=== PATIENT | male | born 1955 | race Caucasian/White ===

== ENCOUNTER 2017-03-15 00:50 | Inpatient (IN) | payer MEDICARE, OTHER ==
[2017-03-15] MEDS ORDERED: NITROGLYCERIN SL TABS 0.4 MG TAB SUBLINGUAL STA (01:21)
[2017-03-15] MEDS ORDERED: ASPIRIN 81 MG CHEW PO STA (01:21)
[2017-03-15 01:46] LABS: Basophils # (A) 0.1 k/uL (0-0.2); Basophils % (A) 1 %; CH 32.6; Eosinophils # (A) 0.6 k/uL (0-0.7); Eosinophils % (A) 5 %; HCT 43.7 % (39.0-53.0); HDW 2.42; HGB 14.4 gm/dL (13.0-17.5); Luc # (Auto) 0.17; Luc % (Auto) 2; Lymphocytes # (A) 3.4 k/uL (1.0-4.8); Lymphocytes % (A) 30 %; MCH 31.7 pg (25.0-35.0); MCHC 32.9 g/dL (31.0-37.0); MCV 96.3 fL (80.0-100.0); Mean Platelet Volume 7.6; Monocytes # (A) 0.6 k/uL (0-1.0); Monocytes % (A) 5 %; Neutrophils # (A) 6.7 k/uL (1.3-7.7); Neutrophils % (A) 58 %; RBC 4.53 m/uL (4.30-5.90); RDW 14.4 % (11.5-15.5); WBC 11.5 k/uL (3.8-10.6); WBC (Perox) 11.23
[2017-03-15 01:51] LABS: ALT 33 U/L (21-72); AST 18 U/L (17-59); Alkaline Phosphatase 100 U/L (38-126); Amylase 83 U/L (30-110); Anion Gap 11 mmol/L; Blood Urea Nitrogen 26 mg/dL (9-20); Calcium 8.9 mg/dL (8.4-10.2); Carbon Dioxide 18 mmol/L (22-30); Chloride 110 mmol/L (98-107); Glucose 103 mg/dL (74-99); Magnesium 1.5 mg/dL (1.6-2.3); Non-African American GFR(MDRD) 56 (>60 ml/min/1.73 sqM); Sodium 139 mmol/L (137-145); Total Bilirubin 0.3 mg/dL (0.2-1.3); Total Protein 6.4 g/dL (6.3-8.2)
[2017-03-15 01:56] LABS: Partial Thromboplastin Time 22.8 sec (22.0-30.0)
--- NOTE | 2017-03-15 02:13 | XR ---
EXAM: XR Chest, 1 View CLINICAL HISTORY: Reason: chest pain TECHNIQUE: Frontal view of the chest. COMPARISON: No relevant prior studies available. FINDINGS: Lungs: Unremarkable. No consolidation. Pleural space: Unremarkable. No pneumothorax. Heart: Unremarkable. No cardiomegaly. Mediastinum: Unremarkable. Bones/joints: Unremarkable. Tubes, lines and devices: Single lead cardiac pacemaker is noted. Other findings: Round opacity projecting over the lateral left mid thorax measured to 2.6 cm. IMPRESSION: Round opacity projecting over the lateral left mid thorax measuring up to 2.6 cm. Findings are nonspecific. In the absence of prior imaging demonstrating stability, consider CT of the chest.
[2017-03-15 02:19] LABS: Creatine Kinase MB 0.9 ng/mL (0.0-2.4); Troponin I 0.029 ng/mL (0.000-0.034)
[2017-03-15] MEDS ORDERED: RX INFO: IV CONTRAST WAS GIVEN 1 EACH MISC MISCELLANE PRN (05:53)
[2017-03-15] MEDS ORDERED: NITROGLYCERIN SL TABS 0.4 MG TAB SUBLINGUAL PRN ×2 (05:53→14:01)
[2017-03-15] MEDS ORDERED: MAGNESIUM SULFATE-D5W PMX 1 GM in DEXTROSE/WATER 1 100ML.BAG IVPB ONE (05:53)
--- NOTE | 2017-03-15 05:56 | ED ---
Chest Pain HPI - General Chief Complaint: Chest Pain Stated Complaint: chest pain Time Seen by Provider: 03/15/17 00:57 Source: patient Mode of arrival: EMS Limitations: no limitations - History of Present Illness Initial Comments: This patient is a 61-year-old man brought by EMS to be evaluated after he developed right upper chest pain about 2 days ago. The patient describes it as a aching. He has also had a bit of a cough associated. Patient states that he is feeling a bit better after he was given nitroglycerin by EMS. MD Complaint: chest pain Onset/Timin -: days(s) Onset: during rest Pain Location: right chest Pain Radiation: none Severity: moderate Quality: dull Consistency: constant Improves With: nitroglycerin Worsens With: nothing Anginal Symptoms: dyspnea Other Symptoms: cough Treatments Prior to Arrival: aspirin, nitroglycerin - Related Data Home Medications Medication Instructions Recorded Confirmed Atorvastatin Calcium [Lipitor] 20 mg PO DAILY 03/15/17 03/15/17 Carvedilol Phosphate [Coreg Cr] 20 mg PO HS 03/15/17 03/15/17 Lisinopril [Lisinopril] 20 mg PO BID 03/15/17 03/15/17 amLODIPine [Norvasc] 10 mg PO DAILY 03/15/17 03/15/17 Allergies Allergy/AdvReac Type Severity Reaction Status Date / Time Penicillins Allergy Rash/Hives Verified 03/15/17 07:16 Review of Systems ROS Statement: Those systems with pertinent positive or pertinent negative responses have been documented in the HPI. ROS Other: All systems not noted in ROS Statement are negative. Constitutional: Denies: fever, chills Respiratory: Reports: cough. Denies: dyspnea, wheezes, hemoptysis Cardiovascular: Reports: chest pain. Denies: palpitations, edema, syncope Gastrointestinal: Denies: abdominal pain, vomiting, diarrhea Genitourinary: Denies: dysuria, hematuria Musculoskeletal: Denies: back pain Skin: Denies: rash Neurological: Denies: headache, weakness, numbness Psychiatric: Reports: anxiety EKG Findings - EKG Results: EKG: interpreted by MARK, sinus rhythm, normal ST/T EKG shows: bradycardia (Rate approximately 54 bpm) - Blocks, [place], Hypertrophy, ST Abn: QRS axis and voltage: left axis deviation (-30 to -90) Chamber hypertrophy or enlargement: only voltage criteria for left ventricular hypertrophy Past Medical History Past Medical History: Hypertension, Myocardial Infarction ([place]) Additional Past Medical History / Comment(s): TESTICULAR CANCER, PACEMAKER/ DEFIBRILATOR History of Any Multi-Drug Resistant Organisms: None Reported Past Surgical History: Orthopedic Surgery Past Psychological History: No Psychological Hx Reported Smoking Status: Current every day smoker Past Alcohol Use History: Occasional Past Drug Use History: Marijuana - Past Family History Father Family Medical History: Coronary Artery Disease (CAD) Additional Family Medical History / Comment(s): Father at the age of 80yrs from heart disease. Mother Family Medical History: No Reported History Additional Family Medical History / Comment(s): Mother is healthy and is 79yrs old. General Exam Limitations: no limitations General appearance: alert, in no apparent distress Head exam: Present: atraumatic, normocephalic Eye exam: Present: normal appearance. Absent: scleral icterus, conjunctival injection ENT exam: Present: normal oropharynx Neck exam: Present: normal inspection, full ROM Respiratory exam: Present: normal lung sounds bilaterally, wheezes, chest wall tenderness. Absent: respiratory distress, rales, rhonchi, stridor Cardiovascular Exam: Present: regular rate, normal rhythm, normal heart sounds. Absent: systolic murmur, diastolic murmur, rubs, gallop GI/Abdominal exam: Present: soft. Absent: distended, tenderness, guarding, rebound, mass Extremities exam: Present: normal inspection, normal capillary refill. Absent: pedal edema, calf tenderness Back exam: Present: normal inspection. Absent: CVA tenderness (R), CVA tenderness (L) Neurological exam: Present: alert Skin exam: Present: warm, dry, intact, normal color. Absent: rash Course Vital Signs 03/15/17 03/15/17 03/15/17 00:54 01:08 01:35 Temperature 96.9 F L Pulse Rate 56 L 61 63 Respiratory 18 18 18 Rate Blood Pressure 86/49 146/92 149/97 O2 Sat by Pulse 95 97 98 Oximetry 03/15/17 03/15/17 03/15/17 02:50 03:24 05:00 Temperature Pulse Rate 58 L 58 L 57 L Respiratory 18 18 18 Rate Blood Pressure 171/95 173/102 197/104 O2 Sat by Pulse 97 99 98 Oximetry 03/15/17 03/15/17 05:24 07:37 Temperature 97.2 F L Pulse Rate 62 66 Respiratory 18 16 Rate Blood Pressure 196/102 180/107 O2 Sat by Pulse 98 96 Oximetry Chest Pain MDM - MDM Patient is a 61-year-old man with some atypical chest pain however there was relief with nitroglycerin, will admit the patient to have telemetry monitoring and serial cardiac enzymes. Disposition Clinical Impression: Chest pain Disposition: ADMITTED IP TO THIS HOSP Condition: Fair
--- NOTE | 2017-03-15 07:48 | CT ---
EXAMINATION TYPE: CT chest angio for PE DATE OF EXAM: 03/15/2017 COMPARISON: CTA chest March 14, 2012, chest x-ray earlier today. HISTORY: Patient complains of right side chest pain. CT DLP: 552 mGycm. Automated Exposure Control for Dose Reduction was Utilized. CONTRAST: CTA scan of the thorax is performed with IV Contrast, patient injected with 100 mL of Visipaque 320, pulmonary embolism protocol. MIP Images are created on CT scanner and reviewed. FINDINGS: LUNGS: There is trace right-sided effusion. There is background mild to borderline moderate emphysema tous change. There is mild biapical scarring. There is additional bibasilar scarring and/or atelectas is. Scarlike nodularity in the lingula measuring 9 x 8 mm on axial image [address] La rger well-circumscribed nodule anterior and superior to this is increased in size measuring 2.3 x 2.3 cm on current study now abutting the pleural surface on axial image 110. A 1.3 x 1.3 cm nodule super ior posterior medial to this on axial image 99 is stable in size from prior study. No pneumothorax is seen bilaterally. Tracheobronchial tree is patent. MEDIASTINUM: There is satisfactory enhancement of the pulmonary artery and its branches, there is no CT evidence for pulmonary embolism. There are no greater than 1 cm hilar or mediastinal lymph nodes. There are prominent but subcentimeter AP window, paratracheal, bilateral hilar, and subcarinal lymp h nodes noted. No cardiomegaly is seen. Tiny pericardial effusion is redemonstrated. Mild to moderate left atrial dilatation is again seen. There is heterogeneity likely on basis of mixing of contrast o pacified blood from SVC and noncontrast nonopacified blood from IVC, other etiologies are not exclude d. Coronary artery calcification is redemonstrated. There is 4 vessel origin from aortic arch, normal variant. There is moderate mixed plaque in the visualized aorta. New single lead pacemaker/AICD is p resent. OTHER: No additional significant abnormality is seen. IMPRESSION: 1. No CT evidence for pulmonary embolism. 2. Mild to moderate emphysematous change with trace right pleural effusion and scattered atelectasis and/or scarring most pronounced in bases. There are left-sided lower pulmonary nodules redemonstrated . Corresponding to chest x-ray abnormality there is nodule increasing in size from CT 2012. Other nod ules are stable. Neoplasm cannot be excluded. Consider PET/CT or imaging guided biopsy for further an alysis. 2.
[2017-03-15] MEDS ORDERED: HEPARIN SODIUM,PORCINE 5,000 UNIT/ML 1 ML VIAL IV PRN ×2 (08:28→15:23)
[2017-03-15] MEDS ORDERED: CARVEDILOL 6.25 MG TAB PO SCH (08:30)
--- NOTE | 2017-03-15 08:32 | P.CRDCN ---
History of Present Illness Consult date: 03/15/17 Requesting physician: Regis Valdez Consult reason: chest pain Chief complaint: Chest pain History of present illness: This is a 61-year-old gentleman with history of coronary artery disease and prior stent placement, ischemic cardiomyopathy with prior AICD implant, chest pain, hyperlipidemia, nicotine dependence, history of a prior testicular cancer, EtOH use, emphysema, he follows with Dr. Jones in the office. Patient presents to the hospital with symptoms of right sided chest pain which he describes as a constant ache in his chest. Patient states he did get mildly diaphoretic with the pain, denies shortness of breath or nausea. He does state that the pain is constant however he feels that if he presses on the chest and let go that the pain intensifies. At the time of my examination this morning he has mild chest discomfort. Initial blood pressure via EMS was 205/ 142 with a heart rate in the 70s. Initial EKG shows a sinus bradycardia with minimal ST depression in the lateral leads. Patient states he was recently discontinued on his Coreg and started on metoprolol tartrate because he had been experiencing dizziness. He also states that he had not yet taken one of those medications, however he did stop taking the Coreg. Blood pressure this morning 144/98 with a heart rate in the 80s. WBC 11.5, hemoglobin 14.4, platelets 182. D-dimer 1.3, potassium 4.0, BUN 26, creatinine 1.3. Magnesium level I.5, initial troponin 0.029. Initial chest x-ray revealed a round opaque to be projecting over the lateral left mid thorax measuring up to 2.6 cm, findings nonspecific. CTA of the chest was performed which did not reveal evidence of a pulmonary embolism. Mild to moderate emphysema changes with a trace right pleural effusion and scattered atelectasis. There are left-sided lower pulmonary nodules redemonstrated. Corresponding the chest x-ray abnormality there is a nodule increased in size from the CAT scan performed in 2011. The other nodules are stable. Neoplasm cannot be excluded PET scan or computed tomography scan imaging guided biopsy recommended. Past Medical History Past Medical History: Hypertension, Myocardial Infarction ([place]) Additional Past Medical History / Comment(s): TESTICULAR CANCER, PACEMAKER/ DEFIBRILATOR History of Any Multi-Drug Resistant Organisms: None Reported Past Surgical History: Orthopedic Surgery Past Psychological History: No Psychological Hx Reported Smoking Status: Current every day smoker Past Alcohol Use History: Occasional Past Drug Use History: Marijuana Medications and Allergies Home Medications Medication Instructions Recorded Confirmed Type Atorvastatin Calcium [Lipitor] 20 mg PO DAILY 03/15/17 03/15/17 History Carvedilol Phosphate [Coreg Cr] 20 mg PO HS 03/15/17 03/15/17 History Lisinopril [Lisinopril] 20 mg PO BID 03/15/17 03/15/17 History amLODIPine [Norvasc] 10 mg PO DAILY 03/15/17 03/15/17 History Allergies Allergy/AdvReac Type Severity Reaction Status Date / Time Penicillins Allergy Rash/Hives Verified 03/15/17 07:16 Physical Exam Vitals: Vital Signs Temp Pulse Pulse Resp BP BP Pulse Ox 03/15/17 07:51 96.0 F L 80 16 144/99 98 03/15/17 07:40 97.2 F L 66 16 180/107 96 03/15/17 07:37 97.2 F L 66 16 180/107 96 03/15/17 05:24 62 18 196/102 98 03/15/17 05:00 57 L 18 197/104 98 03/15/17 03:24 58 L 18 173/102 99 03/15/17 02:50 58 L 18 171/95 97 03/15/17 01:35 63 18 149/97 98 03/15/17 01:08 61 18 146/92 97 03/15/17 00:54 96.9 F L 56 L 18 86/49 95 Intake and Output 03/14/17 03/15/17 03/15/17 22:59 06:59 14:59 Other: Weight 83.915 kg PHYSICAL EXAMINATION: HEENT: Head is atraumatic, normocephalic. Pupils equal, round. Neck is supple. There is no elevated jugular venous pressure. HEART EXAMINATION: Heart S1, S2 normal. No murmur or gallop heard. CHEST EXAMINATION: Lungs reveal fine crackles to bilateral bases with diminished air entry. ABDOMEN: Soft, nontender. Bowel sounds are heard. No organomegaly noted. EXTREMITIES: 2+ peripheral pulses with no evidence of peripheral edema and no calf tenderness noted. NEUROLOGIC patient is awake, alert and oriented -3. . Results 03/15/17 01:00 03/15/17 01:00 Cardiac Enzymes 03/15/17 03/15/17 Range/Units 01:00 01:00 AST 18 (17-59) U/L CK-MB (CK-2) 0.9 (0.0-2.4) ng/mL Troponin I 0.029 (0.000-0.034) ng/mL Coagulation 03/15/17 Range/Units 01:00 PT 10.0 (9.0-12.0) sec APTT 22.8 (22.0-30.0) sec CBC 03/15/17 Range/Units 01:00 WBC 11.5 H (3.8-10.6) k/uL RBC 4.53 (4.30-5.90) m/uL Hgb 14.4 (13.0-17.5) gm/dL Hct 43.7 (39.0-53.0) % Plt Count 182 (150-450) k/uL Comprehensive Metabolic Panel 03/15/17 Range/Units 01:00 Sodium 139 (137-145) mmol/L Potassium 4.0 (3.5-5.1) mmol/L Chloride 110 H (98-107) mmol/L Carbon Dioxide 18 L (22-30) mmol/L BUN 26 H (9-20) mg/dL Creatinine 1.30 H (0.66-1.25) mg/dL Glucose 103 H (74-99) mg/dL Calcium 8.9 (8.4-10.2) mg/dL AST 18 (17-59) U/L ALT 33 (21-72) U/L Alkaline Phosphatase 100 (38-126) U/L Total Protein 6.4 (6.3-8.2) g/dL Albumin 3.7 (3.5-5.0) g/dL Current Medications Generic Name Dose Route Start Last Admin Trade Name Freq PRN Reason Stop Dose Admin Amlodipine Besylate 10 mg 03/15/17 09:00 Norvasc PO DAILY [facility] Aspirin 325 mg 03/16/17 09:00 Aspirin PO DAILY [facility] Atorvastatin Calcium 20 mg 03/15/17 09:00 Lipitor PO DAILY [facility] Enoxaparin Sodium 40 mg 03/15/17 09:00 Lovenox SQ DAILY [facility] Miscellaneous Information 1 each 03/15/17 05:53 Rx Info: Iv Contrast Was Given MISCELLANE 03/17/17 05:53 DAILY PRN Per Protocol Nitroglycerin 0.4 mg 03/15/17 05:53 03/15/17 07:21 Nitrostat SUBLINGUAL 0.4 mg Q5M PRN Administration Chest Pain Non-Formulary Medication 20 mg 03/15/17 21:00 Carvedilol Phosphate [Coreg Cr] PO HS [facility] Intake and Output 03/14/17 03/15/17 03/15/17 22:59 06:59 14:59 Other: Weight 83.915 kg 03/15/17 01:00 03/15/17 01:00 EKG Interpretations (text) EKG shows a sinus bradycardia with lateral ST depression. Evidence of LVH strain pattern Assessment and Plan Plan: Assessment and plan #1 chest discomfort, rule out acute coronary syndrome. Initial troponin 0.029. EKG shows a sinus bradycardia with minimal ST depression in the lateral leads. #2 hypertensive urgency #3 history of hypertension #4 coronary artery disease history with prior stent placement to the LAD in 2011 #5 hyperlipidemia #6 nicotine dependence #7 ischemic cardiomyopathy with prior AICD implant #8 EtOH use #9 hypomagnesemia #10 lung nodule Plan We will obtain an echocardiogram with Doppler study. Discontinue Lovenox and start the patient on IV heparin. Decrease Norvasc to 5 mg daily. Decrease aspirin 81 mg daily. Increase Lipitor to 40 mg daily, replace magnesium. Obtained to further troponin values. We will review the patient's prior cath and angioplasty report as well as prior EKG. Further recommendations will be based on these findings and the patient's clinical course. DNP note has been reviewed, I agree with a documented findings and plan of care. Patient was seen and examined.
[2017-03-15 08:41] LABS: Creatine Kinase MB 1.1 ng/mL (0.0-2.4); Troponin I 0.024 ng/mL (0.000-0.034)
[2017-03-15 08:43] LABS: Basophils # (A) 0.1 k/uL (0-0.2); Basophils % (A) 1 %; CH 32.3; CHCM 33.7; Eosinophils # (A) 0.4 k/uL (0-0.7); Eosinophils % (A) 4 %; HCT 48.4 % (39.0-53.0); HDW 2.42; HGB 15.8 gm/dL (13.0-17.5); Luc # (Auto) 0.13; Luc % (Auto) 1; Lymphocytes # (A) 2.7 k/uL (1.0-4.8); Lymphocytes % (A) 25 %; MCH 31.5 pg (25.0-35.0); MCHC 32.7 g/dL (31.0-37.0); MCV 96.3 fL (80.0-100.0); Mean Platelet Volume 7.7; Monocytes # (A) 0.4 k/uL (0-1.0); Monocytes % (A) 4 %; Neutrophils % (A) 66 %; RBC 5.03 m/uL (4.30-5.90); RDW 14.4 % (11.5-15.5); WBC 10.7 k/uL (3.8-10.6); WBC (Perox) 10.26
[2017-03-15] MEDS ORDERED: HEPARIN SODIUM,PORCINE 5,000 UNIT/ML 1 ML VIAL IV ONE (08:45)
[2017-03-15 08:46] LABS: Partial Thromboplastin Time 23.4 sec (22.0-30.0)
--- NOTE | 2017-03-15 08:46 | P.PN ---
Progress Note - Text This is an addendum to the dictated cardiology consultation. The patient has a known history of CAD, post stenting of the LAD in October 2009 and a long segment, history of severe ischemic cardiomyopathy and ICD implantation, noncompliant who presented to the hospital with right-sided chest discomfort different from symptoms that he had at the time of his event in 2009. The patient was started on a new beta pablo recently and according to him every evening when he takes his medication he has right sided chest discomfort at times better when he pushes on the chest wound. His activity level is unchanged , he has mild dyspnea on exertion but no exertional chest pain. He has no clear PND or orthopnea or recent arrhythmia. He has no discharge from the device but his device has not been evaluated in over 3 years. Unfortunately the patient continues to smoke and he drinks large amount of beer almost every other day. On his physical examination there is no signs of heart failure and he is in sinus mechanism His EKG shows sinus mechanism with T-wave changes on the lateral leads that was noted in the past and his initial troponin is within normal range. The patient presents with symptoms of chest discomfort unclear etiology, his pain appear to be atypical for ischemic heart disease. I would recommend to start him on heparin, beta pablo and his MIRNA inhibitor. An echocardiogram with Doppler will be obtained. Depending on the trend of his enzymes and his symptoms further recommendations will be made. I have discussed with the patient the importance of compliance with his follow-up as well as smoking and alcohol cessation. Thank you for this consult we will follow with you.
[2017-03-15] MEDS ORDERED: ATORVASTATIN 20 MG TAB PO SCH (09:00)
[2017-03-15] MEDS ORDERED: amLODIPine 10 MG TAB PO SCH (09:00)
[2017-03-15] MEDS ORDERED: HEPARIN SODIUM,PORCINE/D5W PMX 25,000 UNIT in DEXTROSE/WATER 1 500ML.BAG IV SCH ×2 (09:00→16:00)
[2017-03-15] MEDS ORDERED: ENOXAPARIN 40 MG/0.4 ML SYRINGE SQ SCH (09:00)
[2017-03-15] MEDS ORDERED: REGADENOSON 0.4 MG/5 ML SYRINGE IV ONE (09:49)
[2017-03-15] MEDS ORDERED: AMINOPHYLLINE 500 MG/20 ML VIAL IV PRN (09:49)
--- NOTE | 2017-03-15 12:24 | ECHOF ---
Referral Reason:cm MEASUREMENTS -------- HEIGHT: 185.4 cm WEIGHT: 83.9 kg BP: 144/99 RVIDd: 2.7 cm (< 3.3) IVSd: 1.7 cm (0.6 - 1.1) LVIDd: 5.3 cm (3.9 - 5.3) LVPWd: 1.5 cm (0.6 - 1.1) IVSs: 1.9 cm LVIDs: 4.4 cm LVPWs: 2.0 cm LAESV Index (A-L): 36.97 ml/m Ao Diam: 4.2 cm (2.0 - 3.7) AV Cusp: 1.1 cm (1.5 - 2.6) LA Diam: 3.0 cm (2.7 - 3.8) MV EXCURSION: 15.271 mm (> 18.000) MV EF SLOPE: 48 mm/s (70 - 150) EPSS: 1.8 cm MV E Gregory: 0.58 m/s MV DecT: 278 ms MV A Gregory: 1.04 m/s MV E/A Ratio: 0.56 AV maxP.80 mmHg AV meanP.66 mmHg RAP: 5.00 mmHg RVSP: 27.77 mmHg FINDINGS -------- Resting bradycardia (HR<60bpm). This was a technically adequate study. There is moderate concentric left ventricular hypertrophy. Overall left ventricular systolic function is moderately impaired with, an EF between 35 - 40 %. The right ventricle is normal in size and function. LA is moderately dilated 34-39 ml/m2 The right atrium is normal in size. Electronic pacemaker lead seen in the right ventricular cavity. Aortic valve is trileaflet and is mildly thickened. Trace amount of aortic regurgitation. Mild aortic stenosis with peak/mean pressure gradient of 14.80mmHg / 9.66mmHg , the aortic valve area by continuity equation is 1.2cm. The mitral valve leaflets are mildly thickened. Mild mitral annular calcification present. There is trace to mild mitral regurgitation. Trace tricuspid regurgitation present. There is no evidence of pulmonary hypertension. The right ventricular systolic pressure, as measured by Doppler, is 27.77mmHg. The pulmonic valve was not well visualized. The aortic root size is normal. Normal inferior vena cava with normal inspiratory collapse consistent with estimated right atrial pressure of 5 mmHg. The pericardium is normal. There is no pericardial effusion. CONCLUSIONS -------- 1. Resting bradycardia (HR<60bpm). 2. The mitral valve leaflets are mildly thickened. 3. Mild mitral annular calcification present. 4. There is trace to mild mitral regurgitation. 5. Trace tricuspid regurgitation present. 6. There is no evidence of pulmonary hypertension. 7. The right ventricular systolic pressure, as measured by Doppler, is 27.77mmHg. 8. The pulmonic valve was not well visualized. 9. The aortic root size is normal. 10. There is no pericardial effusion. 11. This was a technically adequate study. 12. There is moderate concentric left ventricular hypertrophy. 13. Overall left ventricular systolic function is moderately impaired with, an EF between 35 - 40 %. 14. LA is moderately dilated 34-39 ml/m2 15. Electronic pacemaker lead seen in the right ventricular cavity. 16. Aortic valve is trileaflet and is mildly thickened. 17. Trace amount of aortic regurgitation. 18. Mild aortic stenosis with peak/mean pressure gradient of 14.80mmHg / 9.66mmHg , the aortic valve area by continuity equation is 1.2cm. BEDSPREAD INSPECTOR: Yonatan Duarte RDCS
[2017-03-15] MEDS: amLODIPine 5 MG TAB PO SCH (12:43)
[2017-03-15] MEDS: METOPROLOL SUCCINATE (ER) 25 MG TAB.ER.24H PO SCH (12:43)
[2017-03-15] MEDS: LISINOPRIL 5 MG TAB PO SCH ×2 (12:43→20:49)
[2017-03-15] MEDS: ATORVASTATIN 40 MG TAB PO SCH (12:43)
--- NOTE | 2017-03-15 12:48 | EST ---
DATE OF SERVICE: 03/15/2017 AGE: 61Y SEX: M HT: 6'3" WT: 185 lbs. Protocol Deondre: Other: Lexiscan Cardiolite Stage: Dur. of Exercise: *Heart Rate Blood Pressure *Rest: 63 Rest: 216/131 * *Max. Achieved: 103 Maximum BP: 204/117 85% PMHR: 136 100% PMHR: 160 *METS: INDICATIONS: Chest pain. MEDICATIONS: The patient was given Lexiscan injection over a period of 15 seconds. Peak heart rate of 103 was achieved. The resting blood pressure was 204/117 mmHg. Resting EKG shows normal sinus rhythm with QRS morphology suggestive of left ventricular hypertrophy and strain pattern. Occasional PVCs and one episode of ventricular triplet were noted. FINAL IMPRESSION: 1. This EKG is inconclusive to diagnose ischemia because of resting EKG abnormalities. 2. Occasional ventricular triplets were noted. 3. The patient's resting blood pressure is elevated. 4. The results of the nuclear study will follow.
--- NOTE | 2017-03-15 13:42 | NM ---
"EXAMINATION TYPE: NM stress lexiscan cardiolite DATE OF EXAM: 03/15/2017 COMPARISON: 03/15/2012 HISTORY: Chest pain TECHNIQUE: After the intravenous administration of 11 mCi Tc 99m Sestamibi - Cardiolite resting SPEC T images acquired 45 minutes post injection. The patient received 0.4mg Lexiscan, 26.5 mCi Tc 99m Sestamibi - Stress images obtained [address] injection FINDINGS: Review of stress and rest SPECT images demonstrates large area of stress-induced reversibility involv ing the inferior and inferolateral myocardium. Corresponding wall motion abnormality noted.. Ejection fraction is 27%. IMPRESSION: Diffuse abnormal wall motion activity with a large area of stress-induced reversible ischemia involvi ng the inferior and inferolateral myocardium. A Red message has been communicated to Regis Valdez MD via the [employer] | Critical Result sy stem on 03/15/2017 1:40 PM, Message ID [id number]."
[2017-03-15] MEDS ORDERED: hydrALAZINE HCL 20 MG/ML 1 ML VIAL IVP STA (13:56)
[2017-03-15 14:00] LABS: Troponin I 0.023 ng/mL (0.000-0.034)
[2017-03-15] MEDS ORDERED: SODIUM CHLORIDE 0.9% 1,000 ML in EMPTY BAG 1 BAG IV ONE (14:01)
[2017-03-15] MEDS ORDERED: ALPRAZolam 0.5 MG TAB PO PRN (14:01)
[2017-03-15] MEDS: NITROGLYCERIN OINT 1 INCH/GM PACKET TOPICAL SCH ×2 (14:01→20:49)
[2017-03-15] MEDS ORDERED: ALPRAZolam 0.25 MG TAB PO PRN (14:01)
[2017-03-15] MEDS ORDERED: ASPIRIN 325 MG TAB PO STA (14:04)
[2017-03-15] MEDS ORDERED: ATORVASTATIN 40 MG TAB PO STA (14:05)
--- NOTE | 2017-03-15 17:33 | CONS ---
DATE OF CONSULTATION: This is a 61-year-old male with history of coronary artery disease and previous stent placement. He also has a history of ischemic cardiomyopathy and prior AICD implant. The patient presented with chest pain. The patient had chest pain that was right-sided. It is a constant ache in his right chest area. Mild diaphoresis. No shortness of breath, no nausea, no vomiting. The patient's pain was constant. The patient was initially found to have a blood pressure very high at 205/142 with a heart rate in the 70s. Anyway, the patient is currently being evaluated for the chest pain. He was taken down to the tree tapping laborer for a stress test. The patient is currently not back in the room as yet. He was initially admitted to the sixth floor. He had a chest x-ray, which apparently showed a lesion overlying the mid chest area. It is primarily left-sided. In addition, he had a CAT scan, which showed no evidence of PE, but multiple pulmonary nodules at the left base, which apparently are larger in size and will need to be evaluated PET/CT scan was recommended. The patient medical history is positive for hypertension, myocardial infarction, testicular cancer, pacemaker/defibrillator. Surgical history is essentially unremarkable. Social history is positive for ongoing tobacco use. No alcohol use. No illicit drug use. Home medications include Lipitor, Coreg, lisinopril and Norvasc. ALLERGIES: PENICILLIN. The rest of the history is not too remarkable. Most of the surgery is remote. REVIEW OF SYSTEMS: CONSTITUTIONAL: Negative. NEUROLOGICAL: Negative. HEENT: Negative. CARDIOVASCULAR: Right-sided chest pain. PULMONARY: Negative. GI/: Negative. RHEUMATOLOGICAL/IMMUNOLOGIC: Negative. ENDOCRINOLOGIC: Negative. DERMATOLOGIC: Negative. Current vital signs are reviewed. Temperature is 96, heart rate 80, respirations 16, blood pressure 144/89, mean 114. Room air saturation 98%. Appears in no acute distress. HEENT examination is grossly unremarkable. Mucous membranes are moist. No oral lesion. Neck is supple. Full range of motion. No adenopathy or thyromegaly. Cardiovascular examination reveals regular rhythm and rate. S1, S2 normal. Lungs reveal relatively clear breath sounds. No wheezes, rhonchi or crackles. ABDOMEN: Soft. Bowel sounds are heard. No masses or tenderness. EXTREMITIES: Intact. No cyanosis, clubbing, or edema. SKIN: Without rash. NEUROLOGIC: Nonfocal. Chest x-ray and CAT scan is reviewed. Labs are reviewed. White count 10.7. Hemoglobin and hematocrit and platelet count all normal. PT, INR, PTT normal. Sodium and potassium normal. Chloride is 110, CO2 of 18. Anion gap 11, BUN and creatinine 26 and 1.30. The rest of the labs look okay. Microbiology is okay. CAT scan shows some upper lobe emphysematous changes. Actually the can really is not really impressive, but will be followed up with PET/CT perfusion study as recommended by radiology. ASSESSMENT: 1. Right-sided chest pain, thought not to be cardiac in nature. 2. Hypertension. 3. Hyperlipidemia. 4. Testicular cancer. 5. Rule out mets to the lung. 6. No evidence of pulmonary embolism. PLAN: I will see the patient in follow up in the office. We will plan on outpatient PET/CT perfusion study. The patient may benefit from navigational bronchoscopy for diagnosis.
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
[2017-03-16 04:50] LABS: Basophils # (A) 0.1 k/uL (0-0.2); Basophils % (A) 1 %; CH 32.6; CHCM 33.8; Eosinophils # (A) 0.4 k/uL (0-0.7); Eosinophils % (A) 4 %; HCT 47.7 % (39.0-53.0); HDW 2.38; HGB 15.4 gm/dL (13.0-17.5); Luc # (Auto) 0.14; Luc % (Auto) 1; Lymphocytes # (A) 2.8 k/uL (1.0-4.8); Lymphocytes % (A) 28 %; MCH 31.3 pg (25.0-35.0); MCHC 32.3 g/dL (31.0-37.0); Mean Platelet Volume 7.2; Monocytes # (A) 0.5 k/uL (0-1.0); Monocytes % (A) 5 %; Neutrophils # (A) 6.3 k/uL (1.3-7.7); Neutrophils % (A) 61 %; RBC 4.92 m/uL (4.30-5.90); RDW 14.5 % (11.5-15.5); WBC 10.2 k/uL (3.8-10.6); WBC (Perox) 10.06
[2017-03-16 05:15] LABS: Calcium 9.4 mg/dL (8.4-10.2); Potassium 4.3 mmol/L (3.5-5.1)
[2017-03-16] MEDS: NITROGLYCERIN OINT 1 INCH/GM PACKET TOPICAL SCH ×5 (06:07→23:16)
[2017-03-16] MEDS: amLODIPine 5 MG TAB PO SCH (06:07)
[2017-03-16] MEDS: ATORVASTATIN 40 MG TAB PO SCH (06:07)
[2017-03-16] MEDS: ASPIRIN 81 MG CHEW PO SCH (06:07)
[2017-03-16] MEDS: METOPROLOL SUCCINATE (ER) 25 MG TAB.ER.24H PO SCH (06:08)
[2017-03-16] MEDS: LISINOPRIL 5 MG TAB PO SCH (06:08)
[2017-03-16] MEDS ORDERED: ASPIRIN 325 MG TAB PO SCH (09:00)
[2017-03-16] MEDS: HEPARIN SODIUM,PORCINE/D5W PMX 25,000 UNIT in DEXTROSE/WATER 1 500ML.BAG IV SCH (10:17)
--- NOTE | 2017-03-16 10:35 | P.NPCON ---
History of Present Illness - Reason for Consult acute renal failure - History of Present Illness Reason for consultation: Acute kidney injury on chronic kidney disease. History of present illness: Patient is a 61-year-old male seen in renal consultation for acute kidney injury on chronic kidney disease. His creatinine was 1.3 on admission and is 1.89 today. Patient does have a history of chronic kidney disease stage III. Unclear as to what his baseline renal function is. Etiology is likely nephrosclerosis. Patient presented to the hospital with right-sided chest pain. Patient states the pain started on Wednesday and was intermittent in nature. Describes the pain as pressure-like in nature along with some numbness in his right arm as well. His stress test was abnormal and there is consideration for cardiac catheterization. He does of systolic CHF with ejection fraction of 30%. He did receive IV dye on March 15 for CTA which revealed no evidence of pulmonary embolus. He admits to good urine output. Denies any hematuria or dysuria. No vomiting or diarrhea. Oral intake is fair. Denies any family history of renal disease. His blood pressures have been quite labile. His systolic blood pressure was over 200 on admission and then drop down to the low 100s. No history of diabetes. Does admit to smoking about a pack a day for the last several years. Currently has no active chest pain. Vital signs are stable. General: The patient appeared well nourished and normally developed. HEENT: Head exam is unremarkable. Neck is without jugular venous distension. LUNGS: Lungs are clear to auscultation and percussion. Breath sounds decreased. HEART: Rate and Rhythm are regular. First and second heart sounds normal. No murmurs, rubs or gallops. ABDOMEN: Abdominal exam reveals normal bowel sounds. Non-tender and non- distended. No evidence of peritonitis. EXTREMITITES: No clubbing, cyanosis, or edema. Past Medical History Past Medical History: Hypertension, Myocardial Infarction (OR) Additional Past Medical History / Comment(s): TESTICULAR CANCER, PACEMAKER/ DEFIBRILATOR History of Any Multi-Drug Resistant Organisms: None Reported Past Surgical History: Orthopedic Surgery Additional Past Surgical History / Comment(s): 2010 pacer/AICD, PCI with stent 2009, bilateral femur surgeries-L leg has had hardware removed, still has 2 pins in R femur, facial reconstructive surgery, L orchidectomy/scrotal sx, colonoscopy. Past Anesthesia/Blood Transfusion Reactions: No Reported Reaction Past Psychological History: No Psychological Hx Reported Smoking Status: Current every day smoker Past Alcohol Use History: Occasional Past Drug Use History: Marijuana - Past Family History Father Family Medical History: Coronary Artery Disease (CAD) Additional Family Medical History / Comment(s): Father at the age of 80yrs from heart disease. Mother Family Medical History: No Reported History Additional Family Medical History / Comment(s): Mother is healthy and is 79yrs old. Medications and Allergies Home Medications Medication Instructions Recorded Confirmed Type Atorvastatin Calcium [Lipitor] 20 mg PO DAILY 03/15/17 03/15/17 History Carvedilol Phosphate [Coreg Cr] 20 mg PO HS 03/15/17 03/15/17 History Lisinopril [Lisinopril] 20 mg PO BID 03/15/17 03/15/17 History amLODIPine [Norvasc] 10 mg PO DAILY 03/15/17 03/15/17 History Allergies Allergy/AdvReac Type Severity Reaction Status Date / Time Penicillins Allergy Rash/Hives Verified 03/15/17 07:16 Physical Exam Vitals: Vital Signs Temp Pulse Resp BP BP Pulse Ox 03/16/17 07:58 67 165/97 97 03/16/17 06:00 97.6 F 82 18 130/92 96 03/16/17 04:00 97.6 F 82 18 130/92 96 03/16/17 00:00 97.2 F L 81 17 134/87 95 03/15/17 20:00 97.4 F L 96 18 119/76 97 03/15/17 15:17 76 16 117/76 97 03/15/17 13:50 186/111 202/110 03/15/17 12:10 97.9 F 67 16 210/126 99 Intake and Output 03/15/17 03/16/17 03/16/17 22:59 06:59 14:59 Intake Total 240 580.333 178 Output Total 650 300 Balance 240 -69.667 -122 Intake: IV 80 Sodium Chloride 0.9% 1, 80 000 ml In Empty Bag 1 bag @ 1 ML/KG/HR 83.91 mls/ hr IV .[id number] [facility] Rx#: [id number] Intake, IV Titration 500.333 60 Amount Heparin Sodium,Porcine/ 200 D5w Pmx 25,000 unit In Dextrose/Water 1 500ml. bag @ 11.9 UNITS/KG/HR 19 .97 mls/hr IV .Q24H [facility] Rx#:[id number] Heparin Sodium,Porcine/ 300.333 D5w Pmx 25,000 unit In Dextrose/Water 1 500ml. bag @ 11.917 UNITS/KG/HR 20 mls/hr IV .Q24H [facility] Rx #:[id number] Sodium Chloride 0.9% 1, 60 000 ml In Empty Bag 1 bag @ 1 ML/KG/HR 83.91 mls/ hr IV .[id number] [facility] Rx#: [id number] Oral 240 118 Output: Urine 650 300 Other: Voiding Method Toilet Toilet Weight 88.2 kg Results - Lab Results Most recent lab results Calcium 9.4 mg/dL (8.4-10.2) 03/16/17 04:28 Magnesium 1.9 mg/dL (1.6-2.3) 03/16/17 04:28 03/16/17 04:28 03/16/17 04:28 Assessment and Plan Plan: Assessment: #1. Nonoliguric acute kidney injury secondary to ischemic ATN secondary to hemodynamic instability as well as component of contrast-induced nephropathy. Patient underwent CTA on March 15. Also on MIRNA inhibitor. Creatinine was 1.3 on admission and is 1.89 today. #2. Chronic kidney disease stage III likely secondary to nephrosclerosis. Unclear as to what his baseline renal function is. #3. Right-sided chest pain with abnormal stress test. Cardiology following. #4. Metabolic acidosis secondary to acute kidney injury. #5. Systolic CHF with ejection fraction of 30%. #6. Hypertension with chronic kidney disease. Currently controlled. Plan: Start normal saline to be run at 60 mL an hour. Hold MIRNA inhibitor for now. Check urinalysis. Check renal ultrasound. Start oral sodium bicarbonate 650 mg twice daily. I discussed with the patient the risk of developing contrast-induced nephropathy and potential need for renal replacement therapy from the dye he received on March 15 as well as further worsening if he was to undergo cardiac catheterization. Patient understands. I also discussed with cardiology - okay to proceed with cardiac catheterization if absolutely necessary. Thank you for the consultation. I will continue to follow the patient with you during his hospital stay.
--- NOTE | 2017-03-16 11:16 | P.PN ---
Subjective Principal diagnosis: Chest pain This is a very pleasant 61-year-old gentleman with a known history of coronary artery disease and previous stent placement. He also has ischemic cardiomyopathy with prior AICD placement. The echocardiogram revealed impaired left ventricular systolic function with an ejection fraction 35-40%. He had presented here on 03/15/2017 with right-sided chest discomfort. A Lexiscan stress test revealed ischemia and the plan was for cardiac catheterization today. However his renal function has worsened today from 1.30-1.89. He is status post CT angiogram. The plan is for hydration and possible heart cath tomorrow. Presently, he is resting quite comfortably in bed. He denies any further chest discomfort. No shortness of breath, cough or congestion. He is maintaining good O2 saturations in the mid 90s on room air. He's been hemodynamically stable. Objective - Vital Signs Vital signs: Vital Signs Temp 97.6 F 03/16/17 06:00 Pulse 74 03/16/17 10:33 Resp 16 03/16/17 10:33 BP 139/87 03/16/17 10:33 Pulse Ox 97 03/16/17 10:33 Intake & Output 03/15/17 03/16/17 03/16/17 18:59 06:59 18:59 Intake Total 240 580.333 178 Output Total 650 300 Balance 240 -69.667 -122 Weight 88.2 kg Intake: IV 80 Sodium Chloride 0.9% 1, 80 000 ml In Empty Bag 1 bag @ 1 ML/KG/HR 83.91 mls/ hr IV .[id number] [facility] Rx#: [id number] Intake, IV Titration 500.333 60 Amount Heparin Sodium,Porcine/ 200 D5w Pmx 25,000 unit In Dextrose/Water 1 500ml. bag @ 11.9 UNITS/KG/HR 19 .97 mls/hr IV .Q24H [facility] Rx#:[id number] Heparin Sodium,Porcine/ 300.333 D5w Pmx 25,000 unit In Dextrose/Water 1 500ml. bag @ 11.917 UNITS/KG/HR 20 mls/hr IV .Q24H [facility] Rx #:[id number] Sodium Chloride 0.9% 1, 60 000 ml In Empty Bag 1 bag @ 1 ML/KG/HR 83.91 mls/ hr IV .[id number] [facility] Rx#: [id number] Oral 240 118 Output: Urine 650 300 Other: Voiding Method Toilet Toilet - Exam GENERAL EXAM: Alert, active, comfortable in no apparent distress. HEAD: Normocephalic. EYES: Normal reaction of pupils, equal size. NOSE: Clear with pink turbinates. THROAT: No erythema or exudates. NECK: No masses, no JVD. CHEST: No chest wall deformity. LUNGS: Equal air entry with no crackles, wheeze, rhonchi or dullness. CVS: S1 and S2 normal with an audible murmur, regular rhythm. ABDOMEN: No hepatosplenomegaly, normal bowel sounds, no guarding or rigidity. SPINE: No scoliosis or deformity SKIN: No rashes CENTRAL NERVOUS SYSTEM: No focal deficits, tone is normal in all 4 extremities. - Labs CBC & Chem 7: 03/16/17 04:28 03/16/17 04:28 Labs: Abnormal Lab Results - Last 24 Hours (Table) 03/15/17 03/16/17 03/16/17 Range/Units 13:13 04:28 04:28 APTT 37.6 H (22.0-30.0) sec Chloride 108 H (98-107) mmol/L Carbon Dioxide 19 L (22-30) mmol/L BUN 34 H (9-20) mg/dL Creatinine 1.89 H (0.66-1.25) mg/dL Glucose 100 H (74-99) mg/dL Total Creatine Kinase 46 L (55-170) U/L LDL Cholesterol, Calc 123 H (0-99) mg/dL Assessment and Plan Plan: Impression: #1 Chest pain in a patient found to have ischemia noted on stress test. Plan is for cardiac catheterization if renal function improves. #2 Acute on chronic renal failure secondary to IV contrast current creatinine 1.89. #3 Coronary artery disease with previous stent placement. #4 Ischemic cardiomyopathy status post AICD with ejection fraction 35-40%. #5 Hyperlipidemia. #6 Hypertension. #7 Osteoarthritis. #8 Chronic and ongoing tobacco dependence. Plan: The patient was seen and evaluated by Dr. Frances. He is currently stable from the pulmonary standpoint. The plan is for possible cardiac catheterization if the patient's renal function improves. Nephrology is on the case now as well. We'll continue with his current medications. We will increase his activity as tolerated. He is educated regarding the importance of complete smoking cessation. He would benefit from outpatient workup including full pulmonary function testing to evaluate the severity of his suspected COPD. Maintenance medications could be recommended at that time as well. We'll continue to follow.
[2017-03-16] MEDS: SODIUM CHLORIDE 0.9% 1,000 ML IV SCH (11:43)
[2017-03-16] MEDS: hydrALAZINE HCL 50 MG TAB PO SCH ×2 (11:45→19:58)
[2017-03-16] MEDS: SODIUM BICARBONATE TAB 650 MG TAB PO SCH ×2 (11:45→19:58)
--- NOTE | 2017-03-16 11:58 | US ---
EXAMINATION TYPE: US kidneys/renal and bladder DATE OF EXAM: 03/16/2017 COMPARISON: Previous study dated 03/15/2012. CLINICAL HISTORY: FEMI. EXAM MEASUREMENTS: Right Kidney: 11.7 x 5.8 x 5.2 cm Left Kidney: 10.2 x 4.9 x 4.5 cm Right Kidney: no evidence of hydronephrosis Left Kidney: possible small amount of fluid noted adjacent to upper pole Bladder: not fully distended Bilateral Jets seen: no Both kidneys appear morphologically normal without evidence of hydronephrosis. The bladder is unremar kable. Neither ureteral jet was visualized. IMPRESSION: NORMAL RENAL ULTRASOUND.
[2017-03-16 14:39] LABS: Appearance,Urine Clear (Clear); Bacteria,Urine Rare /hpf; Bilirubin,Urine Negative (Negative); Glucose,Urine (UA) Negative (Negative); Ketones,Urine Negative (Negative); Leukocyte Esterase,Urine Negative (Negative); Mucus,Urine Rare /hpf; Nitrite,Urine Negative (Negative); Particle Count 2287; Protein,Urine 1+ (Negative); Specific Gravity,Urine 1.018 (1.001-1.035); Squamous Epithelial Cell,Urine <1 /hpf (0-4); UA Billing (MACRO vs. MICRO) MICRO; Urobilinogen,Urine <2.0 mg/dL (<2.0); WBC,Urine 1 /hpf (0-5)
--- NOTE | 2017-03-16 16:10 | P.PN ---
Subjective Principal diagnosis: This is a 61-year-old gentleman with known history of coronary artery disease and prior stent placement, ischemic cardio myopathy with prior AICD, he presented to the hospital with symptoms of chest discomfort. Patient was initially scheduled to undergo cardiac catheterization today but because of the renal function this was deferred until tomorrow. Overall the patient feels well , he denies any chest pain or difficulty in breathing. Blood pressure 138/80 this morning heart rate in the 70s. CBC normal. Potassium 4.3, creatinine 1.8 today. Objective - Vital Signs Vital signs: Vital Signs Temp 97.6 F 03/16/17 06:00 Pulse 74 03/16/17 10:33 Resp 16 03/16/17 10:33 BP 139/87 03/16/17 10:33 Pulse Ox 97 03/16/17 10:33 Intake & Output 03/15/17 03/16/17 03/16/17 18:59 06:59 18:59 Intake Total 240 580.333 998 Output Total 650 500 Balance 240 -69.667 498 Weight 88.2 kg Intake: IV 80 Sodium Chloride 0.9% 1, 80 000 ml In Empty Bag 1 bag @ 1 ML/KG/HR 83.91 mls/ hr IV .[id number] [facility] Rx#: [id number] Intake, IV Titration 500.333 640 Amount Heparin Sodium,Porcine/ 100 D5w Pmx 25,000 unit In Dextrose/Water 1 500ml. bag @ 11.3 UNITS/KG/HR 19 .93 mls/hr IV .Q24H [facility] Rx#:[id number] Heparin Sodium,Porcine/ 200 D5w Pmx 25,000 unit In Dextrose/Water 1 500ml. bag @ 11.9 UNITS/KG/HR 19 .97 mls/hr IV .Q24H [facility] Rx#:[id number] Heparin Sodium,Porcine/ 300.333 D5w Pmx 25,000 unit In Dextrose/Water 1 500ml. bag @ 11.917 UNITS/KG/HR 20 mls/hr IV .Q24H [facility] Rx #:[id number] Sodium Chloride 0.9% 1, 480 000 ml @ 60 mls/hr IV . [id number] [facility] Rx#:[id number] Sodium Chloride 0.9% 1, 60 000 ml In Empty Bag 1 bag @ 1 ML/KG/HR 83.91 mls/ hr IV .[id number] [facility] Rx#: [id number] Oral 240 358 Output: Urine 650 500 Other: Voiding Method Toilet Toilet - Exam PHYSICAL EXAMINATION: HEENT: Head is atraumatic, normocephalic. Pupils equal, round. Neck is supple. There is no elevated jugular venous pressure. HEART EXAMINATION: Heart S1, S2 normal. No murmur or gallop heard. CHEST EXAMINATION: Lungs are clear to auscultation and precussion. No chest wall tenderness is noted on palpation or with deep breathing. ABDOMEN: Soft, nontender. Bowel sounds are heard. No organomegaly noted. EXTREMITIES: 2+ peripheral pulses with no evidence of peripheral edema and no calf tenderness noted]. NEUROLOGIC [patient is awake, alert and oriented -3.] . - Labs CBC & Chem 7: 03/16/17 04:28 03/16/17 04:28 Labs: Abnormal Lab Results - Last 24 Hours (Table) 03/16/17 03/16/17 03/16/17 Range/Units 04:28 04:28 14:00 APTT 37.6 H (22.0-30.0) sec Chloride 108 H (98-107) mmol/L Carbon Dioxide 19 L (22-30) mmol/L BUN 34 H (9-20) mg/dL Creatinine 1.89 H (0.66-1.25) mg/dL Glucose 100 H (74-99) mg/dL LDL Cholesterol, Calc 123 H (0-99) mg/dL Urine Protein 1+ H (Negative) Urine Bacteria Rare H (None) /hpf Hyaline Casts 8 H (0-2) /lpf Urine Mucus Rare H (None) /hpf Assessment and Plan Plan: Assessment and plan #1 chest discomfort, rule out acute coronary syndrome. Initial troponin 0.029. EKG shows a sinus bradycardia with minimal ST depression in the lateral leads. #2 hypertensive urgency #3 history of hypertension #4 coronary artery disease history with prior stent placement to the LAD in 2011 #5 hyperlipidemia #6 nicotine dependence #7 ischemic cardiomyopathy with prior AICD implant #8 EtOH use #9 hypomagnesemia #10 lung nodule Plan We will continue the patient on his current medications. Check lytes BUN and creatinine in the morning. If his creatinine is improved, cardiac catheterization will be performed tomorrow. DNP note has been reviewed, I agree with a documented findings and plan of care. Patient was seen and examined.
[2017-03-16] MEDS: HEPARIN SODIUM,PORCINE 5,000 UNIT/ML 1 ML VIAL IV PRN (18:04)
[2017-03-17] MEDS: NITROGLYCERIN OINT 1 INCH/GM PACKET TOPICAL SCH ×3 (06:24→16:03)
[2017-03-17] MEDS: SODIUM CHLORIDE 0.9% 1,000 ML IV SCH ×3 (06:24→12:46)
[2017-03-17] MEDS: HEPARIN SODIUM,PORCINE/D5W PMX 25,000 UNIT in DEXTROSE/WATER 1 500ML.BAG IV SCH (06:26)
[2017-03-17] MEDS: METOPROLOL SUCCINATE (ER) 25 MG TAB.ER.24H PO SCH (06:35)
[2017-03-17] MEDS: ATORVASTATIN 40 MG TAB PO SCH (06:35)
[2017-03-17] MEDS: ASPIRIN 81 MG CHEW PO SCH (06:35)
[2017-03-17] MEDS: amLODIPine 5 MG TAB PO SCH (06:35)
[2017-03-17] MEDS: hydrALAZINE HCL 50 MG TAB PO SCH ×2 (06:35→22:23)
[2017-03-17] MEDS: SODIUM BICARBONATE TAB 650 MG TAB PO SCH ×2 (06:36→22:22)
[2017-03-17 07:10] LABS: Basophils # (A) 0.1 k/uL (0-0.2); Basophils % (A) 1 %; CH 32.7; CHCM 33.4; Eosinophils # (A) 0.4 k/uL (0-0.7); Eosinophils % (A) 5 %; HCT 44.8 % (39.0-53.0); HDW 2.29; HGB 14.7 gm/dL (13.0-17.5); Luc # (Auto) 0.15; Luc % (Auto) 2; Lymphocytes % (A) 34 %; MCH 32.5 pg (25.0-35.0); MCHC 32.9 g/dL (31.0-37.0); MCV 98.6 fL (80.0-100.0); Mean Platelet Volume 7.2; Monocytes # (A) 0.5 k/uL (0-1.0); Monocytes % (A) 5 %; Neutrophils # (A) 4.7 k/uL (1.3-7.7); Neutrophils % (A) 53 %; RBC 4.54 m/uL (4.30-5.90); RDW 14.5 % (11.5-15.5); WBC 8.8 k/uL (3.8-10.6); WBC (Perox) 8.67
[2017-03-17 07:31] LABS: Calcium 9.3 mg/dL (8.4-10.2); Potassium 4.2 mmol/L (3.5-5.1)
--- NOTE | 2017-03-17 07:38 | PN ---
DATE OF SERVICE: 03/16/2017 PRESENTING COMPLAINT: Chest pain. INTERVAL HISTORY: This patient with multiple medical problems admitted with chest pain, had a positive stress test. Patient's renal function deteriorated; hence, cardiac catheterization has been held. Breathing is stable. No further chest pain. Review of systems done for constitutional, cardiovascular, GI, pulmonary; relevant findings as above. Current medications are reviewed that include IV heparin, sodium bicarb, IV fluids. On examination, temperature 97.6, pulse 82, respirations 18, blood pressure 130/92, pulse ox 96% on room air. GENERAL APPEARANCE: Sitting up in bed, not in distress. EYES: Pupils equal. Conjunctivae normal. NECK: JVD not raised. Mass not palpable. RESPIRATORY: Effort normal. LUNGS: Decreased breath sounds. CARDIOVASCULAR: First and second sounds normal. No edema. ABDOMEN: Soft, nontender. Liver and spleen not palpable. PSYCHIATRY: Alert and oriented x3. Mood and affect normal. INVESTIGATIONS: BUN 34, creatinine 1.89. ASSESSMENT: 1. Unstable angina in a patient with known coronary artery disease with stent in 2007, now with a positive stress test. 2. Acute renal failure, probably from acute tubular necrosis/nonoliguric as a reflection of contrast-induced nephropathy. 3. Coronary artery disease with stent in 2007. 4. Chronic congestive heart failure from systolic and diastolic dysfunction, ejection fraction 35% to 40% from underlying coronary artery disease. 5. Hyperlipidemia. 6. Essential hypertension. 7. Primary osteoarthritis in multiple joints bilaterally. 8. Chronic kidney disease stage III from hypertensive nephrosclerosis. 9. Emphysema in a smoker. 10. Chronic nicotine dependence. Patient is a smoker. 11. History of testicular cancer. 12. Lung nodules being followed by Pulmonary for possible metastatic disease. They are planning to do outpatient PET scan. PLAN: At this point, patient is gently being hydrated. Renal ( ) drugs have been held, given bicarb. Nephrology was consulted. Care was discussed with the patient. Will follow.
[2017-03-17] MEDS: HEPARIN SODIUM,PORCINE 5,000 UNIT/ML 1 ML VIAL IV PRN (09:18)
--- NOTE | 2017-03-17 10:14 | P.PN ---
Subjective Patient is seen in follow-up for acute kidney injury on chronic kidney disease. Patient does have a history of chronic kidney disease stage III but unclear as to what his baseline renal function is. Creatinine was 1.3 on admission and peaked at 1.89 yesterday. It is down to 1.54 today. Patient presented with chest pain and also had a CT angiogram done on March 15 which revealed no evidence of pulmonary embolus. He continues to have intermittent chest discomfort. He is noted to have an ejection fraction of 30%. Stress test was noted to be abnormal. No vomiting or diarrhea. Admits to good urine output. Hemodynamically stable. Vital signs are stable. General: The patient appeared well nourished and normally developed. HEENT: Head exam is unremarkable. Neck is without jugular venous distension. LUNGS: Lungs are clear to auscultation and percussion. Breath sounds decreased. HEART: Rate and Rhythm are regular. First and second heart sounds normal. No murmurs, rubs or gallops. ABDOMEN: Abdominal exam reveals normal bowel sounds. Non-tender and non- distended. No evidence of peritonitis. EXTREMITITES: No clubbing, cyanosis, or edema. Objective - Vital Signs Vital signs: Vital Signs Temp 97.8 F 03/17/17 04:00 Pulse 72 03/17/17 04:00 Resp 19 03/17/17 04:00 BP 148/82 03/17/17 04:00 Pulse Ox 96 03/17/17 04:00 Intake & Output 03/16/17 03/17/17 03/17/17 18:59 06:59 18:59 Intake Total 1393.667 672.506 70.756 Output Total 500 150 Balance 893.667 522.506 70.756 Weight 93.9 kg Intake: Intake, IV Titration 795.667 672.506 70.756 Amount Heparin Sodium,Porcine/ 255.667 312.506 70.756 D5w Pmx 25,000 unit In Dextrose/Water 1 500ml. bag @ 11.3 UNITS/KG/HR 19 .93 mls/hr IV .Q24H [facility] Rx#:[id number] Sodium Chloride 0.9% 1, 480 360 000 ml @ 60 mls/hr IV . [id number] [facility] Rx#:[id number] Sodium Chloride 0.9% 1, 60 000 ml In Empty Bag 1 bag @ 1 ML/KG/HR 83.91 mls/ hr IV .[id number] Rx#: [id number] Oral 598 Output: Urine 500 150 Other: Voiding Method Toilet - Labs CBC & Chem 7: 03/17/17 06:21 03/17/17 06:21 Labs: Abnormal Lab Results - Last 24 Hours (Table) 03/16/17 03/16/17 03/17/17 Range/Units 14:00 23:35 06:21 APTT 47.3 H (22.0-30.0) sec Chloride 109 H (98-107) mmol/L Carbon Dioxide 18 L (22-30) mmol/L BUN 34 H (9-20) mg/dL Creatinine 1.54 H (0.66-1.25) mg/dL Urine Protein 1+ H (Negative) Urine Bacteria Rare H (None) /hpf Hyaline Casts 8 H (0-2) /lpf Urine Mucus Rare H (None) /hpf 03/17/17 Range/Units 06:21 APTT 39.1 H (22.0-30.0) sec Chloride (98-107) mmol/L Carbon Dioxide (22-30) mmol/L BUN (9-20) mg/dL Creatinine (0.66-1.25) mg/dL Urine Protein (Negative) Urine Bacteria (None) /hpf Hyaline Casts (0-2) /lpf Urine Mucus (None) /hpf Assessment and Plan Plan: Assessment: #1. Nonoliguric acute kidney injury secondary to ischemic ATN secondary to hemodynamic instability as well as component of contrast-induced nephropathy. Patient underwent CTA on March 15. Also on MIRNA inhibitor which is now held. Creatinine was 1.3 on admission and peaked at 1.89. Down to 1.54 today. Urinalysis reveals 1+ proteinuria which can be nonspecific in the setting of acute kidney injury. No hematuria. No evidence of hydronephrosis on renal ultrasound. #2. Chronic kidney disease stage III likely secondary to nephrosclerosis. Unclear as to what his baseline renal function is. #3. Right-sided chest pain with abnormal stress test. Cardiology following. #4. Metabolic acidosis secondary to acute kidney injury. #5. Systolic CHF with ejection fraction of 30%. #6. Hypertension with chronic kidney disease. Currently controlled. Plan: Continue normal saline to be run at 60 mL an hour. Hold MIRNA inhibitor for now. Maintain oral sodium bicarbonate - increase dose to 1300 mg twice daily. I discussed with the patient the risk of developing contrast-induced nephropathy and potential need for renal replacement therapy from the dye he received on March 15 as well as further worsening if he was to undergo cardiac catheterization. Patient understands. I also discussed with cardiology - okay to proceed with cardiac catheterization which is scheduled for today.
--- NOTE | 2017-03-17 10:24 | P.PN ---
Subjective Progress note date 03/17/2017 This is a very pleasant 61-year-old male with a history of known CAD. A previous stent placement. He also has a history of ischemic cardiomyopathy with prior AICD placement. The patient has an ejection fraction of about 35-40% . He apparently is going to have another cardiac catheterization. He is hoping that he can be done today. The nurses crossing his fingers as well. Apparently awaiting because his renal function was a bit off. They hydrated him with the hope that his kidney function would improve any be able to have the catheterization. The patient is not having any further chest discomfort discomfort. Denies any shortness of breath difficulty breathing tightness in his chest coughing up phlegm production, etc. Objective - Vital Signs Vital signs: Vital Signs Temp 97.8 F 03/17/17 04:00 Pulse 72 03/17/17 04:00 Resp 19 03/17/17 04:00 BP 148/82 03/17/17 04:00 Pulse Ox 96 03/17/17 04:00 Intake & Output 03/16/17 03/17/17 03/17/17 18:59 06:59 18:59 Intake Total 1393.667 672.506 70.756 Output Total 500 150 Balance 893.667 522.506 70.756 Weight 93.9 kg Intake: Intake, IV Titration 795.667 672.506 70.756 Amount Heparin Sodium,Porcine/ 255.667 312.506 70.756 D5w Pmx 25,000 unit In Dextrose/Water 1 500ml. bag @ 11.3 UNITS/KG/HR 19 .93 mls/hr IV .Q24H [facility] Rx#:[id number] Sodium Chloride 0.9% 1, 480 360 000 ml @ 60 mls/hr IV . [id number] [facility] Rx#:[id number] Sodium Chloride 0.9% 1, 60 000 ml In Empty Bag 1 bag @ 1 ML/KG/HR 83.91 mls/ hr IV .[id number] [facility] Rx#: [id number] Oral 598 Output: Urine 500 150 Other: Voiding Method Toilet - Exam No acute distress, oriented 3. HEENT examination is grossly unremarkable. Mucous membranes are moist. No oral lesions. Neck supple. Full range of motion. No adenopathy or thyromegaly. Neck veins are flat. Cardiovascular examination reveals regular rhythm rate. S1-S2 normal. No S3- S4 or murmur. Lungs relatively clear. Breath sounds are equal. No wheezes rhonchi or crackles. Abdomen soft bowel sounds are heard. No masses or tenderness. Extremities are intact. No cyanosis clubbing or edema. Skin is without rash. Neurologic examination is nonfocal. - Labs CBC & Chem 7: 03/17/17 06:21 03/17/17 06:21 Labs: Abnormal Lab Results - Last 24 Hours (Table) 03/16/17 03/16/17 03/17/17 Range/Units 14:00 23:35 06:21 APTT 47.3 H (22.0-30.0) sec Chloride 109 H (98-107) mmol/L Carbon Dioxide 18 L (22-30) mmol/L BUN 34 H (9-20) mg/dL Creatinine 1.54 H (0.66-1.25) mg/dL Urine Protein 1+ H (Negative) Urine Bacteria Rare H (None) /hpf Hyaline Casts 8 H (0-2) /lpf Urine Mucus Rare H (None) /hpf 03/17/17 Range/Units 06:21 APTT 39.1 H (22.0-30.0) sec Chloride (98-107) mmol/L Carbon Dioxide (22-30) mmol/L BUN (9-20) mg/dL Creatinine (0.66-1.25) mg/dL Urine Protein (Negative) Urine Bacteria (None) /hpf Hyaline Casts (0-2) /lpf Urine Mucus (None) /hpf Assessment and Plan (1) Renal failure Status: Acute (2) Coronary artery disease Status: Acute (3) Ischemic cardiomyopathy Status: Acute (4) Hyperlipidemia Status: Acute (5) Hypertension Status: Acute (6) Smoking addiction Status: Acute (7) Chest pain Status: Acute Plan: Plan dated 03/17/2017 The patient is cleared from the pulmonary standpoint for any cardiac procedures that need to be done. Cardiology was waiting for his second kidney function to improve. Nephrology is also seen the patient. I counseled about the importance of smoking cessation. I don't believe he is ready to quit smoking. He may have some underlying COPD. Should he require something like bypass surgery, bedside spiral full pulmonary evaluation should be done. Additional recommendations suggestions are forthcoming. Prognosis is guarded. Time with Patient: Greater than 30
[2017-03-17] MEDS ORDERED: fentaNYL (PF) 50 MCG/ML 2 ML AMP ONE (10:36)
[2017-03-17] MEDS ORDERED: MIDAZOLAM 2 MG/2 ML VIAL ONE (10:37)
[2017-03-17] MEDS ORDERED: fentaNYL (PF) 50 MCG/ML 2 ML AMP IV ONE (10:40)
[2017-03-17] MEDS ORDERED: LIDOCAINE 2% INJ 20 MG/ML SQ ONE (10:40)
[2017-03-17] MEDS ORDERED: MIDAZOLAM 2 MG/2 ML VIAL IV ONE (10:42)
[2017-03-17] MEDS ORDERED: IODIXANOL 320 MG/ML 100 ML INTRAARTER ONE (11:00)
[2017-03-17] MEDS ORDERED: RX INFO: IV CONTRAST WAS GIVEN 1 EACH MISC MISCELLANE PRN (11:06)
--- NOTE | 2017-03-17 11:12 | P.PCN ---
Date of Procedure: 03/17/17 Preoperative Diagnosis: chest pain and a positive stress test Postoperative Diagnosis: Stable coronary artery disease without any critical lesions Procedure(s) Performed: Implants: Indications for Procedure: Operative Findings: Description of Procedure: HISTORY: This is a 61-year-old gentleman with history of ischemic heart disease with previous stent placement of the left anterior descending coronary artery and also ischemic cardiomyopathy who was admitted to the hospital with chest pains. Patient had a nuclear stress test that showed evidence of reversible ischemia. Patient was advised to have cardiac catheterization. Patient had a baseline renal dysfunction. His creatinine went up to 1.8 after the computed tomography scan of the chest. Patient was evaluated by nephrology and was hydrated. Patient her creatinine has come down to 1.5 and patient is advised to have cardiac cath. Patient fully understands the risks of was associated with a cardiac catheterization, especially renal dysfunction because of his baseline abnormalities. CONSENT:I have discussed the risks, benefits and alternative therapies for the above-mentioned procedure and for both sedation/analgesia as well as necessary blood product administration, if indicated, as they pertain to this patient. The patient has indicated understanding and acceptance of the risks and procedures discussed. PROCEDURE: Patient was brought to the lab in a fasting state. Patient was given some IV sedation. The right groin is infiltrated with lidocaine and right femoral artery was entered using Seldinger technique. A 6-Arabic catheter was left in place and selective coronary arteriography was performed. Patient tolerated the procedure well. Femoral angiogram was performed and Angio-Seal was applied for hemostasis. No immediate complications were noted and patient was transferred to [facility] in a stable condition HEMODYNAMICS: Aortic pressure is about 160/80. Left ventricular end-diastolic pressure is about 12. There was no gradient across the aortic valve. SELECTIVE CORONARY ARTERIOGRAPHY: LEFT MAIN: Good-sized and patent THE LEFT ANTERIOR DESCENDING CORONARY ARTERY: This is a good sized vessel with ectatic changes. Patent at the previous stent placement site. No other critical lesions THE LEFT CIRCUMFLEX AND IS CORONARY ARTERY: This is a good caliber vessel, again showing ectatic changes and irregularities and diffuse plaque. There is a 30-40% lesion in the OM branch. No critical lesions THE RIGHT CORONARY ARTERY: This is a dominant and ectatic vessel with a diffuse plaque. There is about 40-50% stenosis of the lumen in the proximal portion which doesn't appear to be critical. LEFT VENTRICULOGRAPHY: Not performed FINAL IMPRESSION: Patent stent in the LAD with a diffuse ectatic changes and plaque throughout the coronary system. There is mild to moderate disease in the OM branch of the circumflex and in the proximal RCA. Patent's were reviewed with the Dr. Hess. Maximum medical therapy is advised at this time. The lesions are not critical. PLAN: Maximum medical therapy PROGNOSIS: Fair
[2017-03-17] MEDS ORDERED: METOPROLOL SUCCINATE (ER) 25 MG TAB.ER.24H PO SCH (21:00)
[2017-03-17] MEDS ORDERED: METOPROLOL TARTRATE 25 MG TAB PO SCH (22:27)
[2017-03-18] MEDS: NITROGLYCERIN OINT 1 INCH/GM PACKET TOPICAL SCH ×2 (00:39→06:10)
[2017-03-18] MEDS: SODIUM CHLORIDE 0.9% 1,000 ML IV SCH (00:45)
[2017-03-18 02:15] VITALS: TEMP 97.1
[2017-03-18 02:17] VITALS: RESP 16
[2017-03-18 06:54] LABS: Basophils # (A) 0.1 k/uL (0-0.2); Basophils % (A) 1 %; CH 32.1; CHCM 33.9; Eosinophils # (A) 0.4 k/uL (0-0.7); Eosinophils % (A) 5 %; HCT 40.9 % (39.0-53.0); HDW 2.36; HGB 14.2 gm/dL (13.0-17.5); Luc # (Auto) 0.16; Luc % (Auto) 2; Lymphocytes # (A) 2.3 k/uL (1.0-4.8); Lymphocytes % (A) 26 %; MCH 33.1 pg (25.0-35.0); MCHC 34.8 g/dL (31.0-37.0); MCV 95.2 fL (80.0-100.0); Mean Platelet Volume 7.4; Monocytes # (A) 0.5 k/uL (0-1.0); Monocytes % (A) 6 %; Neutrophils # (A) 5.7 k/uL (1.3-7.7); Neutrophils % (A) 62 %; RDW 14.2 % (11.5-15.5); WBC 9.2 k/uL (3.8-10.6); WBC (Perox) 9.75
[2017-03-18 07:00] LABS: Calcium 9.4 mg/dL (8.4-10.2); Potassium 4.4 mmol/L (3.5-5.1); Total Bilirubin 0.3 mg/dL (0.2-1.3); Total Protein 6.2 g/dL (6.3-8.2)
--- NOTE | 2017-03-18 07:38 | PN ---
DATE OF SERVICE: 03/17/2017 This 61-year-old gentleman who was admitted with chest pain and possible unstable angina. The patient also had positive stress test. The patient also had renal failure and acute tubular necrosis. The patient underwent cardiac catheterization by Dr. Jones which showed LAD with diffuse ectatic changes in the plaque throughout the coronary system, mild to moderate disease in the OM branch of the circumflex and the proximal RCA. Medical therapy advised at this time instead of any procedures. The patient is being closely monitored. Past medical history reviewed. REVIEW OF SYSTEMS: CARDIOVASCULAR: As mentioned earlier. RESPIRATORY: As mentioned earlier. GI: As mentioned earlier. : No dysuria. Nervous system: No numbness, weakness. Current medications reviewed and include: 1. Xanax 0.5 q.6 p.r.n. 2. Norvasc 5 mg daily. 3. Aspirin 81 mg. 4. Lipitor 40 mg. 5. Heparin 5000 subcu b.i.d. 6. Apresoline 50 mg p.o. b.i.d. 7. Toprol XL 25 mg p.o. daily. 8. Nitrostat 0.4 sublinginual p.r.n. 9. Nitrobid ointment. 10. Sodium bicarb. PHYSICAL EXAMINATION: The patient is alert and oriented times three. Pulse 78. Blood pressure 160/84. Respiratory rate 18, temperature 97.9. Pulse ox 99% on room air. HEENT: Conjunctivae normal. Oral mucosa moist. NECK: No jugular venous distention. No carotid bruit. No lymph node enlargement. CARDIOVASCULAR: S1, S2 muffled. No S3, S4. RESPIRATORY: Breath sounds diminished at the bases. A few scattered rhonchi and crackles. ABDOMEN: Soft, nontender. No mass palpable. LEGS: No edema. No swelling. Nervous system: Higher function as mentioned earlier. Moves all four limbs. No focal deficits. Diffusely weak. LYMPHATICS: No lymph nodes palpable in the neck, axillae or groin. SKIN: No ulcer, rash or bleeding. LABS: Creatinine 1.54. CBC within normal limits. BUN is 34. ASSESSMENT: 1. Chest pain with unstable angina with known coronary artery disease with stent in 2007. 2. Status post cardiac catheterization and diffuse coronary artery disease on medical treatment. 3. Acute renal failure, possibly from acute tubular necrosis nonoliguric with prerenal factors as well as contrast induced nephropathy. 4. Coronary artery disease with stent in 2007. 5. Chronic congestive heart failure with chronic systolic and diastolic dysfunction, ejection fraction 35% to 40%, underlying coronary artery disease. 6. Hyperlipidemia. 7. Essential hypertension. 8. Primary osteoarthritis including multiple joints bilaterally. 9. 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 10. Chronic obstructive pulmonary disease in a smoker. 11. History of nicotine dependence. 12. History of testicular cancer. 13. Lung nodules, being followed by pulmonary for possible metastatic disease, planning outpatient PET scan. 14. Decreased CO2. 15. FULL CODE. RECOMMENDATIONS AND DISCUSSION: This 61-year-old gentleman who presented with multiple complex medical issues, monitor the patient closely. Continue the current medications. Continue symptomatic treatment. Otherwise, at this time I would recommend repeat labs including BMP. Nephrology following the patient closely. Also avoid nephrotoxic medications. Hydration. Continue the medical treatment for diffuse coronary artery disease. Prognosis guarded. Further recommendations to follow. We will hold Lisinopril at this time. Increase the dose of Hydralazine and Lopressor. Once again prognosis guarded. Further recommendations to follow. MTDD
[2017-03-18] MEDS: hydrALAZINE HCL 50 MG TAB PO SCH ×2 (08:33→12:40)
[2017-03-18] MEDS: ATORVASTATIN 40 MG TAB PO SCH (08:33)
[2017-03-18] MEDS: ASPIRIN 81 MG CHEW PO SCH (08:34)
[2017-03-18] MEDS: amLODIPine 5 MG TAB PO SCH (08:34)
[2017-03-18] MEDS: SODIUM BICARBONATE TAB 650 MG TAB PO SCH (08:34)
[2017-03-18] MEDS: HEPARIN SODIUM,PORCINE/D5W PMX 25,000 UNIT in DEXTROSE/WATER 1 500ML.BAG IV SCH (08:35)
[2017-03-18] MEDS ORDERED: SODIUM BICARBONATE TAB 650 MG TAB PO SCH (11:54)
--- NOTE | 2017-03-18 11:54 | P.PN ---
Subjective Patient is seen in follow-up for acute kidney injury on chronic kidney disease. Patient does have a history of chronic kidney disease stage III but unclear as to what his baseline renal function is. Creatinine was 1.3 on admission and peaked at 1.89 this admission. It is down to 1.6 today. Patient presented with chest pain and also had a CT angiogram done on March 15 which revealed no evidence of pulmonary embolus. He is noted to have an ejection fraction of 30% . Stress test was noted to be abnormal. He underwent cardiac catheterization on March 17 which revealed no critical lesions and no interventions were done. No vomiting or diarrhea. Admits to good urine output. Hemodynamically stable. Vital signs are stable. General: The patient appeared well nourished and normally developed. HEENT: Head exam is unremarkable. Neck is without jugular venous distension. LUNGS: Lungs are clear to auscultation and percussion. Breath sounds decreased. HEART: Rate and Rhythm are regular. First and second heart sounds normal. No murmurs, rubs or gallops. ABDOMEN: Abdominal exam reveals normal bowel sounds. Non-tender and non- distended. No evidence of peritonitis. EXTREMITITES: No clubbing, cyanosis, or edema. Objective - Vital Signs Vital signs: Vital Signs Temp 97.1 F L 03/18/17 08:00 Pulse 73 03/18/17 08:00 Resp 16 03/18/17 04:00 BP 162/96 03/18/17 08:00 Pulse Ox 94 L 03/18/17 08:00 Intake & Output 03/17/17 03/18/17 03/18/17 18:59 06:59 18:59 Intake Total 524.756 200 298 Output Total 1 500 Balance 523.756 -300 298 Weight 83.4 kg Intake: IV 100 Intake, IV Titration 70.756 Amount Heparin Sodium,Porcine/ 70.756 D5w Pmx 25,000 unit In Dextrose/Water 1 500ml. bag @ 11.3 UNITS/KG/HR 19 .93 mls/hr IV .Q24H [facility] Rx#:[id number] Oral 354 200 298 Output: Urine 500 Stool 1 Other: Voiding Method Toilet # Voids 1 - Labs CBC & Chem 7: 03/18/17 05:54 03/18/17 05:54 Labs: Abnormal Lab Results - Last 24 Hours (Table) 03/18/17 Range/Units 05:54 Chloride 109 H (98-107) mmol/L Carbon Dioxide 21 L (22-30) mmol/L BUN 31 H (9-20) mg/dL Creatinine 1.60 H (0.66-1.25) mg/dL Total Protein 6.2 L (6.3-8.2) g/dL Assessment and Plan Plan: Assessment: #1. Nonoliguric acute kidney injury secondary to ischemic ATN secondary to hemodynamic instability as well as component of contrast-induced nephropathy. Patient underwent CTA on March 15. Also on MIRNA inhibitor which is now held. Creatinine was 1.3 on admission and peaked at 1.89. Stable at 1.6 today. Urinalysis reveals 1+ proteinuria which can be nonspecific in the setting of acute kidney injury. No hematuria. No evidence of hydronephrosis on renal ultrasound. #2. Chronic kidney disease stage III likely secondary to nephrosclerosis. Unclear as to what his baseline renal function is. #3. Right-sided chest pain with abnormal stress test. Cardiology following. #4. Metabolic acidosis secondary to acute kidney injury. #5. Systolic CHF with ejection fraction of 30%. #6. Hypertension with chronic kidney disease. Uncontrolled. #7. Chest pain status post cardiac catheterization on March 17. No critical lesions were noted. Plan: Resume lisinopril at a dose of 10 mg once daily. I will decrease the dose of sodium bicarbonate to 650 mg twice daily. Patient is stable to be discharged home from nephrology standpoint but will need to get a BMP checked on Wednesday to make sure his renal function is staying stable. He will need to follow-up as an outpatient in the next 1 week.
--- NOTE | 2017-03-18 14:13 | P.PN ---
Subjective Principal diagnosis: Chest pain This is a very pleasant 61-year-old gentleman with a known history of coronary artery disease and previous stent placement. He also has ischemic cardiomyopathy with prior AICD placement. The echocardiogram revealed impaired left ventricular systolic function with an ejection fraction 35-40%. He had presented here on 03/15/2017 with right-sided chest discomfort. A Lexiscan stress test revealed ischemia and the plan was for cardiac catheterization today. However his renal function has worsened today from 1.30-1.89. He is status post CT angiogram. The plan is for hydration and possible heart cath tomorrow. Presently, he is resting quite comfortably in bed. He denies any further chest discomfort. No shortness of breath, cough or congestion. He is maintaining good O2 saturations in the mid 90s on room air. He's been hemodynamically stable. The patient is seen again today 03/18/2017 in follow-up on the selective care unit. He is awake and alert in no acute distress. He denies any further right- sided chest discomfort. He did undergo cardiac catheterization yesterday by Dr. Dr. Jones. He was found to have a patent stent in the LAD with diffuse ectatic changes and plaques throughout the coronary system. There is mild to moderate disease in the OM branch of the circumflex and in the proximal RCA. The plan is for maximal medical therapy. He has no complaints today. He is maintaining good O2 saturations in the upper 90s on room air. He is afebrile. Hemodynamically stable. The patient is anxious to go home. Objective - Vital Signs Vital signs: Vital Signs Temp 97.1 F L 03/18/17 08:00 Pulse 73 03/18/17 08:00 Resp 16 03/18/17 04:00 BP 162/96 03/18/17 08:00 Pulse Ox 94 L 03/18/17 08:00 Intake & Output 03/17/17 03/18/17 03/18/17 18:59 06:59 18:59 Intake Total 524.756 200 298 Output Total 1 500 Balance 523.756 -300 298 Weight 83.4 kg Intake: IV 100 Intake, IV Titration 70.756 Amount Heparin Sodium,Porcine/ 70.756 D5w Pmx 25,000 unit In Dextrose/Water 1 500ml. bag @ 11.3 UNITS/KG/HR 19 .93 mls/hr IV .Q24H [facility] Rx#:[id number] Oral 354 200 298 Output: Urine 500 Stool 1 Other: Voiding Method Toilet # Voids 1 - Exam GENERAL EXAM: Alert, active, comfortable in no apparent distress. HEAD: Normocephalic. EYES: Normal reaction of pupils, equal size. NOSE: Clear with pink turbinates. THROAT: No erythema or exudates. NECK: No masses, no JVD. CHEST: No chest wall deformity. LUNGS: Equal air entry with no crackles, wheeze, rhonchi or dullness. CVS: S1 and S2 normal with an audible murmur, regular rhythm. ABDOMEN: No hepatosplenomegaly, normal bowel sounds, no guarding or rigidity. SPINE: No scoliosis or deformity SKIN: No rashes CENTRAL NERVOUS SYSTEM: No focal deficits, tone is normal in all 4 extremities. - Labs CBC & Chem 7: 03/18/17 05:54 03/18/17 05:54 Labs: Abnormal Lab Results - Last 24 Hours (Table) 03/18/17 Range/Units 05:54 Chloride 109 H (98-107) mmol/L Carbon Dioxide 21 L (22-30) mmol/L BUN 31 H (9-20) mg/dL Creatinine 1.60 H (0.66-1.25) mg/dL Total Protein 6.2 L (6.3-8.2) g/dL Assessment and Plan Plan: Impression: #1 Chest pain in a patient found to have ischemia noted on stress test. Cardiac catheterization revealed a patent stent to the LAD with diffuse ectatic changes and plaque throughout the coronary system. There is mild to moderate disease in the OM branch of the circumflex and in the proximal RCA. The plan is for maximal medical therapy. #2 Acute on chronic renal failure secondary to IV contrast current creatinine 1.60. #3 Coronary artery disease with previous stent placement to the LAD. #4 Ischemic cardiomyopathy status post AICD with ejection fraction 35-40%. #5 Hyperlipidemia. #6 Hypertension. #7 Osteoarthritis. #8 Chronic and ongoing tobacco dependence. Plan: The patient was seen and evaluated by Dr. Frances. He is cleared for discharge from the pulmonary standpoint. He is educated regarding the importance of complete smoking cessation. He could follow-up in our office in 1-2 weeks' time. He would benefit from outpatient workup including full pulmonary function testing to evaluate the severity of his suspected COPD. Maintenance medications could be recommended at that time as well. He is however encouraged to call sooner with any recurrence of symptoms or other questions or concerns.
[2017-03-18 14:25] VITALS: BP 143/91; PULSE 65
--- NOTE | 2017-03-18 15:07 | P.PN ---
Subjective Principal diagnosis: This is a 61-year-old gentleman with known history of coronary artery disease and prior stent placement, ischemic cardio myopathy with prior AICD, he presented to the hospital with symptoms of chest discomfort. Patient was initially scheduled to undergo cardiac catheterization today but because of the renal function this was deferred until tomorrow. Overall the patient feels well , he denies any chest pain or difficulty in breathing. Patient underwent a cardiac catheterization yesterday which revealed a patent stent in the LAD with diffuse ectatic changes and plaques throughout the coronary system. There is mild to moderate disease in the OM branch of the circumflex and proximal RCA. Medical therapy was advised. Patient was seen and examined this morning, feels well, denies any chest pain or difficulty in breathing. Objective - Vital Signs Vital signs: Vital Signs Temp 97.1 F L 03/18/17 08:00 Pulse 65 03/18/17 12:00 Resp 16 03/18/17 04:00 BP 143/91 03/18/17 12:00 Pulse Ox 97 03/18/17 12:00 Intake & Output 03/17/17 03/18/17 03/18/17 18:59 06:59 18:59 Intake Total 524.756 200 298 Output Total 1 500 Balance 523.756 -300 298 Weight 83.4 kg Intake: IV 100 Intake, IV Titration 70.756 0 Amount Heparin Sodium,Porcine/ 70.756 D5w Pmx 25,000 unit In Dextrose/Water 1 500ml. bag @ 11.3 UNITS/KG/HR 19 .93 mls/hr IV .Q24H [facility] Rx#:[id number] Sodium Chloride 0.9% 1, 0 000 ml @ 75 mls/hr IV . [id number] [facility] Rx#:[id number] Oral 354 200 298 Output: Urine 500 Stool 1 Other: Voiding Method Toilet # Voids 1 - Exam PHYSICAL EXAMINATION: HEENT: Head is atraumatic, normocephalic. Pupils equal, round. Neck is supple. There is no elevated jugular venous pressure. HEART EXAMINATION: Heart S1, S2 normal. No murmur or gallop heard. CHEST EXAMINATION: Lungs are clear to auscultation and precussion. No chest wall tenderness is noted on palpation or with deep breathing. ABDOMEN: Soft, nontender. Bowel sounds are heard. No organomegaly noted. Right groin soft, no evidence of any hematoma. EXTREMITIES: 2+ peripheral pulses with no evidence of peripheral edema and no calf tenderness noted]. NEUROLOGIC patient is awake, alert and oriented -3. . - Labs CBC & Chem 7: 03/18/17 05:54 03/18/17 05:54 Labs: Abnormal Lab Results - Last 24 Hours (Table) 03/18/17 Range/Units 05:54 Chloride 109 H (98-107) mmol/L Carbon Dioxide 21 L (22-30) mmol/L BUN 31 H (9-20) mg/dL Creatinine 1.60 H (0.66-1.25) mg/dL Total Protein 6.2 L (6.3-8.2) g/dL Assessment and Plan Plan: Assessment and plan #1 chest discomfort, rule out acute coronary syndrome. Initial troponin 0.029. EKG shows a sinus bradycardia with minimal ST depression in the lateral leads. #2 hypertensive urgency #3 history of hypertension #4 coronary artery disease history with prior stent placement to the LAD in 2011 #5 hyperlipidemia #6 nicotine dependence #7 ischemic cardiomyopathy with prior AICD implant #8 EtOH use #9 hypomagnesemia #10 lung nodule Plan Cardiac catheterization revealed a patent stent in the LAD with diffuse ectatic changes and plaques throughout the coronary system. Medical therapy was advised. Patient should be able to be discharged home today and follow-up with in the office post discharge. We will obtain lytes BUN and creatinine on Wednesday. DNP note has been reviewed, I agree with a documented findings and plan of care. Patient was seen and examined.
[2017-03-19] MEDS ORDERED: LISINOPRIL 10 MG TAB PO SCH (09:00)
--- NOTE | 2017-03-19 13:38 | DS ---
DATE OF ADMISSION: 03/16/2017 DATE OF DISCHARGE: 03/18/2017 FINAL DIAGNOSES: 1. Chest pain with possible unstable angina with coronary artery disease and stent in 2007. 2. Status post cardiac catheterization, diffuse coronary artery disease on medical treatment. 3. Acute renal failure, possibly from acute tubular necrosis, nonoliguric, with prerenal factors as well as contrast-induced nephropathy associated stent in 2007. 4. Congestive heart failure with chronic systolic and diastolic dysfunction, ejection fraction 35% to 40% with underlying coronary artery disease. 5. Hyperlipidemia. 6. Essential hypertension. 7. Primary degenerative joint disease involving multiple joints bilaterally. 8. Chronic kidney disease stage III from hypertensive nephrosclerosis. 9. Chronic obstructive pulmonary disease. 10. History of nicotine dependence. 11. History of testicular cancer. 12. History of lung nodule being followed by Pulmonary for possible metastatic disease, planning outside PET scan. 13. Decreased CO2. 14. FULL CODE. DISCHARGE DISPOSITION: The patient will be discharged in a stable condition with guarding prognosis. Cardiology cleared the patient for discharge. HISTORY OF PRESENT ILLNESS: This 61-year-old gentleman with a past medical history of multiple medical problems admitted with possible unstable angina. The patient underwent cardiac catheterization. Medical treatment was recommended. The patient was treated symptomatically. On exam, vital signs are stable. CARDIOVASCULAR: S1 and S2 muffled. ABDOMEN: Soft, nontender. NERVOUS SYSTEM: No focal deficits. DISCHARGE ADVICE: 1. Diet is cardiac. 2. Activity limited until followup. 3. Follow up with Dr. Colon in 2 to 3 days. 4. Follow up with Dr. Jones as advised. 5. Follow up with Dr. Alvarez from nephrology as advised. Medications will be as follows: 1. Norvasc 5 mg p.o. daily. 2. Aspirin 81 mg p.o. daily. 3. Lipitor 40 mg p.o. daily. 4. Apresoline 50 mg p.o. q.i.d. 5. Lisinopril 20 mg p.o. b.i.d. 6. Lopressor 25 mg p.o. b.i.d. 7. Nitrostat 0.4 sublingual p.r.n. Follow up labs, CBC, BMP, in the outpatient setting. Please note the creatinine is 1.6 and BUN is 31 now.
== END 2017-03-18 14:21 | disposition home or self-care (01) | DRG 286 ==
LOC: EC 00:50 → 6SEL 05:56 → 3OBS 11:22 → 6SEL 14:37 → OBSVTOIN 03-16 14:23
PROVIDERS: ADMIT Hospitalist; ATTEND Hospitalist
PROC: B211YZZ Fluoroscopy of Multiple Coronary Arteries using Other Contrast (ICD-10-PCS; principal; 2017-03-17 10:17)
DX: I25.110 Atherosclerotic heart disease of native coronary artery with unstable angina pectoris (principal); N17.0 Acute kidney failure with tubular necrosis; I13.0 Hypertensive heart and chronic kidney disease with heart failure and stage 1 through stage 4 chronic kidney disease, or unspecified chronic kidney disease; I50.42 Chronic combined systolic (congestive) and diastolic (congestive) heart failure; E87.2 Acidosis; E83.42 Hypomagnesemia; N18.3 Chronic kidney disease, stage 3 (moderate); Z95.5 Presence of coronary angioplasty implant and graft; E78.5 Hyperlipidemia, unspecified; M19.91 Primary osteoarthritis, unspecified site; F17.200 Nicotine dependence, unspecified, uncomplicated; I25.2 Old myocardial infarction; I25.5 Ischemic cardiomyopathy; I16.0 Hypertensive urgency; R91.1 Solitary pulmonary nodule; N14.1 Nephropathy induced by other drugs, medicaments and biological substances; T50.8X5A Adverse effect of diagnostic agents, initial encounter; J44.9 Chronic obstructive pulmonary disease, unspecified; K64.9 Unspecified hemorrhoids; Z72.89 Other problems related to lifestyle; Z95.810 Presence of automatic (implantable) cardiac defibrillator; Z85.47 Personal history of malignant neoplasm of testis; Z79.899 Other long term (current) drug therapy; Z82.49 Family history of ischemic heart disease and other diseases of the circulatory system
CPT/HCPCS: 36415; 71010; 71275; 76770; 78452; 80048; 80053; 80061; 81001; 82150; 82550; 82553; 83690; 83735; 84484; 85025; 85379; 85610; 85730; 93005; 93017; 93306; 93458; 96365; 96366; 96367; 96375; 99285

== ENCOUNTER → 2017-05-15 | Outpatient (CLI) | payer MEDICARE, OTHER ==
--- NOTE | 2017-05-16 11:51 | PE ---
EXAMINATION TYPE: PET CT fusion skull to thigh DATE OF EXAM: 05/15/2017 COMPARISON: CT chest 03/15/2017 Prior PET/CT: None HISTORY: Testicular cancer, solitary pulmonary nodule TECHNIQUE: Following the intravenous administration of 15.0 mCi of F-18 FDG, whole body images are p erformed from the skull base to the midthigh. Images are reviewed on the computer in the coronal, ax ial, and sagittal planes. Reconstructed rotating images are created on independent workstation and r eviewed on the computer. A localization and attenuation correction CT is performed in conjunction w ith the PET scan. DLP: 440.67 mGycm SCAN: Initial Blood glucose: 96 mg/dL Average Mediastinum SUV: 1.4 Average Liver SUV: 2.0 FINDINGS: NECK: No abnormal uptake THORAX: There is mild uptake measuring 2.0 SUV within the clot nodule within the left lateral lung ba se image 111. Neoplasm and inflammatory changes within the differential. A more benign-appearing nodu le posterior lateral to the aorta measures 1.1 SUV value. No abnormal uptake is within the mediastinum. No suspicious uptake within lingular nodules. ABDOMEN: No abnormal uptake PELVIS: No abnormal uptake OSSEOUS STRUCTURES: No abnormal uptake LOCALIZATION CT: There is some fullness of the left tonsillar pillar region. Direct visualization is recommended. Shotty lymphadenopathy is mediastinum. The ascending thoracic aorta at the level the denisse n pulmonary artery is 4.1 cm. The main pulmonary artery the bifurcation is 3.5 cm. There is a 1.0 cm density posterior lateral to the descending thoracic aorta. 2.7 cm nodule in the periphery of the lef t lung is again identified. Coronary artery calcification is noted. Posterior lateral thickening of p leural margin on the right is present. Prostate is prominent. COMPARISON: Findings appear stable from comparison. IMPRESSION: 1. Intermediate signal within a left lateral lung base on a large nodule. This is nonspecific inflamm atory and neoplastic processes are within the differential. 2. Additional lingular and posterior medial left lung base nodules have lower SUV values in the range of inflammatory change
== END | disposition home or self-care (01) ==
LOC: RADPETMAIN 12:08
PROVIDERS: ATTEND Thoracic Surgery (Cardiothoracic Vascular Surgery)
DX: R91.8 Other nonspecific abnormal finding of lung field (principal)
CPT/HCPCS: 78815; A9552

== ENCOUNTER 2018-01-04 10:44 | Inpatient (IN) | payer MEDICARE, OTHER ==
[2018-01-04] MEDS ORDERED: NITROGLYCERIN OINT 1 INCH/GM PACKET TOPICAL STA (10:48)
[2018-01-04] MEDS ORDERED: SODIUM CHLORIDE 0.9% 500 ML IV STA (10:48)
--- NOTE | 2018-01-04 10:52 | ED ---
General Adult HPI - General Stated complaint: Chest pain Time Seen by Provider: 01/04/18 10:45 Source: RN notes reviewed - History of Present Illness Initial comments: This a 62-year-old male who presents emergency Department with a past medical history significant for a cardiac stent and a pacemaker. Patient also has high cholesterol. In he states he is a smoker and continues to smoke. Patient states the last month she's been having episodes of shortness of breath but since yesterday she's been having significant chest pain. Patient states last night the chest pain was so bad he took an aspirin. Patient states today he called EMS because of some chest pain and was radiating to his left side having significant shortness of breath. Patient denies any nausea or diaphoresis. Patient states when the ambulance got there and they gave him oxygen that helped reduce his pain considerably and on the nitro took the pain completely away. Patient states currently she is chest pain-free. Patient denies being short of breath while sitting in bed. Patient denies any leg swelling or calf tenderness. Patient states he has noted recently gaining some weight however. Patient denies any abdominal pain patient denies any nausea vomiting or diarrhea. Patient denies lightheadedness dizziness or near syncopal episode. Patient denies headache patient denies numbness weakness - Related Data Home Medications Medication Instructions Recorded Confirmed Alfuzosin HCl [Alfuzosin HCl ER] 10 mg PO HS 01/04/18 01/04/18 Chlorthalidone [Hygroton] 25 mg PO DAILY 01/04/18 01/04/18 amLODIPine [Norvasc] 10 mg PO DAILY 01/04/18 01/04/18 Previous Rx's Medication Instructions Recorded Aspirin 81 mg PO DAILY #30 03/18/17 Atorvastatin [Lipitor] 40 mg PO DAILY #30 tab 03/18/17 Lisinopril 20 mg PO BID #60 03/18/17 Metoprolol Tartrate [Lopressor] 25 mg PO BID #60 tab 03/18/17 Nitroglycerin Sl Tabs [Nitrostat] 0.4 mg SUBLINGUAL Q5M PRN #100 tab 03/18/17 Allergies Allergy/AdvReac Type Severity Reaction Status Date / Time Penicillins Allergy Rash/Hives Verified 01/04/18 10:59 Review of Systems ROS Statement: Those systems with pertinent positive or pertinent negative responses have been documented in the HPI. ROS Other: All systems not noted in ROS Statement are negative. Past Medical History Past Medical History: Hypertension, Myocardial Infarction (ID) Additional Past Medical History / Comment(s): TESTICULAR CANCER, PACEMAKER/ DEFIBRILATOR History of Any Multi-Drug Resistant Organisms: None Reported Past Surgical History: Orthopedic Surgery Additional Past Surgical History / Comment(s): 2010 pacer/AICD, PCI with stent 2009, bilateral femur surgeries-L leg has had hardware removed, still has 2 pins in R femur, facial reconstructive surgery, L orchidectomy/scrotal sx, colonoscopy. Past Anesthesia/Blood Transfusion Reactions: No Reported Reaction Past Psychological History: No Psychological Hx Reported Smoking Status: Current every day smoker Past Alcohol Use History: Occasional Past Drug Use History: Marijuana - Past Family History Father Family Medical History: Coronary Artery Disease (CAD) Additional Family Medical History / Comment(s): Father at the age of 80yrs from heart disease. Mother Family Medical History: No Reported History Additional Family Medical History / Comment(s): Mother is healthy and is 79yrs old. General Exam - General Exam Comments Initial Comments: GENERAL: Patient is well-developed and well-nourished. Patient is nontoxic and well- hydrated and is in mild distress. ENT: Neck is soft and supple. No significant lymphadenopathy is noted. Oropharynx is clear. Moist mucous membranes. Neck has full range of motion without eliciting any pain. EYES: The sclera were anicteric and conjunctiva were pink and moist. Extraocular movements were intact and pupils were equal round and reactive to light. Eyelids were unremarkable. PULMONARY: Unlabored respirations. Good breath sounds bilaterally. No audible rales rhonchi or wheezing was noted. CARDIOVASCULAR: There is a regular rate and rhythm without any murmurs gallops or rubs. ABDOMEN: Soft and nontender with normal bowel sounds. No palpable organomegaly was noted. There is no palpable pulsatile mass. SKIN: Skin is clear with no lesions or rashes and otherwise unremarkable. NEUROLOGIC: Patient is alert and oriented x3. Cranial nerves II through XII are grossly intact. Motor and sensory are also intact. Normal speech, volume and content. Symmetrical smile. MUSCULOSKELETAL: Normal extremities with adequate strength and full range of motion. No lower extremity swelling or edema. No calf tenderness. LYMPHATICS: No significant lymphadenopathy is noted PSYCHIATRIC: Normal psychiatric evaluation. Course Vital Signs 01/04/18 01/04/18 10:55 11:37 Temperature 97.4 F L Pulse Rate 79 74 Respiratory 18 18 Rate Blood Pressure 166/103 157/94 O2 Sat by Pulse 98 97 Oximetry Medical Decision Making - Medical Decision Making EKG shows a normal sinus rhythm at 74 bpm VT interval 188 QRSs 100 QT interval 386 QTC is 428. Patient's EKG shows no ST segment elevation or depression or T wave abnormalities are noted. Chest x-ray shows no acute abnormality. I started the patient heparin because of the stuttering chest pain and his significant medical history. I spoke with because he agreed to admit the patient admitted the patient wrote admitting orders. I continued heparin Nitropaste and aspirin on the floor. - Lab Data Result diagrams: 01/04/18 10:55 01/04/18 10:55 Lab Results 01/04/18 01/04/18 01/04/18 Range/Units 10:55 10:55 10:55 WBC 9.5 (3.8-10.6) k/uL RBC 4.34 (4.30-5.90) m/uL Hgb 13.1 (13.0-17.5) gm/dL Hct 39.3 (39.0-53.0) % MCV 90.6 (80.0-100.0) fL MCH 30.3 (25.0-35.0) pg MCHC 33.4 (31.0-37.0) g/dL RDW 13.7 (11.5-15.5) % Plt Count 200 (150-450) k/uL Neutrophils % 58 % Lymphocytes % 28 % Monocytes % 6 % Eosinophils % 7 % Basophils % 1 % Neutrophils # 5.5 (1.3-7.7) k/uL Lymphocytes # 2.6 (1.0-4.8) k/uL Monocytes # 0.6 (0-1.0) k/uL Eosinophils # 0.6 (0-0.7) k/uL Basophils # 0.1 (0-0.2) k/uL PT (9.0-12.0) sec INR (<1.2) APTT (22.0-30.0) sec Sodium 141 (137-145) mmol/L Potassium 4.7 (3.5-5.1) mmol/L Chloride 107 (98-107) mmol/L Carbon Dioxide 19 L (22-30) mmol/L Anion Gap 15 mmol/L BUN 31 H (9-20) mg/dL Creatinine 1.70 H (0.66-1.25) mg/dL Est GFR (CKD-EPI)AfAm 50 (>60 ml/min/1.73 sqM) Est GFR (CKD-EPI)NonAf 43 (>60 ml/min/1.73 sqM) Glucose 99 (74-99) mg/dL Calcium 9.9 (8.4-10.2) mg/dL Magnesium 1.6 (1.6-2.3) mg/dL Total Bilirubin 0.5 (0.2-1.3) mg/dL AST 23 (17-59) U/L ALT 27 (21-72) U/L Alkaline Phosphatase 120 (38-126) U/L Total Creatine Kinase 62 (55-170) U/L CK-MB (CK-2) 1.4 (0.0-2.4) ng/mL CK-MB (CK-2) Rel Index 2.3 Troponin I 0.015 (0.000-0.034) ng/mL NT-Pro-B Natriuret Pep pg/mL Total Protein 7.4 (6.3-8.2) g/dL Albumin 4.2 (3.5-5.0) g/dL 01/04/18 01/04/18 Range/Units 10:55 10:55 WBC (3.8-10.6) k/uL RBC (4.30-5.90) m/uL Hgb (13.0-17.5) gm/dL Hct (39.0-53.0) % MCV (80.0-100.0) fL MCH (25.0-35.0) pg MCHC (31.0-37.0) g/dL RDW (11.5-15.5) % Plt Count (150-450) k/uL Neutrophils % % Lymphocytes % % Monocytes % % Eosinophils % % Basophils % % Neutrophils # (1.3-7.7) k/uL Lymphocytes # (1.0-4.8) k/uL Monocytes # (0-1.0) k/uL Eosinophils # (0-0.7) k/uL Basophils # (0-0.2) k/uL PT 9.6 (9.0-12.0) sec INR 1.0 (<1.2) APTT 22.4 (22.0-30.0) sec Sodium (137-145) mmol/L Potassium (3.5-5.1) mmol/L Chloride (98-107) mmol/L Carbon Dioxide (22-30) mmol/L Anion Gap mmol/L BUN (9-20) mg/dL Creatinine (0.66-1.25) mg/dL Est GFR (CKD-EPI)AfAm (>60 ml/min/1.73 sqM) Est GFR (CKD-EPI)NonAf (>60 ml/min/1.73 sqM) Glucose (74-99) mg/dL Calcium (8.4-10.2) mg/dL Magnesium (1.6-2.3) mg/dL Total Bilirubin (0.2-1.3) mg/dL AST (17-59) U/L ALT (21-72) U/L Alkaline Phosphatase (38-126) U/L Total Creatine Kinase (55-170) U/L CK-MB (CK-2) (0.0-2.4) ng/mL CK-MB (CK-2) Rel Index Troponin I (0.000-0.034) ng/mL NT-Pro-B Natriuret Pep 1260 pg/mL Total Protein (6.3-8.2) g/dL Albumin (3.5-5.0) g/dL Critical Care Time Critical Care Time: Yes Total Critical Care Time: 35 Disposition Clinical Impression: Unstable angina pectoris Disposition: ADMITTED IP TO THIS HOSP Referrals: Amadou Colon DO [Primary Care Provider] - 1-2 days Time of Disposition: 12:51
[2018-01-04 11:18] LABS: Partial Thromboplastin Time 22.4 sec (22.0-30.0); Prothrombin Time 9.6 sec (9.0-12.0)
--- NOTE | 2018-01-04 11:25 | XR ---
EXAMINATION TYPE: XR chest 2V DATE OF EXAM: 01/04/2018 COMPARISON: 03/15/2017 HISTORY: Shortness of breath TECHNIQUE: Frontal and lateral views of the chest are obtained. FINDINGS: Scattered senescent parenchymal changes noted. Hyperinflation compatible with COPD. No evidence for infiltrate. No evidence for atelectasis. Stable pleural-based nodule within the perip negar of the left midlung zone. Single lead pacer is in place. Heart size is stable. Mediastinal structures are stable and grossly unremarkable. No evidence for hilar prominence. Degenerative changes dorsal spine. IMPRESSION: 1. No evidence for acute pulmonary disease.
[2018-01-04 11:26] LABS: Basophils # (A) 0.1 k/uL (0-0.2); Basophils % (A) 1 %; Eosinophils # (A) 0.6 k/uL (0-0.7); Eosinophils % (A) 7 %; HCT 39.3 % (39.0-53.0); HGB 13.1 gm/dL (13.0-17.5); Lymphocytes # (A) 2.6 k/uL (1.0-4.8); Lymphocytes % (A) 28 %; MCH 30.3 pg (25.0-35.0); MCHC 33.4 g/dL (31.0-37.0); MCV 90.6 fL (80.0-100.0); Monocytes # (A) 0.6 k/uL (0-1.0); Monocytes % (A) 6 %; Neutrophils # (A) 5.5 k/uL (1.3-7.7); Neutrophils % (A) 58 %; Platelet Count 200 k/uL (150-450); RBC 4.34 m/uL (4.30-5.90); RDW 13.7 % (11.5-15.5); WBC 9.5 k/uL (3.8-10.6)
[2018-01-04 11:28] LABS: Albumin 4.2 g/dL (3.5-5.0); Calcium 9.9 mg/dL (8.4-10.2); Magnesium 1.6 mg/dL (1.6-2.3); Potassium 4.7 mmol/L (3.5-5.1); Total Bilirubin 0.5 mg/dL (0.2-1.3); Total Protein 7.4 g/dL (6.3-8.2)
[2018-01-04 11:53] LABS: Creatine Kinase MB 1.4 ng/mL (0.0-2.4); Troponin I 0.015 ng/mL (0.000-0.034)
[2018-01-04] MEDS ORDERED: HEPARIN SODIUM,PORCINE 5,000 UNIT/ML 1 ML VIAL IV ONE (12:14)
[2018-01-04] MEDS ORDERED: HEPARIN SOD,PORK IN 0.45% NACL 25,000 UNIT in 0.45% NACL 1 500ML.BAG IV SCH (12:15)
[2018-01-04] MEDS ORDERED: NITROGLYCERIN SL TABS 0.4 MG TAB SUBLINGUAL PRN ×2 (12:51→18:49)
[2018-01-04] MEDS ORDERED: ENALAPRILAT 1.25 MG/ML 1 ML VIAL IVP STA (13:54)
[2018-01-04] MEDS ORDERED: METOPROLOL TARTRATE 25 MG TAB PO STA (13:54)
[2018-01-04] MEDS ORDERED: hydrALAZINE HCL 20 MG/ML 1 ML VIAL IVP STA ×2 (16:19→17:59)
[2018-01-04 18:33] LABS: Creatine Kinase MB 1.2 ng/mL (0.0-2.4); Troponin I 0.025 ng/mL (0.000-0.034)
[2018-01-04] MEDS ORDERED: METOPROLOL TARTRATE 25 MG TAB PO SCH (21:00)
[2018-01-04] MEDS: NITROGLYCERIN OINT 1 INCH/GM PACKET TOPICAL SCH (21:20)
[2018-01-04] MEDS: TAMSULOSIN 0.4 MG CAP.ER.24H PO SCH (21:36)
[2018-01-04] MEDS: LISINOPRIL 20 MG TAB PO SCH (21:49)
[2018-01-05 01:35] LABS: Creatine Kinase MB 1.1 ng/mL (0.0-2.4); Troponin I 0.023 ng/mL (0.000-0.034)
[2018-01-05] MEDS: NITROGLYCERIN OINT 1 INCH/GM PACKET TOPICAL SCH ×2 (02:16→07:05)
[2018-01-05] MEDS ORDERED: HEPARIN SODIUM,PORCINE 5,000 UNIT/ML 1 ML VIAL IV PRN (02:30)
[2018-01-05] MEDS ORDERED: FUROSEMIDE 10 MG/ML 4 ML VIAL IV STA (07:55)
[2018-01-05] MEDS ORDERED: AMINOPHYLLINE 500 MG/20 ML VIAL IV PRN (08:57)
[2018-01-05] MEDS ORDERED: REGADENOSON 0.4 MG/5 ML SYRINGE IV ONE (08:57)
[2018-01-05] MEDS ORDERED: ASPIRIN 325 MG TAB PO SCH (09:00)
[2018-01-05] MEDS ORDERED: ASPIRIN 81 MG PO SCH (09:00)
[2018-01-05] MEDS ORDERED: ATORVASTATIN 40 MG TAB PO SCH (09:00)
[2018-01-05] MEDS ORDERED: CHLORTHALIDONE 25 MG TAB PO SCH (09:00)
[2018-01-05] MEDS ORDERED: amLODIPine 10 MG TAB PO SCH (09:00)
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
[2018-01-05 09:13] LABS: Cholesterol 200 mg/dL (<200); HDL Cholesterol 44 mg/dL (40-60); LDL Cholesterol,Calculated 129 mg/dL (0-99); Triglycerides 135 mg/dL (<150)
[2018-01-05] MEDS: ASPIRIN 81 MG PO SCH (11:37)
[2018-01-05] MEDS: LISINOPRIL 20 MG TAB PO SCH ×2 (11:37→20:41)
[2018-01-05] MEDS: CARVEDILOL 6.25 MG TAB PO SCH ×2 (11:48→18:47)
--- NOTE | 2018-01-05 11:59 | NM ---
"EXAMINATION TYPE: NM stress lexiscan cardiolite DATE OF EXAM: 01/05/2018 COMPARISON: Nuclear medicine cardiac Lexiscan stress test March 15, 2017. HISTORY: History of hypertension, hypercholesteremia, tobacco use, and prior catheterization with two -vessel angioplasty presents with chest pain. TECHNIQUE: After the intravenous administration of 9.87 mCi Tc 99m Sestamibi - Cardiolite resting SP ECT images acquired 45 minutes post injection. The patient received 0.4mg Lexiscan, 26.0 mCi Tc 99m Sestamibi - Stress images obtained [address] injection FINDINGS: Review of stress and rest SPECT images demonstrates area of diminished uptake on stress images versus rest images involving the apex seen best on horizontal and vertical long axis images. Post processin g shows apparent extension into left lateral ventricular wall mid to apical segments though this is l ess well-seen on 3 plain views. Gated analysis shows overall ejection fraction of 39%, diminished fro m the normal range. End-diastolic volume is 1 58 cc which is slightly abnormally dilated. IMPRESSION: Scintigraphic findings suspicious for area of acute ischemia involving apex. Need to furt her investigate by direct catheter angiogram should be based on clinical and EKG correlation. A Grainger level critical message alert has been initiated for Lacy Sena MD via the [employer] | Critical Results System on 01/05/2018 11:57 AM. This message alert has been sent to Lacy Sena MD via the preferences provided by the clinician for the receipt of Radiology Critical Find ings. Message ID [id number]."
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
[2018-01-05] MEDS ORDERED: ATORVASTATIN 40 MG TAB PO ONE (14:30)
[2018-01-05] MEDS: HEPARIN SODIUM,PORCINE 5,000 UNIT/ML 1 ML VIAL SQ SCH ×2 (15:48→20:41)
[2018-01-05] MEDS: FUROSEMIDE 40 MG TAB PO SCH (15:49)
--- NOTE | 2018-01-05 16:50 | P.PN ---
Progress Note - Text Lexiscan stress test results discussed with Mr. 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 Catheterization recommended to assess for progression of coronary artery disease. This was discussed in detail with the patient and his mother. Risks of worsening kidney function discussed and he would prefer maximizing medical therapy to avoid further kidney injury. We will continue to monitor him overnight and hold on catheterization at this time.
[2018-01-05] MEDS: ISOSORBIDE MONONITRATE ER 30 MG TAB.ER.24H PO SCH (18:47)
[2018-01-05] MEDS: TAMSULOSIN 0.4 MG CAP.ER.24H PO SCH (20:41)
[2018-01-06 07:51] VITALS: RESP 18
[2018-01-06] MEDS ORDERED: ATORVASTATIN 80 MG TAB PO SCH (09:00)
[2018-01-06] MEDS: FUROSEMIDE 40 MG TAB PO SCH (09:35)
[2018-01-06] MEDS: CARVEDILOL 6.25 MG TAB PO SCH (09:35)
[2018-01-06] MEDS: ASPIRIN 81 MG PO SCH (09:35)
[2018-01-06] MEDS: ISOSORBIDE MONONITRATE ER 30 MG TAB.ER.24H PO SCH (09:35)
[2018-01-06] MEDS: HEPARIN SODIUM,PORCINE 5,000 UNIT/ML 1 ML VIAL SQ SCH (09:36)
--- NOTE | 2018-01-06 09:41 | EST ---
EXERCISE STRESS DATE OF SERVICE: 01/05/2018 AGE: 62 SEX: Male HT: 6'4" WT: 190 pounds PROTOCOL: Lexiscan Cardiolite STAGE: DURATION OF EXERCISE: HEART RATE REST: 62 BLOOD PRESSURE REST: 171/97 MAXIMUM HEART RATE ACHIEVED: 93 MAXIMUM BLOOD PRESSURE: 182/100 85% MPHR: 135 100% MPHR: 159 METS: INDICATIONS: Chest pain. CLINICAL INFORMATION: The patient admitted with chest discomfort, known coronary artery disease. Referred for a stress test. Baseline heart rate 62 beats per minute. Baseline blood pressure 171/97 mmHg. Baseline 12-lead ECG shows normal sinus rhythm with ST depression and T-wave inversions in leads V5 and V6 and occasional PVCs. The patient received Lexiscan infusion per protocol. He did not experience any chest discomfort. The ST depression became more prominent during the infusion. Nuclear portion of the stress test will be reported separately. IMPRESSION: ECG during Lexiscan infusion shows ST depression and T-wave inversions that were more prominent during the infusion than at baseline. Baseline ECG abnormalities as described above. Nuclear portion will be reported separately. MMODL / IJN: [id number] /
--- NOTE | 2018-01-06 11:30 | CDI ---
Last Revision, August 2017 Documentation Clarification Form Date: 01/06/18 From: Missy Rod RN, CCDS Admit Date: 01/05/2018 1:37:00 PM Patient Name: Kaiden Davis Visit Number: [id number] Discharge Date: ATTENTION: The Clinical Documentation Specialists (CDI) and [facility] Coding Staff appreciate your assistance in clarifying documentation. Please respond to the clarification below the line at the bottom and electronically sign. The CDI & [facility] Coding staff will review the response and follow-up if needed. Please note: Queries are made part of the Legal Health Record. If you have any questions, please contact the author of this message via ITS. Dr. Maloney E Sheet History/Risk Factors: Coronary Artery Disease, Systolic heart Failure, Hypertension, Renal disease, Current every day smoker Clinical Indicators: Chronic kidney disease in noted in the consults and your H/ P on 01/05/18 Current BUN31 CR 1.70 GFR: 43 Patients Baseline: BUN/CR/GFR: Not noted Treatment: Patients medications include: Lasix PO, Coreg Po, Lipitor PO, Zestril PO, Imdur PO IVF bolus In order to capture the severity of condition, please clarify if the condition signifies: CKD Stage 1 (GFR > 90) CKD Stage 2 (GFR 60-89) CKD Stage 3 (GFR 30-59) CKD Stage 4 (GFR 15-29) CKD Stage 5 (GFR <15) Other, please specify Unable to determine Please continue to document in your progress notes and discharge summary in order to capture severity of illness and risk of mortality. Include clinical findings that support your diagnosis. CKD stage 3 MTDD
--- NOTE | 2018-01-06 11:41 | P.PN ---
Subjective Progress Note Date: 01/06/18 Mr. Davis is seen and examined this morning. Yesterday he underwent a Lexiscan stress test which revealed evidence of reversible ischemia near the apex and cardiac catheterization was recommended. The patient has refused this procedure and requested medical therapy instead due to his kidney function. The risks of not doing the catheterization were discussed with the patient of having further chest pain and even . He verbalizes understanding of these risks and is willing to take the chances. His mother was also part of this conversation last evening. Imdur 30 mg was started last night. Blood pressures last night 101/68, 109/70 and 132/79 this morning with heart rate 77. He denies any ongoing symptoms of chest pain or shortness of breath. Telemetry tracings have been unremarkable. Weight has gone 1.7 kg since admission. Objective - Vital Signs Vital signs: Vital Signs Temp 97.7 F 01/06/18 07:50 Pulse 77 01/06/18 08:00 Resp 18 01/06/18 08:00 BP 132/79 01/06/18 07:50 Pulse Ox 96 01/06/18 07:50 Intake & Output 01/05/18 01/06/18 01/06/18 18:59 06:59 18:59 Intake Total 480 240 Balance 480 240 Weight 86.2 kg Intake: Oral 480 240 Other: Voiding Method Toilet Toilet Toilet # Voids 4 1 - Exam GENERAL: Well-appearing, well-nourished and in no acute distress. NECK: Supple without JVD or thyromegaly. LUNGS: Breath sounds clear to auscultation bilaterally. Respiration equal and unlabored. No wheezes, rales or rhonchi. HEART: Regular rate and rhythm with pansystolic murmur, no rubs or gallops. S1 and S2 heard. EXTREMITIES: Normal range of motion, no edema. No clubbing or cyanosis. Peripheral pulses intact and strong. - Labs CBC & Chem 7: 01/04/18 10:55 01/04/18 10:55 Labs: Abnormal Lab Results - Last 24 Hours (Table) 01/05/18 Range/Units 08:37 Cholesterol 200 H (<200) mg/dL LDL Cholesterol, Calc 129 H (0-99) mg/dL Assessment and Plan Assessment: ASSESSMENT 1. Chest pain, with T-wave inversions noted in lateral precordial leads with negative cardiac enzymes 3. 2. Mild acute on chronic exacerbation of systolic heart failure 3. Mild aortic stenosis 4. Known cardiomyopathy status post ICD placement 5. Chronic kidney disease 6. Chronic tobacco abuse 7. Dyslipidemia 8. History of noncompliance with follow-up visits. PLAN Despite positive Lexiscan stress test the patient is refusing cardiac catheterization and would prefer medical therapy. Risks of not proceeding with this procedure have been discussed and he is aware of the risk of sudden secondary to progression of heart disease. Imdur was added last night. Blood pressures were on the lower side and lisinopril was decreased to daily dosing. Discussion with the patient by Dr. Gallardo and Dr. Jones were had this morning regarding follow-up care and he is agreeable. Adherence and follow-up strongly recommended. Nurse Practitioner note has been reviewed, I agree with a documented findings and plan of care. Patient was seen and examined.
[2018-01-06 11:49] VITALS: BP 122/74; PULSE 86; TEMP 97.9
--- NOTE | 2018-01-06 12:28 | CDI ---
Last Revision, August 2017 Documentation Clarification Form Date: 01/06/18 From: Missy Rod RN, CCDS Admit Date: 01/05/2018 1:37:00 PM Patient Name: Kaiden Davis Visit Number: [id number] Discharge Date: ATTENTION: The Clinical Documentation Specialists (CDI) and [employer] Coding Staff appreciate your assistance in clarifying documentation. Please respond to the clarification below the line at the bottom and electronically sign. The CDI & [employer] Coding staff will review the response and follow-up if needed. Please note: Queries are made part of the Legal Health Record. If you have any questions, please contact the author of this message via ITS. Dr. Haider Gunn Emergency Department clinical impression is Unstable angina pectoris on 01/04/18 Cardiology consult 01/05/18: Chest pain, with T-wave inversion , negative cardiac enzymes x3, Mild acute on Chronic exacerbation of systolic heart failure. Known cardiomyopathy status post ICD placement. Stress Test 01/05/18: ECG during Lexiscan infusion shows ST depression and T- wave inversions that were more prominent during the infusion that at baseline. Baseline ECG abnormalities. Presenting symptoms: Left side chest pain and shortness of breath. Patient history/risk factors: Hypertension, Coronary artery disease, Systolic heart failure, Renal Disease, Current every day smoker Clinical Indicators: Post medical history significant for a cardiac stent and a pacemaker, known coronary artery disease. He has high cholesterol. and is a current smoker. Present with complaints of chest pain Lab findings: Troponin I 0.015, 0.025, 0.023, BNP 1260, bun 31, CR 1.70 Chest x-ray: No evidence for acute pulmonary disease. Vital Signs: 166/103 79 18 97.4 98 % 2/L NC Other Clinical Indicators: 01/06/18 cardiology: Lexsican stress test revealed evidence of reversible ischemia near the apex and cardiac catheterization was recommended. Treatment: Nitrostat SL Lopressor PO Apresoline IVP Lasix IV (change to PO) Coreg PO Monitor Labs The patients principal diagnosis has not been clearly identified and requires clarification. In your professional opinion, can you please clarify which diagnosis, after study, accounted for the patients presenting symptoms and was the reason chiefly responsible for the admission? Please continue to document in your progress notes and discharge summary in order to capture severity of illness and risk of mortality. Include clinical findings that support your diagnosis. possible angina with known CAD MTDD
--- NOTE | 2018-01-06 15:21 | P.DS ---
Providers Date of admission: 01/05/18 13:37 Expected date of discharge: 01/06/18 Attending physician: Lacy Sena lesly lucero Consults: 01/04/18 12:51 Consult Physician Urgent Consulting Provider: [facility] Consult Reason/Comments: Unstable angina Do you want consulting provider notified?: Yes Primary care physician: [facility] Course: Final diagnoses: 1. possible angina with known CAD 2. CKD stage III 3. Hyperlipidemia 4. History of long nodule 5. Hypertension This is a pleasant 62 years old male with past medical history of coronary artery disease status post stent and pacemaker, hyperlipidemia, current smoker, possible CkD cardiomyopathy with ejection fraction 35-40%, s/p AICD and mild aortic stenosis who presents with signs and symptoms of chest pain and dyspnea of one-day duration, chest x-ray is negative, EKG shows normal sinus rhythm at [address] T changes Cardiology consultation is appreciated Patient underwent a Lexiscan stress test which revealed evidence of reversible ischemia near the apex and cardiac catheterization was recommended. The patient has refused this procedure and requested medical therapy instead due to his kidney function. The risks of not doing the catheterization were discussed by me the primary medical team as well as by the cardiology team with the patient of having further chest pain, heart failure and/or organ dysfunction and even . He verbalizes understanding of these risks and is willing to take the chances of not doing the test As an alternative the patient lisinopril dose was decreased from 20 mg twice a day to 20 mg daily in view of his creatinine 1.7 on admission and appointment is made for him to follow-up with [facility] as an outpatient, as well as with his PCP in one week and he agrees Also he was placed on Coreg 6.25 mg twice daily to control his blood pressure, his blood pressure is stable on discharge patient is as symptomatic with his chest pain and dyspnea are completely resolved and patient states he is back to his baseline. 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 Frances on January 18. Risks benefits and alternatives are explained to the patient including but not limited to the risk of cancer and and he verbalized understanding and acceptance - CkD continue with same treatment and follow-up as an outpatient. - Hypertension, continue with Lasix Coreg 6.25 mg and lisinopril 20 mg once a day i called the office of his pcp Dr. Colon and discussed the case with him including the cardiac course of hospitalization as above with the recommendation to check his Cr, as well as the lung nodules and f/u appointment made for him and he thankfully took a note of these Problem list and management plan were discussed with the patient and he verbalized understanding and acceptance Patient was found stable and he can be discharged home, he needs follow-up as an outpatient and he agrees with the appointments made for him Patient Condition at Discharge: Stable Plan - Discharge Summary Discharge Rx Participant: No New Discharge Prescriptions: New Atorvastatin [Lipitor] 80 mg PO DAILY #30 tab Carvedilol [Coreg] 6.25 mg PO BID-W/MEALS #60 tab Furosemide [Lasix] 40 mg PO BID@0900,1600 #60 tab Isosorbide Mononitrate ER [Imdur] 30 mg PO DAILY #30 tab.er.24h Lisinopril [Zestril] 20 mg PO DAILY tab Aspirin 81 mg PO DAILY chew Continue Aspirin 81 mg PO DAILY #30 Alfuzosin HCl [Alfuzosin HCl ER] 10 mg PO HS Discontinued Atorvastatin [Lipitor] 40 mg PO DAILY #30 tab Metoprolol Tartrate [Lopressor] 25 mg PO BID #60 tab Lisinopril 20 mg PO BID #60 Chlorthalidone [Hygroton] 25 mg PO DAILY amLODIPine [Norvasc] 10 mg PO DAILY No Action Nitroglycerin Sl Tabs [Nitrostat] 0.4 mg SUBLINGUAL Q5M PRN #100 tab PRN Reason: Chest Pain Discharge Medication List Aspirin 81 mg PO DAILY #30 03/18/17 [Rx] Nitroglycerin Sl Tabs [Nitrostat] 0.4 mg SUBLINGUAL Q5M PRN #100 tab 03/18/17 [ Rx] Alfuzosin HCl [Alfuzosin HCl ER] 10 mg PO HS 01/04/18 [History] Aspirin 81 mg PO DAILY chew 01/06/18 [Rx] Atorvastatin [Lipitor] 80 mg PO DAILY #30 tab 01/06/18 [Rx] Carvedilol [Coreg] 6.25 mg PO BID-W/MEALS #60 tab 01/06/18 [Rx] Furosemide [Lasix] 40 mg PO BID@0900,1600 #60 tab 01/06/18 [Rx] Isosorbide Mononitrate ER [Imdur] 30 mg PO DAILY #30 tab.er.24h 01/06/18 [Rx] Lisinopril [Zestril] 20 mg PO DAILY tab 01/06/18 [Rx] Follow up Appointment(s)/Referral(s): Petey Frances DO [Doctor of Osteopathic Medicine] - 01/18/18 1:45 pm (For your lung nodule) Raz Jones MD [STAFF PHYSICIAN] - 01/17/18 4:15 pm (at [facility] ) Amadou Colon DO [Primary Care Provider] - 01/10/18 10:20 am (we recommend to reperat your blood tests with your doctor including your kidney functin as well as checking your blood pressure and other health issues) Discharge Disposition: HOME SELF-CARE
[2018-01-07] MEDS ORDERED: LISINOPRIL 20 MG TAB PO SCH (09:00)
--- NOTE | 2018-01-11 12:16 | ECHOF ---
Referral Reason:cp, sob MEASUREMENTS -------- HEIGHT: 188.0 cm WEIGHT: 87.5 kg BP: IVSd: 1.4 cm (0.6 - 1.1) LVIDd: 5.2 cm (3.9 - 5.3) LVPWd: 1.4 cm (0.6 - 1.1) IVSs: 1.6 cm LVIDs: 4.5 cm LVPWs: 1.6 cm LA Diam: 4.5 cm (2.7 - 3.8) LAESV Index (A-L): 29.47 ml/m Ao Diam: 3.6 cm (2.0 - 3.7) AV Cusp: 0.9 cm (1.5 - 2.6) LA Diam: 4.7 cm (2.7 - 3.8) MV EXCURSION: 19.957 mm (> 18.000) MV EF SLOPE: 59 mm/s (70 - 150) EPSS: 1.3 cm MV E Gregory: 0.48 m/s MV A Gregory: 1.06 m/s MV E/A Ratio: 0.45 AV maxP.09 mmHg AV meanP.85 mmHg RAP: 5.00 mmHg RVSP: 27.77 mmHg FINDINGS -------- Paced rhythm. This was a technically adequate study. The left ventricular size is normal. There is moderate concentric left ventricular hypertrophy. O verall left ventricular systolic function is low-normal with, an EF between 50 - 55 %. Inferior bas al Hypokinesis The right ventricle is normal in size. The left atrium is moderately dilated. LA is midly dilated 29-33ml/m2. The right atrial size is normal. There is moderate aortic valve sclerosis. There is mild aortic stenosis present. Peak/mean gradie nt across the Aortic Valve is 24.09mmHg / 12.85mmHg. Mild mitral annular calcification present. Mild mitral regurgitation is present. Mild tricuspid regurgitation present. There is no evidence of pulmonary hypertension. The right v entricular systolic pressure, as measured by Doppler, is 27.77mmHg. Trace/mild (physiologic) pulmonic regurgitation. The aortic root size is normal. There is no pericardial effusion. CONCLUSIONS -------- 1. The left ventricular size is normal. 2. There is moderate concentric left ventricular hypertrophy. 3. Overall left ventricular systolic function is low-normal with, an EF between 50 - 55 %. 4. Inferior basal Hypokinesis 5. The left atrium is moderately dilated. 6. LA is midly dilated 29-33ml/m2. 7. There is moderate aortic valve sclerosis. 8. There is mild aortic stenosis present. 9. Peak/mean gradient across the Aortic Valve is 24.09mmHg / 12.85mmHg. 10. Mild mitral annular calcification present. 11. Mild mitral regurgitation is present. 12. Mild tricuspid regurgitation present. 13. There is no evidence of pulmonary hypertension. 14. The right ventricular systolic pressure, as measured by Doppler, is 27.77mmHg. 15. Trace/mild (physiologic) pulmonic regurgitation. 16. The aortic root size is normal. 17. There is no pericardial effusion. OUTSIDE UPHOLSTERER: Sanaz Brumfield RDCS
== END 2018-01-06 15:32 | disposition home or self-care (01) | DRG 302 ==
LOC: EC 10:44 → 3OBS 12:51 → OBSVTOIN 01-05 13:37
PROVIDERS: ADMIT Internal Medicine; ATTEND Internal Medicine
DX: I25.119 Atherosclerotic heart disease of native coronary artery with unspecified angina pectoris (principal); I50.23 Acute on chronic systolic (congestive) heart failure; I13.0 Hypertensive heart and chronic kidney disease with heart failure and stage 1 through stage 4 chronic kidney disease, or unspecified chronic kidney disease; N18.3 Chronic kidney disease, stage 3 (moderate); E78.5 Hyperlipidemia, unspecified; I25.2 Old myocardial infarction; I25.5 Ischemic cardiomyopathy; F17.210 Nicotine dependence, cigarettes, uncomplicated; I35.0 Nonrheumatic aortic (valve) stenosis; K44.9 Diaphragmatic hernia without obstruction or gangrene; R91.1 Solitary pulmonary nodule; N42.9 Disorder of prostate, unspecified; M19.91 Primary osteoarthritis, unspecified site; Z79.82 Long term (current) use of aspirin; Z79.899 Other long term (current) drug therapy; Z71.6 Tobacco abuse counseling; Z95.5 Presence of coronary angioplasty implant and graft; Z85.47 Personal history of malignant neoplasm of testis; Z92.21 Personal history of antineoplastic chemotherapy; Z87.81 Personal history of (healed) traumatic fracture; Z95.810 Presence of automatic (implantable) cardiac defibrillator; Z88.0 Allergy status to penicillin; Z82.49 Family history of ischemic heart disease and other diseases of the circulatory system; Z91.19 Patient's noncompliance with other medical treatment and regimen; Z53.29 Procedure and treatment not carried out because of patient's decision for other reasons
CPT/HCPCS: 36415; 71046; 78452; 80053; 80061; 82550; 82553; 83735; 83880; 84484; 85025; 85610; 85730; 93005; 93017; 93306; 94760; 96360; 96361; 96365; 96366; 96375; 96376; 99291

== ENCOUNTER 2018-06-06 15:27 | Inpatient (IN) | payer MEDICARE, OTHER ==
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
[2018-06-06 16:01] LABS: Basophils # (A) 0.1 k/uL (0-0.2); Basophils % (A) 1 %; Eosinophils # (A) 0.7 k/uL (0-0.7); Eosinophils % (A) 7 %; HCT 43.1 % (39.0-53.0); HGB 14.1 gm/dL (13.0-17.5); Lymphocytes # (A) 2.4 k/uL (1.0-4.8); Lymphocytes % (A) 22 %; MCH 31.7 pg (25.0-35.0); MCHC 32.7 g/dL (31.0-37.0); MCV 96.8 fL (80.0-100.0); Mean Platelet Volume 7.9; Monocytes # (A) 0.5 k/uL (0-1.0); Monocytes % (A) 5 %; Neutrophils % (A) 65 %; Platelet Count 165 k/uL (150-450); RBC 4.45 m/uL (4.30-5.90); RDW 14.2 % (11.5-15.5); WBC 10.8 k/uL (3.8-10.6)
[2018-06-06 16:06] LABS: Partial Thromboplastin Time 22.7 sec (22.0-30.0); Prothrombin Time 9.8 sec (9.0-12.0)
[2018-06-06 16:09] LABS: Albumin 4.2 g/dL (3.5-5.0); Calcium 9.8 mg/dL (8.4-10.2); Magnesium 1.9 mg/dL (1.6-2.3); Potassium 4.9 mmol/L (3.5-5.1); Total Bilirubin 0.4 mg/dL (0.2-1.3); Total Protein 7.2 g/dL (6.3-8.2)
[2018-06-06] MEDS ORDERED: hydrALAZINE HCL 20 MG/ML 1 ML VIAL IVP STA ×2 (16:15→16:57)
[2018-06-06 16:23] LABS: Creatine Kinase MB 0.8 ng/mL (0.0-2.4); Troponin I 0.019 ng/mL (0.000-0.034)
--- NOTE | 2018-06-06 16:39 | CT ---
EXAMINATION TYPE: CT brain wo con DATE OF EXAM: 06/06/2018 COMPARISON: None HISTORY: Dizziness. CT DLP: 1147 mGycm Automated exposure control for dose reduction was used. FINDINGS: There is cerebral mild cortical atrophy. There is no mass effect nor midline shift. There is no sign of intracranial hemorrhage. The calvarium is intact. IMPRESSION: CEREBRAL ATROPHY. NO ACUTE INTRACRANIAL ABNORMALITY.
--- NOTE | 2018-06-06 16:43 | XR ---
EXAMINATION TYPE: XR chest 2V DATE OF EXAM: 06/06/2018 COMPARISON: 01/04/2018 HISTORY: Chest pain TECHNIQUE: Frontal and lateral views of the chest are obtained. FINDINGS: There is some pulmonary hyperinflation. There is left axillary pacemaker with the lead tip in the right ventricle. There is 2 cm calcific density over the left lower lobe. IMPRESSION: No active cardiopulmonary disease. No significant change. Left lower lobe granuloma is s table compared to old chest CT scan of 03/14/2012.
[2018-06-06] MEDS ORDERED: NITROGLYCERIN SL TABS 0.4 MG TAB SUBLINGUAL PRN (18:24)
[2018-06-06] MEDS: CARVEDILOL 6.25 MG TAB PO SCH (18:55)
[2018-06-06] MEDS: TAMSULOSIN 0.4 MG CAP.ER.24H PO SCH (20:26)
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
[2018-06-07] MEDS: NICOTINE 21MG/24HR PATCH TRANSDERM SCH ×2 (03:42→09:46)
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
[2018-06-07] MEDS: CARVEDILOL 6.25 MG TAB PO SCH ×2 (06:34→18:35)
[2018-06-07 07:28] LABS: Basophils # (A) 0.1 k/uL (0-0.2); Basophils % (A) 1 %; Eosinophils # (A) 0.7 k/uL (0-0.7); Eosinophils % (A) 8 %; HCT 42.9 % (39.0-53.0); HGB 13.9 gm/dL (13.0-17.5); Lymphocytes % (A) 24 %; MCH 31.9 pg (25.0-35.0); MCHC 32.4 g/dL (31.0-37.0); MCV 98.2 fL (80.0-100.0); Mean Platelet Volume 7.7; Monocytes # (A) 0.4 k/uL (0-1.0); Monocytes % (A) 5 %; Neutrophils # (A) 4.9 k/uL (1.3-7.7); Neutrophils % (A) 60 %; Platelet Count 161 k/uL (150-450); RBC 4.37 m/uL (4.30-5.90); RDW 14.3 % (11.5-15.5); WBC 8.3 k/uL (3.8-10.6)
[2018-06-07 07:55] LABS: Calcium 9.7 mg/dL (8.4-10.2); Potassium 4.9 mmol/L (3.5-5.1)
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
[2018-06-07] MEDS ORDERED: ASPIRIN 81 MG PO SCH (09:00)
[2018-06-07] MEDS: LISINOPRIL 10 MG TAB PO SCH (09:30)
[2018-06-07] MEDS: ISOSORBIDE MONONITRATE ER 15 MG TAB PO SCH (09:30)
[2018-06-07] MEDS: ATORVASTATIN 80 MG TAB PO SCH (09:30)
[2018-06-07] MEDS: ASPIRIN 325 MG TAB PO SCH (09:30)
--- NOTE | 2018-06-07 20:51 | HP ---
HISTORY AND PHYSICAL CORRECTION: DATE OF SERVICE: 06/06/2018 EMMANUEL / CHAYON: [id number] /
--- NOTE | 2018-06-07 21:21 | PN ---
PROGRESS NOTE DATE OF SERVICE: 06/07/2018 PRESENT COMPLAINT: Dizzy. INTERVAL HISTORY: This patient presented with symptoms of what appeared to be a TIA/stroke with possibly in the cerebellum. Symptoms are greatly improved today. Double vision is gone. Some mild facial asymmetry is still present, though he has had facial surgery before. Weakness is improved. Seen by Neurology. Patient cannot have an MRI because of pacemaker. REVIEW OF SYSTEMS: Done for constitutional, cardiovascular, GI, pulmonary; relevant findings as above. CURRENT MEDICATIONS: Reviewed that include: 1. Aspirin. 2. Lipitor. EXAMINATION: Temperature 97.9 pulse 64, respirations 16, blood pressure 145/83, pulse ox 98% on room air. GENERAL APPEARANCE: Sitting up, awake. EYES: Pupils equal. Conjunctivae normal. HEENT: External nose and ears normal. Oral cavity normal. NECK: JVD not raised. Mass not palpable. RESPIRATORY: Effort normal. LUNGS: Slightly decreased breath sounds. CARDIOVASCULAR: First and second sounds normal. No edema. ABDOMEN: Soft, nontender. Liver and spleen not palpable. PSYCHIATRY: Alert and oriented x3. Mood and affect normal. NEUROLOGICAL: Slight facial asymmetry. Mouth slightly pulled to the right. Other symptoms have improved. INVESTIGATIONS: White count 8.3, BUN 34, creatinine 1.65. LDL 119. ASSESSMENT: 1. Possible transient ischemic attack. All symptoms are resolved. 2. Chronic kidney disease stage 3 from nephrosclerosis. 3. Emphysema in a current smoker. 4. Chronic nicotine dependence. Patient is a cigarette smoker. 5. Hyperlipidemia. 6. Essential hypertension. 7. Primary osteoarthritis. 8. Automatic implantable cardioverter-defibrillator. 9. Coronary artery disease, prior history of stent. PLAN: The AICD is being checked. Will follow with Neurology. Care was discussed with the patient. MMODL / IJN: [id number] /
[2018-06-07] MEDS: TAMSULOSIN 0.4 MG CAP.ER.24H PO SCH (23:35)
[2018-06-08] MEDS: CARVEDILOL 6.25 MG TAB PO SCH ×2 (06:12→17:57)
[2018-06-08] MEDS: ISOSORBIDE MONONITRATE ER 15 MG TAB PO SCH (08:13)
[2018-06-08] MEDS: LISINOPRIL 10 MG TAB PO SCH (08:13)
[2018-06-08] MEDS: ASPIRIN 325 MG TAB PO SCH (08:13)
[2018-06-08] MEDS: ATORVASTATIN 80 MG TAB PO SCH (08:13)
[2018-06-08] MEDS: NICOTINE 21MG/24HR PATCH TRANSDERM SCH (08:13)
--- NOTE | 2018-06-08 12:21 | ECHOF ---
Referral Reason:eval LV function MEASUREMENTS -------- HEIGHT: 188.0 cm WEIGHT: 81.2 kg BP: IVSd: 1.7 cm (0.6 - 1.1) LVIDd: 4.3 cm (3.9 - 5.3) LVPWd: 1.7 cm (0.6 - 1.1) IVSs: 2.1 cm LVIDs: 3.9 cm LVPWs: 1.6 cm LA Diam: 4.0 cm (2.7 - 3.8) LAESV Index (A-L): 30.96 ml/m Ao Diam: 3.0 cm (2.0 - 3.7) AV Cusp: 0.8 cm (1.5 - 2.6) LA Diam: 4.3 cm (2.7 - 3.8) MV EXCURSION: 16.312 mm (> 18.000) MV EF SLOPE: 52 mm/s (70 - 150) EPSS: 1.7 cm MV E Gregory: 0.61 m/s MV DecT: 257 ms MV A Gregory: 1.00 m/s MV E/A Ratio: 0.61 AV maxP.15 mmHg AV meanP.04 mmHg RAP: 5.00 mmHg RVSP: 31.59 mmHg FINDINGS -------- Paced rhythm. This was a technically adequate study. The left ventricular size is normal. There is severe concentric left ventricular hypertrophy. Ove rall left ventricular systolic function is low-normal with, an EF between 50 - 55 %. The right ventricle is normal in size. The left atrial size is normal. LA is midly dilated 29-33ml/m2. The right atrial size is normal. There is mild to moderate aortic valve sclerosis. There is moderate aortic stenosis present. Peak /mean gradient across the Aortic Valve is 31.15mmHg / 19.04mmHg. Mild mitral annular calcification present. Mild mitral regurgitation is present. Mild tricuspid regurgitation present. There is no evidence of pulmonary hypertension. The right v entricular systolic pressure, as measured by Doppler, is 31.59mmHg. There is no pulmonic regurgitation present. The aortic root size is normal. There is no pericardial effusion. CONCLUSIONS -------- 1. The left ventricular size is normal. 2. There is severe concentric left ventricular hypertrophy. 3. Overall left ventricular systolic function is low-normal with, an EF between 50 - 55 %. 4. The right ventricle is normal in size. 5. The left atrial size is normal. 6. LA is midly dilated 29-33ml/m2. 7. The right atrial size is normal. 8. There is mild to moderate aortic valve sclerosis. 9. There is moderate aortic stenosis present. 10. Peak/mean gradient across the Aortic Valve is 31.15mmHg / 19.04mmHg. 11. Mild mitral annular calcification present. 12. Mild mitral regurgitation is present. 13. Mild tricuspid regurgitation present. 14. There is no evidence of pulmonary hypertension. 15. The right ventricular systolic pressure, as measured by Doppler, is 31.59mmHg. 16. There is no pulmonic regurgitation present. 17. The aortic root size is normal. 18. There is no pericardial effusion. INDUSTRIAL SPECIALIST: Sanaz Brumfield RDCS
--- NOTE | 2018-06-08 12:37 | PN ---
PROGRESS NOTE Mr. Davis is doing well. He remains in sinus rhythm. He has an occipital stroke, but is recovering from this. His dizziness and vertigo has improved. I am recommending a transesophageal echo which Dr. Jan George will perform tomorrow. Vital signs are stable. S1, S2 heard normally, short systolic murmur noted. Lungs are clear. Abdomen and lower extremity exam unchanged. Plan is to continue current medications, advised regarding smoking cessation and he will have a transesophageal echo tomorrow. MMODL / IJN: [id number] /
--- NOTE | 2018-06-08 20:49 | PN ---
PROGRESS NOTE DATE OF SERVICE: 06/08/2018. PRESENT COMPLAINT: Tired. INTERVAL HISTORY: The patient presented with symptoms of what appeared to be TIA, stroke, possibly in the cerebellum and questionable in the anterior circulation too. Symptoms are nearly resolved including the double vision. Awaiting DEBBY by Cardiology. The patient has got family visiting right now. REVIEW OF SYSTEMS: Done for constitutional, cardiovascular, GI, pulmonary, neuro; relevant findings as above. CURRENT MEDICATIONS: Reviewed include aspirin and Lipitor. PHYSICAL EXAMINATION: VITAL SIGNS: Temperature 97.4, pulse 60, respiratory rate 16, blood pressure 148/86, pulse ox 97 percent on room air. GENERAL APPEARANCE: Sitting up, comfortable. EYES: Pupils are equal, conjunctivae normal. HEENT external appearance of nose and ears normal. Oral cavity normal. NECK: JVD not raised. Mass not palpable. RESPIRATORY effort normal. LUNGS: Decreased breath sounds. CARDIOVASCULAR: 1st and 2nd sounds normal. No edema. ABDOMEN: Soft, nontender. Liver and spleen not palpable. PSYCHIATRY: Alert and oriented x3. Mood and affect normal. INVESTIGATIONS: No blood work from today. A 2D echo shows preserved LV function and concentric left ventricular hypertrophy. ASSESSMENT: 1. Possible transient ischemic attack. resolved pending DEBBY. 2. Chronic kidney stage 3 from nephrosclerosis. 3. Emphysema in a current smoker. 4. Chronic nicotine dependence, patient is a cigarette smoker. 5. Hyperlipidemia. 6. Essential hypertension. 7. Primary osteoarthritis. 8. AICD. 9. Coronary artery disease, prior history of stent. PLAN: Continue current medication and treatment plan. The patient is to have a DEBBY. Discussed with Dr. Neil Ramos. Also check with the patient. The patient is stable. MMODL / IJN: [id number] /
--- NOTE | 2018-06-08 21:10 | P.PN ---
Subjective Progress Note Date: 06/08/18 The patient is a 62-year-old man who presented to the hospital with hypertensive urgency and double vision. She states he's been doing fine. He has had no recurrence of visual disturbance. He has no new symptoms such as weakness numbness or loss of balance. He had an initial CT in the emergency room which she showed only some atrophy. has been evaluated by cardiology. He will have a DEBBY tomorrow. The patient is most likely had TIA. There is no evidence neurologic examination of a stroke. Will have a follow-up CT brain tomorrow. Objective - Vital Signs Vital signs: Vital Signs Temp 97.5 F L 06/08/18 16:00 Pulse 61 06/08/18 16:00 Resp 16 06/08/18 16:00 BP 162/99 06/08/18 16:00 Pulse Ox 97 06/08/18 16:00 Intake & Output 06/08/18 06/08/18 06/09/18 06:59 18:59 06:59 Intake Total 960 Balance 960 Weight 81.4 kg Intake: Oral 960 Other: Voiding Method Toilet # Voids 1 1 - Constitutional General appearance: Present: average body habitus - EENT Eyes: Present: PERRLA ENT: Present: hearing grossly normal - Respiratory Respiratory: bilateral: CTA - Cardiovascular Rhythm: regular - Neurologic Neurologic: Present: CNII-XII intact - Musculoskeletal Musculoskeletal: Present: strength equal bilaterally - Psychiatric Psychiatric: Present: A&O x's 3 - Labs CBC & Chem 7: 06/07/18 07:04 06/07/18 07:04 Assessment and Plan (1) Bradycardia Current Visit: Yes Status: Acute SNOMED Code(s): 74351022 (2) Pre-syncope Current Visit: Yes Status: Acute SNOMED Code(s): 259177800 (3) Uncontrolled hypertension Current Visit: Yes Status: Acute SNOMED Code(s): 47222617 (4) Diplopia Current Visit: Yes Status: Acute SNOMED Code(s): 95168568 Plan: The patient is a 62-year-old man who presents to the hospital with sudden dizziness and double vision with uncontrolled hypertension and bradycardia. He has a pacemaker defibrillator. The patient has been doing well. He will have a follow-up CT brain tomorrow and a carotid ultrasound. The patient has likely had a TIA . Cardiology is following the patient.. He will have a DEBBY tomorrow.
[2018-06-08] MEDS: TAMSULOSIN 0.4 MG CAP.ER.24H PO SCH (21:53)
--- NOTE | 2018-06-08 22:39 | US ---
EXAMINATION TYPE: US carotid duplex BILAT DATE OF EXAM: 06/08/2018 COMPARISON: NONE CLINICAL HISTORY: tia. TIA EXAM MEASUREMENTS: RIGHT: Peak Systolic Velocity (PSV) cm/sec ----- Right CCA: 44.9 ----- Right ICA: 82.7 ----- Right ECA: 94.4 ICA/CCA ratio: 1.8 RIGHT: End Diastole cm/sec ----- Right CCA: 15.9 ----- Right ICA: 31.8 ----- Right ECA: 8.6 LEFT: Peak Systolic Velocity (PSV) cm/sec ----- Left CCA: 76.9 ----- Left ICA: 141.9 ----- Left ECA: 79.0 ICA/CCA ratio: 1.8 LEFT: End Diastole cm/sec ----- Left CCA: 17.3 ----- Left ICA: 47.1 ----- Left ECA: 11.1 VERTEBRALS (direction of flow): Right Vertebral: Antegrade Left Vertebral: Antegrade Rhythm: Normal Left ICA dives deep elevated velocities distally. No significant stenosis seen IMPRESSION: There is antegrade flow in the vertebral arteries. The images in measurements suggest le ss than 20% stenosis in both internal carotid arteries. False elevated velocities seen in the left in ternal carotid artery due to inaccurate Doppler angle. Criteria for Assigning % of Stenosis / Diameter reduction (Estimation based on the indirect measurements of the internal carotid artery velocities (ICA PSV). 1. Normal (no stenosis)=ICA PSV < 125 cm/s: ratio < 2.0: ICA EDV<40 cm/s. 2. Less than 50% stenosis=ICA PSV < 125 cm/s: ratio < 2.0: ICA EDV<40 cm/s. 3. 50 to 69% stenosis=ICA PSV of 125 to 230 cm/s: ration 2.0 ? 4.0: ICA EDV 40-100 cm/s. 4. Greater than 70% stenosis to near occlusion= ICA PSV > 230 cm/s: ratio > 4.0: ICA EDV > 100 cm/s. 5. Near occlusion= ICA PSV velocities may be low or undetectable: variable ratio and ICA EDV. 6. Total occlusion=unable to detect flow.
--- NOTE | 2018-06-09 08:20 | CT ---
EXAMINATION TYPE: CT brain wo con DATE OF EXAM: 06/09/2018 COMPARISON: 06/06/2018 HISTORY: 62-year-old male TIA, Follow up CT TECHNIQUE: Examination was done in axial plane without intravenous contrast. Coronal and sagittal r econstructions performed. CT DLP: 1201 mGycm Automated exposure control for dose reduction was used. FINDINGS: There is no evidence of acute intracranial hemorrhage, acute ischemic changes, mass, mass-effect, or extra-axial fluid collection. There is no effacement of cerebral sulci or basal subarachnoid cister ns. There is no hydrocephalus. There is no midline shift. Vela-white matter distinction is preserv ed. Atherosclerotic calcifications in the bilateral carotid siphons. Questionable fusiform dilatation of the right carotid terminus, reference axial image 19. Megacisterna magna incidentally noted. Similar mild generalized cerebral cortical atrophy. Prior bilateral maxillary antrectomies with leftward nasal septal deviation. Mastoid air cells well p neumatized. IMPRESSION: Stable exam with mild generalized cortical atrophy. No acute intracranial abnormality seen. Questiona ble fusiform dilatation of the right carotid terminus. Nonemergent follow-up MR angiography [place] could exclude aneurysm.
[2018-06-09] MEDS ORDERED: MIDAZOLAM 2 MG/2 ML VIAL ONE ×3 (11:53→12:32)
[2018-06-09] MEDS ORDERED: fentaNYL (PF) 50 MCG/ML 2 ML AMP ONE (11:53)
[2018-06-09] MEDS ORDERED: IV FLUID CONTINUATION 1,000 ML IV ONE (12:00)
[2018-06-09] MEDS ORDERED: BENZOCAINE SPRAY 1 CAN MUCOUS MEM ONE (12:10)
[2018-06-09] MEDS ORDERED: MIDAZOLAM 2 MG/2 ML VIAL IVP ONE ×3 (12:27→12:36)
[2018-06-09] MEDS ORDERED: fentaNYL (PF) 50 MCG/ML 2 ML AMP IVP ONE (12:27)
[2018-06-09] MEDS: NICOTINE 21MG/24HR PATCH TRANSDERM SCH (13:00)
[2018-06-09] MEDS: ISOSORBIDE MONONITRATE ER 15 MG TAB PO SCH (13:00)
[2018-06-09] MEDS: CARVEDILOL 6.25 MG TAB PO SCH (13:00)
[2018-06-09] MEDS: ASPIRIN 325 MG TAB PO SCH (13:00)
[2018-06-09] MEDS: ATORVASTATIN 80 MG TAB PO SCH (13:00)
--- NOTE | 2018-06-09 13:11 | ECHOT ---
TRANSESOPHAGEAL ECHOCARDIOGRAM This patient came with the symptoms suggestive for TIA. Patient was recommended to have a DEBBY to rule out any cardiac source of emboli. Patient was given intravenous sedation with Versed and fentanyl and transesophageal echocardiogram was performed without any complications. The left ventricular chamber is normal in size with a severe degree of concentric left ventricular hypertrophy is noted. Mitral valve morphology is normal. Mild mitral regurgitation is noted. Tricuspid valve morphology is normal. Mild tricuspid regurgitation is noted. Left atrium is moderately enlarged. There is no evidence of thrombus in left atrium or atrial appendage. Pulmonary vein flow is normal. Aortic valve morphology is normal, aortic regurgitation is noted. Interatrial septum is intact. There is no evidence of any PFO. Saline contrast study does not show any evidence of PFO. The descending thoracic aorta shows diffuse atherosclerotic plaque. FINAL IMPRESSION: 1. Left ventricular chamber is normal in size with severe degree of left ventricular hypertrophy and normal left ventricular systolic function. 2. There is no evidence of thrombus in left atrium or atrial appendage. 3. Intra-atrial septum is intact. There is no evidence of any patent foramen ovale by saline contrast study. There is evidence of mild degree of mitral and tricuspid regurgitation. 4. There is diffuse arthrosclerotic plaque noted in descending thoracic aorta as well as the arch of the aorta. MMODL / IJN: [id number] /
[2018-06-09] MEDS ORDERED: LISINOPRIL 20 MG TAB PO SCH (14:23)
[2018-06-09 15:36] VITALS: BP 113/75; PULSE 79; RESP 20; TEMP 97.6
--- NOTE | 2018-06-09 17:21 | CT ---
EXAMINATION TYPE: CT angio head DATE OF EXAM: 06/09/2018 4:59 PM COMPARISON: None HISTORY: Abnormal CT follow-up. Weakness. CT DLP: 962.8 mGycm Automated exposure control for dose reduction was used. TECHNIQUE: Performed with IV Contrast, patient injected with 80 mL of Isovue 370. There are 3-D post processed images.. FINDINGS: There is arterial flow in the anterior middle and posterior cerebral arteries bilaterally. There is a rterial flow in the vertebrobasilar artery system. Left vertebral artery is larger than the right. Ba silar artery fills mostly from the left side. Left posterior cerebral artery fills mostly through the left posterior communicating artery. There is slight fusiform enlargement of the parasellar right in ternal carotid artery. I see no aneurysm. There is no mass effect. There is no evidence of intracrani al arterial stenosis. There is no evidence of neovascularity. There is normal contrast opacification of the venous sinuses. IMPRESSION: THERE IS MINIMAL FUSIFORM ECTASIA OF THE INTRACRANIAL RIGHT INTERNAL CAROTID ARTERY. OTHERWISE NEGATI VE EXAM. NO EVIDENCE OF AN ANEURYSM.
--- NOTE | 2018-06-09 18:47 | PN ---
PROGRESS NOTE This gentleman has history of hypertension, smoking, hyperlipidemia, and came in with what seems to be an occipital stroke, from which he is recovering nicely. He is going to have a transesophageal echo today. Vital signs are stable. Blood pressure is slightly elevated. S1, S2 heard normally. Short systolic murmur noted. Lungs reveal diminished air entry. Abdomen and lower extremity exam unchanged. Plan is to increase lisinopril to optimize BP control and he will go for a transesophageal echo today. MMODL / IJN: [id number] /
--- NOTE | 2018-06-10 05:41 | DS ---
DISCHARGE SUMMARY DATE OF ADMISSION: 06/06/18. DATE OF DISCHARGE: 06/09/18. FINAL DIAGNOSES: 1. Transient ischemic attack. 2. Chronic kidney disease stage 3 from nephrosclerosis. 3. Emphysema in a current smoker. 4. Chronic nicotine dependence. Patient is a cigarette smoker. 5. Hyperlipidemia. 6. Essential hypertension. 7. Primary osteoarthritis. 8. AICD. 9. Coronary artery disease, prior history of stent. 10.Moderate aortic stenosis, nonrheumatic. CONSULTATION: Dr. Neil Ramos from cardiology, Dr. Valentín Isbell from Neurology. HOSPITAL COURSE: This patient presented with episode of having dizzy, double vision, tending to fall on one side, some slurring of the speech. The patient's CT scan of the brain showed some atrophy and repeat CT scan showed the same findings. Because of AICD patient cannot have MRI. The patient did have a DEBBY. No thrombus was noted. Carotid Doppler did not show any critical stenosis. 2D echo showed EF of 50-55 percent and moderate aortic stenosis. PHYSICAL EXAMINATION: Temperature 97.6, pulse 79, respiratory 20, blood pressure 113/75, pulse ox 96% on room air. BUN 34, creatinine 1.65, that is chronic. LDL 119. The patient's symptoms have completely resolved by the time. DISCHARGE MEDICATIONS: 1. Nitrostat 0.4 sublingual q.5 p.r.n. 2. ER 10 mg q.h.s. 3. Lipitor 80 mg p.o. daily. 4. Coreg 6.25 p.o. b.i.d. 5. Imdur ER 50 mg p.o. daily. 6. Aspirin 81 mg b.i.d. 7. Zestril 20 mg p.o. daily. 8. Nicotine 21 mg patch. The patient was advised against smoking. FOLLOWUP: Follow up with Dr. Colon in 1 week, Dr. Valentín Isbell in 2 weeks, Dr. Jones in 1 week. MMODL / IJN: [id number] /
[2018-06-10] MEDS ORDERED: LISINOPRIL 20 MG TAB PO SCH (09:00)
--- NOTE | 2018-06-13 07:12 | CDI ---
Last Revision, August 2017 Documentation Clarification Form Date: 06/13/18 From: Italia Mckenna Phone: If you have a question regarding this query, please contact Vesta Tena at [phone] between 8am and 5pm. Admit Date: 06/06/2018 4:59:00 PM Patient Name: Kaiden Davis Visit Number: [id number] Discharge Date: 06/09/18 ATTENTION: The Clinical Documentation Specialists (CDI) and [facility] Coding Staff appreciate your assistance in clarifying documentation. Please respond to the clarification below the line at the bottom and electronically sign. The CDI & [facility] Coding staff will review the response and follow-up if needed. Please note: Queries are made part of the Legal Health Record. If you have any questions, please contact the author of this message via ITS. NURA MontanezC Heart failure is documented in the past medical history of the ED note, neurology consult note, H&P and cardiology consult note. History/Risk Factors: Patient was admitted for TIA and has a history of hypertension and CAD. Echocardiogram Results: Severe left ventricular hypertrophy, LV systolic function if low-normal with an EF between 50 - 55% Chest X Ray: No active cardiopulmonary disease. No significant change. Left lower lob granuloma is stable compared to old chest CT scan of 03/14/12 Treatment: Patient is on Zestril and Coreg at home. In your professional opinion, can you please clarify the acuity and type of CHF if known? Systolic Heart Failure: Diastolic Heart Failure: Systolic & Diastolic Heart Failure: Unable to Determine Other, please specify MTDD
== END 2018-06-09 18:49 | disposition home or self-care (01) | DRG 69 ==
LOC: EC 15:27 → 6SEL 16:59
PROVIDERS: ADMIT Hospitalist; ATTEND Hospitalist
DX: G45.9 Transient cerebral ischemic attack, unspecified (principal); I13.0 Hypertensive heart and chronic kidney disease with heart failure and stage 1 through stage 4 chronic kidney disease, or unspecified chronic kidney disease; J43.9 Emphysema, unspecified; N18.3 Chronic kidney disease, stage 3 (moderate); E78.5 Hyperlipidemia, unspecified; F17.210 Nicotine dependence, cigarettes, uncomplicated; I16.0 Hypertensive urgency; N42.9 Disorder of prostate, unspecified; I25.10 Atherosclerotic heart disease of native coronary artery without angina pectoris; I25.5 Ischemic cardiomyopathy; I35.0 Nonrheumatic aortic (valve) stenosis; I44.0 Atrioventricular block, first degree; M19.91 Primary osteoarthritis, unspecified site; K44.9 Diaphragmatic hernia without obstruction or gangrene; R91.1 Solitary pulmonary nodule; Z79.82 Long term (current) use of aspirin; Z79.899 Other long term (current) drug therapy; Z88.0 Allergy status to penicillin; Z95.810 Presence of automatic (implantable) cardiac defibrillator; Z95.5 Presence of coronary angioplasty implant and graft; Z92.21 Personal history of antineoplastic chemotherapy; Z85.47 Personal history of malignant neoplasm of testis; Z71.6 Tobacco abuse counseling; Z82.49 Family history of ischemic heart disease and other diseases of the circulatory system; I50.9 Heart failure, unspecified
CPT/HCPCS: 36415; 70450; 70496; 71046; 80048; 80053; 80061; 82550; 82553; 83735; 84484; 85025; 85610; 85730; 93005; 93306; 93312; 93320; 93325; 93880; 96374; 96376; 99285

== ENCOUNTER 2019-01-05 09:55 | Day surgery (SDC) | payer MEDICARE, OTHER ==
[2019-01-03 11:20] VITALS: BMI 23.1
[~2019-01-05 09:55] MED LIST: ALPRAZolam 0.25 MG TAB PO PRN; ASPIRIN 325 MG TAB PO ONE; NITROGLYCERIN SL TABS 0.4 MG TAB SUBLINGUAL PRN; SODIUM CHLORIDE 0.9% 1,000 ML in EMPTY BAG 1 BAG IV ONE
[2019-01-05] MEDS ORDERED: LIDOCAINE 1% INJ 10MG/ML (20 ML MDV) ONE (10:38)
[2019-01-05] MEDS ORDERED: VERAPAMIL 2.5 MG/ML 2 ML AMP ONE (10:38)
[2019-01-05] MEDS ORDERED: IV FLUID CONTINUATION 950 ML IV ONE (11:07)
[2019-01-05] MEDS ORDERED: fentaNYL (PF) 50 MCG/ML 2 ML AMP ONE (11:13)
[2019-01-05] MEDS ORDERED: fentaNYL (PF) 50 MCG/ML 2 ML AMP IV ONE (11:24)
[2019-01-05] MEDS ORDERED: MIDAZOLAM 2 MG/2 ML VIAL IV ONE (11:24)
[2019-01-05] MEDS ORDERED: LIDOCAINE 1% INJ 10MG/ML (20 ML MDV) SQ ONE (11:28)
[2019-01-05] MEDS ORDERED: VERAPAMIL SYRINGE (5 MG/10 ML) INTRAARTER ONE (11:30)
[2019-01-05] MEDS ORDERED: HEPARIN SODIUM 1,000 UN/ML (10ML VL) ONE (11:32)
[2019-01-05] MEDS ORDERED: HEPARIN SODIUM 1,000 UN/ML (10ML VL) IV ONE (11:33)
[2019-01-05] MEDS ORDERED: IOPAMIDOL-370 150ML BTL INJ ONE (12:02)
[2019-01-05] MEDS ORDERED: RX INFO: IV CONTRAST WAS GIVEN 1 EACH MISC MISCELLANE PRN ×2 (12:12→12:22)
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
[2019-01-05] MEDS: SODIUM CHLORIDE 0.9% 1,000 ML IV SCH ×2 (12:15→14:23)
--- NOTE | 2019-01-05 12:21 | P.CARDCATH ---
Date of Procedure: 01/05/19 Preoperative Diagnosis: Positive stress test, ventricle tachycardia and known ischemic heart disease Postoperative Diagnosis: Stable coronary artery disease with the intermediate disease in the proximal RCA, patent stent in the LAD and the intermediate to severe disease involving t he PLV branch of the right coronary artery Procedure(s) Performed: Left heart catheterization without left ventriculography Description of Procedure: HISTORY: This is a 63-year-old gentleman with history of ischemic heart disease with previous stent placement of the mid LAD, ischemic cardiomyopathy status post ACD placement, positive stress test in December of this year was brought in for cardiac catheterization because episodes of ventricular tachycardia. CONSENT:I have discussed the risks, benefits and alternative therapies for the above-mentioned procedure and for both sedation/analgesia as well as necessary blood product administration, if indicated, as they pertain to this patient. The patient has indicated understanding and acceptance of the risks and procedures discussed. PROCEDURE: Patient was brought to the lab in a fasting state. Patient was given some IV sedation. The right wrist is infiltrated with lidocaine and right radial l artery was entered using Seldinger technique. A 6-Divehi catheter was left in place and selective coronary arteriography was performed. Patient tolerated the procedure well. TR band is applied for hemostasis. No immediate complications were noted and patient was transferred to [facility] in a stable condition Conscious Sedation: Versed 1mg Fentanyl 25 g Duration 27minutes HEMODYNAMICS: 27 SELECTIVE CORONARY ARTERIOGRAPHY: LEFT MAIN: Long and patent with mild diffuse disease THE LEFT ANTERIOR DESCENDING CORONARY ARTERY:. This is a good caliber vessel with a diffuse plaque. The stent in the mid LAD is open and patent with mild in-stent stenosis. THE LEFT CIRCUMFLEX AND IS CORONARY ARTERY: This is a good caliber vessel with a diffuse plaque and ectatic changes with areas of about 4050% stenosis involving the mid segment. THE RIGHT CORONARY ARTERY: This is a dominant vessel with a diffuse plaque and 8 TC is. There is about 60% eccentric stenosis involving the proximal portion involving the band. This also calcified. It gives rise to PLV and PDA branches. The PLV branch has distally about 70-80% stenosis LEFT VENTRICULOGRAPHY: Not performed FINAL IMPRESSION:. Stable coronary artery disease with patent stent in the mid LAD, diffuse plaque throughout the coronary system, and intermittent disease in the proximal RCA involving the been. The vessel is diffusely diseased with ectatic changes PLAN:. Patient's are reviewed with the profiling machine set up operator tool Dr. Hess. Because of the diffuse nature of the disease and stable calcified lesion in the proximal to mid RCA, he recommended maximum medical therapy. Advised to get a Lexiscan stress test. If there is a segment ischemia in the RCA distribution, patient will be brought back for intervention. Patient is also found to have atrial fibrillation which is a new finding. He is going to be anticoagulated. PROGNOSIS: Guarded
[2019-01-05] MEDS ORDERED: NITROGLYCERIN SL TABS 0.4 MG TAB SUBLINGUAL PRN (12:23)
[2019-01-05] MEDS: HEPARIN SOD,PORK IN 0.45% NACL 25,000 UNIT in 0.45% NACL 1 250ML.BAG IV SCH (16:30)
[2019-01-05] MEDS ORDERED: HEPARIN SODIUM,PORCINE 5,000 UNIT/ML 1 ML VIAL IV PRN (16:30)
[2019-01-05 18:15] LABS: INR 0.9 (<1.2); Partial Thromboplastin Time 23.2 sec (22.0-30.0); Prothrombin Time 10.1 sec (9.0-12.0)
[2019-01-05] MEDS: CARVEDILOL 12.5 MG TAB PO SCH (18:52)
[2019-01-05] MEDS ORDERED: TAMSULOSIN 0.4 MG CAP.ER.24H PO SCH (21:00)
[2019-01-06 06:24] LABS: Basophils # (A) 0.1 k/uL (0-0.2); Basophils % (A) 1 %; Eosinophils # (A) 0.9 k/uL (0-0.7); Eosinophils % (A) 9 %; HCT 42.7 % (39.0-53.0); HGB 14.6 gm/dL (13.0-17.5); Lymphocytes # (A) 2.8 k/uL (1.0-4.8); Lymphocytes % (A) 29 %; MCH 30.7 pg (25.0-35.0); MCHC 34.3 g/dL (31.0-37.0); MCV 89.7 fL (80.0-100.0); Mean Platelet Volume 9.2; Monocytes # (A) 0.5 k/uL (0-1.0); Monocytes % (A) 5 %; Neutrophils # (A) 5.5 k/uL (1.3-7.7); Neutrophils % (A) 56 %; Platelet Count 166 k/uL (150-450); RBC 4.76 m/uL (4.30-5.90); RDW 15.4 % (11.5-15.5); WBC 9.8 k/uL (3.8-10.6)
[2019-01-06] MEDS: SODIUM CHLORIDE 0.9% 1,000 ML IV SCH ×4 (06:34→13:51)
[2019-01-06] MEDS: CARVEDILOL 12.5 MG TAB PO SCH (06:34)
[2019-01-06 08:41] LABS: Calcium 9.7 mg/dL (8.4-10.2)
[2019-01-06] MEDS ORDERED: ISOSORBIDE MONONITRATE ER 15 MG TAB PO SCH (09:00)
[2019-01-06] MEDS ORDERED: LISINOPRIL 20 MG TAB PO SCH (09:00)
[2019-01-06] MEDS ORDERED: ASPIRIN 81 MG PO SCH (09:00)
[2019-01-06] MEDS ORDERED: amLODIPine 5 MG TAB PO SCH (09:00)
[2019-01-06] MEDS ORDERED: ATORVASTATIN 80 MG TAB PO SCH (09:00)
[2019-01-06 11:59] LABS: Prothrombin Time 10.4 sec (9.0-12.0)
[2019-01-06] MEDS ORDERED: METOPROLOL TARTRATE 50 MG TAB PO STA (13:31)
[2019-01-06] MEDS ORDERED: METOPROLOL TARTRATE 5 MG/5 ML VIAL IVP STA (13:36)
[2019-01-06] MEDS: HEPARIN SOD,PORK IN 0.45% NACL 25,000 UNIT in 0.45% NACL 1 250ML.BAG IV SCH (14:00)
[2019-01-06] MEDS ORDERED: WARFARIN 5 MG TAB PO ONE (14:15)
[2019-01-06 14:57] VITALS: BP 110/75; PULSE 91
[2019-01-06 15:05] VITALS: RESP 16; TEMP 97.8
[2019-01-06] MEDS ORDERED: METOPROLOL TARTRATE 50 MG TAB PO SCH (21:00)
== END 2019-01-06 16:10 | disposition home or self-care (01) ==
LOC: CATHCVL 09:55 → 3SCARD 11:53 → CATHCVL 01-06 16:10
PROVIDERS: ATTEND Internal Medicine Cardiovascular Disease
DX: I25.10 Atherosclerotic heart disease of native coronary artery without angina pectoris (principal); I47.2 Ventricular tachycardia; I35.0 Nonrheumatic aortic (valve) stenosis; R94.39 Abnormal result of other cardiovascular function study; T82.855A Stenosis of coronary artery stent, initial encounter; M19.90 Unspecified osteoarthritis, unspecified site; I50.9 Heart failure, unspecified; N18.3 Chronic kidney disease, stage 3 (moderate); E78.00 Pure hypercholesterolemia, unspecified; I13.0 Hypertensive heart and chronic kidney disease with heart failure and stage 1 through stage 4 chronic kidney disease, or unspecified chronic kidney disease; I25.5 Ischemic cardiomyopathy; F17.200 Nicotine dependence, unspecified, uncomplicated; E78.5 Hyperlipidemia, unspecified; I48.91 Unspecified atrial fibrillation; Z86.73 Personal history of transient ischemic attack (TIA), and cerebral infarction without residual deficits; Z95.5 Presence of coronary angioplasty implant and graft; Z95.810 Presence of automatic (implantable) cardiac defibrillator; Z82.49 Family history of ischemic heart disease and other diseases of the circulatory system; Z79.899 Other long term (current) drug therapy
CPT/HCPCS: 93454; 80048; 85025; 85610 ×2; 85730 ×2; C1769 ×2; C1894; J2250; J2001; J3010; J1644 ×3; Q9967

== ENCOUNTER 2020-03-20 09:34 | Inpatient (IN) | payer MEDICARE, OTHER ==
[2020-03-20 09:40] LABS: Glucose,Whole Blood 72 mg/dL (75-99)
[2020-03-20 10:11] LABS: Basophils # (A) 0.1 k/uL (0-0.2); Basophils % (A) 1 %; Eosinophils # (A) 1.1 k/uL (0-0.7); Eosinophils % (A) 12 %; HCT 44.1 % (39.0-53.0); HGB 14.4 gm/dL (13.0-17.5); Lymphocytes # (A) 2.1 k/uL (1.0-4.8); Lymphocytes % (A) 23 %; MCH 31.9 pg (25.0-35.0); MCHC 32.5 g/dL (31.0-37.0); Mean Platelet Volume 8.5; Monocytes # (A) 0.4 k/uL (0-1.0); Monocytes % (A) 5 %; Neutrophils # (A) 5.3 k/uL (1.3-7.7); Neutrophils % (A) 58 %; Platelet Count 173 k/uL (150-450); RBC 4.51 m/uL (4.30-5.90); RDW 14.7 % (11.5-15.5); WBC 9.1 k/uL (3.8-10.6)
--- NOTE | 2020-03-20 10:12 | CT ---
EXAMINATION TYPE: CT brain wo con for TPA DATE OF EXAM: 03/20/2020 COMPARISON: 06/09/2018 HISTORY: Rt leg weakness CT DLP: [address] of the brain was performed. The ventricles, basal cisterns and sulci overlying the cerebral convexities demonstrate mild enlargem ent. There is no evidence for intracranial hemorrhage or sulcal effacement. There is decreased attenuation about the periventricular white matter and deep white matter of both c erebral hemispheres, compatible with chronic small vessel ischemia. Differential diagnosis does inclu de demyelination. No mass effects are seen.No midline shift. Osseous calvarium is intact. If symptoms persist consider MRI. IMPRESSION: 1. Age related atrophic and chronic small vessel ischemic change without acute intracranial process s een at this time.
--- NOTE | 2020-03-20 10:24 | XR ---
EXAMINATION TYPE: XR chest 2V DATE OF EXAM: 03/20/2020 COMPARISON: 910 HISTORY: Shortness of breath TECHNIQUE: Frontal and lateral views of the chest are obtained. FINDINGS: Scattered senescent parenchymal changes noted. Hyperinflation compatible with COPD. No evidence for infiltrate. No evidence for atelectasis. Heart size is stable. Stable nodule left lower lobe. Mediastinal structures are stable and grossly unremarkable. No evidence for hilar prominence. Degenerative changes dorsal spine. IMPRESSION: 1. No evidence for acute pulmonary disease.
[2020-03-20 10:27] LABS: Albumin 4.1 g/dL (3.5-5.0); Calcium 9.7 mg/dL (8.4-10.2); Potassium 4.7 mmol/L (3.5-5.1); Total Bilirubin 0.5 mg/dL (0.2-1.3); Total Protein 7.3 g/dL (6.3-8.2)
--- NOTE | 2020-03-20 10:31 | CT ---
EXAMINATION TYPE: CT angio head neck DATE OF EXAM: 03/20/2020 COMPARISON: Noncontrast brain same day. Also, prior CTA head 06/09/2018. HISTORY: 64 year-old male right leg weakness TECHNIQUE: Contiguous axial scanning of the head and neck performed with IV Contrast, patient injecte d with 65 mL of Isovue 370. Coronal/sagittal MIP reconstructions performed. 3-D reconstructions gener ated on a dedicated independent workstation. CT DLP: 594.6 mGycm Automated exposure control for dose reduction was used. FINDINGS: NECK: Moderate emphysema in the visualized upper lungs. Moderate atherosclerotic plaque and calcifications of the visualized aortic arch. There is a direct takeoff of the left vertebral artery directly from the aortic arch. There may be a moderate to severe atherosclerotic stenosis at the left vertebral artery origin. Nonvisualization of the right vertebral artery. Suspect some retrograde filling of the diminutive V4 segment right vertebral artery. Moderate atherosclerotic changes at the right carotid bifurcation with moderate, approximately 50% na rrowing at the carotid bulb. The origin of the left common carotid artery is excluded from view. Mild atherosclerotic changes left carotid bifurcation without any significant stenosis. HEAD: The left basilar artery is patent. This likely supplies some retrograde flow to a diminutive V4 segme nt right vertebral artery. The basilar artery is patent. Persistent origin left posterior cerebral artery. Remaining posterior circulation appears paten t. Mild atherosclerotic narrowing throughout the right carotid siphon. Segmental moderate atherosclerotic narrowing throughout the left carotid siphon extending to near the carotid terminus. Suspect a congenitally hypoplastic A1 segment left anterior cerebral artery. Minim al 3 mm fusiform prominence at the level of the anterior communicating artery, axial image 156 of ser ies [id number] 1. Otherwise, the anterior circulation is patent and no other aneurysmal change is seen. IMPRESSION: NECK: 1. ATHEROSCLEROTIC CHANGE OF THE RIGHT CAROTID BIFURCATION CAUSES A MODERATE, 50% PROXIMAL RIGHT ICA STENOSIS. 2. OCCLUDED RIGHT VERTEBRAL ARTERY. DIMINUTIVE ENHANCEMENT IS PRESENT IN THE V4 INTRACRANIAL SEGMENT, PROBABLY FROM RETROGRADE FLOW. THE APPEARANCE IS SIMILAR TO 06/09/2018 WHICH WOULD FAVOR A CHRONIC OC CLUSION. CLINICALLY CORRELATE. 3. INCIDENTAL VARIANT DIRECT TAKEOFF OF THE LEFT VERTEBRAL ARTERY DIRECTLY FROM THE AORTIC ARCH. THER E MAY BE A MODERATE TO SEVERE ATHEROSCLEROTIC STENOSIS AT THE VESSEL ORIGIN. HEAD: 4. RIGHT VERTEBRAL ARTERY FINDING MENTIONED ABOVE. 5. PERSISTENT ORIGIN LEFT URBAN PLANNER. 6. MODERATE ATHEROSCLEROTIC STENOSES THROUGHOUT THE LEFT CAROTID SIPHON. 7. MINIMAL 3 MM OF FUSIFORM PROMINENCE AT THE LEVEL OF THE ANTERIOR COMMUNICATING ARTERY, POSSIBLE TI [place] ANEURYSM. 8. HYPOPLASTIC A1 SEGMENT LEFT TATUM.
[2020-03-20 10:35] LABS: INR 1.5 (<1.2); Partial Thromboplastin Time 25.2 sec (22.0-30.0); Prothrombin Time 14.7 sec (9.0-12.0)
[2020-03-20 10:37] LABS: Creatine Kinase 45 U/L (55-170)
[2020-03-20 10:50] LABS: Creatine Kinase MB 0.9 ng/mL (0.0-2.4); Troponin I <0.012 ng/mL (0.000-0.034)
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
[2020-03-20] MEDS ORDERED: NITROGLYCERIN SL TABS 0.4 MG TAB SUBLINGUAL PRN (12:30)
[2020-03-20] MEDS: ATORVASTATIN 80 MG TAB PO SCH ×2 (15:49→18:09)
[2020-03-20] MEDS: amLODIPine 5 MG TAB PO SCH ×2 (15:49→18:09)
[2020-03-20] MEDS: METOPROLOL TARTRATE 25 MG TAB PO SCH (15:49)
[2020-03-20] MEDS: ISOSORBIDE MONONITRATE ER 15 MG TAB PO SCH ×2 (15:49→18:09)
[2020-03-20] MEDS: LISINOPRIL 20 MG TAB PO SCH ×2 (15:49→18:09)
[2020-03-20] MEDS: TAMSULOSIN 0.4 MG CAP.ER.24H PO SCH ×2 (15:50→18:10)
[2020-03-20] MEDS: SODIUM CHLORIDE 0.9% 1,000 ML IV SCH (15:50)
[2020-03-20] MEDS ORDERED: WARFARIN 5 MG TAB PO SCH (18:00)
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
[2020-03-21 02:24] LABS: Appearance,Urine Clear (Clear); Bilirubin,Urine Negative (Negative); Blood,Urine Negative (Negative); Color,Urine Yellow; Glucose,Urine (UA) Negative (Negative); Ketones,Urine Negative (Negative); Leukocyte Esterase,Urine Negative (Negative); Nitrite,Urine Negative (Negative); PH, Urine 5.5 (5.0-8.0); Protein,Urine 1+ (Negative); RBC,Urine 1 /hpf (0-5); Specific Gravity,Urine 1.025 (1.001-1.035); Urobilinogen,Urine <2.0 mg/dL (<2.0); WBC,Urine <1 /hpf (0-5)
[2020-03-21] MEDS: ASPIRIN 81 MG PO SCH (04:51)
[2020-03-21] MEDS: METOPROLOL TARTRATE 25 MG TAB PO SCH ×2 (04:51→17:54)
[2020-03-21 06:15] LABS: Basophils # (A) 0.1 k/uL (0-0.2); Basophils % (A) 1 %; Eosinophils # (A) 0.9 k/uL (0-0.7); Eosinophils % (A) 10 %; HGB 14.6 gm/dL (13.0-17.5); Lymphocytes % (A) 24 %; MCH 32.7 pg (25.0-35.0); MCHC 33.1 g/dL (31.0-37.0); MCV 98.6 fL (80.0-100.0); Mean Platelet Volume 8.3; Monocytes # (A) 0.4 k/uL (0-1.0); Monocytes % (A) 5 %; Neutrophils % (A) 59 %; Platelet Count 178 k/uL (150-450); RBC 4.46 m/uL (4.30-5.90); RDW 14.6 % (11.5-15.5); WBC 8.5 k/uL (3.8-10.6)
[2020-03-21 06:24] LABS: INR 1.7 (<1.2)
[2020-03-21 06:30] LABS: Calcium 9.5 mg/dL (8.4-10.2); Potassium 4.6 mmol/L (3.5-5.1)
--- NOTE | 2020-03-21 10:46 | ECHOF ---
Referral Reason:Stroke MEASUREMENTS -------- HEIGHT: 188.0 cm WEIGHT: 85.3 kg BP: 108/62 RVIDd: 3.5 cm (< 3.3) IVSd: 1.8 cm (0.6 - 1.1) LVIDd: 4.5 cm (3.9 - 5.3) LVPWd: 1.9 cm (0.6 - 1.1) IVSs: 2.3 cm LVIDs: 3.6 cm LVPWs: 1.8 cm LAESV Index (A-L): 63.46 ml/m IVSd: 1.4 cm (0.6 - 1.1) LVIDd: 4.7 cm (3.9 - 5.3) LVPWd: 1.6 cm (0.6 - 1.1) IVSs: 1.6 cm LVIDs: 3.2 cm LVPWs: 1.8 cm EDV(Teich): 104 ml ESV(Teich): 40 ml EF(Teich): 62 % %FS: 33 % SV(Teich): 64 ml Ao Diam: 3.1 cm (2.0 - 3.7) AV Cusp: 1.2 cm (1.5 - 2.6) LA Diam: 6.0 cm (2.7 - 3.8) MV EXCURSION: 16.399 mm (> 18.000) MV EF SLOPE: 71 mm/s (70 - 150) EPSS: 2.0 cm MV E Gregory: 1.19 m/s MV DecT: 190 ms MV A Gregory: 0.40 m/s MV E/A Ratio: 2.98 AV maxP.80 mmHg AV meanP.38 mmHg AR PHT: 1021 ms RAP: 5.00 mmHg RVSP: 45.17 mmHg FINDINGS -------- Pacerwire seen in RV and RA. AICD This was a technically good study. The left ventricular size is normal. There is severe concentric left ventricular hypertrophy. Ove rall left ventricular systolic function is mild-moderately impaired with, an EF between 40 - 45 %. Basal anterior LV wall motion is hypokinetic. Basal lateral LV wall motion is hypokinetic. Basa l posterior LV wall motion is hypokinetic. Basal inferior LV wall motion is normal. Basal infero septal LV wall motion is hypokinetic. The right ventricle is mildly enlarged. LA is severely dilated >40 ml/m2 The right atrium is moderately enlarged. Dropout seen in the interatrial septum Aortic valve is trileaflet and is mildly thickened. There is mild aortic regurgitation. There is mild aortic stenosis present. Peak/mean gradient across the Aortic Valve is 21.80mmHg / 14.38mmHg. The mitral valve is normal. The mitral valve leaflets are mildly thickened. [id number] mitr al regurgitation is present. The tricuspid valve appears structurally normal. Moderate tricuspid regurgitation present. There is mild pulmonary hypertension. The right ventricular systolic pressure, as measured by Doppler, is 45.17mmHg. There is no pulmonic regurgitation present. The aortic root size is normal. Normal inferior vena cava with normal inspiratory collapse consistent with estimated right atrial pre ssure of 5 mmHg. There is no pericardial effusion. CONCLUSIONS -------- 1. Pacerwire seen in RV and RA. 2. AICD 3. This was a technically good study. 4. The left ventricular size is normal. 5. There is severe concentric left ventricular hypertrophy. 6. Overall left ventricular systolic function is mild-moderately impaired with, an EF between 40 - 45 %. 7. Basal anterior LV wall motion is hypokinetic. 8. Basal lateral LV wall motion is hypokinetic. 9. Basal posterior LV wall motion is hypokinetic. 10. Basal inferior LV wall motion is normal. 11. Basal inferoseptal LV wall motion is hypokinetic. 12. The right ventricle is mildly enlarged. 13. LA is severely dilated >40 ml/m2 14. The right atrium is moderately enlarged. 15. Dropout seen in the interatrial septum 16. Aortic valve is trileaflet and is mildly thickened. 17. There is mild aortic regurgitation. 18. There is mild aortic stenosis present. 19. Peak/mean gradient across the Aortic Valve is 21.80mmHg / 14.38mmHg. 20. The mitral valve is normal. 21. The mitral valve leaflets are mildly thickened. 22. Vvfb-[id number] mitral regurgitation is present. 23. The tricuspid valve appears structurally normal. 24. Moderate tricuspid regurgitation present. 25. There is mild pulmonary hypertension. 26. The right ventricular systolic pressure, as measured by Doppler, is 45.17mmHg. 27. There is no pulmonic regurgitation present. 28. The aortic root size is normal. 29. Normal inferior vena cava with normal inspiratory collapse consistent with estimated right atrial pressure of 5 mmHg. 30. There is no pericardial effusion. MORTGAGE LOAN PROCESSING CLERK: Mera Montenegro RDCS
[2020-03-21] MEDS ORDERED: RX INFO: IV CONTRAST WAS GIVEN 1 EACH MISC MISCELLANE PRN (12:15)
[2020-03-21] MEDS: SODIUM CHLORIDE 0.9% 1,000 ML IV SCH (12:17)
--- NOTE | 2020-03-21 15:04 | CONS ---
MARIBEL Richey is a 64-year-old gentleman with history of permanent atrial fibrillation who is admitted to hospital with an episode of TIA. He woke up yesterday and had inability to use his left arm and left leg. This morning he states that the symptoms have resolved. The patient has known atrial fibrillation and is currently on Coumadin. INR on admission was 1.5. The patient denies chest pain, difficulty in breathing, sustained palpitations or syncope. Given the patient's TIA/CVAs related to subtherapeutic anticoagulation, I am going to stop the Coumadin and start him on either Eliquis or Xarelto depending upon what is covered by his insurance. The patient obviously failed Coumadin. PAST MEDICAL HISTORY: Significant for atrial fibrillation, hypertension, dyslipidemia. MEDICATIONS AT HOME: Include lisinopril 20 daily, Imdur 15 daily, Lipitor 80 daily, aspirin, Coumadin, Norvasc, Lopressor. ALLERGIES: PENICILLIN. FAMILY HISTORY: There is history of premature coronary artery disease. SOCIAL HISTORY: Negative for current smoking, EtOH abuse, or drug abuse. REVIEW OF SYSTEMS: HEENT is unremarkable. CARDIAC: As described above. RESPIRATORY: As described above. GI: Negative. GENITOURINARY: Negative. ALLERGY: None. SKIN: Negative. MUSCULOSKELETAL: Significant for arthritis. PSYCHOSOCIAL: Negative. ENDOCRINE: Negative. DERM: Negative. CONSTITUTIONAL: Negative. ONCOLOGICAL: Negative. DIRECTOR WORK: Negative. EXAM: Comfortable at rest. Vital signs are stable. Chest exam reveals good air entry bilaterally. Heart exam reveals first and second heart sounds, irregular rhythm, no murmur. Abdomen is soft. Exam of extremities did not reveal edema. Peripheral pulses are felt. DIRECTOR WORK exam does not reveal new focal neurological deficits. Carotid upstroke is normal. There is no bruit. LAB: Show that the hemoglobin is 14.6, potassium is 4.6, BUN is 28, creatinine is 1.4. AST, ALT are within normal limits. LDL cholesterol is 78. EKG shows atrial fibrillation with nonspecific interventricular conduction delay and nonspecific ST-T wave changes. One set of troponin is negative. INR was subtherapeutic at 1.7. ASSESSMENT: 1. Transient ischemic attack secondary to subtherapeutic anticoagulation in a patient with permanent atrial fibrillation. 2. Permanent atrial fibrillation. 3. Hypertension. 4. Dyslipidemia. PLAN: Patient needs to go on to normal oral anticoagulants. I will see what will be covered and switch him to one of those agents. I will obtain a 2D echo to evaluate his LV function. EMMANUEL / MIRLANDE: [id number] /
[2020-03-21] MEDS ORDERED: WARFARIN 7.5 MG TAB PO SCH (18:00)
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
[2020-03-22 01:54] VITALS: RESP 16
[2020-03-22] MEDS: METOPROLOL TARTRATE 25 MG TAB PO SCH (05:19)
[2020-03-22] MEDS: ASPIRIN 81 MG PO SCH (05:19)
[2020-03-22 08:11] LABS: Basophils # (A) 0.1 k/uL (0-0.2); Basophils % (A) 1 %; Eosinophils # (A) 0.9 k/uL (0-0.7); Eosinophils % (A) 9 %; HGB 15.4 gm/dL (13.0-17.5); Lymphocytes # (A) 2.3 k/uL (1.0-4.8); Lymphocytes % (A) 24 %; MCH 31.4 pg (25.0-35.0); MCV 98.2 fL (80.0-100.0); Mean Platelet Volume 8.4; Monocytes # (A) 0.5 k/uL (0-1.0); Monocytes % (A) 5 %; Neutrophils # (A) 5.7 k/uL (1.3-7.7); Neutrophils % (A) 59 %; Platelet Count 174 k/uL (150-450); RBC 4.89 m/uL (4.30-5.90); RDW 14.5 % (11.5-15.5); WBC 9.7 k/uL (3.8-10.6)
[2020-03-22 08:20] LABS: Calcium 9.6 mg/dL (8.4-10.2); Potassium 4.6 mmol/L (3.5-5.1)
[2020-03-22 08:28] LABS: INR 1.5 (<1.2); Prothrombin Time 15.3 sec (9.0-12.0)
[2020-03-22] MEDS ORDERED: APIXABAN 5 MG TAB PO SCH (09:00)
[2020-03-22] MEDS: SODIUM CHLORIDE 0.9% 1,000 ML IV SCH (12:04)
--- NOTE | 2020-03-22 12:35 | P.PN ---
Subjective Progress Note Date: 03/22/20 This is a 64-year-old gentleman with history of persistent atrial fibrillation admitted to the hospital with an episode of TIA. He had been on Coumadin, INR was subtherapeutic. Patient also has a history of hypertension, hyperlipidemia. Patient was initiated on Eliquis, denies any dizziness or lightheadedness today. Blood pressure 168/108 this morning. We will increase his dose of metoprolol. From our perspective he may be able to be discharged home once cleared by primary. Objective - Vital Signs Vital signs: Vital Signs Temp 98 F 03/22/20 08:00 Pulse 58 L 03/22/20 08:00 Resp 16 03/22/20 08:00 BP 168/108 03/22/20 08:00 Pulse Ox 97 03/22/20 08:00 Intake & Output 03/21/20 03/22/20 03/22/20 18:59 06:59 18:59 Intake Total 840 750 236 Output Total 250 Balance 840 500 236 Weight 84.5 kg Intake: Oral 840 750 236 Output: Urine 250 Other: Voiding Method Urinal # Voids 4 # Bowel Movements 1 0 - Exam PHYSICAL EXAMINATION: GENERAL: 64-year-old gentleman in no acute distress at the time of my examination HEENT: Head is atraumatic, normocephalic. Pupils equal, round. Sclera anicteric. Conjunctiva are clear. Mucous membranes of the mouth are moist. Neck is supple. There is no elevated jugular venous pressure. No carotid bruit is heard. HEART EXAMINATION: Heart S1 and S2 irregularly irregular a systolic murmur heard CHEST EXAMINATION: Lungs reveal decreased air exchange with some fine wheezing throughout. ABDOMEN: Soft, nontender. Bowel sounds are heard. No organomegaly noted. EXTREMITIES: 2+ peripheral pulses with no evidence of peripheral edema and no calf tenderness noted. NEUROLOGIC patient is awake, alert and oriented 3 . . - Labs CBC & Chem 7: 03/22/20 07:31 03/22/20 07:31 Labs: Abnormal Lab Results - Last 24 Hours (Table) 03/22/20 03/22/20 03/22/20 Range/Units 07:31 07:31 07:31 Eosinophils # 0.9 H (0-0.7) k/uL PT 15.3 H (9.0-12.0) sec INR 1.5 H (<1.2) Chloride 109 H (98-107) mmol/L Carbon Dioxide 21 L (22-30) mmol/L BUN 30 H (9-20) mg/dL Creatinine 1.39 H (0.66-1.25) mg/dL Assessment and Plan Plan: Assessment and plan #1 TIA symptoms #2 persistent atrial fibrillation #3 history of prior TIA/CVA #4 hypertension #5 hyperlipidemia #6 coronary artery disease with prior stent placement Plan Echocardiogram with Doppler study was performed which revealed an ejection fraction of 40-45%. We will increase the dose of beta pablo, patient may be able to be discharged home today from our perspective. We'll make him a follow- up appointment to see Dr. Jones in the office post discharge. DNP note has been reviewed, I agree with a documented findings and plan of care. Patient was seen and examined.
--- NOTE | 2020-03-22 12:37 | CT ---
EXAMINATION TYPE: CT brain wo con DATE OF EXAM: 03/22/2020 COMPARISON: 03/20/2020 HISTORY: Follow up scan per patient CT DLP: 1188.[address] of the brain was performed. The ventricles, basal cisterns and sulci overlying the cerebral convexities demonstrate mild enlargem ent. There is no evidence for intracranial hemorrhage or sulcal effacement. There is decreased attenuation about the periventricular white matter and deep white matter of both c erebral hemispheres, compatible with chronic small vessel ischemia. Differential diagnosis does inclu de demyelination. No mass effects are seen.No midline shift. Osseous calvarium is intact. If symptoms persist consider MRI. IMPRESSION: 1. Age related atrophic and chronic small vessel ischemic change without acute intracranial process s een at this time.
[2020-03-22 15:45] VITALS: BP 158/107; PULSE 71; TEMP 97
[2020-03-22] MEDS ORDERED: METOPROLOL TARTRATE 50 MG TAB PO SCH (18:00)
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
== END 2020-03-22 18:38 | disposition home or self-care (01) | DRG 65 ==
LOC: EC 09:34 → 3SCARD 12:28 → OBSVTOIN 03-22 08:39
PROVIDERS: ADMIT Hospitalist; ATTEND Hospitalist
DX: I63.50 Cerebral infarction due to unspecified occlusion or stenosis of unspecified cerebral artery (principal); G81.91 Hemiplegia, unspecified affecting right dominant side; I13.0 Hypertensive heart and chronic kidney disease with heart failure and stage 1 through stage 4 chronic kidney disease, or unspecified chronic kidney disease; I48.21 Permanent atrial fibrillation; I50.22 Chronic systolic (congestive) heart failure; G45.9 Transient cerebral ischemic attack, unspecified; E78.1 Pure hyperglyceridemia; E78.5 Hyperlipidemia, unspecified; F17.200 Nicotine dependence, unspecified, uncomplicated; I25.10 Atherosclerotic heart disease of native coronary artery without angina pectoris; I25.5 Ischemic cardiomyopathy; I34.0 Nonrheumatic mitral (valve) insufficiency; I44.7 Left bundle-branch block, unspecified; M19.90 Unspecified osteoarthritis, unspecified site; N18.3 Chronic kidney disease, stage 3 (moderate); N40.0 Benign prostatic hyperplasia without lower urinary tract symptoms; R79.1 Abnormal coagulation profile; Z11.59 Encounter for screening for other viral diseases; R29.703 NIHSS score 3; Z87.81 Personal history of (healed) traumatic fracture; Z79.01 Long term (current) use of anticoagulants; Z79.82 Long term (current) use of aspirin; Z79.899 Other long term (current) drug therapy; Z82.49 Family history of ischemic heart disease and other diseases of the circulatory system; Z85.47 Personal history of malignant neoplasm of testis; Z86.79 Personal history of other diseases of the circulatory system; Z95.5 Presence of coronary angioplasty implant and graft; Z95.810 Presence of automatic (implantable) cardiac defibrillator; Z88.0 Allergy status to penicillin; Z60.2 Problems related to living alone
CPT/HCPCS: 36415; 70450; 70496; 70498; 71046; 80048; 80053; 80061; 81001; 82550; 82553; 84484; 85025; 85610; 85730; 93005; 93306; 99291

== ENCOUNTER → 2021-03-12 | Outpatient (CLI) | payer MEDICARE, OTHER ==
--- NOTE | 2021-03-12 09:20 | US ---
EXAMINATION TYPE: US kidneys/renal and bladder DATE OF EXAM: 03/12/2021 COMPARISON: 03/16/2017 CLINICAL HISTORY: hematuria R31.9. microscopic hematuria. No pain. Patient states having a prostate biopsy. EXAM MEASUREMENTS: Right Kidney: 10.8 x 5.1 x 5.5 cm Left Kidney: 10.6 x 4.6 x 4.7 cm Right Kidney: No hydronephrosis or masses seen. Prominent pyramids seen. Cortical thinning. Left Kidney: No hydronephrosis or masses seen. Prominent pyramids seen. Cortical thinning. Free flu id visualized adjacent to upper pole. Bladder: Nondistended. Bilateral Jets not seen due to bladder being nondistended. There is no evidence for hydronephrosis at this point in time. No nephrolithiasis is seen. No med s are identified. IMPRESSION: No significant change since the prior examination without hydronephrosis.
== END | disposition home or self-care (01) ==
LOC: RADUSWWP 08:17
PROVIDERS: ATTEND Urology
DX: R31.29 Other microscopic hematuria (principal)
CPT/HCPCS: 76770

== ENCOUNTER 2021-08-08 08:31 | Day surgery (SDC) | payer MEDICARE, OTHER ==
[2021-08-06 15:16] VITALS: BMI 23.7
[~2021-08-08 08:31] MED LIST changes: -ALPRAZolam 0.25 MG TAB PO PRN; -ASPIRIN 325 MG TAB PO ONE; +DEXAMETHASONE SOD PHOSPHATE 4 MG/ML 1 ML VIAL IV ONE; +HYDROmorphone 0.5 MG/0.5 ML SYRINGE IVP PRN; +LACTATED RINGERS 1,000 ML IV SCH; -NITROGLYCERIN SL TABS 0.4 MG TAB SUBLINGUAL PRN; +ONDANSETRON 4 MG/2 ML VIAL IVP ONE; +Pre Op ABX Message 1 EACH MISC MISCELLANE ONE; -SODIUM CHLORIDE 0.9% 1,000 ML in EMPTY BAG 1 BAG IV ONE
[2021-08-08] MEDS ORDERED: MIDAZOLAM 2 MG/2 ML VIAL IVP ONE (10:16)
[2021-08-08] MEDS ORDERED: CLINDAMYCIN 600 MG in DEXTROSE 5% IN WATER 50 ML IVPB STA ×2 (10:39)
[2021-08-08] MEDS ORDERED: LACTATED RINGERS 1,000 ML IV ONE (11:41)
[2021-08-08 12:10] VITALS: TEMP 97.1
--- NOTE | 2021-08-08 12:17 | P.OP ---
Date of Procedure: 08/08/21 Preoperative Diagnosis: 1. Osteophyte left tibia 2. Osteophyte left talus Postoperative Diagnosis: 1. Same 2. Same Procedure(s) Performed: 1. Partial excision of bone left tibia 2. Partial excision of bone talus Anesthesia: MONET Surgeon: Williams Hdez Estimated Blood Loss (ml): 2 Pathology: none sent Condition: stable Disposition: PACU Indications for Procedure: Pain and limitation of motion the ankle Operative Findings: Full thickness cartilage loss of the dome of the talus. Large osteophytes on the anterior surface of the tibia as well as the dorsal aspect of the neck of the talus Description of Procedure: Prior to the patient being brought to the operating room anesthesia administered nerve block on the left lower extremity. The patient was then brought into the operative room placed on table supine position. Timeout was taken to confirm correct patient identifiers, correct procedure, and correct site of surgery. When the room was in agreement the patient was induced and placed under general anesthesia. A tourniquet was placed on the left midcalf and then the left leg was prepped and draped usual manner. The leg was exsanguinated the tourniquet inflated 250 motors mercury. Attention directed over the anterior ankle where in the preoperative area lines of the tibialis anterior and extensor hallucis longus tendon were made on the skin incision was made between these 2 structures deepened under the subcutaneous tissue careful to identify, avoid, and retract any neurovascular structures and cauterize any bleeding vessels. Dissection was continued down to the fascia overlying the tendons which was incised between the tendons. The tendons were refill retracted medially and laterally and then blunt dissection carried down to the ankle joint capsule. The joint capsule was incised over the anterior surface of the tibia as well as the dorsal surface of the talus. Visual inspection noted there was a full thickness cartilage loss on the dome of the talus. Further inspection noted the large osteophytes along the entire anterior surface of the tibia where articular with ankle but also large osteophytes on the dorsal surface of the neck of the talus just distal to the body. Utilizing combination of Langford and osteotomes the osteophytes were removed from both the surfaces. The hand rasp was used to smooth all roughened surfaces. Then the ankle was taken through range of motion and there was noted crepitus to the degenerative joint disease however there is no restriction of the range of motion. The wound is then thoroughly irrigated with antibiotic saline. Deep closure done with 2-0 Vicryl subcu closure done for Monocryl skin closure done with 4-0 Stratafix in a running subarticular manner. Dermal glue was applied across incision allowed to dry then covered Steri-Strips, Adaptic and then it dried sterile dressing. The tourniquet was released and capillary refill return to all digits on left foot. Patient's placed a below-knee fracture boot ankle neutral position. Anesthesia was reversed and the patient taken recovery with vital signs stable
[2021-08-08 13:01] VITALS: RESP 16
[2021-08-08 13:08] VITALS: BP 125/80; PULSE 76
--- NOTE | 2021-08-10 18:53 | P.ANPRN ---
Procedure Note - Anesthesia - Nerve Block Performed Left Popliteal Single Time Out Performed: Yes Date of Procedure: 08/08/21 Procedure Start Time: 10:15 Procedure Stop Time: 10:20 Location of Patient: PreOp Indication: Acute Post-Operative Pain, Requested by Surgeon Sedation Type: Sedate with meaningful contact maintained Preparation: Sterile Prep Position: Right Lateral Needle Types: Pajunk Needle Gauge: 21 Ultrasound used to visualize needle placement: Yes Ultrasound used to observe medication spread: Yes Blood Aspirated: No Pain Paresthesia on Injection Noted: No Resistance on Injection: Normal Image Stored and Saved: Yes Events: Uneventful and Well Tolerated (ropi .5% 25cc plus dexamethasone 4mg)
--- NOTE | 2021-08-10 18:55 | P.ANPRN ---
Procedure Note - Anesthesia - Nerve Block Performed Left Adductor Canal Single Time Out Performed: Yes Date of Procedure: 08/08/21 Procedure Start Time: Procedure Stop Time: Location of Patient: PreOp Indication: Acute Post-Operative Pain, Requested by Surgeon Sedation Type: Sedate with meaningful contact maintained Preparation: Sterile Prep Position: Right Lateral Needle Types: Pajunk Needle Gauge: 21 Ultrasound used to visualize needle placement: Yes Ultrasound used to observe medication spread: Yes Blood Aspirated: No Pain Paresthesia on Injection Noted: No Resistance on Injection: Normal Image Stored and Saved: Yes Events: Uneventful and Well Tolerated (ropi .5% 25cc plus dexamethasone 4mg)
== END 2021-08-08 14:30 | disposition home or self-care (01) ==
LOC: OR 08:31
PROVIDERS: ATTEND Podiatrist
DX: M89.8X6 Other specified disorders of bone, lower leg (principal); I25.10 Atherosclerotic heart disease of native coronary artery without angina pectoris; I11.0 Hypertensive heart disease with heart failure; I50.9 Heart failure, unspecified; E78.5 Hyperlipidemia, unspecified; I25.5 Ischemic cardiomyopathy; H53.8 Other visual disturbances; Z85.47 Personal history of malignant neoplasm of testis; E78.00 Pure hypercholesterolemia, unspecified; Z98.890 Other specified postprocedural states; Z95.810 Presence of automatic (implantable) cardiac defibrillator; I48.19 Other persistent atrial fibrillation; I47.1 Supraventricular tachycardia; N40.0 Benign prostatic hyperplasia without lower urinary tract symptoms; Z86.73 Personal history of transient ischemic attack (TIA), and cerebral infarction without residual deficits; F17.210 Nicotine dependence, cigarettes, uncomplicated; Z98.42 Cataract extraction status, left eye; Z98.41 Cataract extraction status, right eye; Z79.01 Long term (current) use of anticoagulants; Z79.82 Long term (current) use of aspirin; Z79.899 Other long term (current) drug therapy; Z88.0 Allergy status to penicillin
CPT/HCPCS: 64447; 64445; 76942; 27635; 28100; J2250; J1100; J2405

== ENCOUNTER 2021-10-15 18:50 | Inpatient (IN) | payer MEDICARE, OTHER ==
[2021-10-15 19:43] LABS: Anisocytosis Slight; Basophils # (A) 0.1 k/uL (0-0.2); Basophils % (A) 1 %; Eosinophils # (A) 0.6 k/uL (0-0.7); Eosinophils % (A) 6 %; HCT 22.3 % (39.0-53.0); Hypochromasia Marked; Lymphocytes # (A) 1.7 k/uL (1.0-4.8); Lymphocytes % (A) 19 %; MCH 22.3 pg (25.0-35.0); MCHC 29.9 g/dL (31.0-37.0); MCV 74.5 fL (80.0-100.0); Mean Platelet Volume 7.2; Microcytosis Slight; Monocytes # (A) 0.6 k/uL (0-1.0); Monocytes % (A) 7 %; Neutrophils # (A) 5.6 k/uL (1.3-7.7); Neutrophils % (A) 64 %; Platelet Count 309 k/uL (150-450); Poikilocytosis Slight; RBC 2.99 m/uL (4.30-5.90); RDW 16.6 % (11.5-15.5); WBC 8.7 k/uL (3.8-10.6)
[2021-10-15 19:47] LABS: HGB 6.7 gm/dL (13.0-17.5)
[2021-10-15 19:53] LABS: Albumin 3.8 g/dL (3.5-5.0); Calcium 9.5 mg/dL (8.4-10.2); INR 0.9 (<1.2); Magnesium 2.4 mg/dL (1.6-2.3); Partial Thromboplastin Time 22.1 sec (22.0-30.0); Potassium 4.4 mmol/L (3.5-5.1); Prothrombin Time 10.2 sec (9.0-12.0); Total Bilirubin 0.4 mg/dL (0.2-1.3); Total Protein 6.7 g/dL (6.3-8.2)
--- NOTE | 2021-10-15 20:03 | XR ---
EXAMINATION TYPE: XR chest 2V DATE OF EXAM: 10/15/2021 COMPARISON: 03/20/2020 HISTORY: Syncope TECHNIQUE: FINDINGS: There is slight blunting left costophrenic angle. There is no heart failure. Heart size is normal. There is left axillary pacemaker. Bony thorax is intact. IMPRESSION: Minimal pleural scarring lateral left lung base without change. Normal heart.
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
[2021-10-15] MEDS ORDERED: SODIUM CHLORIDE 0.9% 1,000 ML IV SCH (20:45)
[2021-10-15] MEDS ORDERED: NALOXONE 0.4 MG/ML 1 ML VIAL IV PRN (20:45)
[2021-10-15] MEDS ORDERED: PANTOPRAZOLE 40 MG/10 ML VIAL IVP STA (20:49)
[2021-10-15] MEDS ORDERED: ACETAMINOPHEN TAB 325 MG TAB PO PRN (22:09)
[2021-10-15] MEDS ORDERED: CALCIUM CARBONATE 500 MG CHEWABLE PO PRN (22:09)
[2021-10-15] MEDS ORDERED: ONDANSETRON 4 MG/2 ML VIAL IVP PRN (22:09)
[2021-10-15] MEDS ORDERED: LORazepam 0.5 MG TAB PO PRN (22:09)
[2021-10-15] MEDS ORDERED: MELATONIN 3 MG TABLET PO PRN (22:09)
[2021-10-15] MEDS ORDERED: LACTULOSE 20 GM/30 ML CUP PO PRN (22:09)
[2021-10-15] MEDS: ATORVASTATIN 80 MG TAB PO SCH (23:21)
[2021-10-15] MEDS: ISOSORBIDE MONONITRATE ER 30 MG TAB.ER.24H PO SCH (23:22)
[2021-10-16 03:47] LABS: Anisocytosis Slight; HCT 23.5 % (39.0-53.0); HGB 7.1 gm/dL (13.0-17.5); Hypochromasia Marked; MCH 23.3 pg (25.0-35.0); MCHC 30.2 g/dL (31.0-37.0); MCV 77.1 fL (80.0-100.0); Mean Platelet Volume 7.4; Microcytosis Slight; Platelet Count 273 k/uL (150-450); Poikilocytosis Moderate; RBC 3.05 m/uL (4.30-5.90); RDW 17.7 % (11.5-15.5); WBC 10.6 k/uL (3.8-10.6)
[2021-10-16] MEDS ORDERED: PANTOPRAZOLE 40 MG/10 ML VIAL IV SCH (09:00)
[2021-10-16 09:03] LABS: Calcium 9.5 mg/dL (8.4-10.2); Potassium 4.8 mmol/L (3.5-5.1)
[2021-10-16] MEDS: AMIODARONE 200 MG TAB PO SCH (09:26)
[2021-10-16 09:37] LABS: Anisocytosis Slight; Basophils # (A) 0.1 k/uL (0-0.2); Basophils % (A) 1 %; Eosinophils # (A) 0.5 k/uL (0-0.7); Eosinophils % (A) 5 %; HCT 25.6 % (39.0-53.0); HGB 7.9 gm/dL (13.0-17.5); Hypochromasia Marked; Lymphocytes # (A) 1.5 k/uL (1.0-4.8); Lymphocytes % (A) 16 %; MCH 23.3 pg (25.0-35.0); MCHC 30.7 g/dL (31.0-37.0); MCV 75.7 fL (80.0-100.0); Mean Platelet Volume 8.7; Microcytosis Slight; Monocytes # (A) 0.7 k/uL (0-1.0); Monocytes % (A) 7 %; Neutrophils # (A) 6.8 k/uL (1.3-7.7); Neutrophils % (A) 70 %; Platelet Count 273 k/uL (150-450); Poikilocytosis Moderate; RBC 3.38 m/uL (4.30-5.90); RDW 17.4 % (11.5-15.5); WBC 9.7 k/uL (3.8-10.6)
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
[2021-10-16] MEDS ORDERED: DESMOPRESSIN ACETATE 28 MCG in SODIUM CHLORIDE 0.9% 50 ML IVPB ONE (10:30)
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
--- NOTE | 2021-10-16 10:51 | ECHOF ---
Referral Reason:LV function MEASUREMENTS -------- HEIGHT: 188.0 cm WEIGHT: 90.7 kg BP: RVIDd: 2.1 cm (< 3.3) IVSd: 1.6 cm (0.6 - 1.1) LVIDd: 4.9 cm (3.9 - 5.3) LVPWd: 1.6 cm (0.6 - 1.1) IVSs: 1.9 cm LVIDs: 3.3 cm LVPWs: 2.0 cm LAESV Index (A-L): 47.07 ml/m Ao Diam: 4.1 cm (2.0 - 3.7) AV Cusp: 0.8 cm (1.5 - 2.6) LA Diam: 4.6 cm (2.7 - 3.8) MV EXCURSION: 17.180 mm (> 18.000) MV EF SLOPE: 72 mm/s (70 - 150) EPSS: 1.8 cm MV E Gregory: 1.56 m/s MV DecT: 181 ms MV A Gregory: 0.36 m/s MV E/A Ratio: 4.33 AV maxP.57 mmHg AV meanP.06 mmHg AR PHT: 726 ms RAP: 5.00 mmHg RVSP: 55.03 mmHg FINDINGS -------- Pacerwire seen in RV and RA. AICD This was a technically good study. The left ventricular size is normal. There is moderate concentric left ventricular hypertrophy. O verall left ventricular systolic function is low-normal with, an EF between 50 - 55 %. Left ventric ular fillimg pressure cannot be estimated due to paced rhythm. Basal inferior LV wall motion is hyp okinetic. The right ventricle is normal in size. LA is severely dilated >40 ml/m2 The right atrial size is normal. Interatrial and interventricular septum intact. Aortic valve is trileaflet and is moderately thickened. There is mild aortic regurgitation. There is moderate aortic stenosis present. Peak/mean gradient across the Aortic Valve is 40.57mmHg / 22. 06mmHg. The mitral valve is normal. The mitral valve leaflets are mildly thickened. [id number] mitr al regurgitation is present. The tricuspid valve appears structurally normal. Severe tricuspid regurgitation present. There is moderate pulmonary hypertension. The right ventricular systolic pressure, as measured by Doppler, is 55.03mmHg. There is no pulmonic regurgitation present. The aortic root size is normal. Normal inferior vena cava with normal inspiratory collapse consistent with estimated right atrial pre ssure of 5 mmHg. There is no pericardial effusion. CONCLUSIONS -------- 1. Pacerwire seen in RV and RA. 2. AICD 3. The left ventricular size is normal. 4. There is moderate concentric left ventricular hypertrophy. 5. Overall left ventricular systolic function is low-normal with, an EF between 50 - 55 %. 6. Left ventricular fillimg pressure cannot be estimated due to paced rhythm. 7. Basal inferior LV wall motion is hypokinetic. 8. LA is severely dilated >40 ml/m2 9. Aortic valve is trileaflet and is moderately thickened. 10. There is mild aortic regurgitation. 11. There is moderate aortic stenosis present. 12. Peak/mean gradient across the Aortic Valve is 40.57mmHg / 22.06mmHg. 13. The mitral valve leaflets are mildly thickened. 14. [id number] mitral regurgitation is present. 15. Severe tricuspid regurgitation present. 16. There is moderate pulmonary hypertension. 17. The right ventricular systolic pressure, as measured by Doppler, is 55.03mmHg. 18. There is no pericardial effusion. MINIATURE SET CONSTRUCTOR: Mera Montenegro RDCS
[2021-10-16] MEDS ORDERED: DARBEPOETIN ALFA 40 MCG/0.4 ML SYRINGE SQ SCH (11:00)
--- NOTE | 2021-10-16 11:11 | US ---
EXAMINATION TYPE: US kidneys/renal and bladder DATE OF EXAM: 10/16/2021 COMPARISON: US 03/12/21, 03/16/17 CLINICAL HISTORY: ye. EXAM MEASUREMENTS: Right Kidney: 11.1 x 6.0 x 4.6 cm Left Kidney: 12.3 x 4.7 x 4.6 cm Right Kidney: No hydronephrosis or masses seen Left Kidney: No hydronephrosis or masses seen Bladder: appears normal. enlarged prostate Bilateral Jets seen: Yes Normal Post Void Residual: Not calculated on this inpatient. There is no evidence for hydronephrosis at this point in time. No nephrolithiasis is seen. No med s are identified. Enlarged prostate consistent with BPH bulging on bladder base is felt present. IMPRESSION: No hydronephrosis is seen bilaterally.
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
[2021-10-16] MEDS: SODIUM CHLORIDE 0.9% 1,000 ML IV SCH (13:05)
[2021-10-16 14:44] LABS: Appearance,Urine Clear (Clear); Bilirubin,Urine Negative (Negative); Blood,Urine Negative (Negative); Color,Urine Light Yellow; Glucose,Urine (UA) Negative (Negative); Ketones,Urine Negative (Negative); Leukocyte Esterase,Urine Negative (Negative); Nitrite,Urine Negative (Negative); PH, Urine 6.5 (5.0-8.0); Protein,Urine Negative (Negative); Specific Gravity,Urine 1.012 (1.001-1.035); Urobilinogen,Urine <2.0 mg/dL (<2.0)
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
[2021-10-16] MEDS: PANTOPRAZOLE 40 MG TABLET PO SCH (17:23)
[2021-10-16] MEDS: ATORVASTATIN 80 MG TAB PO SCH (19:56)
[2021-10-16] MEDS: ISOSORBIDE MONONITRATE ER 30 MG TAB.ER.24H PO SCH (19:56)
[2021-10-17] MEDS: PANTOPRAZOLE 40 MG TABLET PO SCH ×2 (06:55→15:42)
[2021-10-17 07:13] LABS: Calcium 9.4 mg/dL (8.4-10.2); Magnesium 2.2 mg/dL (1.6-2.3); Potassium 4.5 mmol/L (3.5-5.1)
[2021-10-17] MEDS: AMIODARONE 200 MG TAB PO SCH (08:22)
[2021-10-17] MEDS: SODIUM CHLORIDE 0.9% 1,000 ML IV SCH ×2 (08:22→13:14)
[2021-10-17 08:58] LABS: Anisocytosis Slight; HCT 23.4 % (39.0-53.0); Hypochromasia Marked; MCH 23.1 pg (25.0-35.0); MCHC 28.9 g/dL (31.0-37.0); MCV 79.9 fL (80.0-100.0); Mean Platelet Volume 7.7; Microcytosis Slight; Platelet Count 284 k/uL (150-450); Poikilocytosis Slight; RBC 2.92 m/uL (4.30-5.90); RDW 17.5 % (11.5-15.5)
[2021-10-17 09:23] LABS: HGB 6.7 gm/dL (13.0-17.5)
--- NOTE | 2021-10-17 09:31 | P.PN ---
Subjective Patient is seen in follow-up for acute kidney injury on chronic kidney disease. Renal function continues to improve. Good urine output. Oral intake is good. No active bleeding. Hemoglobin 6.7 today. Vital signs are stable. General: The patient appeared well nourished and normally developed. HEENT: Head exam is unremarkable. LUNGS:Breath sounds decreased. HEART: Rate and Rhythm are regular. ABDOMEN: Soft, no distention. EXTREMITITES: No edema. Objective - Vital Signs Vital signs: Vital Signs Temp 97.8 F 10/17/21 08:00 Pulse 104 H 10/17/21 08:00 Resp 18 10/17/21 08:00 BP 125/74 10/17/21 08:00 Pulse Ox 97 10/17/21 08:00 Intake & Output 10/16/21 10/17/21 10/17/21 18:59 06:59 18:59 Intake Total 125 480 Balance 125 480 Intake: Intake, IV Titration 125 Amount Desmopressin Acetate 28 50 mcg In Sodium Chloride 0. 9% 50 ml @ 200 mls/hr IVPB ONCE ONE Rx#: [id number] Sodium Chloride 0.9% 1, 75 000 ml @ 75 mls/hr IV . [id number] [facility] Rx#:[id number] Oral 480 Other: # Voids 1 - Labs CBC & Chem 7: 10/17/21 06:04 10/17/21 06:04 Labs: Abnormal Lab Results - Last 24 Hours (Table) 10/16/21 10/17/21 10/17/21 Range/Units 07:52 06:04 06:04 RBC 3.38 L 2.92 L (4.30-5.90) m/uL Hgb 7.9 L 6.7 L* (13.0-17.5) gm/dL Hct 25.6 L 23.4 L (39.0-53.0) % MCV 75.7 L 79.9 L (80.0-100.0) fL MCH 23.3 L 23.1 L (25.0-35.0) pg MCHC 30.7 L 28.9 L (31.0-37.0) g/dL RDW 17.4 H 17.5 H (11.5-15.5) % Chloride 110 H (98-107) mmol/L Carbon Dioxide 19 L (22-30) mmol/L BUN 44 H (9-20) mg/dL Creatinine 2.74 H (0.66-1.25) mg/dL Glucose 121 H (74-99) mg/dL Assessment and Plan Plan: Assessment: 1. Acute kidney injury mostly prerenal secondary to hypovolemia and anemia. Creatinine was 3.8 on admission and is 2.74 today. No hydronephrosis noted on kidney ultrasound. UA benign. 2. Acute blood loss anemia status post blood transfusion. Surgery following. Hemoglobin again low at 6.7 today. On Aranesp. Also received IV DDAVP yesterday. 3. Chronic kidney disease stage IIIB with baseline creatinine in the range of 1.3-1.6 in February 2020 secondary to nephrosclerosis. 4. Metabolic acidosis secondary to acute kidney injury and IV fluids. 5. Orthostatic hypotension. Better. 6. Chronic diastolic CHF and mild to moderate mitral regurgitation, severe tricuspid regurgitation and moderate pulmonary hypertension. Plan: Maintain normal saline at 75 mL an hour. Continue to monitor renal function and urine output. Consider blood transfusion today. Possible EGD and colonoscopy this admission. Add oral bicarbonate.
[2021-10-17] MEDS: SODIUM BICARBONATE TAB 650 MG TAB PO SCH ×2 (10:34→20:11)
[2021-10-17] MEDS ORDERED: PEG 3350-NA SULF,BICARB,CL/KCL 4,000 ML BOTTLE PO ONE (12:28)
[2021-10-17] MEDS: SODIUM FERRIC GLUCONAT-SUCROSE 125 MG in SODIUM CHLORIDE 0.9% 100 ML IVPB SCH (13:14)
--- NOTE | 2021-10-17 13:41 | P.PN ---
Subjective This is a pleasant 65-year-old male past medical history significant for coronary artery disease status post PCI to LAD in 2009, hypertension, dyslip idemia, ischemic cardiomyopathy status post single-chamber ICD on 04/2012, chronic persistent atrial fibrillation on Eliquis. He follows in the office with Dr. Jones. We have been asked to see in consultation for orthostatic hypotension and presyncope. Patient is seen and examined at bedside, he presents emergency department with complaints of lightheadedness and dizziness. Patient presents to the emergency department with complaints of dizziness and lightheadedness while standing for about 3 weeks. He states it varies how long he is standing and will have acute onset of lightheadedness and need to sit down. Over the past 3 days he has been having increased dark stools. He also endorses diarrhea. On admission. Patient found to have a hemoglobin 6.7, received 1 unit of PRBCs. Also found to be in acute kidney injury serum creatinine 3.8 10/17/21 Patient seen and examined at bedside, distress. He denies any chest pain or shortness of breath or palpitations. Patient hemoglobin dropped to 6.7 this morning, sodium 137, potassium 4.3, BUN 44, serum 2.7, magnesium 2.2. His Eliq uis and aspirin remain on hold. Patient in atrial fibrillation with controlled ventricular rates. He is currently maintained on amiodarone 20 mg daily, atorvastatin 80 mg daily, Imdur 50 mg daily. Echocardiogram revealed EF of 50-55%, LA severely dilated, basal inferior LV wall hypokinetic, moderate aortic stenosis peak/mean gradient of 40 mmHg/22 mmHg, mild to moderate mitral regurgitation, severe tricuspid regurgitation, moderate pulmonary hypertension with RVSP 55 mmHg. PHYSICAL EXAMINATION Vitals reviewed CONSTITUTIONAL: No apparent distress. HEENT:Neck Supple. No JVD CHEST EXAMINATION: Lungs are clear to auscultation. No chest wall tenderness is noted on palpation or with deep breathing. HEART EXAMINATION: Irregular rate and rhythm. S1, S2 heard. Systolic ejection murmur noted ABDOMEN: Soft, nontender. Positive bowel sounds. EXTREMITIES: 2+ peripheral pulses, no lower extremity edema and no calf tenderness. NEUROLOGIC EXAMINATION: Patient is awake, alert and oriented x3. ASSESSMENT Severe anemia Presyncope Orthostatic hypotension, likely secondary to above Coronary artery disease status post PCI to LAD in 2009 Hypertension Dyslipidemia Ischemic cardiomyopathy status post single-chamber ICD on 04/2012 Chronic persistent atrial fibrillation on Eliquis outpatient, currently on hold due anemia and GI bleed Aortic stenosis Pulmonary hypertension PLAN Patient's orthostatics improved after blood transfusion and fluid administration. Consider blood transfusion today. Continue to hold Eliquis and aspirin due to potential acute GI bleed. We can readdress restarting as an outpatient in the office with Dr. Jones. Surgery consulted for possible endoscopy. From a cardiology perspective, no absolute contraindications to undergo endoscopy at this time. Further recommendations based on clinical course. Nurse Practitioner note has been reviewed, I agree with a documented findings and plan of care. Patient was seen and examined. Objective - Vital Signs Vital signs: Vital Signs Temp 97.8 F 10/17/21 08:00 Pulse 104 H 10/17/21 08:00 Resp 18 10/17/21 08:00 BP 125/74 10/17/21 08:00 Pulse Ox 97 10/17/21 08:00 Intake & Output 10/16/21 10/17/21 10/17/21 18:59 06:59 18:59 Intake Total 125 480 Balance 125 480 Intake: Intake, IV Titration 125 Amount Desmopressin Acetate 28 50 mcg In Sodium Chloride 0. 9% 50 ml @ 200 mls/hr IVPB ONCE ONE Rx#: [id number] Sodium Chloride 0.9% 1, 75 000 ml @ 75 mls/hr IV . [id number] [facility] Rx#:[id number] Oral 480 Other: # Voids 1 - Labs CBC & Chem 7: 10/17/21 06:04 10/17/21 06:04 Labs: Abnormal Lab Results - Last 24 Hours (Table) 10/15/21 10/17/21 10/17/21 Range/Units 19:55 06:04 06:04 RBC 2.92 L (4.30-5.90) m/uL Hgb 6.7 L* (13.0-17.5) gm/dL Hct 23.4 L (39.0-53.0) % MCV 79.9 L (80.0-100.0) fL MCH 23.1 L (25.0-35.0) pg MCHC 28.9 L (31.0-37.0) g/dL RDW 17.5 H (11.5-15.5) % Chloride 110 H (98-107) mmol/L Carbon Dioxide 19 L (22-30) mmol/L BUN 44 H (9-20) mg/dL Creatinine 2.74 H (0.66-1.25) mg/dL Glucose 121 H (74-99) mg/dL Crossmatch See Detail
--- NOTE | 2021-10-17 15:40 | P.PN ---
Progress Note - Text Progress Note Date: 10/17/21 Chief Complaint: Falling This is a pleasant 65-year-old patient, Dr. Colon. Chronic stable medical conditions include atrial fibrillation, CAD, hyperlipidemia, hypertension, osteoarthritis, ischemic cardiomyopathy, testicle cancer with surgery and chemo, BPH, CK D stage III, hemorrhoids, hiatal hernia CAD with stent, AICD. Patient is a smoker. Patient for last 3 weeks has noticed that when he gets up or/stands up it does get dizzy lightheaded. In fact she dropped her dose of his Lopressor about 3 weeks ago. He was asked Dr. Colon's office yesterday when he dropped his systolic blood pressure to 70. His blood pressure medications were discontinued. It was discovered that his hemoglobin was less than 7 use and out of the ER. Patient's had intermittent bleeding from his hemorrhoids for a long time. I discontinued. Patient does get eliquis for atrial fibrillation. Patient's appetite is good. No weight loss. He does take a baby aspirin. Denies any abdominal pain. He did receive a unit of blood. Feels better this morning. No chest pain or palpitation. October 17: Seen by Dr. Haynes. Unable to do endoscopy until Wednesday. Patient been up to the bathroom. Not dizzy anymore. Hemoglobin 6.7. No further episode of bleeding. EPI. Oral intake fair. IV iron ordered. Discussed with patient Review of systems: Was done for constitutional, cardiovascular, GI, pulmonary. relevant finding as above Active Medications Acetaminophen (Acetaminophen Tab 325 Mg Tab) 650 mg PO Q6HR PRN PRN Reason: Mild Pain or Fever > 100.5 Amiodarone HCl (Amiodarone 200 Mg Tab) 200 mg PO DAILY [facility] Last Admin: 10/17/21 08:22 Dose: 200 mg Documented by: Atorvastatin Calcium (Atorvastatin 80 Mg Tab) 80 mg PO HS [facility] Last Admin: 10/16/21 19:56 Dose: 80 mg Documented by: Calcium Carbonate/Glycine (Calcium Carbonate 500 Mg Chewable) 1,000 mg PO Q4HR PRN PRN Reason: Dyspepsia Darbepoetin Wilfrid (Darbepoetin Wilfrid 40 Mcg/0.4 Ml Syringe) 40 mcg SQ Q7D [facility] Last Admin: 10/16/21 17:23 Dose: 40 mcg Documented by: Sodium Chloride (Saline 0.9%) 1,000 mls @ 50 mls/hr IV .Q20H [facility] Last Admin: 10/17/21 13:14 Dose: 50 mls/hr Documented by: Ferric Sodium Gluconate 125 mg (/ Sodium Chloride) 110 mls @ 100 mls/hr IVPB DAILY [facility] Stop: 10/19/21 10:05 Last Admin: 10/17/21 13:14 Dose: 100 mls/hr Documented by: Isosorbide Mononitrate (Isosorbide Mononitrate Er 30 Mg Tab.Er.24h) 15 mg PO HS [facility] Last Admin: 10/16/21 19:56 Dose: 15 mg Documented by: Lactulose (Lactulose 20 Gm/30 Ml Cup) 20 gm PO DAILY PRN PRN Reason: Constipation Lorazepam (Lorazepam 0.5 Mg Tab) 0.5 mg PO Q6HR PRN PRN Reason: Anxiety Melatonin (Melatonin 3 Mg Tablet) 3 mg PO HS PRN PRN Reason: Insomnia Naloxone HCl (Naloxone 0.4 Mg/Ml 1 Ml Vial) 0.2 mg IV Q2M PRN PRN Reason: Opioid Reversal Ondansetron HCl (Ondansetron 4 Mg/2 Ml Vial) 4 mg IVP Q8HR PRN PRN Reason: Nausea And Vomiting Pantoprazole Sodium (Pantoprazole 40 Mg Tablet) 40 mg PO AC-BID [facility] Last Admin: 10/17/21 06:55 Dose: 40 mg Documented by: Polyethylene Glycol/Electrolytes (Peg 3350-Na Sulf,Bicarb,Cl/Kcl 4,000 Ml Bottle) 4,000 ml PO ONCE ONE Stop: 10/19/21 12:01 Sodium Bicarbonate (Sodium Bicarbonate Tab 650 Mg Tab) 650 mg PO BID [facility] Last Admin: 10/17/21 10:34 Dose: 650 mg Documented by: Past medical history to include: Atrial fibrillation, CAD with stent, CHF, hyperlipidemia, TIA, hypertension, osteoarthritis, BPH, V. tach, left testicle cancer with surgery/chemotherapy, BPH, CK D stage III, hemorrhoids, hiatal hernia, AICD Social history: Lives alone. Smoking for 52 years now down to about half a pack a day. Was up to pack and a half to 2 packs a day. Used to do [employer] work. Family history: CAD Physical examination: VITAL SIGNS: 97.9, 93, 16, 138 with 72, 95% on room air GENERAL: Reclining bed, awake comfortable. EYES: Pupils equal. Conjunctiva pale. HEENT: External appearance of nose and ears normal, oral cavity grossly normal. NECK: JVD not raised; masses not palpable. HEART: First and second heart sounds are normal; no edema. LUNGS: Respiratory rate normal; decreased breath sounds. ABDOMEN: Soft, nontender, liver spleen not palpable, no masses palpable. PSYCH: Alert and oriented x3; mood and affect normal. MUSCULOSKELETAL:No Clubbing/cyanosis;muscles-grossly intact. Evidence of OA INVESTIGATIONS, reviewed in the clinical context: October 17: White count 8 hemoglobin 6.7 platelets 24 potassium 4.5. 44 creatinine 2.74 bicarb October 16: White count 9.7 hemoglobin 7.9 platelets 273 potassium 4.8 BUN 52 creatinine 3.15 Admission labs: Hemoglobin 6.7 platelets 309 and 58 creatinine 3.81 Troponin I 0.014 Stool occult blood: Positive Coronavirus [PCR]: Not detected EKG tracing personally reviewed by me-atrial fibrillation. Rate 91. Some ST-T wave changes. Chest x-ray film personally reviewed by me-cardiomegaly. Prominent pulmonary artery. AICD. Assessment and plan: -Symptomatic orthostatic hypotension from severe anemia and being on antihypertensive. transfused 1 unit of blood. Symptoms better -Acute on chronic GI bleed. Patient has known long-standing intermittent hemorrhoidal bleeding. Rule out any other cause. Last colonoscopy was several years ago. Pending endoscopy by surgery on Wednesday -Symptomatic anemia from GI bleed.: Acute worsening Patient received 1 unit of blood. Likely further drop in hemoglobin likely due to dilutional. Repeat CBC. IV Ferrlecit ordered -Persistent atrial fibrillation, rate controlled Cordarone 200 mg a day. Eliquis currently and hold -CAD with stent Imdur 50 mg daily at bedtime. Hold aspirin -Chronic congestive heart failure from diastolic dysfunction EF 50-55% Follow clinically -AICD On telemetry -Moderate aortic stenosis with a peak and mean gradient of 40.5/22 Follow with cardiology -Mild to moderate mitral regurgitation and severe tricuspid regurgitation Follow clinically -BPH Proscar 5 mg a day -Hyperlipidemia Lipitor 80 mg daily at bedtime -Essential hypertension Currently blood pressure meds have been held off. Follow clinically -Chronic kidney disease stage IV possibly from nephrosclerosis Follow with nephrology -Acute kidney injury cardiorenal syndrome from hypotension Admitting crit was 3.81, down to 2.74 today. -Primary osteoarthritis multiple joints bilaterally Tylenol as needed Endoscopy by surgery on Wednesday. Drop in hemoglobin. Likely dilutional. Repeat CBC. IV Ferrlecit ordered. Discussed with patient.
--- NOTE | 2021-10-17 15:50 | P.PN ---
Subjective Progress Note Date: 10/17/21 CHIEF COMPLAINT: Anemia HISTORY OF PRESENT ILLNESS: Surgical service is following regards to patient's anemia. Patient had another drop in his hemoglobin from 7.9-6.7. He is receiving IV iron. He did receive DDVAP yesterday. Patient did not have any stools yesterday. He does report some left lower abdominal pressure. Denies any nausea or vomiting. Afebrile. Head mild tachycardia this morning heart rate 104. WBC is 8.0 from 6.7 platelets 284 sodium 137 potassium 4.5 creatinine 2.74 PHYSICAL EXAM: VITAL SIGNS: Reviewed. GENERAL: Well-developed in no acute distress. HEENT: No sclera icterus. Extraocular movements grossly intact. Moist buccal mucosa. Head is atraumatic, normocephalic. ABDOMEN: Soft. Nondistended. Nontender. NEUROLOGIC: Alert and oriented. Cranial nerves II through XII grossly intact. ASSESSMENT: 1. Acute GI bleed 2. Acute blood loss anemia due to GI bleed status post blood transfusion 3. Presyncope likely due to patient's anemia 4. Orthostatic hypotension likely secondary to patient's anemia improved after blood transfusion 5. Atrial fibrillation on Eliquis outpatient 6. History of AICD 7. Acute kidney injury with chronic kidney disease PLAN: -We'll place patient on a clear liquid diet -Start patient on GoLYTELY prep today for possibility of EGD and colonoscopy tomorrow -Continue to monitor hemoglobin -Continue to monitor for any signs or symptoms of bleeding -Continue IV fluids -Keep Eliquis and aspirin on hold Physician [employer] Chief Scientist note has been reviewed by physician. Signing provider agrees with the documented findings, assessment, and plan of care. Objective - Vital Signs Vital signs: Vital Signs Temp 97.9 F 10/17/21 12:00 Pulse 93 10/17/21 14:00 Resp 16 10/17/21 12:00 BP 138/72 10/17/21 12:00 Pulse Ox 95 10/17/21 12:00 Intake & Output 10/16/21 10/17/21 10/17/21 18:59 06:59 18:59 Intake Total 125 480 Balance 125 480 Intake: Intake, IV Titration 125 Amount Desmopressin Acetate 28 50 mcg In Sodium Chloride 0. 9% 50 ml @ 200 mls/hr IVPB ONCE ONE Rx#: [id number] Sodium Chloride 0.9% 1, 75 000 ml @ 50 mls/hr IV . Q20H [facility] Rx#:[id number] Oral 480 Other: # Voids 1 3 - Labs CBC & Chem 7: 10/17/21 06:04 10/17/21 06:04 Labs: Abnormal Lab Results - Last 24 Hours (Table) 10/15/21 10/17/21 10/17/21 Range/Units 19:55 06:04 06:04 RBC 2.92 L (4.30-5.90) m/uL Hgb 6.7 L* (13.0-17.5) gm/dL Hct 23.4 L (39.0-53.0) % MCV 79.9 L (80.0-100.0) fL MCH 23.1 L (25.0-35.0) pg MCHC 28.9 L (31.0-37.0) g/dL RDW 17.5 H (11.5-15.5) % Chloride 110 H (98-107) mmol/L Carbon Dioxide 19 L (22-30) mmol/L BUN 44 H (9-20) mg/dL Creatinine 2.74 H (0.66-1.25) mg/dL Glucose 121 H (74-99) mg/dL Crossmatch See Detail
[2021-10-17] MEDS: ATORVASTATIN 80 MG TAB PO SCH (20:10)
[2021-10-17] MEDS: ISOSORBIDE MONONITRATE ER 30 MG TAB.ER.24H PO SCH (20:10)
[2021-10-18] MEDS: PANTOPRAZOLE 40 MG TABLET PO SCH ×2 (06:02→15:19)
[2021-10-18] MEDS: AMIODARONE 200 MG TAB PO SCH (08:55)
[2021-10-18] MEDS: SODIUM BICARBONATE TAB 650 MG TAB PO SCH ×2 (08:55→20:10)
[2021-10-18] MEDS: SODIUM CHLORIDE 0.9% 1,000 ML IV SCH ×2 (08:56→15:19)
[2021-10-18] MEDS: SODIUM FERRIC GLUCONAT-SUCROSE 125 MG in SODIUM CHLORIDE 0.9% 100 ML IVPB SCH (09:25)
--- NOTE | 2021-10-18 10:04 | P.PN ---
Subjective Progress Note Date: 10/18/21 Principal diagnosis: Anemia secondary to blood loss Patient is feeling better denies chest pain or difficulty in breathing is to undergo an EGD today He remains off anticoagulants Objective - Vital Signs Vital signs: Vital Signs Temp 97.5 F L 10/18/21 08:00 Pulse 110 H 10/18/21 08:00 Resp 16 10/18/21 08:00 BP 136/71 10/18/21 08:00 Pulse Ox 95 10/18/21 08:00 Intake & Output 10/17/21 10/18/21 10/18/21 18:59 06:59 18:59 Intake Total 240 0 Balance 240 0 Intake: Oral 240 0 Other: Voiding Method Toilet # Voids 1 # Bowel Movements 2 - Labs CBC & Chem 7: 10/17/21 06:04 10/17/21 06:04 Labs: Abnormal Lab Results - Last 24 Hours (Table) 10/15/21 Range/Units 19:55 Crossmatch See Detail Assessment and Plan Assessment: Permanent atrial fibrillation with controlled ventricular rate Ischemic Cardima apathy status post AICD Anemia secondary to GI related blood loss Plan: I will continue to hold the liquids Continue rest of his medications Following his EGD
[2021-10-18 10:05] LABS: Calcium 9.7 mg/dL (8.4-10.2); Potassium 4.6 mmol/L (3.5-5.1)
[2021-10-18 10:32] LABS: Anisocytosis Slight; Basophils % (A) 1 %; Eosinophils # (A) 0.5 k/uL (0-0.7); Eosinophils % (A) 6 %; HCT 24.4 % (39.0-53.0); HGB 7.2 gm/dL (13.0-17.5); Hypochromasia Marked; Lymphocytes # (A) 1.3 k/uL (1.0-4.8); Lymphocytes % (A) 15 %; MCHC 29.4 g/dL (31.0-37.0); MCV 78.4 fL (80.0-100.0); Mean Platelet Volume 7.9; Microcytosis Slight; Monocytes # (A) 0.6 k/uL (0-1.0); Monocytes % (A) 7 %; Neutrophils # (A) 5.9 k/uL (1.3-7.7); Neutrophils % (A) 69 %; Platelet Count 290 k/uL (150-450); Poikilocytosis Slight; RBC 3.11 m/uL (4.30-5.90); WBC 8.6 k/uL (3.8-10.6)
--- NOTE | 2021-10-18 12:50 | P.PN ---
Progress Note - Text Progress Note Date: 10/18/21 Patient feels better. He states he saw a small amount of blood with his prep yesterday. On exam vitals are stable. Abdomen soft. He will and 7.2. Patient will undergo endoscopy on Wednesday.
--- NOTE | 2021-10-18 15:34 | P.PN ---
Subjective Progress Note Date: 10/18/21 Follow-up for acute kidney injury. Objective - Vital Signs Vital signs: Vital Signs Temp 97.5 F L 10/18/21 08:00 Pulse 100 10/18/21 15:22 Resp 16 10/18/21 15:22 BP 133/75 10/18/21 15:22 Pulse Ox 95 10/18/21 15:22 Intake & Output 10/17/21 10/18/21 10/18/21 18:59 06:59 18:59 Intake Total 240 0 100 Balance 240 0 100 Intake: Intake, IV Titration 100 Amount Sodium Ferric Gluconat- 100 Sucrose 125 mg In Sodium Chloride 0.9% 100 ml @ 100 mls/hr IVPB DAILY [facility] Rx#:[id number] Oral 240 0 Other: Voiding Method Toilet Toilet # Voids 1 # Bowel Movements 2 - Exam No acute distress S1-S2 heard Lungs clear No edema - Labs CBC & Chem 7: 10/18/21 09:07 10/18/21 09:07 Labs: Abnormal Lab Results - Last 24 Hours (Table) 10/18/21 10/18/21 Range/Units 09:07 09:07 RBC 3.11 L (4.30-5.90) m/uL Hgb 7.2 L (13.0-17.5) gm/dL Hct 24.4 L (39.0-53.0) % MCV 78.4 L (80.0-100.0) fL MCH 23.0 L (25.0-35.0) pg MCHC 29.4 L (31.0-37.0) g/dL RDW 18.0 H (11.5-15.5) % Chloride 109 H (98-107) mmol/L BUN 32 H (9-20) mg/dL Creatinine 2.20 H (0.66-1.25) mg/dL Assessment and Plan Assessment: #1 nonoliguric acute kidney injury secondary to hemodynamic ATN. Peak creatinine of 3.8 MG per DL. #2 chronic kidney disease stage IIIB secondary to nephrosclerosis with a baseline creatinine of 1.3-1.6 MG per DL. [February 2020] #3 acute blood loss anemia status post PRBC. Hemoglobin was 6.7. #4 metabolic acidosis secondary to acute kidney injury #5 diastolic CHF Plan: #1 continue with IV fluids for now. Can renal function improving. #2 awaiting EGD colonoscopy. #3 maintain hemoglobin more than 8.0, goal in CKD is 10-11 #4 avoid nephrotoxic agents.
--- NOTE | 2021-10-18 18:06 | P.PN ---
Progress Note - Text Progress Note Date: 10/18/21 Chief Complaint: Falling This is a pleasant 65-year-old patient, Dr. Colon. Chronic stable medical conditions include atrial fibrillation, CAD, hyperlipidemia, hypertension, osteoarthritis, ischemic cardiomyopathy, testicle cancer with surgery and chemo, BPH, CK D stage III, hemorrhoids, hiatal hernia CAD with stent, AICD. Patient is a smoker. Patient for last 3 weeks has noticed that when he gets up or/stands up it does get dizzy lightheaded. In fact she dropped her dose of his Lopressor about 3 weeks ago. He was asked Dr. Colon's office yesterday when he dropped his systolic blood pressure to 70. His blood pressure medications were discontinued. It was discovered that his hemoglobin was less than 7 use and out of the ER. Patient's had intermittent bleeding from his hemorrhoids for a long time. I discontinued. Patient does get eliquis for atrial fibrillation. Patient's appetite is good. No weight loss. He does take a baby aspirin. Denies any abdominal pain. He did receive a unit of blood. Feels better this morning. No chest pain or palpitation. October 17: Seen by Dr. Haynes. Unable to do endoscopy until Wednesday. Patient been up to the bathroom. Not dizzy anymore. Hemoglobin 6.7. No further episode of bleeding. EPI. Oral intake fair. IV iron ordered. Discussed with patient October 18: Small hemorrhoidal bleeding. Which is normal for the patient. No dizziness, lightheadedness. Getting bowel preparation. Liquid diet. Getting IV Ferrlecit. Review of systems: Was done for constitutional, cardiovascular, GI, pulmonary. relevant finding as above Active Medications Acetaminophen (Acetaminophen Tab 325 Mg Tab) 650 mg PO Q6HR PRN PRN Reason: Mild Pain or Fever > 100.5 Amiodarone HCl (Amiodarone 200 Mg Tab) 200 mg PO DAILY [facility] Last Admin: 10/18/21 08:55 Dose: 200 mg Documented by: Atorvastatin Calcium (Atorvastatin 80 Mg Tab) 80 mg PO HS [facility] Last Admin: 10/17/21 20:10 Dose: Not Given Documented by: Calcium Carbonate/Glycine (Calcium Carbonate 500 Mg Chewable) 1,000 mg PO Q4HR PRN PRN Reason: Dyspepsia Darbepoetin Wilfrid (Darbepoetin Wilfrid 40 Mcg/0.4 Ml Syringe) 40 mcg SQ Q7D [facility] Last Admin: 10/16/21 17:23 Dose: 40 mcg Documented by: Sodium Chloride (Saline 0.9%) 1,000 mls @ 50 mls/hr IV .Q20H [facility] Last Admin: 10/18/21 15:19 Dose: 50 mls/hr Documented by: Ferric Sodium Gluconate 125 mg (/ Sodium Chloride) 110 mls @ 100 mls/hr IVPB DAILY [facility] Stop: 10/19/21 10:05 Last Admin: 10/18/21 09:25 Dose: 100 mls/hr Documented by: Isosorbide Mononitrate (Isosorbide Mononitrate Er 30 Mg Tab.Er.24h) 15 mg PO HS [facility] Last Admin: 10/17/21 20:10 Dose: Not Given Documented by: Lactulose (Lactulose 20 Gm/30 Ml Cup) 20 gm PO DAILY PRN PRN Reason: Constipation Lorazepam (Lorazepam 0.5 Mg Tab) 0.5 mg PO Q6HR PRN PRN Reason: Anxiety Melatonin (Melatonin 3 Mg Tablet) 3 mg PO HS PRN PRN Reason: Insomnia Naloxone HCl (Naloxone 0.4 Mg/Ml 1 Ml Vial) 0.2 mg IV Q2M PRN PRN Reason: Opioid Reversal Ondansetron HCl (Ondansetron 4 Mg/2 Ml Vial) 4 mg IVP Q8HR PRN PRN Reason: Nausea And Vomiting Pantoprazole Sodium (Pantoprazole 40 Mg Tablet) 40 mg PO AC-BID [facility] Last Admin: 10/18/21 15:19 Dose: 40 mg Documented by: Polyethylene Glycol/Electrolytes (Peg 3350-Na Sulf,Bicarb,Cl/Kcl 4,000 Ml Bottle) 4,000 ml PO ONCE ONE Stop: 10/19/21 12:01 Sodium Bicarbonate (Sodium Bicarbonate Tab 650 Mg Tab) 650 mg PO BID [facility] Last Admin: 10/18/21 08:55 Dose: 650 mg Documented by: Past medical history to include: Atrial fibrillation, CAD with stent, CHF, hyperlipidemia, TIA, hypertension, osteoarthritis, BPH, V. tach, left testicle cancer with surgery/chemotherapy, BPH, CK D stage III, hemorrhoids, hiatal hernia, AICD Social history: Lives alone. Smoking for 52 years now down to about half a pack a day. Was up to pack and a half to 2 packs a day. Used to do [employer] work. Family history: CAD Physical examination: VITAL SIGNS: 97.5, 103, 16, 140/91, 97% room air GENERAL: Reclining bed, awake comfortable. EYES: Pupils equal. Conjunctiva pale. HEENT: External appearance of nose and ears normal, oral cavity grossly normal. NECK: JVD not raised; masses not palpable. HEART: First and second heart sounds are normal; no edema. LUNGS: Respiratory rate normal; decreased breath sounds. ABDOMEN: Soft, nontender, liver spleen not palpable, no masses palpable. PSYCH: Alert and oriented x3; mood and affect normal. MUSCULOSKELETAL:No Clubbing/cyanosis;muscles-grossly intact. Evidence of OA INVESTIGATIONS, reviewed in the clinical context: October 18: Hemoglobin 7.2 creatinine 2.2 October 17: White count 8 hemoglobin 6.7 platelets 24 potassium 4.5. 44 creatinine 2.74 bicarb 19 October 16: White count 9.7 hemoglobin 7.9 platelets 273 potassium 4.8 BUN 52 creatinine 3.15 Admission labs: Hemoglobin 6.7 platelets 309 and 58 creatinine 3.81 Troponin I 0.014 Stool occult blood: Positive Coronavirus [PCR]: Not detected EKG tracing personally reviewed by me-atrial fibrillation. Rate 91. Some ST-T wave changes. Chest x-ray film personally reviewed by me-cardiomegaly. Prominent pulmonary artery. AICD. Assessment and plan: -Symptomatic orthostatic hypotension from severe anemia and being on antihypertensive.: Better transfused 1 unit of blood. -Acute on chronic GI bleed. Patient has known long-standing intermittent hemorrhoidal bleeding. Rule out any other cause. Last colonoscopy was several years ago. Pending endoscopy by surgery on Wednesday -Symptomatic anemia from GI bleed.: Acute worsening received 1 unit of blood. Likely further drop in hemoglobin likely due to dilutional. . IV Ferrlecit -Persistent atrial fibrillation, rate controlled Cordarone 200 mg a day. Eliquis currently on hold -CAD with stent Imdur 50 mg daily at bedtime. Hold aspirin -Chronic congestive heart failure from diastolic dysfunction EF 50-55% Follow clinically -AICD On telemetry -Moderate aortic stenosis with a peak and mean gradient of 40.5/22 Follow with cardiology -Mild to moderate mitral regurgitation and severe tricuspid regurgitation Follow clinically -BPH Proscar 5 mg a day -Hyperlipidemia Lipitor 80 mg daily at bedtime -Essential hypertension Currently blood pressure meds have been held off. Follow clinically -Chronic kidney disease stage 3 possibly from nephrosclerosis Follow with nephrology -Acute kidney injury cardiorenal syndrome from hypotension Admitting crit was 3.81, down to 2.2 -Primary osteoarthritis multiple joints bilaterally Tylenol as needed Endoscopy by surgery on Wednesday. Getting IV Ferrlecit. Patient discontented about the fact that he has to wait till Wednesday about endoscopy.
[2021-10-18] MEDS: ATORVASTATIN 80 MG TAB PO SCH (20:10)
[2021-10-18] MEDS: ISOSORBIDE MONONITRATE ER 30 MG TAB.ER.24H PO SCH (20:10)
[2021-10-19] MEDS: PANTOPRAZOLE 40 MG TABLET PO SCH ×2 (06:18→15:35)
[2021-10-19] MEDS: SODIUM BICARBONATE TAB 650 MG TAB PO SCH ×2 (08:10→20:23)
[2021-10-19] MEDS: AMIODARONE 200 MG TAB PO SCH (08:10)
[2021-10-19] MEDS: SODIUM CHLORIDE 0.9% 1,000 ML IV SCH (08:11)
[2021-10-19] MEDS: SODIUM FERRIC GLUCONAT-SUCROSE 125 MG in SODIUM CHLORIDE 0.9% 100 ML IVPB SCH (09:02)
[2021-10-19 09:04] LABS: Calcium 9.6 mg/dL (8.4-10.2); Potassium 4.2 mmol/L (3.5-5.1)
--- NOTE | 2021-10-19 12:18 | P.PN ---
Progress Note - Text Progress Note Date: 10/19/21 Patient denies any abdominal pain. He's had no further GI bleed. His hematoma 6.7. On exam vital signs are stable. Abdomen soft. J bleed. Patient will undergo endoscopy by Dr. Jones tomorrow.
[2021-10-19] MEDS: PEG 3350-NA SULF,BICARB,CL/KCL 4,000 ML BOTTLE PO ONE ×2 (12:53→14:22)
--- NOTE | 2021-10-19 13:45 | P.PN ---
Subjective Progress Note Date: 10/19/21 Follow-up for acute kidney injury. Objective - Vital Signs Vital signs: Vital Signs Temp 97.1 F L 10/19/21 08:00 Pulse 96 10/19/21 12:55 Resp 16 10/19/21 12:55 BP 141/86 10/19/21 12:55 Pulse Ox 98 10/19/21 12:55 Intake & Output 10/18/21 10/19/21 10/19/21 18:59 06:59 18:59 Intake Total 100 Balance 100 Intake: Intake, IV Titration 100 Amount Sodium Ferric Gluconat- 100 Sucrose 125 mg In Sodium Chloride 0.9% 100 ml @ 100 mls/hr IVPB DAILY [facility] Rx#:[id number] Other: Voiding Method Toilet Toilet Toilet # Voids 2 1 - Exam No acute distress S1-S2 heard Lungs clear No edema - Labs CBC & Chem 7: 10/18/21 09:07 10/19/21 07:22 Labs: Abnormal Lab Results - Last 24 Hours (Table) 10/19/21 Range/Units 07:22 Sodium 135 L (137-145) mmol/L Chloride 109 H (98-107) mmol/L Carbon Dioxide 19 L (22-30) mmol/L BUN 22 H (9-20) mg/dL Creatinine 1.92 H (0.66-1.25) mg/dL Assessment and Plan Assessment: #1 nonoliguric acute kidney injury secondary to hemodynamic ATN. Peak creatinine of 3.8 MG per DL. #2 chronic kidney disease stage IIIB secondary to nephrosclerosis with a baseline creatinine of 1.3-1.6 MG per DL. [February 2020] #3 acute blood loss anemia status post PRBC. Hemoglobin was 6.7. #4 metabolic acidosis secondary to acute kidney injury #5 diastolic CHF Plan: #1 continue with IV fluids for now. renal function improving. #2 awaiting EGD colonoscopy. #3 maintain hemoglobin more than 8.0 while in the hospital, goal in CKD is 10-11 #4 avoid nephrotoxic agents.
--- NOTE | 2021-10-19 15:31 | P.PN ---
Subjective Progress Note Date: 10/19/21 This is a pleasant 65-year-old male past medical history significant for coronary artery disease status post PCI to LAD in 2009, hypertension, dyslipidemia, ischemic cardiomyopathy status post single-chamber ICD on 04/2012, chronic persistent atrial fibrillation on Eliquis. He follows in the office with Dr. Jones. We have been asked to see in consultation for orthostatic hypotension and presyncope. Patient is seen and examined at bedside, he presents emergency department with complaints of lightheadedness and dizziness. Patient presents to the emergency department with complaints of dizziness and lightheadedness while standing for about 3 weeks. He states it varies how long he is standing and will have acute onset of lightheadedness and need to sit down. Over the past 3 days he has been having increased dark stools. He also endorses diarrhea. On admission. Patient found to have a hemoglobin 6.7, received 1 unit of PRBCs. Also found to be in acute kidney injury serum creatinine 3.8 Patient seen today resting in bed comfortably watching TV in no signs of acute distress. He denies chest pain, palpitations, dyspnea, dizziness, syncope, or edema. He states this morning when he did get up and go the bathroom he did get a little lightheaded however quickly passed and he was okay. Patient's eliqus and aspirin and remain on hold.hemoglobin is 7.2 today. Patient is to undergo a n EGD tomorrow. Objective - Vital Signs Vital signs: Vital Signs Temp 97.1 F L 10/19/21 08:00 Pulse 96 10/19/21 12:55 Resp 16 10/19/21 12:55 BP 141/86 10/19/21 12:55 Pulse Ox 98 10/19/21 12:55 Intake & Output 10/18/21 10/19/21 10/19/21 18:59 06:59 18:59 Intake Total 100 Balance 100 Intake: Intake, IV Titration 100 Amount Sodium Ferric Gluconat- 100 Sucrose 125 mg In Sodium Chloride 0.9% 100 ml @ 100 mls/hr IVPB DAILY [facility] Rx#:[id number] Other: Voiding Method Toilet Toilet Toilet # Voids 2 1 - Exam PHYSICAL EXAM: VITAL SIGNS: Reviewed. GENERAL: Well-developed in no acute distress. HEENT: Head is normocephalic. Pupils are equal, round. Sclerae anicteric. Mucous membranes of the mouth are moist. NECK: Supple. No JVD or thyromegaly RESPIRATORY: Respirations even and unlabored. Lungs diminished to auscultation bilaterally. CARDIO: Regular rate and rhythm. S1 and S2 heard. No murmur or gallops. EXTREMITIES: Normal range of motion. No clubbing or cyanosis. Peripheral pulses intact. Negative for bilateral lower extremity edema NEURO: Orientated to person, time, mood is appropriate - Labs CBC & Chem 7: 10/18/21 09:07 10/19/21 07:22 Labs: Abnormal Lab Results - Last 24 Hours (Table) 10/19/21 Range/Units 07:22 Sodium 135 L (137-145) mmol/L Chloride 109 H (98-107) mmol/L Carbon Dioxide 19 L (22-30) mmol/L BUN 22 H (9-20) mg/dL Creatinine 1.92 H (0.66-1.25) mg/dL Assessment and Plan Assessment: Acute anemia secondary to blood loss Permanent atrial fibrillation with a controlled ventricle rate Ischemic cardiomyopathy secondary post AICD Presyncope Orthostatic hypotension, likely secondary to above Coronary artery disease status post PCI to LAD in 2009 Hypertension Dyslipidemia Ischemic cardiomyopathy status post single-chamber ICD on 04/2012 Chronic persistent atrial fibrillation on Eliquis outpatient, currently on hold due anemia and GI bleed Aortic stenosis Pulmonary hypertension Plan: Continue to hold a Eliquis and aspirin awaiting surgery's recommendation of when to restart Continue all current cardiac medications Continue cardiac monitoring Further recommendations based on clinical course The above impression and plan of care have been discussed and directed by the signing physician. Cecilia Jimenez, nurse practitioner, acting as scribe for signing physician.
--- NOTE | 2021-10-19 16:12 | P.PN ---
Progress Note - Text Progress Note Date: 10/19/21 Chief Complaint: Falling This is a pleasant 65-year-old patient, Dr. Colon. Chronic stable medical conditions include atrial fibrillation, CAD, hyperlipidemia, hypertension, osteoarthritis, ischemic cardiomyopathy, testicle cancer with surgery and chemo, BPH, CK D stage III, hemorrhoids, hiatal hernia CAD with stent, AICD. Patient is a smoker. Patient for last 3 weeks has noticed that when he gets up or/stands up it does get dizzy lightheaded. In fact she dropped her dose of his Lopressor about 3 weeks ago. He was asked Dr. Colon's office yesterday when he dropped his systolic blood pressure to 70. His blood pressure medications were discontinued. It was discovered that his hemoglobin was less than 7 use and out of the ER. Patient's had intermittent bleeding from his hemorrhoids for a long time. I discontinued. Patient does get eliquis for atrial fibrillation. Patient's appetite is good. No weight loss. He does take a baby aspirin. Denies any abdominal pain. He did receive a unit of blood. Feels better this morning. No chest pain or palpitation. October 17: Seen by Dr. Haynes. Unable to do endoscopy until Wednesday. Patient been up to the bathroom. Not dizzy anymore. Hemoglobin 6.7. No further episode of bleeding. EPI. Oral intake fair. IV iron ordered. Discussed with patient October 18: Small hemorrhoidal bleeding. Which is normal for the patient. No dizziness, lightheadedness. Getting bowel preparation. Liquid diet. Getting IV Ferrlecit. October 19: Liquid diet. Awaiting endoscopy. No dizziness nor lightheadedness. No chest pain no shortness of breath. Review of systems: Was done for constitutional, cardiovascular, GI, pulmonary. relevant finding as above Active Medications Acetaminophen (Acetaminophen Tab 325 Mg Tab) 650 mg PO Q6HR PRN PRN Reason: Mild Pain or Fever > 100.5 Amiodarone HCl (Amiodarone 200 Mg Tab) 200 mg PO DAILY [facility] Last Admin: 10/19/21 08:10 Dose: 200 mg Documented by: Atorvastatin Calcium (Atorvastatin 80 Mg Tab) 80 mg PO HS [facility] Last Admin: 10/18/21 20:10 Dose: 80 mg Documented by: Calcium Carbonate/Glycine (Calcium Carbonate 500 Mg Chewable) 1,000 mg PO Q4HR PRN PRN Reason: Dyspepsia Darbepoetin Wilfrid (Darbepoetin Wilfrid 40 Mcg/0.4 Ml Syringe) 40 mcg SQ Q7D [facility] Last Admin: 10/16/21 17:23 Dose: 40 mcg Documented by: Sodium Chloride (Saline 0.9%) 1,000 mls @ 50 mls/hr IV .Q20H [facility] Last Admin: 10/19/21 08:11 Dose: 50 mls/hr Documented by: Isosorbide Mononitrate (Isosorbide Mononitrate Er 30 Mg Tab.Er.24h) 15 mg PO HS [facility] Last Admin: 10/18/21 20:10 Dose: 15 mg Documented by: Lactulose (Lactulose 20 Gm/30 Ml Cup) 20 gm PO DAILY PRN PRN Reason: Constipation Lorazepam (Lorazepam 0.5 Mg Tab) 0.5 mg PO Q6HR PRN PRN Reason: Anxiety Melatonin (Melatonin 3 Mg Tablet) 3 mg PO HS PRN PRN Reason: Insomnia Naloxone HCl (Naloxone 0.4 Mg/Ml 1 Ml Vial) 0.2 mg IV Q2M PRN PRN Reason: Opioid Reversal Ondansetron HCl (Ondansetron 4 Mg/2 Ml Vial) 4 mg IVP Q8HR PRN PRN Reason: Nausea And Vomiting Pantoprazole Sodium (Pantoprazole 40 Mg Tablet) 40 mg PO AC-BID [facility] Last Admin: 10/19/21 15:35 Dose: 40 mg Documented by: Sodium Bicarbonate (Sodium Bicarbonate Tab 650 Mg Tab) 650 mg PO BID [facility] Last Admin: 10/19/21 08:10 Dose: 650 mg Documented by: Past medical history to include: Atrial fibrillation, CAD with stent, CHF, hyperlipidemia, TIA, hypertension, osteoarthritis, BPH, V. tach, left testicle cancer with surgery/chemotherapy, BPH, CK D stage III, hemorrhoids, hiatal hernia, AICD Social history: Lives alone. Smoking for 52 years now down to about half a pack a day. Was up to pack and a half to 2 packs a day. Used to do [employer] work. Family history: CAD Physical examination: VITAL SIGNS: 97.1, 96, 16, 141/86, 98% room air GENERAL: Reclining bed, awake comfortable. EYES: Pupils equal. Conjunctiva pale. HEENT: External appearance of nose and ears normal, oral cavity grossly normal. NECK: JVD not raised; masses not palpable. HEART: First and second heart sounds are normal; no edema. LUNGS: Respiratory rate normal; decreased breath sounds. ABDOMEN: Soft, nontender, liver spleen not palpable, no masses palpable. PSYCH: Alert and oriented x3; mood and affect normal. MUSCULOSKELETAL:No Clubbing/cyanosis;muscles-grossly intact. Evidence of OA INVESTIGATIONS, reviewed in the clinical context: October 19: Creatinine 1.9 to October 18: Hemoglobin 7.2 creatinine 2.2 October 17: White count 8 hemoglobin 6.7 platelets 24 potassium 4.5. 44 creatinine 2.74 bicarb October 16: White count 9.7 hemoglobin 7.9 platelets 273 potassium 4.8 BUN 52 creatinine 3.15 Admission labs: Hemoglobin 6.7 platelets 309 and 58 creatinine 3.81 Troponin I 0.014 Stool occult blood: Positive Coronavirus [PCR]: Not detected EKG tracing personally reviewed by me-atrial fibrillation. Rate 91. Some ST-T wave changes. Chest x-ray film personally reviewed by me-cardiomegaly. Prominent pulmonary artery. AICD. Assessment and plan: -Symptomatic orthostatic hypotension from severe anemia and being on antihypertensive.: Better transfused 1 unit of blood. -Acute on chronic GI bleed. Patient has known long-standing intermittent hemorrhoidal bleeding. Rule out any other cause. Last colonoscopy was several years ago. Pending endoscopy by surgery on Wednesday -Symptomatic anemia from GI bleed.: Acute worsening received 1 unit of blood. Likely further drop in hemoglobin likely due to dilutional. . IV Ferrlecit -Persistent atrial fibrillation, rate controlled Cordarone 200 mg a day. Eliquis currently on hold -CAD with stent Imdur 50 mg daily at bedtime. Hold aspirin -Chronic congestive heart failure from diastolic dysfunction EF 50-55% Follow clinically -AICD On telemetry -Moderate aortic stenosis with a peak and mean gradient of 40.5/22 Follow with cardiology -Mild to moderate mitral regurgitation and severe tricuspid regurgitation Follow clinically -BPH Proscar 5 mg a day -Hyperlipidemia Lipitor 80 mg daily at bedtime -Essential hypertension Currently blood pressure meds have been held off. Follow clinically -Chronic kidney disease stage 3 possibly from nephrosclerosis Follow with nephrology -Acute kidney injury cardiorenal syndrome from hypotension Admitting crit was 3.81, down to 1.92 -Primary osteoarthritis multiple joints bilaterally Tylenol as needed Endoscopy by surgery on Wednesday. Getting IV Ferrlecit. Discussed with the patient. Continue current medications.
[2021-10-19] MEDS: ATORVASTATIN 80 MG TAB PO SCH (20:22)
[2021-10-19] MEDS: ISOSORBIDE MONONITRATE ER 30 MG TAB.ER.24H PO SCH (20:22)
[2021-10-20] MEDS: SODIUM CHLORIDE 0.9% 1,000 ML IV SCH (04:07)
[2021-10-20 07:15] LABS: Calcium 9.6 mg/dL (8.4-10.2); Potassium 4.2 mmol/L (3.5-5.1)
[2021-10-20] MEDS ORDERED: IV FLUID CONTINUATION 1,000 ML IV ONE (08:22)
[2021-10-20] MEDS ORDERED: PROPOFOL 10 MG/ML 20 ML VIAL IV ONE (08:25)
[2021-10-20] MEDS ORDERED: LIDOCAINE 1% INJ 10MG/ML (20 ML MDV) ONE (08:25)
--- NOTE | 2021-10-20 09:20 | P.PCN ---
Date of Procedure: 10/20/21 Procedure(s) Performed: PREOPERATIVE DIAGNOSIS: GI bleed POSTOPERATIVE DIAGNOSIS: Small hiatal hernia, extensive diverticulosis, multiple colon polyps PROCEDURE: 1. EGD with biopsy 2. Colonoscopy with snare polypectomy ANESTHESIA: MAC SURGEON: Candelario Patel M.D. SPECIMENS: Antrum, polyps ENDOSCOPIC PROCEDURE: The patient was on the endoscopy table in the left decubitus position. The Olympus gastroscope was inserted into the oropharynx and passed under direct visualization to the region of the third portion of the duodenum. From that point the scope was slowly withdrawn inspecting all surfaces carefully. There were no neoplastic inflammatory or polypoid lesions throughout the duodenum. The pylorus was widely patent. The stomach was carefully inspected. There was no significant inflammatory changes present. A biopsy of the antrum took place to rule out H. pylori. Retroflexion revealed a small 1-2 cm sliding hiatal hernia. The esophagus was then carefully examined. There were no neoplastic inflammatory or polypoid lesions throughout the visualized esophagus. The patient was kept on the endoscopy table in the left decubitus position. The Olympus colonoscope was inserted into the anus and passed under direct visualization to the base of the cecum. The appendiceal orifice was visualized. From that point the scope was slowly withdrawn inspecting all surfaces carefully. There were no neoplastic inflammatory or polypoid lesions throughout the cecum or ascending colon. In the transverse colon 2 small polyps were seen and removed using the snare with cautery technique. Descending colon appeared normal. In the sigmoid colon another small polyp was seen and removed using the snare with cautery technique. In the rectum at 7 cm there was a 1.5-2 cm pedunculated polyp that was removed using the snare with cautery technique. Base of the polyp was only about 7 mm. No bleeding seen. The remainder of the rectum was normal. Either the diverticulosis or the larger rectal polyp could've been the source of recent rectal bleeding. Digital rectal examination was normal. The patient was taken to the recovery room in stable condition per anesthesia guidelines. RECOMMENDATIONS: Await biopsy results. Hold anticoagulation for 2 days. May discharge from my standpoint. Resume diet.
[2021-10-20] MEDS ORDERED: METOPROLOL SUCCINATE (ER) 25 MG TAB.ER.24H PO SCH (09:30)
[2021-10-20 09:41] LABS: Anisocytosis Slight; HCT 23.9 % (39.0-53.0); HGB 7.1 gm/dL (13.0-17.5); Hypochromasia Marked; MCH 23.6 pg (25.0-35.0); MCHC 29.9 g/dL (31.0-37.0); MCV 78.9 fL (80.0-100.0); Mean Platelet Volume 6.8; Microcytosis Slight; Platelet Count 285 k/uL (150-450); Poikilocytosis Moderate; RBC 3.03 m/uL (4.30-5.90); RDW 19.5 % (11.5-15.5); WBC 8.8 k/uL (3.8-10.6)
[2021-10-20] MEDS: SODIUM BICARBONATE TAB 650 MG TAB PO SCH (09:49)
[2021-10-20] MEDS: PANTOPRAZOLE 40 MG TABLET PO SCH (09:49)
[2021-10-20] MEDS: AMIODARONE 200 MG TAB PO SCH (09:49)
[2021-10-20 12:16] VITALS: BP 144/62; PULSE 84; RESP 16; TEMP 97.8
--- NOTE | 2021-10-20 12:24 | P.PN ---
Subjective Progress Note Date: 10/20/21 HISTORY OF PRESENT ILLNESS: This is a pleasant 65-year-old male past medical history significant for coronary artery disease status post PCI to LAD in 2009, hypertension, dyslipidem ia, ischemic cardiomyopathy status post single-chamber ICD on 04/2012, chronic persistent atrial fibrillation on Eliquis. He follows in the office with Dr. Jones. We have been asked to see in consultation for orthostatic hypotension and presyncope. Patient is seen and examined at bedside, he presents emergency department with complaints of lightheadedness and dizziness. Patient presents to the emergency department with complaints of dizziness and lightheadedness while standing for about 3 weeks. He states it varies how long he is standing and will have acute onset of lightheadedness and need to sit down. He denies any loss of consciousness. He states he has had blood in his stool for about a year and was related to possible hemorrhoids, however, over the past 3 days he has been having increased dark stools. He also endorses diarrhea. He denies any chest pain, palpitations, orthopnea, PND, cough, fever, chills, abdominal pain, nausea or vomiting. Yesterday EMS was called due to i ncreased lightheadedness and dizziness, EKG performed which patient was in atrial fibrillation with controlled ventricular rate. Patient brought to ER. On admission. Patient found to have a hemoglobin 6.7, received 1 unit of PRBCs. Also found to be in acute kidney injury serum creatinine 3.8 DIAGNOSTICS -EKG reveals atrial fibrillation, heart rate 91 -Telemetry tracings indicate atrial fibrillation with controlled ventricular rates -Most recent echocardiogram 01/2021 in the office revealed EF of 45%, moderate LVH, severely dilated left atrium, mild to moderate aortic regurgitation, mild aortic stenosis, mild to moderate mitral regurgitation, mild to moderate tricuspid regurgitation, moderate increased pulmonary artery systolic pressure 53 mmHg -Most recent cardiac catheterization 2016 revealed patent stent in LAD, mild to moderate disease in the OM branch the circumflex and the proximal RCA. Maximum medical therapy was advised. -Chest xray no heart failure, minimal pleural scarring lateral left lung base. -Laboratory reviewed, WBC 9.7, hemoglobin 7.9, platelets 273, sodium 137, potassium 4.8, BUN 52, serum creatinine 3.1, troponin negative 1, stool occult blood positive, COVID-19 negative -Current home medications include Eliquis 5 mg twice a day, aspirin 81 mg daily, atorvastatin 80 mg nightly, Imdur 15 mg daily, amiodarone 200 mg daily 10/19/2021 Patient seen today resting in bed comfortably watching TV in no signs of acute distress. He denies chest pain, palpitations, dyspnea, dizziness, syncope, or edema. He states this morning when he did get up and go the bathroom he did get a little lightheaded however quickly passed and he was okay. Patient's eliqus and aspirin and remain on hold.hemoglobin is 7.2 today. Patient is to undergo an EGD tomorrow. 10/20/2021 Patient examined this morning at the bedside. He denies chest pain or pressure. Denies SOB. He is s/p EGD and colonoscopy revealing small hiatal hernia, extensive diverticulosis, and multiple colon polyps. Surgery recommends holding anticoagulation for 2 days. He remains in atrial fibrillation with a heart rate in the 90s. Echocardiogram completed revealing ejection fraction 50-55%, mild aortic regurgitation, moderate aortic stenosis, mild to moderate mitral regurgitation, and severe tricuspid regurgitation. PHYSICAL EXAM: VITAL SIGNS: Reviewed. GENERAL: Well-developed in no acute distress. NECK: Supple. No JVD or thyromegaly LUNGS: Respirations even and unlabored. Lungs essentially clear to auscultation bilaterally. HEART: Irregular rate and rhythm. S1 and S2 heard. Systolic murmur noted. EXTREMITIES: Normal range of motion. No clubbing or cyanosis. Peripheral pulses intact. No lower extremity edema ASSESSMENT: Severe anemia Presyncope Orthostatic hypotension, likely secondary to above Coronary artery disease status post PCI to LAD in 2009 Hypertension Dyslipidemia Ischemic cardiomyopathy status post single-chamber ICD on 04/2012, EF improved Chronic persistent atrial fibrillation on Eliquis outpatient, currently on hold due anemia and GI bleed Moderate aortic stenosis Pulmonary hypertension PLAN: Continue current cardiac medications Add metoprolol succinate 25mg daily Resume Eliquis in 2 days per general surgery recommendations Do not resume aspirin at discharge Further recommendations pending patient course Nurse practitioner note has been reviewed by physician. Signing provider agrees with the documented findings, assessment, and plan of care. Objective - Vital Signs Vital signs: Vital Signs Temp 97.8 F 10/20/21 08:00 Pulse 84 10/20/21 12:15 Resp 16 01/24/22 12:15 BP 144/62 10/20/21 12:15 Pulse Ox 98 10/20/21 12:15 Intake & Output 10/19/21 10/20/21 10/20/21 18:59 06:59 18:59 Intake Total 400 Balance 400 Intake: IV 400 Other: Voiding Method Toilet Toilet # Voids 2 # Bowel Movements 2 3 - Labs CBC & Chem 7: 10/20/21 09:26 10/20/21 06:05 Labs: Abnormal Lab Results - Last 24 Hours (Table) 10/20/21 10/20/21 Range/Units 06:05 09:26 RBC 3.03 L (4.30-5.90) m/uL Hgb 7.1 L (13.0-17.5) gm/dL Hct 23.9 L (39.0-53.0) % MCV 78.9 L (80.0-100.0) fL MCH 23.6 L (25.0-35.0) pg MCHC 29.9 L (31.0-37.0) g/dL RDW 19.5 H (11.5-15.5) % Chloride 110 H (98-107) mmol/L Carbon Dioxide 21 L (22-30) mmol/L Creatinine 1.87 H (0.66-1.25) mg/dL
--- NOTE | 2021-10-20 19:36 | P.DS ---
Providers Date of admission: 10/15/21 20:47 Expected date of discharge: 10/20/21 Attending physician: Regis Valdez Consults: 10/15/21 20:47 Consult Physician Urgent Consulting Provider: Candelario Patel Consult Reason/Comments: gi bleed Do you want consulting provider notified?: Already Contacted 10/15/21 20:50 Consult Physician Urgent Consulting Provider: Renan Alvarez Consult Reason/Comments: ye Do you want consulting provider notified?: Yes 10/16/21 07:44 Consult Physician Urgent Consulting Provider: Matt Torres Consult Reason/Comments: orthostatic hypotension Do you want consulting provider notified?: Yes Primary care physician: [facility] Course: Chief Complaint: Falling This is a pleasant 65-year-old patient, Dr. Colon. Chronic stable medical conditions include atrial fibrillation, CAD, hyperlipidemia, hypertension, osteoarthritis, ischemic cardiomyopathy, testicle cancer with surgery and chemo, BPH, CK D stage III, hemorrhoids, hiatal hernia CAD with stent, AICD. Patient is a smoker. Patient for last 3 weeks has noticed that when he gets up or/stands up it does get dizzy lightheaded. In fact she dropped her dose of his Lopressor about 3 weeks ago. He was asked Dr. Colon's office yesterday when he dropped his systolic blood pressure to 70. His blood pressure medications were discontinued . It was discovered that his hemoglobin was less than 7 use and out of the ER. Patient's had intermittent bleeding from his hemorrhoids for a long time. I discontinued. Patient does get eliquis for atrial fibrillation. Patient's appetite is good. No weight loss. He does take a baby aspirin. Denies any abdominal pain. He did receive 1 unit of blood. Eliquis and aspirin were held. Patient also given IV iron, 2 doses. October 20: Underwent colonoscopy. Found to have extensive diverticulosis multiple colon polyps. Snare polypectomy carried out. Most procedure discussed with patient. Patient to hold off aspirin and eliquis for 48 hours. Regarding his hemorrhoids he will follow-up with Dr. Jones as outpatient. Repeat CBC next week. Care was discussed with the patient and questions answered. Follow- up as per cardiology. Also note patient's creatinine came down from 3.8 down to 1.87 Discussion and discharge planning more than 35 minutes Consultation: Dr. Jones from general surgery S Brian from cardiology Nephrology Past medical history to include: Atrial fibrillation, CAD with stent, CHF, hyperlipidemia, TIA, hypertension, osteoarthritis, BPH, V. tach, left testicle cancer with surgery/chemotherapy, BPH, CK D stage III, hemorrhoids, hiatal hernia, AICD Social history: Lives alone. Smoking for 52 years now down to about half a pack a day. Was up to pack and a half to 2 packs a day. Used to do [employer] work. Family history: CAD Physical examination: VITAL SIGNS: 97.8, 94, 16, 144/62, 98% room air GENERAL: Reclining bed, awake comfortable. EYES: Pupils equal. Conjunctiva pale. HEENT: External appearance of nose and ears normal, oral cavity grossly normal. NECK: JVD not raised; masses not palpable. HEART: First and second heart sounds are normal; no edema. LUNGS: Respiratory rate normal; decreased breath sounds. ABDOMEN: Soft, nontender, liver spleen not palpable, no masses palpable. PSYCH: Alert and oriented x3; mood and affect normal. MUSCULOSKELETAL:No Clubbing/cyanosis;muscles-grossly intact. Evidence of OA INVESTIGATIONS, reviewed in the clinical context: October 20: Hemoglobin 7.1 creatinine 1.87 Admission labs: Hemoglobin 6.7 platelets 309 and 58 creatinine 3.81 Troponin I 0.014 Stool occult blood: Positive Coronavirus [PCR]: Not detected EKG tracing personally reviewed by me-atrial fibrillation. Rate 91. Some ST-T wave changes. Chest x-ray film personally reviewed by me-cardiomegaly. Prominent pulmonary artery. AICD. Assessment and plan: -Symptomatic orthostatic hypotension from severe anemia and being on antihypertensive.: Better transfused 1 unit of blood. -Acute on chronic GI bleed. Patient has known long-standing intermittent hemorrhoidal bleeding. Rule out any other cause. Last colonoscopy was several years ago. Pending endoscopy by surgery on Wednesday -Symptomatic anemia from GI bleed.: Acute worsening received 1 unit of blood. Likely further drop in hemoglobin likely due to dilutional. . IV Ferrlecit -Persistent atrial fibrillation, rate controlled Cordarone 200 mg a day. Eliquis resume in 48 hours -CAD with stent Imdur 50 mg daily at bedtime. Aspirin resume in 48 hours -Chronic congestive heart failure from diastolic dysfunction EF 50-55% Follow clinically -AICD On telemetry -Moderate aortic stenosis with a peak and mean gradient of 40.5 Follow with cardiology -Mild to moderate mitral regurgitation and severe tricuspid regurgitation Follow clinically -BPH Proscar 5 mg a day -Hyperlipidemia Lipitor 80 mg daily at bedtime -Essential hypertension Toprol-XL 25 mg a day -Chronic kidney disease stage 3 possibly from nephrosclerosis Follow with nephrology -Acute kidney injury cardiorenal syndrome from hypotension Admitting crit was 3.81, down to 1.87 -Primary osteoarthritis multiple joints bilaterally Tylenol as needed -Severe colonic diverticulosis. Asymptomatic -Colon polyps. Snare polypectomy. Follow-up with Dr. Jones Disposition: Home Plan - Discharge Summary Discharge Rx Participant: No New Discharge Prescriptions: New Metoprolol Succinate (ER) [Toprol Xl] 25 mg PO DAILY #30 tab Continue Nitroglycerin Sl Tabs [Nitrostat] 0.4 mg SUBLINGUAL Q5M PRN #100 tab PRN Reason: Chest Pain Isosorbide Mononitrate ER [Imdur] 15 mg PO HS Atorvastatin [Lipitor] 80 mg PO HS Apixaban [Eliquis] 5 mg PO BID Fluticasone Nasal [place] [Flonase Nasal [place]] 1 spray EA NOSTRIL DAILY PRN PRN Reason: Allergy Symptoms Finasteride [Proscar] 5 mg PO DAILY Amiodarone [Cordarone] 200 mg PO DAILY Discontinued Aspirin 81 mg PO DAILY Discharge Medication List Nitroglycerin Sl Tabs [Nitrostat] 0.4 mg SUBLINGUAL Q5M PRN #100 tab 03/18/17 [Rx] Isosorbide Mononitrate ER [Imdur] 15 mg PO HS 06/06/18 [History] Atorvastatin [Lipitor] 80 mg PO HS 03/20/20 [History] Apixaban [Eliquis] 5 mg PO BID 08/06/21 [History] Amiodarone [Cordarone] 200 mg PO DAILY 10/15/21 [History] Finasteride [Proscar] 5 mg PO DAILY 10/15/21 [History] Fluticasone Nasal [place] [Flonase Nasal [place]] 1 spray EA NOSTRIL DAILY PRN 10/15/21 [History] Metoprolol Succinate (ER) [Toprol Xl] 25 mg PO DAILY #30 tab 10/20/21 [Rx] Follow up Appointment(s)/Referral(s): Candelario Patel MD [Medical Doctor] - 10/30/21 10:30 am Amadou Colon DO [Primary Care Provider] - 10/28/21 10:40 am Raz Jones MD [STAFF PHYSICIAN] - 10/27/21 10:45 am Patient Instructions/Handouts: Syncope (DC), Colonoscopy (DC), Upper Endoscopy (DC) Activity/Diet/Wound Care/Special Instructions: cbc at primary office to monitor hemoglobin - 7 days resume eliquis on 10/23/2021 Discharge Disposition: HOME SELF-CARE
== END 2021-10-20 15:24 | disposition home or self-care (01) | DRG 312 ==
LOC: EC 18:50 → 3SCARD 20:47
PROVIDERS: ADMIT Hospitalist; ATTEND Hospitalist
PROC: 30233N1 Transfusion of Nonautologous Red Blood Cells into Peripheral Vein, Percutaneous Approach (ICD-10-PCS; 2021-10-15)
PROC: 0DB78ZX Excision of Stomach, Pylorus, Via Natural or Artificial Opening Endoscopic, Diagnostic (ICD-10-PCS; principal; 2021-10-20 07:30)
PROC: 0DBN8ZZ Excision of Sigmoid Colon, Via Natural or Artificial Opening Endoscopic (ICD-10-PCS; 2021-10-20 07:30)
DX: I95.1 Orthostatic hypotension (principal); N17.0 Acute kidney failure with tubular necrosis; D62 Acute posthemorrhagic anemia; E87.2 Acidosis; I13.0 Hypertensive heart and chronic kidney disease with heart failure and stage 1 through stage 4 chronic kidney disease, or unspecified chronic kidney disease; I48.21 Permanent atrial fibrillation; I50.32 Chronic diastolic (congestive) heart failure; N18.4 Chronic kidney disease, stage 4 (severe); E78.5 Hyperlipidemia, unspecified; E86.1 Hypovolemia; Z20.822 Contact with and (suspected) exposure to COVID-19; F17.200 Nicotine dependence, unspecified, uncomplicated; I08.3 Combined rheumatic disorders of mitral, aortic and tricuspid valves; I25.10 Atherosclerotic heart disease of native coronary artery without angina pectoris; I25.5 Ischemic cardiomyopathy; I27.20 Pulmonary hypertension, unspecified; M19.91 Primary osteoarthritis, unspecified site; K44.9 Diaphragmatic hernia without obstruction or gangrene; K57.30 Diverticulosis of large intestine without perforation or abscess without bleeding; K63.5 Polyp of colon; K64.2 Third degree hemorrhoids; M15.9 Polyosteoarthritis, unspecified; N40.0 Benign prostatic hyperplasia without lower urinary tract symptoms; Z85.47 Personal history of malignant neoplasm of testis; Z86.73 Personal history of transient ischemic attack (TIA), and cerebral infarction without residual deficits; Z95.5 Presence of coronary angioplasty implant and graft; Z95.810 Presence of automatic (implantable) cardiac defibrillator; Z82.49 Family history of ischemic heart disease and other diseases of the circulatory system; Z79.899 Other long term (current) drug therapy; Z79.01 Long term (current) use of anticoagulants; Z79.82 Long term (current) use of aspirin
CPT/HCPCS: 36415; 43239; 45385; 71046; 76770; 80048; 80053; 81003; 82272; 83735; 84484; 85025; 85027; 85610; 85730; 86850; 86900; 86901; 86920; 87635; 88305; 93005; 93306; 99285

== ENCOUNTER 2022-06-11 09:42 | Inpatient (IN) | payer MEDICARE, OTHER ==
[2022-06-11] MEDS ORDERED: SODIUM CHLORIDE 0.9% 1,000 ML IV STA ×2 (10:19→11:18)
[2022-06-11 10:34] LABS: Basophils # (A) 0.2 k/uL (0-0.2); Basophils % (A) 3 %; Eosinophils # (A) 0.1 k/uL (0-0.7); Eosinophils % (A) 1 %; HCT 51.6 % (39.0-53.0); HGB 17.2 gm/dL (13.0-17.5); Lymphocytes # (A) 1.2 k/uL (1.0-4.8); Lymphocytes % (A) 18 %; MCH 32.3 pg (25.0-35.0); MCHC 33.2 g/dL (31.0-37.0); MCV 97.3 fL (80.0-100.0); Mean Platelet Volume 9.5; Monocytes # (A) 0.7 k/uL (0-1.0); Monocytes % (A) 10 %; Neutrophils # (A) 4.6 k/uL (1.3-7.7); Neutrophils % (A) 67 %; Platelet Count 147 k/uL (150-450); RDW 14.7 % (11.5-15.5); WBC 6.8 k/uL (3.8-10.6)
[2022-06-11 10:44] LABS: Partial Thromboplastin Time 27.9 sec (22.0-30.0); Prothrombin Time 10.4 sec (9.0-12.0)
[2022-06-11 10:53] LABS: Appearance,Urine Clear (Clear); Bacteria,Urine Rare /hpf; Bilirubin,Urine Negative (Negative); Blood,Urine Negative (Negative); Color,Urine Yellow; Glucose,Urine (UA) Negative (Negative); Ketones,Urine Negative (Negative); Leukocyte Esterase,Urine Negative (Negative); Mucus,Urine Occasional /hpf; Nitrite,Urine Negative (Negative); Protein,Urine 1+ (Negative); Specific Gravity,Urine 1.017 (1.001-1.035); Urobilinogen,Urine <2.0 mg/dL (<2.0); WBC,Urine 1 /hpf (0-5)
--- NOTE | 2022-06-11 11:09 | XR ---
EXAMINATION TYPE: XR chest 2V DATE OF EXAM: 06/11/2022 COMPARISON: 10/15/2021 and PET/CT 05/15/2017 HISTORY: 66-year-old male with weakness and shortness of breath TECHNIQUE: PA and lateral views FINDINGS: Left anterior chest wall generator with right ventricular lead. Heart borderline enlarged. Hyperinfla tion. Either trace left effusion or some pleural parenchymal scarring. Some surgical material is note d at the left base. Either some focal patchy density or a nodule at the periphery of the left mid to lower lung. Right lung and pleural space are clear. IMPRESSION: 1. Borderline heart size and COPD. 2. Postsurgical change at the left base. Slight blunted left costophrenic angle likely reflecting ple ural parenchymal scarring. 3. Known nodule measuring approximately 2.7 cm at the periphery of the left mid to lower lung. Correl ate for any known diagnosis. Appropriate CT surveillance and pulmonary medicine follow-up is recommen ded to ensure stability and to exclude neoplasm.
[2022-06-11 11:17] LABS: Albumin 4.5 g/dL (3.5-5.0); Calcium 9.6 mg/dL (8.4-10.2); Total Bilirubin 1.1 mg/dL (0.2-1.3); Total Protein 7.8 g/dL (6.3-8.2)
[2022-06-11] MEDS ORDERED: NALOXONE 0.4 MG/ML 1 ML VIAL IV PRN (12:16)
[2022-06-11] MEDS ORDERED: ONDANSETRON 4 MG/2 ML VIAL IVP PRN (12:16)
[2022-06-11] MEDS ORDERED: FLUTICASONE 50MCG/SPRAY NASAL 16GM EA NOSTRIL PRN (12:17)
[2022-06-11] MEDS ORDERED: ASPIRIN 81 MG PO STA (12:19)
[2022-06-11] MEDS: SODIUM CHLORIDE 0.9% 1,000 ML IV SCH (13:32)
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
[2022-06-11] MEDS ORDERED: NITROGLYCERIN SL TABS 0.4 MG TAB SUBLINGUAL PRN (18:28)
[2022-06-11] MEDS: APIXABAN 5 MG TAB PO SCH (20:23)
[2022-06-11] MEDS: ATORVASTATIN 80 MG TAB PO SCH (20:23)
[2022-06-11] MEDS: ISOSORBIDE MONONITRATE ER 15 MG TAB PO SCH (22:06)
[2022-06-12] MEDS: SODIUM CHLORIDE 0.9% 1,000 ML IV SCH ×2 (02:00→10:28)
[2022-06-12 07:24] LABS: Basophils % (A) 0 %; Eosinophils # (A) 0.1 k/uL (0-0.7); Eosinophils % (A) 2 %; HCT 43.3 % (39.0-53.0); HGB 14.3 gm/dL (13.0-17.5); Lymphocytes # (A) 0.8 k/uL (1.0-4.8); Lymphocytes % (A) 13 %; MCH 32.5 pg (25.0-35.0); MCHC 33.1 g/dL (31.0-37.0); MCV 98.1 fL (80.0-100.0); Mean Platelet Volume 9.6; Monocytes # (A) 0.4 k/uL (0-1.0); Monocytes % (A) 7 %; Neutrophils # (A) 4.5 k/uL (1.3-7.7); Neutrophils % (A) 76 %; Platelet Count 117 k/uL (150-450); RBC 4.42 m/uL (4.30-5.90); RDW 14.8 % (11.5-15.5); WBC 5.9 k/uL (3.8-10.6)
[2022-06-12 07:30] LABS: Calcium 8.4 mg/dL (8.4-10.2)
[2022-06-12 07:38] LABS: Potassium 4.1 mmol/L (3.5-5.1)
[2022-06-12] MEDS: FUROSEMIDE 40 MG TAB PO SCH (08:47)
[2022-06-12] MEDS: METOPROLOL SUCCINATE (ER) 50 MG TAB.ER.24H PO SCH (08:47)
[2022-06-12] MEDS: APIXABAN 5 MG TAB PO SCH ×2 (08:47→20:58)
[2022-06-12] MEDS: AMIODARONE 200 MG TAB PO SCH (08:47)
[2022-06-12] MEDS: LOSARTAN 25 MG TAB PO SCH (08:47)
[2022-06-12] MEDS: FINASTERIDE 5 MG TAB PO SCH (08:47)
[2022-06-12] MEDS: FERROUS SULFATE 325 MG TAB PO SCH (08:47)
[2022-06-12] MEDS: SODIUM CHLORIDE 0.45% 1,000 ML IV SCH (10:42)
[2022-06-12] MEDS: dexAMETHasone 2 MG TAB PO SCH (10:42)
[2022-06-12] MEDS: PSYLLIUM HUSK 100% 6 GM PACKET PO SCH ×2 (10:43→20:58)
[2022-06-12] MEDS: ALBUTEROL HFA INHALER INHALATION SCH ×3 (12:05→21:12)
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
[2022-06-12] MEDS: ATORVASTATIN 80 MG TAB PO SCH (20:58)
[2022-06-12] MEDS: ISOSORBIDE MONONITRATE ER 15 MG TAB PO SCH (20:58)
[2022-06-12] MEDS: SYMBICORT 160-4.5 MCG INHALER INHALATION SCH (21:12)
[2022-06-13] MEDS: SODIUM CHLORIDE 0.45% 1,000 ML IV SCH ×3 (06:33→17:52)
[2022-06-13] MEDS: ALBUTEROL HFA INHALER INHALATION SCH ×4 (08:27→19:22)
[2022-06-13] MEDS: SYMBICORT 160-4.5 MCG INHALER INHALATION SCH ×2 (08:28→19:23)
[2022-06-13] MEDS: LOSARTAN 25 MG TAB PO SCH (09:02)
[2022-06-13] MEDS: METOPROLOL SUCCINATE (ER) 50 MG TAB.ER.24H PO SCH (09:02)
[2022-06-13] MEDS: PSYLLIUM HUSK 100% 6 GM PACKET PO SCH ×2 (09:02→20:57)
[2022-06-13] MEDS: AMIODARONE 200 MG TAB PO SCH (09:02)
[2022-06-13] MEDS: dexAMETHasone 2 MG TAB PO SCH (09:02)
[2022-06-13] MEDS: FERROUS SULFATE 325 MG TAB PO SCH (09:03)
[2022-06-13] MEDS: APIXABAN 5 MG TAB PO SCH ×2 (09:03→20:57)
[2022-06-13] MEDS: FUROSEMIDE 40 MG TAB PO SCH (09:03)
[2022-06-13] MEDS: FINASTERIDE 5 MG TAB PO SCH (09:03)
--- NOTE | 2022-06-13 19:54 | P.PN ---
Progress Note - Text Progress Note Date: 06/13/22 Chief Complaint: Not feeling well This is a pleasant 66-year-old patient, Dr. Colon. Chronic stable medical conditions include atrial fibrillation, CAD, hyperlipidemia, hypertension, osteoarthritis, ischemic cardiomyopathy, testicle cancer with surgery and chemo, BPH, CKD stage III, hemorrhoids, hiatal hernia CAD with stent, AICD. Patient is a smoker. Patient presented 4 days of diarrhea some nausea and decreased appetite dizzy lightheaded. At least 5 times a day of diarrhea. Watery. No blood. Abdominal discomfort. Tired rundown. Also noticed some wheezing some cough with clear sputum. Patient in the ER tested negative for C. diff. Found to be an acute kidney injury. Admitted with COVID 19 pneumonitis, acute severe diarrhea from the same, uncontrolled atrial fibrillation, COPD exacerbation, acute kidney injury. Put on dexamethasone. Metamucil. Liquid diet. June 13: Diarrhea better. Oral intake better.. Pulse ox improving. Encouraged increased activity. Active Medications Albuterol Sulfate (Albuterol Hfa Inhaler) 4 puff INHALATION RT-QID [facility] Last Admin: 06/13/22 19:22 Dose: 4 puff Amiodarone HCl (Amiodarone 200 Mg Tab) 200 mg PO DAILY [facility] Last Admin: 06/13/22 09:02 Dose: 200 mg Apixaban (Apixaban 5 Mg Tab) 5 mg PO BID [facility]; Protocol Last Admin: 06/13/22 09:03 Dose: 5 mg Atorvastatin Calcium (Atorvastatin 80 Mg Tab) 80 mg PO HS [facility] Last Admin: 06/12/22 20:58 Dose: 80 mg Budesonide/Formoterol Fumarate (Symbicort 160-4.5 Mcg Inhaler) 1 puff INHALATION RT-BID [facility] Last Admin: 06/13/22 19:23 Dose: Not Given Dexamethasone (Dexamethasone 2 Mg Tab) 6 mg PO DAILY [facility] Last Admin: 06/13/22 09:02 Dose: 6 mg Ferrous Sulfate (Ferrous Sulfate 325 Mg Tab) 325 mg PO DAILY [facility] Last Admin: 06/13/22 09:03 Dose: 325 mg Finasteride (Finasteride 5 Mg Tab) 5 mg PO DAILY [facility] Last Admin: 06/13/22 09:03 Dose: 5 mg Fluticasone Propionate (Fluticasone 50mcg/[place] Nasal 16gm) 1 spray EA NOSTRIL DAILY PRN PRN Reason: Allergy Symptoms Furosemide (Furosemide 40 Mg Tab) 40 mg PO DAILY [facility] Last Admin: 06/13/22 09:03 Dose: 40 mg Isosorbide Mononitrate (Isosorbide Mononitrate Er 15 Mg Tab) 15 mg PO HS [facility] Last Admin: 06/12/22 20:58 Dose: 15 mg Losartan Potassium (Losartan 25 Mg Tab) 25 mg PO DAILY [facility] Last Admin: 06/13/22 09:02 Dose: 25 mg Metoprolol Succinate (Metoprolol Succinate (Er) 50 Mg Tab.Er.24h) 50 mg PO DAILY [facility] Last Admin: 06/13/22 09:02 Dose: 50 mg Naloxone HCl (Naloxone 0.4 Mg/Ml 1 Ml Vial) 0.2 mg IV Q2M PRN PRN Reason: Opioid Reversal Nitroglycerin (Nitroglycerin Sl Tabs 0.4 Mg Tab) 0.4 mg SUBLINGUAL Q5M PRN PRN Reason: Chest Pain Ondansetron HCl (Ondansetron 4 Mg/2 Ml Vial) 4 mg IVP Q8HR PRN PRN Reason: Nausea And Vomiting Psyllium Hydrophilic Mucilloid (Psyllium Husk 100% 6 Gm Packet) 6 gm PO BID [facility] Last Admin: 06/13/22 09:02 Dose: 6 gm Past medical history to include: Atrial fibrillation, CAD with stent, CHF, hyperlipidemia, TIA, hypertension, osteoarthritis, BPH, V. tach, left testicle cancer with surgery/chemotherapy, BPH, CK D stage III, hemorrhoids, hiatal hernia, AICD: Diverticulosis Social history: Lives alone. Smoking for 52 years now down to about half a pack a day. Was up to pack and a half to 2 packs a day. Retired from [employer] work. Family history: CAD Physical examination: VITAL SIGNS: 98, 80, 17, 160/79, 98% room air GENERAL: Comfortable, sitting up at the age of the bed,. LUNGS: Respiratory rate normal; PSYCH: Alert and oriented x3; mood and affect anxious INVESTIGATIONS, reviewed in the clinical context: COVID 19: Detected June 12: BUN 38 creatinine 2.18 WBC 6.8 hemoglobin 17.2 platelets 147 sodium 135 potassium 4. 46 creatinine 2.74 AST 75 ALT 73 EKG tracing personally reviewed by me-atrial fibrillation, rate 106 Chest x-ray personally reviewed by me: Pulmonary nodule 2.7 cm on the left mid to lower lung. Possible patchy infiltrate Troponin I 0.045, 0.031, 0.035 Previous labs: [September 2021] BUN 16 creatinine 1.87 Assessment and plan: -COVID 19 infection, with pneumonitis: Better -Acute severe diarrhea secondary to COVID 19 infection: Improving Symptomatically treatment with Metamucil to bulk up the stool -Related hypoxia secondary to COVID 19 and a smoker with a pulse ox 92-93%.: Better Dexamethasone 6 mg daily -Persistent atrial fibrillation, rate controlled Cordarone 200 mg a day. Eliquis Toprol-XL -Acute COPD exacerbation in a current smoker Symbicort 1604.5 one puff twice a day. Albuterol 4 puffs 4 times a day -Chronic nicotine dependence, cigarette smoker Patient has declined nicotine patch -CAD with stent Imdur 50 mg daily at bedtime. Aspirin -Pulmonary nodule Consult pulmonary -Chronic congestive heart failure from diastolic dysfunction EF 50-55% Follow clinically -AICD On telemetry -Moderate aortic stenosis with a peak and mean gradient of 40.5/22 Follow with cardiology -Mild to moderate mitral regurgitation and severe tricuspid regurgitation Follow clinically -BPH Proscar 5 mg a day -Hyperlipidemia Lipitor 80 mg daily at bedtime -Essential hypertension Toprol-XL -Chronic kidney disease stage 3 possibly from nephrosclerosis Creatinine 1.8 in September of this year. -Acute kidney injury likely prerenal from severe diarrhea IV fluids -Primary osteoarthritis multiple joints bilaterally Tylenol as needed -Pulmonary nodule. Follow outpatient with Dr. Frances Continue current medication treatment plan. Discussed with patient. Advance diet. Hopefully discharge tomorrow.
[2022-06-13] MEDS: ISOSORBIDE MONONITRATE ER 15 MG TAB PO SCH (20:57)
[2022-06-13] MEDS: ATORVASTATIN 80 MG TAB PO SCH (20:57)
[2022-06-14] MEDS: APIXABAN 5 MG TAB PO SCH (07:50)
[2022-06-14] MEDS: PSYLLIUM HUSK 100% 6 GM PACKET PO SCH (07:50)
[2022-06-14] MEDS: dexAMETHasone 2 MG TAB PO SCH (07:50)
[2022-06-14] MEDS: LOSARTAN 25 MG TAB PO SCH (07:51)
[2022-06-14] MEDS: FERROUS SULFATE 325 MG TAB PO SCH (07:51)
[2022-06-14] MEDS: FINASTERIDE 5 MG TAB PO SCH (07:51)
[2022-06-14] MEDS: AMIODARONE 200 MG TAB PO SCH (07:51)
[2022-06-14] MEDS: METOPROLOL SUCCINATE (ER) 50 MG TAB.ER.24H PO SCH (07:51)
[2022-06-14] MEDS: FUROSEMIDE 40 MG TAB PO SCH (07:51)
[2022-06-14] MEDS: ALBUTEROL HFA INHALER INHALATION SCH ×2 (08:38→11:25)
[2022-06-14] MEDS: SYMBICORT 160-4.5 MCG INHALER INHALATION SCH (08:39)
[2022-06-14 12:07] VITALS: BP 148/74; PULSE 89; RESP 17; TEMP 98
--- NOTE | 2022-06-14 15:09 | P.DS ---
Providers Date of admission: 06/12/22 14:21 Expected date of discharge: 06/14/22 Attending physician: Regis Valdez Consults: 06/11/22 12:16 Consult Physician Routine Consulting Provider: [facility] Consult Reason/Comments: elevated troponin Do you want consulting provider notified?: Yes [facility] Course: Chief Complaint: Not feeling well This is a pleasant 66-year-old patient, Dr. Colon. Chronic stable medical conditions include atrial fibrillation, CAD, hyperlipidemia, hypertension, osteoarthritis, ischemic cardiomyopathy, testicle cancer with surgery and chemo, BPH, CKD stage III, hemorrhoids, hiatal hernia CAD with stent, AICD. Patient is a smoker. Patient presented 4 days of diarrhea some nausea and decreased appetite dizzy lightheaded. At least 5 times a day of diarrhea. Watery. No blood. Abdominal discomfort. Tired rundown. Also noticed some wheezing some cough with clear sputum. Patient in the ER tested negative for C. diff. Found to be an acute kidney injury. Admitted with COVID 19 pneumonitis, acute severe diarrhea from the same, uncontrolled atrial fibrillation, COPD exacerbation, acute kidney injury. Put on dexamethasone. Metamucil. Liquid diet. June 13: Diarrhea better. Oral intake better.. Pulse ox improving. Encouraged increased activity. June 14: Eating well. Breathing stable. Ambulating. Discussed with patient. DC home. Past medical history to include: Atrial fibrillation, CAD with stent, CHF, hyperlipidemia, TIA, hypertension, osteoarthritis, BPH, V. tach, left testicle cancer with surgery/chemotherapy, BPH, CK D stage III, hemorrhoids, hiatal hernia, AICD: Diverticulosis Social history: Lives alone. Smoking for 52 years now down to about half a pack a day. Was up to pack and a half to 2 packs a day. Retired from [email or web address] work. Family history: CAD Physical examination: VITAL SIGNS: 98, 89, 17, 140/74, 98% room air GENERAL: Comfortable, sitting up at the age of the bed,. LUNGS: Respiratory rate normal; PSYCH: Alert and oriented x3; mood and affect anxious INVESTIGATIONS, reviewed in the clinical context: COVID 19: Detected June 12: BUN 38 creatinine 2.18 WBC 6.8 hemoglobin 17.2 platelets 147 sodium 135 potassium 4. 46 creatinine 2.74 AST 75 ALT 73 EKG tracing personally reviewed by me-atrial fibrillation, rate 106 Chest x-ray personally reviewed by me: Pulmonary nodule 2.7 cm on the left mid to lower lung. Possible patchy infiltrate Troponin I 0.045, 0.031, 0.035 Previous labs: [September 2021] BUN 16 creatinine 1.87 Assessment and plan: -COVID 19 infection, with pneumonitis: Better -Acute severe diarrhea secondary to COVID 19 infection: Resolved Symptomatically treatment with Metamucil to bulk up the stool -Related hypoxia secondary to COVID 19 and a smoker with a pulse ox 92-93%.: Better Dexamethasone 6 mg daily-discontinue -Persistent atrial fibrillation, rate controlled Cordarone 200 mg a day. Eliquis Toprol-XL -Acute COPD exacerbation in a current smoker Symbicort 1604.5 one puff twice a day. Albuterol when necessary -Chronic nicotine dependence, cigarette smoker Patient has declined nicotine patch -CAD with stent Imdur 50 mg daily at bedtime. Aspirin -Pulmonary nodule Follow with Dr. Frances outpatient -Chronic congestive heart failure from diastolic dysfunction EF 50-55% Follow clinically -AICD On telemetry -Moderate aortic stenosis with a peak and mean gradient of 40.5/22 Follow with cardiology -Mild to moderate mitral regurgitation and severe tricuspid regurgitation Follow clinically -BPH Proscar 5 mg a day -Hyperlipidemia Lipitor 80 mg daily at bedtime -Essential hypertension Toprol-XL -Chronic kidney disease stage 3 possibly from nephrosclerosis Creatinine 1.8 in September of this year. -Acute kidney injury likely prerenal from severe diarrhea: Better IV fluids -Primary osteoarthritis multiple joints bilaterally Tylenol as needed -Pulmonary nodule. Follow outpatient with Dr. Frances Disposition: Home Plan - Discharge Summary Discharge Rx Participant: Yes New Discharge Prescriptions: New Albuterol Sulfate [Albuterol Sulfate Hfa] 1 puff PO Q4-6H PRN #8.5 gm PRN Reason: Wheezing Budesonide-Formot 160-4.5 Mcg [Symbicort 160-4.5 Mcg Inhaler] 1 puff INHALATION RT-BID #1 each Continue Nitroglycerin Sl Tabs [Nitrostat] 0.4 mg SUBLINGUAL Q5M PRN #100 tab PRN Reason: Chest Pain Isosorbide Mononitrate ER [Imdur] 15 mg PO HS Atorvastatin [Lipitor] 80 mg PO HS Losartan Potassium [Cozaar] 25 mg PO DAILY Furosemide [Lasix] 40 mg PO DAILY Ferrous Sulfate [Feosol] 325 mg PO DAILY Metoprolol Succinate (ER) [Toprol XL] 50 mg PO DAILY Apixaban [Eliquis] 5 mg PO BID Fluticasone Nasal [place] [Flonase Nasal [place]] 1 spray EA NOSTRIL DAILY PRN PRN Reason: Allergy Symptoms Finasteride [Proscar] 5 mg PO DAILY Amiodarone [Cordarone] 200 mg PO DAILY Discharge Medication List Nitroglycerin Sl Tabs [Nitrostat] 0.4 mg SUBLINGUAL Q5M PRN #100 tab 03/18/17 [Rx] Isosorbide Mononitrate ER [Imdur] 15 mg PO HS 06/06/18 [History] Atorvastatin [Lipitor] 80 mg PO HS 03/20/20 [History] Apixaban [Eliquis] 5 mg PO BID 08/06/21 [History] Amiodarone [Cordarone] 200 mg PO DAILY 10/15/21 [History] Finasteride [Proscar] 5 mg PO DAILY 10/15/21 [History] Fluticasone Nasal [place] [Flonase Nasal [place]] 1 spray EA NOSTRIL DAILY PRN 10/15/21 [History] Ferrous Sulfate [Feosol] 325 mg PO DAILY 06/11/22 [History] Furosemide [Lasix] 40 mg PO DAILY 06/11/22 [History] Losartan Potassium [Cozaar] 25 mg PO DAILY 06/11/22 [History] Metoprolol Succinate (ER) [Toprol XL] 50 mg PO DAILY 06/11/22 [History] Albuterol Sulfate [Albuterol Sulfate Hfa] 1 puff PO Q4-6H PRN #8.5 gm 06/14/22 [Rx] Budesonide-Formot 160-4.5 Mcg [Symbicort 160-4.5 Mcg Inhaler] 1 puff INHALATION RT-BID #1 each 06/14/22 [Rx] Follow up Appointment(s)/Referral(s): Jordan Ramos MD [STAFF PHYSICIAN] - 2 Weeks ( schedule follow up tomorrow tell them you were discharged from the hospital 06/14; that you came in for dehydration, covid. ) Amadou Colon DO [Primary Care Provider] - 1 Week ( schedule follow up tomorrow tell them you were discharged from the hospital 06/14; that you came in for dehydration, covid. ) Petey Frances DO [Doctor of Osteopathic Medicine] - 1 Week (Lung nodules; schedule follow up tomorrow tell them you were discharged from the hospital 06/14; that you came in for dehydration, covid. ) Patient Instructions/Handouts: Coronavirus Disease 2019 (COVID-19), Dehydration (DC), Acute Kidney Injury (DC) Activity/Diet/Wound Care/Special Instructions: you tested positive 06/11 for covid -19. follow CDC current guidelines for 5 days of quarantine. recommend masking for an additional 5 days if symptomatic. Discharge Disposition: HOME SELF-CARE
== END 2022-06-14 14:27 | disposition home or self-care (01) | DRG 177 ==
LOC: EC 09:42 → 3SCARD 12:16 → OBSVTOIN 06-12 14:21
PROVIDERS: ADMIT Hospitalist; ATTEND Hospitalist
DX: U07.1 COVID-19 (principal); J12.82 Pneumonia due to coronavirus disease 2019; N17.9 Acute kidney failure, unspecified; I47.2 Ventricular tachycardia; I13.0 Hypertensive heart and chronic kidney disease with heart failure and stage 1 through stage 4 chronic kidney disease, or unspecified chronic kidney disease; I5A Non-ischemic myocardial injury (non-traumatic); A08.39 Other viral enteritis; I48.21 Permanent atrial fibrillation; I50.32 Chronic diastolic (congestive) heart failure; J44.1 Chronic obstructive pulmonary disease with (acute) exacerbation; J44.0 Chronic obstructive pulmonary disease with (acute) lower respiratory infection; I27.20 Pulmonary hypertension, unspecified; E86.0 Dehydration; N18.30 Chronic kidney disease, stage 3 unspecified; I25.5 Ischemic cardiomyopathy; I25.10 Atherosclerotic heart disease of native coronary artery without angina pectoris; I08.3 Combined rheumatic disorders of mitral, aortic and tricuspid valves; N40.0 Benign prostatic hyperplasia without lower urinary tract symptoms; E78.5 Hyperlipidemia, unspecified; K44.9 Diaphragmatic hernia without obstruction or gangrene; M15.9 Polyosteoarthritis, unspecified; R09.02 Hypoxemia; R91.1 Solitary pulmonary nodule; K64.9 Unspecified hemorrhoids; K57.90 Diverticulosis of intestine, part unspecified, without perforation or abscess without bleeding; F17.210 Nicotine dependence, cigarettes, uncomplicated; Z71.6 Tobacco abuse counseling; Z79.01 Long term (current) use of anticoagulants; Z79.899 Other long term (current) drug therapy; Z95.810 Presence of automatic (implantable) cardiac defibrillator; Z95.5 Presence of coronary angioplasty implant and graft; Z85.47 Personal history of malignant neoplasm of testis; Z92.21 Personal history of antineoplastic chemotherapy; Z86.73 Personal history of transient ischemic attack (TIA), and cerebral infarction without residual deficits; Z87.01 Personal history of pneumonia (recurrent); Z60.2 Problems related to living alone; Z88.0 Allergy status to penicillin
CPT/HCPCS: 36415; 71046; 80048; 80053; 81001; 83605; 83735; 84484; 85025; 85610; 85730; 87324; 87502; 87635; 93005; 94640; 96360; 99285

== ENCOUNTER 2023-03-15 02:39 | Inpatient (IN) | payer MEDICARE, OTHER ==
[2023-03-14 22:40] LABS: Basophils % (A) 0 %; Eosinophils # (A) 0.3 k/uL (0-0.7); Eosinophils % (A) 5 %; HCT 49.5 % (39.0-53.0); HGB 16.2 gm/dL (13.0-17.5); Lymphocytes % (A) 15 %; MCH 30.8 pg (25.0-35.0); MCHC 32.8 g/dL (31.0-37.0); MCV 93.8 fL (80.0-100.0); Mean Platelet Volume 9.5; Monocytes # (A) 0.5 k/uL (0-1.0); Monocytes % (A) 8 %; Neutrophils # (A) 4.9 k/uL (1.3-7.7); Neutrophils % (A) 72 %; Platelet Count 188 k/uL (150-450); RBC 5.28 m/uL (4.30-5.90); RDW 14.4 % (11.5-15.5); WBC 6.9 k/uL (3.8-10.6)
[2023-03-14 22:54] LABS: INR 1.1 (<1.2); Partial Thromboplastin Time 26.8 sec (22.0-30.0); Prothrombin Time 11.1 sec (9.0-12.0)
[2023-03-14 23:06] LABS: ALT 19 U/L (4-49); AST 30 U/L (17-59); African American GFR (CKD) 23 (>60 ml/min/1.73 sqM); Albumin 3.8 g/dL (3.5-5.0); Alkaline Phosphatase 235 U/L (38-126); Anion Gap 12 mmol/L; Blood Urea Nitrogen 53 mg/dL (9-20); Calcium 8.7 mg/dL (8.4-10.2); Carbon Dioxide 20 mmol/L (22-30); Chloride 104 mmol/L (98-107); Glucose 68 mg/dL (74-99); Non-African American GFR(CKD) 20 (>60 ml/min/1.73 sqM); Potassium 4.5 mmol/L (3.5-5.1); Sodium 136 mmol/L (137-145); Total Bilirubin 0.9 mg/dL (0.2-1.3)
--- NOTE | 2023-03-14 23:26 | XR ---
EXAM: XR Chest, 2 Views CLINICAL HISTORY: ITS.REASON XR Reason: SOB TECHNIQUE: Frontal and lateral views of the chest. COMPARISON: No relevant prior studies available. FINDINGS: Lungs: Mild opacity in the LEFT midlung field, correlate for mild pneumonia. Pleural space: Small LEFT pleural effusion. No pneumothorax. Heart: Cardiomegaly. Mediastinum: Unremarkable. Bones/joints: Unremarkable. Tubes, lines and devices: Pacemaker/AICD. IMPRESSION: 1. Mild opacity in the LEFT midlung field, correlate for mild pneumonia. 2. Small LEFT pleural effusion.
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
[~2023-03-15 02:39] MED LIST changes: +AZITHROMYCIN 500 MG TAB PO STA; -DEXAMETHASONE SOD PHOSPHATE 4 MG/ML 1 ML VIAL IV ONE; -HYDROmorphone 0.5 MG/0.5 ML SYRINGE IVP PRN; -LACTATED RINGERS 1,000 ML IV SCH; +NALOXONE 0.4 MG/ML 1 ML VIAL IV PRN; -ONDANSETRON 4 MG/2 ML VIAL IVP ONE; -Pre Op ABX Message 1 EACH MISC MISCELLANE ONE; +SODIUM CHLORIDE 0.9% 1,000 ML IV ONE; +cefTRIAXone IN SWFI 1,000 MG/10 ML SYRINGE IVP STA
[2023-03-15 03:10] LABS: Appearance,Urine Clear (Clear); Bilirubin,Urine Negative (Negative); Blood,Urine Negative (Negative); Color,Urine Light Yellow; Glucose,Urine (UA) Negative (Negative); Hyaline Casts,Urine 8 /lpf (0-2); Ketones,Urine Negative (Negative); Leukocyte Esterase,Urine Large (Negative); Mucus,Urine Rare /hpf; Nitrite,Urine Negative (Negative); PH, Urine 5.5 (5.0-8.0); Protein,Urine Negative (Negative); RBC,Urine 2 /hpf (0-5); Specific Gravity,Urine 1.011 (1.001-1.035); Urobilinogen,Urine <2.0 mg/dL (<2.0); WBC,Urine 14 /hpf (0-5)
[2023-03-15] MEDS: SODIUM CHLORIDE 0.9% 1,000 ML IV SCH ×2 (06:15→22:50)
[2023-03-15] MEDS ORDERED: NITROGLYCERIN SL TABS 0.4 MG TAB SUBLINGUAL PRN (09:18)
[2023-03-15] MEDS ORDERED: FLUTICASONE 50MCG/SPRAY NASAL 16GM EA NOSTRIL PRN (09:18)
[2023-03-15] MEDS ORDERED: APIXABAN 5 MG TAB PO SCH (09:30)
[2023-03-15] MEDS ORDERED: LOSARTAN 25 MG TAB PO SCH (09:30)
[2023-03-15] MEDS: AMIODARONE 200 MG TAB PO SCH (09:43)
[2023-03-15] MEDS: METOPROLOL SUCCINATE (ER) 50 MG TAB.ER.24H PO SCH (09:43)
[2023-03-15] MEDS: APIXABAN 2.5 MG TABLET PO SCH ×2 (09:44→21:19)
[2023-03-15] MEDS: FINASTERIDE 5 MG TAB PO SCH (09:44)
[2023-03-15] MEDS: FERROUS SULFATE 325 MG TAB PO SCH (09:44)
[2023-03-15] MEDS ORDERED: AMINOPHYLLINE 500 MG/20 ML VIAL IV PRN (11:08)
[2023-03-15] MEDS ORDERED: REGADENOSON 0.4 MG/5 ML SYRINGE IV PRN (11:08)
[2023-03-15] MEDS ORDERED: CAFFEINE CITRATE 60 MG/3 ML VIAL IV PRN (11:08)
[2023-03-15] MEDS: ALBUTEROL NEBULIZED 2.5 MG/3 ML INHALATION SCH ×3 (11:55→20:45)
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
[2023-03-15 12:33] LABS: African American GFR (CKD) 19 (>60 ml/min/1.73 sqM); Anion Gap 10 mmol/L; Blood Urea Nitrogen 57 mg/dL (9-20); Calcium 9.6 mg/dL (8.4-10.2); Carbon Dioxide 25 mmol/L (22-30); Chloride 101 mmol/L (98-107); Glucose 83 mg/dL (74-99); Non-African American GFR(CKD) 17 (>60 ml/min/1.73 sqM); Potassium 4.8 mmol/L (3.5-5.1); Sodium 136 mmol/L (137-145)
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
[2023-03-15] MEDS: ATORVASTATIN 80 MG TAB PO SCH (21:19)
[2023-03-15] MEDS: ISOSORBIDE MONONITRATE ER 15 MG TAB PO SCH (21:19)
[2023-03-16] MEDS: FINASTERIDE 5 MG TAB PO SCH (07:36)
[2023-03-16] MEDS: FERROUS SULFATE 325 MG TAB PO SCH (07:36)
[2023-03-16] MEDS: APIXABAN 2.5 MG TABLET PO SCH ×2 (07:36→20:56)
[2023-03-16] MEDS: AMIODARONE 200 MG TAB PO SCH (07:36)
[2023-03-16] MEDS: METOPROLOL SUCCINATE (ER) 50 MG TAB.ER.24H PO SCH (07:36)
[2023-03-16] MEDS: ALBUTEROL NEBULIZED 2.5 MG/3 ML INHALATION SCH ×4 (07:56→20:20)
--- NOTE | 2023-03-16 09:02 | P.PN ---
Subjective HISTORY OF PRESENT ILLNESS: This is a 67-year-old male with a past medical history significant for coronary artery disease with PCI to LAD in 2012, ischemic cardiomyopathy with AICD implantation, ventricular tachycardia, hypertension, hyperlipidemia, COPD, persistent atrial fibrillation, chronic kidney disease, and nicotine dependence. Patient follows in the office with Dr. Ramos. We have been asked to see the patient in consultation for "cardiac history". Patient examined at the bedside. The patient presented to the hospital for chief complaint of shortness of breath. The patient states he has been feeling short of breath for the past month. He states that he used to be fairly active and over the course of the last 4-6 weeks he has had not been able to do as much as he used to. He did follow with his primary manager rfid in January 2023. His metoprolol was increased to 75 mg daily. The patient states he was unable to tolerate this and felt extremely weak and tired and decreased his dose back down to 50 mg. He also reports that he increased his dose of Lasix by himself on an outpatient basis. He states that he usually takes 40 mg in the morning but was taking an extra dose of his Lasix at night. He states that this helped his symptoms. He states that he usually wakes up in the middle of the night short of breath and cannot lay flat. However, with the increased dose of Lasix in the evening he has been able to get some sleep the past couple nights. He also reports he gets chest discomfort when he lays down related to shortness of breath. He also reports feeling lightheaded and dizzy when he stands up. He denies any syncopal episodes. The patient was found to have worsening kidney function in comparison to his previous creatinine last year. He denies the use of any NSAIDs. He reports adequate fluid intake at home. * EKG reveals atrial fibrillation with controlled ventricular rate. ST depression in V6, seen on previous EKG * Chest xray mild opacity in the left midlung field, correlate for mild pneumonia. Small left pleural effusion.. * Laboratory data: WBC 6.9. Hemoglobin 16.2. Platelet count 188. Sodium 136. Potassium 4.5. BUN 53. Creatinine 3.09. Troponin negative 1. ProBNP 4880. * Current home cardiac medications include Eliquis 5mg BID, amiodarone 200 mg daily, Lasix 40 mg daily, losartan 25 mg daily, metoprolol succinate 50 mg daily * Most recent echocardiogram obtained in September 2021 reveals ejection fraction 50-55%, mild aortic regurgitation, moderate aortic stenosis, [id number] mitral regurgitation, severe tricuspid regurgitation, and moderate pulmonary hypertension * Cardiac catheterization history: December 2018 revealing stable coronary artery disease with patent stent in the mid LAD, diffuse plaque throughout the coronary system, and intermediate disease in the proximal RCA. Medical management was recommended. * Patient underwent Lexiscan stress test in January 2021 which was negative for reversible ischemia. Revealed mild fixed defect in the inferior wall with out any reversible ischemia. Ejection fraction 43%. 03/16/2023 Patient examined this morning at the bedside. Patient denies chest pain or pressure. He denies shortness of breath. Patient remains in atrial fibrillation with controlled ventricular rate. Vital signs are stable. Blood pressure 127/74. Patient's creatinine yesterday increased up to 3.58. Repeat kidney function this morning is currently pending. PHYSICAL EXAM: VITAL SIGNS: Reviewed. GENERAL: Well-developed in no acute distress. HEENT: Head is normocephalic. Pupils are equal, round. Sclerae anicteric. Mucous membranes of the mouth are moist. Neck supple. No JVD or thyromegaly LUNGS: Respirations even and unlabored. Lungs essentially clear to auscultation bilaterally. HEART: Irregular rate and rhythm. S1 and S2 heard. + systolic murmur. ABDOMEN: Soft. Nondistended. Nontender. EXTREMITIES: Normal range of motion. No clubbing or cyanosis. Peripheral pulse s intact. No lower extremity edema NEUROLOGIC: Awake and alert. Oriented x 3. ASSESSMENT: Possible left-sided pneumonia Shortness of breath with orthopnea and PND x 1 month, possible anginal equivalent Acute on chronic kidney disease Coronary artery disease with previous stenting of the LAD in 2011 Persistent atrial fibrillation History of ventricular tachycardia, maintained on amiodarone outpatient History of ischemic cardiomyopathy with AICD implantation with recovery in ejection fraction, now 50-55% Valvular heart disease Hypertension Hyperlipidemia COPD Nicotine dependence PLAN: 2-D echo ordered. Await results Continue to hold Losartan due to FEMI Continue to hold diuretics. Monitor kidney function. Nephrology following Continue additional cardiac medications. Patient to undergo Lexiscan stress test today. Await results. Further recommendations pending patient course Nurse practitioner note has been reviewed by physician. Signing provider agrees with the documented findings, assessment, and plan of care. Objective - Vital Signs Vital signs: Vital Signs Temp 97.7 F 03/16/23 07:33 Pulse 80 03/16/23 08:06 Resp 16 03/16/23 07:33 BP 127/74 03/16/23 07:33 Pulse Ox 97 03/16/23 07:58 FiO2 Intake & Output 03/15/23 03/16/23 03/16/23 18:59 06:59 18:59 Intake Total 550 Balance 550 Weight 78.5 kg Intake: Oral 550 Other: # Voids 2 1 - Labs CBC & Chem 7: 03/14/23 22:05 03/15/23 11:36 Labs: Abnormal Lab Results - Last 24 Hours (Table) 03/15/23 Range/Units 11:36 Sodium 136 L (137-145) mmol/L BUN 57 H (9-20) mg/dL Creatinine 3.58 H (0.66-1.25) mg/dL
--- NOTE | 2023-03-16 10:48 | NM ---
EXAMINATION TYPE: NM stress lexiscan cardiolite DATE OF EXAM: 03/16/2023 COMPARISON: 01/05/2018 CLINICAL INDICATION: Male, 67 years old with history of SOB, CP; TECHNIQUE: After the intravenous administration of 10.0 mCi Tc 99m Sestamibi - Cardiolite resting SP ECT images acquired 45 minutes post injection. The patient received 0.4mg Lexiscan, 23.4 mCi Tc 99m Sestamibi - Stress images obtained [address] injection FINDINGS: Review of stress and rest SPECT images demonstrates large fixed perfusion defect along the inferior w all extending to the apex. There may be slight reversibility towards the anterior apex. Gated analysi s shows generalized hypokinesis with an estimated left ventricular ejection fraction of 45 %. TID is calculated at 1.07, upper limits of normal. IMPRESSION: 1. Fixed perfusion defect along the entire inferior wall extending to the apex. Correlate for history of prior infarct. 2. There may be a small area of reversibility along the anterior apex. 3. Estimated LVEF mildly diminished at 45%.
--- NOTE | 2023-03-16 12:48 | P.PN ---
Subjective Progress Note Date: 03/16/23 patient is a 67-year-old gentleman with past medical history significant for coronary artery disease, COPD who presented to the ER because of worsening shortness of breath. Patient states that he is unable to take more than a few steps before getting short of breath. Patient stated that he was fairly 6 weeks ago but over the last 6 weeks he has gradually declined. Patient complains of waking up in the middle night gasping for air. Denies any cough. Denies any fever or chills. Denies any swelling of feet. There was no complain of chest pain or palpitation. Because his worsening shortness of breath, patient came to the ER Initial lab work done in the ER showed white count 6.9, hemoglobin 16.2, platelet count 188, sodium 136, potassium 4.5, BUN 53, creatinine 3.09, Chest x-ray done showed mild opacity in the left mid lung field Patient was admitted to internal medicine service 03/16. Patient seen and examined. Denies any further episodes of chest pain or shortness of breath. REVIEW OF SYSTEMS: CONSTITUTIONAL: No fever, no malaise,. CARDIOVASCULAR: No chest pain, no palpitations, no syncope. PULMONARY: No shortness of breath, no cough, GASTROINTESTINAL: No diarrhea, no nausea, no vomiting, no abdominal pain. NEUROLOGICAL: No headaches, no weakness, PHYSICAL EXAMINATION: GENERAL: The patient is alert and oriented x3, not in any acute distress. Well developed, well nourished. HEENT: Pupils are round and equally reacting to light. EOMI. No scleral icterus. No conjunctival pallor. Normocephalic, atraumatic. No pharyngeal erythema. No thyromegaly. CARDIOVASCULAR: S1 and S2 present. No murmurs, rubs, or gallops. PULMONARY: Chest is clear to auscultation, no wheezing or crackles. ABDOMEN: Soft, nontender, nondistended, normoactive bowel sounds. No palpable organomegaly. MUSCULOSKELETAL: No joint swelling or deformity. EXTREMITIES: No cyanosis, clubbing, or pedal edema. NEUROLOGICAL: Gross neurological examination did not reveal any focal deficits. SKIN: No rashes. Assessment and plan Acute on chronic kidney disease Coronary artery disease with previous stenting of the LAD in 2011 Persistent atrial fibrillation History of ventricular tachycardia, maintained on amiodarone outpatient History of ischemic cardiomyopathy with AICD implantation Hypertension Hyperlipidemia COPD Nicotine dependence Monitor vital signs Monitor CBC Monitor CMP Continue telemetry monitoring Hold Losartan due to FEMI Hold diuretics. Monitor kidney function. Follow-up on 2-D echo Follow-up on stress test results Follow-up on cardiology recommendations Follow-up in nephrology recommendations Objective - Vital Signs Vital signs: Vital Signs Temp 97.7 F 03/16/23 07:33 Pulse 80 03/16/23 08:06 Resp 16 03/16/23 07:33 BP 127/74 03/16/23 07:33 Pulse Ox 97 03/16/23 11:51 FiO2 Intake & Output 03/15/23 03/16/23 03/16/23 18:59 06:59 18:59 Intake Total 550 Balance 550 Weight 78.5 kg Intake: Oral 550 Other: # Voids 2 1 - Labs CBC & Chem 7: 03/14/23 22:05 03/15/23 11:36
--- NOTE | 2023-03-16 13:10 | CA ---
Transthoracic Echo Report Name: Kaiden Davis Age: 67 Gender: M : 1955 Exam Date: 03/16/2023 09:17 Exam Location: [facility] Ht (in): 76 Wt (lb): 174 Ordering Physician: Mayra Patino Attending/Referring Phys: [id number], [employer] Distribution Associate Radha Baca RDCS Procedure CPT: Indications: LV Function, SOB, CHF Cardiac Hx: Technical Quality: Fair Contrast 1: Total Dose (mL): Contrast 2: Total Dose (mL): MEASUREMENTS (Male / Female) Normal Values 2D ECHO LV Diastolic Diameter PLAX 5.0 cm 4.2 - 5.9 / 3.9 - 5.3 cm LV Systolic Diameter PLAX 3.8 cm IVS Diastolic Thickness 1.5 cm 0.6 - 1.0 / 0.6 - 0.9 cm LVPW Diastolic Thickness 1.9 cm 0.6 - 1.0 / 0.6 - 0.9 cm LV Relative Wall Thickness 0.7 RV Internal Dim ED PLAX 2.9 cm LVOT Diameter 2.5 cm LA Volume 170.4 cm??? 18 - 58 / 22 - 52 cm??? M-MODE Aortic Root Diameter MM 3.1 cm LA Systolic Diameter MM 5.3 cm LA Ao Ratio MM 1.7 DOPPLER AV Peak Velocity 377.8 cm/s AV Peak Gradient 57.1 mmHg AV Mean Velocity 274.7 cm/s AV Mean Gradient 35.2 mmHg AV Velocity Time Integral 66.5 cm AI Peak Velocity 460.4 cm/s AI Peak Gradient 84.8 mmHg AI Pressure Half Time 639.3 ms LVOT Peak Velocity 69.0 cm/s LVOT Peak Gradient 1.9 mmHg LVOT Velocity Time Integral 10.8 cm LVOT Stroke Volume 54.0 cm??? LVOT Stroke Volume Index 25.8 ml/m??? LVOT Cardiac Index 2397.7 cm???/min???m??? AV Area Cont Eq vti 0.8 cm??? AV Area Cont Eq pk 0.9 cm??? MV Area PHT 3.4 cm??? Mitral E Point Velocity 102.9 cm/s Mitral A Point Velocity 2.1 cm/s Mitral E to A Ratio 47.9 MV Deceleration Time 225.5 ms MV E' Velocity 5.0 cm/s Mitral E to MV E' Ratio 20.4 TR Peak Velocity 336.7 cm/s TR Peak Gradient 45.3 mmHg Right Ventricular Systolic Press 54.7 mmHg FINDINGS Left Ventricle Moderately increased left ventricular wall thickness. Left ventricular cavity size normal. Moderately reduced global left ventricular systolic function. Left ventricular ejection fraction is estimated at 35-40 %. Right Ventricle Normal right ventricular size. Moderate pulmonary hypertension. Right ventricular systolic pressure estimated at 55 mm hg. Right Atrium Moderate right atrial dilatation. Catheter/pacemaker wire in the right atrial cavity. Left Atrium Severely increased left atrial volume. Severely increased left atrial area. Mitral Valve Structurally normal mitral valve. Mitral valve thickened. Severe mitral annular calcification. Mild mitral regurgitation. Aortic Valve Severe low-flow low-gradient aortic stenosis with a peak velocity of 3.7 m/s, peak gradient 57 mmHg, mean gradient 35 mmHg, and estimated aortic valve area of .9 cm??? with a stroke volume index of 26 cc/m2. Dimensionless index of 0.15. Mild to moderate aortic regurgitation. Tricuspid Valve Structurally normal tricuspid valve. Moderate tricuspid regurgitation. Pulmonic Valve Trace pulmonic regurgitation. Pericardium Loculated pericardial effusion. Aorta Normal size aortic root and proximal ascending aorta. CONCLUSIONS Moderate increased left ventricular wall thickness Left ventricular ejection fraction 35-40% RVSP 55 Severe mitral calcification Mild mitral regurgitation Severe aortic stenosis with low-flow low gradient dimensionless index of 0.15. Moderate tricuspid regurgitation Previewed by: Dr. Thiago Jenkins DO (Electronically Signed) Final Date: 16 March 2023 13:09
--- NOTE | 2023-03-16 13:18 | CA ---
Lexiscan Nuclear Stress Test Report Name: Kaiden Davis Exam Date: 03/16/2023 08:49 Exam Location: [facility] Ht (in): 76 Wt (lb): 173 BSA: 2.08 Ordering Phys: Mayra Patino Referring Phys: SIOMARA, Technologist: Case Astorga Age: 67 Gender: M : 1955 Procedure CPT: Indications: Reflex order-Stress test ICD-10 Codes: Patient History: Medications: SEE CHART Meds past 24 hrs: Pretest Chest Pain: STRESS TEST Lexiscan Protocol Exercise Duration (min:sec): 02:[address] Depressions (mm): Angina Score: Etienne Score: Resting HR (bpm): 81 Peak HR (bpm): 101 Resting BP (mmHg): 139 / 74 Peak BP (mmHg): 116 / 67 MPHR: 154 Target HR: 131 % MPHR: 66 METS: 1.0 Total Dose: Peak Dose: Atropine: Double Product: 51533 BP Response: Stress Termination: PROTOCOL COMPLETE Stress Symptoms: NO SYMPTOMS Stress Summary: ECG ANALYSIS Resting ECG: Stress ECG: CONCLUSIONS At baseline EKG showed A. fib with left bundle branch morphology with LVH strain in the lateral leads. Patient recieved IV infusion of Lexiscan 0.4mg and at peak infusion EKG showed no significant change from baseline. Conclusions: 1. Nonspecific stress EKG portion secondary baseline EKG abnormalities 2. Nuclear imaging to be reported separately. Dr. Thiago Jenkins DO (Electronically Signed) Final Date: 16 March 2023 13:17
--- NOTE | 2023-03-16 13:38 | P.PN ---
Subjective Patient is seen for follow-up for acute kidney injury on top of chronic kidney disease stage IIIB to 4 with baseline creatinine around 2.1 mg/dL. Blood pressure was low on initial admission with systolic in the 90s. Angiotensin receptor blockers and diuretics are currently on hold. . No significant complaints today. Patient has been voiding. Bladder scan not documented. Labs are pending from today. 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 Acute kidney injury mostly hemodynamic ATN from borderline low blood pressures in the setting of use of angiotensin receptor blockers and underlying infection. Currently nonoliguric. Rule out urine retention. UA is unremarkable with WBCs 14 2. CK D NKF stage IIIB to 4 secondary to nephrosclerosis with baseline creatinine around 2.1 mg/dL 3. Left lung pneumonia maintained on antibiotics 4. Coronary artery disease with history of coronary stents 5. Persistent A. fib Plan: Add gentle IV hydration Continue to hold diuretics and angiotensin receptor blockers Check bladder scan rule out urine retention Repeat labs in a.m.
[2023-03-16] MEDS: ATORVASTATIN 80 MG TAB PO SCH (20:56)
[2023-03-16] MEDS: ACETAMINOPHEN TAB 325 MG TAB PO PRN (20:57)
[2023-03-16] MEDS: ISOSORBIDE MONONITRATE ER 15 MG TAB PO SCH (20:57)
[2023-03-16] MEDS: SODIUM CHLORIDE 0.9% 1,000 ML IV SCH (20:59)
[2023-03-17] MEDS ORDERED: ACETAMINOPHEN TAB 325 MG TAB ONE (02:27)
[2023-03-17 05:21] LABS: BUN/Creat Ratio 15.83 Ratio (12.00-20.00); Calcium 9.7 mg/dL (8.7-10.3); Carbon Dioxide 20.2 mmol/L (21.6-31.8); Chloride 102 mmol/L (96-109); Glucose 104 mg/dL (70-110); Potassium 4.6 mmol/L (3.5-5.5); Sodium 138 mmol/L (135-145)
[2023-03-17] MEDS: FINASTERIDE 5 MG TAB PO SCH (07:37)
[2023-03-17] MEDS: METOPROLOL SUCCINATE (ER) 50 MG TAB.ER.24H PO SCH (07:37)
[2023-03-17] MEDS: AMIODARONE 200 MG TAB PO SCH (07:37)
[2023-03-17] MEDS: FERROUS SULFATE 325 MG TAB PO SCH (07:37)
[2023-03-17] MEDS: APIXABAN 2.5 MG TABLET PO SCH (07:37)
[2023-03-17] MEDS: ALBUTEROL NEBULIZED 2.5 MG/3 ML INHALATION SCH ×4 (07:48→21:31)
[2023-03-17 08:35] LABS: ALT 22 U/L (4-49); AST 28 U/L (17-59); African American GFR (CKD) 22 (>60 ml/min/1.73 sqM); Albumin 3.3 g/dL (3.5-5.0); Albumin/Globulin Ratio 1.2; Alkaline Phosphatase 260 U/L (38-126); Anion Gap 9 mmol/L; Blood Urea Nitrogen 53 mg/dL (9-20); Calcium 9.3 mg/dL (8.4-10.2); Carbon Dioxide 23 mmol/L (22-30); Chloride 105 mmol/L (98-107); Globulin 2.8 g/dL; Glucose 84 mg/dL (74-99); Non-African American GFR(CKD) 19 (>60 ml/min/1.73 sqM); Potassium 4.6 mmol/L (3.5-5.1); Sodium 137 mmol/L (137-145); Total Bilirubin 0.5 mg/dL (0.2-1.3); Total Protein 6.1 g/dL (6.3-8.2)
[2023-03-17] MEDS ORDERED: ALPRAZolam 0.25 MG TAB PO PRN (09:33)
[2023-03-17] MEDS ORDERED: NITROGLYCERIN SL TABS 0.4 MG TAB SUBLINGUAL PRN (09:33)
[2023-03-17 09:49] LABS: Basophils % (A) 0 %; Eosinophils # (A) 0.4 k/uL (0-0.7); Eosinophils % (A) 5 %; HCT 35.3 % (39.0-53.0); Lymphocytes # (A) 0.9 k/uL (1.0-4.8); Lymphocytes % (A) 11 %; MCHC 32.1 g/dL (31.0-37.0); MCV 96.8 fL (80.0-100.0); Mean Platelet Volume 10.3; Monocytes # (A) 0.5 k/uL (0-1.0); Monocytes % (A) 6 %; Neutrophils # (A) 6.5 k/uL (1.3-7.7); Neutrophils % (A) 77 %; Platelet Count 216 k/uL (150-450); RBC 3.64 m/uL (4.30-5.90); RDW 14.2 % (11.5-15.5); WBC 8.4 k/uL (3.8-10.6)
[2023-03-17 10:02] LABS: HGB 11.3 gm/dL (13.0-17.5)
--- NOTE | 2023-03-17 10:26 | P.PN ---
Subjective HISTORY OF PRESENT ILLNESS: This is a 67-year-old male with a past medical history significant for coronary artery disease with PCI to LAD in 2012, ischemic cardiomyopathy with AICD implantation, ventricular tachycardia, hypertension, hyperlipidemia, COPD, persistent atrial fibrillation, chronic kidney disease, and nicotine dependence. Patient follows in the office with Dr. Ramos. We have been asked to see the patient in consultation for "cardiac history". Patient examined at the bedside. The patient presented to the hospital for chief complaint of shortness of breath. The patient states he has been feeling short of breath for the past month. He states that he used to be fairly active and over the course of the last 4-6 weeks he has had not been able to do as much as he used to. He did follow with his primary leaf stripper in January 2023. His metoprolol was increased to 75 mg daily. The patient states he was unable to tolerate this and felt extremely weak and tired and decreased his dose back down to 50 mg. He also reports that he increased his dose of Lasix by himself on an outpatient basis. He states that he usually takes 40 mg in the morning but was taking an extra dose of his Lasix at night. He states that this helped his symptoms. He states that he usually wakes up in the middle of the night short of breath and cannot lay flat. However, with the increased dose of Lasix in the evening he has been able to get some sleep the past couple nights. He also reports he gets chest discomfort when he lays down related to shortness of breath. He also reports feeling lightheaded and dizzy when he stands up. He denies any syncopal episodes. The patient was found to have worsening kidney function in comparison to his previous creatinine last year. He denies the use of any NSAIDs. He reports adequate fluid intake at home. * EKG reveals atrial fibrillation with controlled ventricular rate. ST depression in V6, seen on previous EKG * Chest xray mild opacity in the left midlung field, correlate for mild pneumonia. Small left pleural effusion.. * Laboratory data: WBC 6.9. Hemoglobin 16.2. Platelet count 188. Sodium 136. Potassium 4.5. BUN 53. Creatinine 3.09. Troponin negative 1. ProBNP 4880. * Current home cardiac medications include Eliquis 5mg BID, amiodarone 200 mg daily, Lasix 40 mg daily, losartan 25 mg daily, metoprolol succinate 50 mg daily * Most recent echocardiogram obtained in September 2021 reveals ejection fraction 50-55%, mild aortic regurgitation, moderate aortic stenosis, [id number] mitral regurgitation, severe tricuspid regurgitation, and moderate pulmonary hypertension * Cardiac catheterization history: December 2018 revealing stable coronary artery disease with patent stent in the mid LAD, diffuse plaque throughout the coronary system, and intermediate disease in the proximal RCA. Medical management was recommended. * Patient underwent Lexiscan stress test in January 2021 which was negative for reversible ischemia. Revealed mild fixed defect in the inferior wall with out any reversible ischemia. Ejection fraction 43%. 03/16/2023 Patient examined this morning at the bedside. Patient denies chest pain or pressure. He denies shortness of breath. Patient remains in atrial fibrillation with controlled ventricular rate. Vital signs are stable. Blood pressure 127/74. Patient's creatinine yesterday increased up to 3.58. Repeat kidney function this morning is currently pending. Addendum entered and electronically signed by Mayra Patino NP-C 03/16/23 12:21: Lexiscan stress test revealed fixed perfusion defect along the entire inferior wall extending to the apex. Correlate for history of prior infarct. There may be a small area of reversibility along the anterior apex. Lexiscan stress test reviewed with Dr. Jenkins. No plans for cardiac catheterization at this time secondary to patient's kidney function. We will continue with conservative management at this time. 03/17/2023 Patient examined this morning at the bedside. Patient denies chest pain or pressure. He denies shortness of breath. Patient has been receiving IV fluids. His creatinine this morning is slightly better at 3.17. Echocardiogram completed revealing ejection fraction 35-40%, mild mitral regurgitation, severe aortic stenosis with low-flow low gradient, and moderate tricuspid regurgitation PHYSICAL EXAM: VITAL SIGNS: Reviewed. GENERAL: Well-developed in no acute distress. HEENT: Head is normocephalic. Pupils are equal, round. Sclerae anicteric. Mucous membranes of the mouth are moist. Neck supple. No JVD or thyromegaly LUNGS: Respirations even and unlabored. Lungs essentially clear to auscultation bilaterally. HEART: Irregular rate and rhythm. S1 and S2 heard. + systolic murmur. ABDOMEN: Soft. Nondistended. Nontender. EXTREMITIES: Normal range of motion. No clubbing or cyanosis. Peripheral pulses intact. No lower extremity edema NEUROLOGIC: Awake and alert. Oriented x 3. ASSESSMENT: Possible left-sided pneumonia Shortness of breath with orthopnea and PND x 1 month, possible anginal equivalent Acute on chronic kidney disease Coronary artery disease with previous stenting of the LAD in 2011 Persistent atrial fibrillation History of ventricular tachycardia, maintained on amiodarone outpatient History of ischemic cardiomyopathy with AICD implantation, EF 35-40% Valvular heart disease Severe aortic stenosis Hypertension Hyperlipidemia COPD Nicotine dependence PLAN: Continue to hold Losartan due to FEMI Continue to hold diuretics. Monitor kidney function. Nephrology following Continue additional cardiac medications Discussed Lexiscan stress test results and echocardiogram results with patient. Suspect patient's symptoms over the past month are secondary to severe aortic stenosis. Discussed possibility of TAVR. However, patient will require DEBBY and L/R heart cath as part of TAVR workup. Discussed possibility of worsening kidney function with contrast given during catheterization and possibility of requiring hemodialysis. Patient understands the risks and is willing to proceed. He st ates he is willing to go on hemodialysis if needed. We will schedule patient for DEBBY and right and left heart cath tomorrow with Dr. Jenkins Hold Eliquis tonight and tomorrow morning NPO at midnight Continue IV fluid hydration Further recommendations pending patient course Nurse practitioner note has been reviewed by physician. Signing provider agrees with the documented findings, assessment, and plan of care. Objective - Vital Signs Vital signs: Vital Signs Temp 98.6 F 03/17/23 07:14 Pulse 78 03/17/23 08:01 Resp 17 03/17/23 07:14 BP 157/87 03/17/23 07:14 Pulse Ox 98 03/17/23 07:48 FiO2 Intake & Output 03/16/23 03/17/23 03/17/23 18:59 06:59 18:59 Intake Total 1080 Output Total 56 Balance 1024 Intake: Oral 1080 Output: Post Void Residual 56 Other: Voiding Method Toilet # Voids 3 3 - Labs CBC & Chem 7: 03/17/23 06:22 03/17/23 06:22 Labs: Abnormal Lab Results - Last 24 Hours (Table) 03/15/23 03/16/23 03/17/23 Range/Units 11:36 07:15 06: RBC 3.64 L (4.30-5.90) m/uL Hgb 11.3 L D (13.0-17.5) gm/dL Hct 35.3 L (39.0-53.0) % Lymphocytes # 0.9 L (1.0-4.8) k/uL Carbon Dioxide 20.2 L (21.6-31.8) mmol/L Anion Gap 15.80 H (4.00-12.00) mmol/L BUN 57.0 H (9.0-27.0) mg/dL Creatinine 3.6 H (0.6-1.5) mg/dL Est GFR (CKD-EPI) 18 L (>=60) Alkaline Phosphatase (38-126) U/L Total Protein (6.3-8.2) g/dL Albumin (3.5-5.0) g/dL Procalcitonin 0.52 H (0.02-0.09) ng/mL 03/17/23 Range/Units 06:22 RBC (4.30-5.90) m/uL Hgb (13.0-17.5) gm/dL Hct (39.0-53.0) % Lymphocytes # (1.0-4.8) k/uL Carbon Dioxide (21.6-31.8) mmol/L Anion Gap (4.00-12.00) mmol/L BUN 53 H (9.0-27.0) mg/dL Creatinine 3.17 H (0.6-1.5) mg/dL Est GFR (CKD-EPI) (>=60) Alkaline Phosphatase 260 H (38-126) U/L Total Protein 6.1 L (6.3-8.2) g/dL Albumin 3.3 L (3.5-5.0) g/dL Procalcitonin (0.02-0.09) ng/mL
--- NOTE | 2023-03-17 12:26 | P.PN ---
Subjective Patient is seen in follow-up for acute kidney injury on chronic kidney disease. Renal function is a little better today. Denies active chest pain or shortness of breath. Plan for cardiac cath tomorrow. Receiving IV fluids. Vital signs are stable. General: No acute distress. HEENT: Head exam is unremarkable. LUNGS: No audible rhonchi or wheezes. HEART: Rate and Rhythm are regular. ABDOMEN: Nontender. EXTREMITITES: No edema. Objective - Vital Signs Vital signs: Vital Signs Temp 98.6 F 03/17/23 07:14 Pulse 78 03/17/23 11:40 Resp 17 03/17/23 07:14 BP 157/87 03/17/23 07:14 Pulse Ox 98 03/17/23 07:48 FiO2 Intake & Output 03/16/23 03/17/23 03/17/23 18:59 06:59 18:59 Intake Total 1080 Output Total 56 Balance 1024 Intake: Oral 1080 Output: Post Void Residual 56 Other: Voiding Method Toilet # Voids 3 3 - Labs CBC & Chem 7: 03/17/23 06:22 03/17/23 06:22 Labs: Abnormal Lab Results - Last 24 Hours (Table) 03/15/23 03/16/23 03/17/23 Range/Units 11:36 07:15 06:22 RBC 3.64 L (4.30-5.90) m/uL Hgb 11.3 L D (13.0-17.5) gm/dL Hct 35.3 L (39.0-53.0) % Lymphocytes # 0.9 L (1.0-4.8) k/uL Carbon Dioxide 20.2 L (21.6-31.8) mmol/L Anion Gap 15.80 H (4.00-12.00) mmol/L BUN 57.0 H (9.0-27.0) mg/dL Creatinine 3.6 H (0.6-1.5) mg/dL Est GFR (CKD-EPI) 18 L (>=60) Alkaline Phosphatase (38-126) U/L Total Protein (6.3-8.2) g/dL Albumin (3.5-5.0) g/dL Procalcitonin 0.52 H (0.02-0.09) ng/mL 03/17/23 Range/Units 06:22 RBC (4.30-5.90) m/uL Hgb (13.0-17.5) gm/dL Hct (39.0-53.0) % Lymphocytes # (1.0-4.8) k/uL Carbon Dioxide (21.6-31.8) mmol/L Anion Gap (4.00-12.00) mmol/L BUN 53 H (9.0-27.0) mg/dL Creatinine 3.17 H (0.6-1.5) mg/dL Est GFR (CKD-EPI) (>=60) Alkaline Phosphatase 260 H (38-126) U/L Total Protein 6.1 L (6.3-8.2) g/dL Albumin 3.3 L (3.5-5.0) g/dL Procalcitonin (0.02-0.09) ng/mL Assessment and Plan Plan: Assessment: 1. Acute kidney injury secondary to hemodynamic ATN further worsened with the use of injury to receptor pablo. Creatinine peaked at 3.6 this admission and is 3.17 today. No proteinuria on UA. 2. Chronic kidney disease stage IIIB/4 with baseline creatinine near 2 secondary to nephrosclerosis and cardiorenal syndrome. 3. Chronic systolic CHF with ejection fraction of 35-40% with severe aortic stenosis, moderate tricuspid regurgitation, severe mitral regurgitation. 4. Coronary artery disease with prior cardiac stenting. 5. A. fib maintained on amiodarone, metoprolol and anticoagulation. Plan: Maintain IV hydration. Avoid nephrotoxins. Continue to monitor renal function and urine output. Check renal ultrasound. Discussed risk of worsening renal function, potentially requiring renal replacement therapy, post-IV contrast exposure. Patient understands. Plan for DEBBY and cardiac cath tomorrow.
--- NOTE | 2023-03-17 13:26 | P.PN ---
Subjective Progress Note Date: 03/17/23 patient is a 67-year-old gentleman with past medical history significant for coronary artery disease, COPD who presented to the ER because of worsening shortness of breath. Patient states that he is unable to take more than a few steps before getting short of breath. Patient stated that he was fairly 6 weeks ago but over the last 6 weeks he has gradually declined. Patient complains of waking up in the middle night gasping for air. Denies any cough. Denies any fever or chills. Denies any swelling of feet. There was no complain of chest pain or palpitation. Because his worsening shortness of breath, patient came to the ER Initial lab work done in the ER showed white count 6.9, hemoglobin 16.2, platelet count 188, sodium 136, potassium 4.5, BUN 53, creatinine 3.09, Chest x-ray done showed mild opacity in the left mid lung field Patient was admitted to internal medicine service 03/16. Patient seen and examined. Denies any further episodes of chest pain or shortness of breath. 03/17. Patient seen and examined. Laying comfortably in the bed. Hemoglobin this morning is 11.3, sodium 137, potassium 4.6, BUN 53, creatinine 3.17. Denies any shortness of breath on exertion REVIEW OF SYSTEMS: CONSTITUTIONAL: No fever, no malaise,. CARDIOVASCULAR: No chest pain, no palpitations, no syncope. PULMONARY: No shortness of breath, no cough, GASTROINTESTINAL: No diarrhea, no nausea, no vomiting, no abdominal pain. NEUROLOGICAL: No headaches, no weakness, PHYSICAL EXAMINATION: GENERAL: The patient is alert and oriented x3, not in any acute distress. Well developed, well nourished. HEENT: Pupils are round and equally reacting to light. EOMI. No scleral icterus. No conjunctival pallor. Normocephalic, atraumatic. No pharyngeal erythema. No thyromegaly. CARDIOVASCULAR: S1 and S2 present. No murmurs, rubs, or gallops. PULMONARY: Chest is clear to auscultation, no wheezing or crackles. ABDOMEN: Soft, nontender, nondistended, normoactive bowel sounds. No palpable organomegaly. MUSCULOSKELETAL: No joint swelling or deformity. EXTREMITIES: No cyanosis, clubbing, or pedal edema. NEUROLOGICAL: Gross neurological examination did not reveal any focal deficits. SKIN: No rashes. Assessment and plan Acute on chronic kidney disease Coronary artery disease with previous stenting of the LAD in 2012 Persistent atrial fibrillation History of ventricular tachycardia, maintained on amiodarone outpatient History of ischemic cardiomyopathy with AICD implantation Aortic stenosis Moderate tricuspid regurg Hypertension Hyperlipidemia COPD Nicotine dependence Monitor vital signs Monitor CBC Monitor CMP Continue telemetry monitoring Hold Losartan due to FEMI Hold diuretics. Monitor kidney function. 2-D echo showed moderate increased left foot and was thickness, LVEF of 35-40%, severe aortic stenosis, moderate tricuspid regurg stress test results showed fixed perfusion deficit, along with a small area of reversibility along the anterior apex Cardiology planning to do cardiac cath and DEBBY tomorrow, nothing by mouth after midnight, hold Eliquis Continue IV fluids Follow-up in nephrology recommendations, Objective - Vital Signs Vital signs: Vital Signs Temp 98.6 F 03/17/23 07:14 Pulse 78 03/17/23 08:01 Resp 17 03/17/23 07:14 BP 157/87 03/17/23 07:14 Pulse Ox 98 03/17/23 07:48 FiO2 Intake & Output 03/16/23 03/17/23 03/17/23 18:59 06:59 18:59 Intake Total 1080 Output Total 56 Balance 1024 Intake: Oral 1080 Output: Post Void Residual 56 Other: Voiding Method Toilet # Voids 3 3 - Labs CBC & Chem 7: 03/17/23 06:22 03/17/23 06:22 Labs: Abnormal Lab Results - Last 24 Hours (Table) 03/15/23 03/16/23 03/17/23 Range/Units 11:36 07:15 06:22 RBC 3.64 L (4.30-5.90) m/uL Hgb 11.3 L D (13.0-17.5) gm/dL Hct 35.3 L (39.0-53.0) % Lymphocytes # 0.9 L (1.0-4.8) k/uL Carbon Dioxide 20.2 L (21.6-31.8) mmol/L Anion Gap 15.80 H (4.00-12.00) mmol/L BUN 57.0 H (9.0-27.0) mg/dL Creatinine 3.6 H (0.6-1.5) mg/dL Est GFR (CKD-EPI) 18 L (>=60) Alkaline Phosphatase (38-126) U/L Total Protein (6.3-8.2) g/dL Albumin (3.5-5.0) g/dL Procalcitonin 0.52 H (0.02-0.09) ng/mL 03/17/23 Range/Units 06:22 RBC (4.30-5.90) m/uL Hgb (13.0-17.5) gm/dL Hct (39.0-53.0) % Lymphocytes # (1.0-4.8) k/uL Carbon Dioxide (21.6-31.8) mmol/L Anion Gap (4.00-12.00) mmol/L BUN 53 H (9.0-27.0) mg/dL Creatinine 3.17 H (0.6-1.5) mg/dL Est GFR (CKD-EPI) (>=60) Alkaline Phosphatase 260 H (38-126) U/L Total Protein 6.1 L (6.3-8.2) g/dL Albumin 3.3 L (3.5-5.0) g/dL Procalcitonin (0.02-0.09) ng/mL
[2023-03-17] MEDS: SODIUM CHLORIDE 0.9% 1,000 ML IV SCH ×2 (14:36→20:43)
--- NOTE | 2023-03-17 14:50 | US ---
EXAMINATION TYPE: US kidneys/renal and bladder DATE OF EXAM: 03/17/2023 COMPARISON: NONE CLINICAL INDICATION: Male, 67 years old with history of ye; Abnormal labs. Patient states he gets s hort of breath when walking. EXAM MEASUREMENTS: Right Kidney: 10.7 x 4.7 x 4.5 cm Left Kidney: 10.6 x 4.2 x 5.6 cm Right Kidney: Upper mid hypoechoic cortical lesion - 0.8 x 0.8 x 0.5 cm Left Kidney: Echogenic in appearance. Moderate Hydronephrosis. Bladder: Distended, anechoic. There may be inferior impression by the prostate. Underlying mass is no t excluded. Consider additional workup of the prostate. Bilateral Jets not seen Incidental Finding: Multiple hypoechoic leisons scattered through out liver. Workup for metastasis is recommended. Incidental finding: Hypoechoic lesion spleen = 1.3 x 1.1 cm. Metastasis is not excluded. This is not a simple cyst. IMPRESSION: 1. Multiple hypoechoic masses within the liver and possibly a single area within the spleen. Findings are suspicious for metastatic disease. Additional workup is recommended. 2. Prominent prostate and inferior impression on urinary bladder. Consider additional workup. 3 small cortical right renal cyst
--- NOTE | 2023-03-17 19:10 | CDI ---
Documentation Clarification Form Date: 03/17/2023 07:08:57 PM From: Missy Rod RN, CCDS Admit Date: 03/15/2023 04:27:00 AM Patient Name: Kaiden Davis Visit Number: [id number] Discharge Date: ATTENTION: The Clinical Documentation Specialists (CDI) and [facility] Coding Staff appreciate your assistance in clarifying documentation. Please respond to the clarification below the line at the bottom and electronically sign. The CDI & [facility] Coding staff will review the response and follow-up if needed. Please note: Queries are made part of the Legal Health Record. If you have any questions, please contact the author of this message via ITS. Dr. Aydin Walters Pneumonia has been documented in the ED assessment, Cardiology and Nephrology consults. Based on this information and the findings below, is there an additional diagnosis that is clinically appropriate for this patient? Patient history/risk factors: FIB CAD, CHF CVA HTN Hyperlipidemia ckd stage 3 Clinical Indicators: 67-year-old female present with complaints of worsening shortness of breath with increased weakness. 03/14 VS: 97/58 83 18 97.7 96% RA 03/14 Labs: WBC 6.9, nA 136, BUN 53 Cr 3.09, Alk Phos 235, Troponin 0.022, BNP 4880, UA: Large Leukocyte Esterase, Urine WBC 14 03/15 Procalcitonin 0.52 03/14 CXR: Mild opacity in the left midlung field, correlate for mild pneumonia. Small left pleural effusion Treatment: Cardiac/Telemetry monitoring Monitor VS, CBC Monitor O2 Sat's Is there an additional diagnosis that is clinically appropriate for this patient? [ ] Pneumonia POA, (further specify treatment) [x ] Pneumonia Ruled out [ ] No additional diagnosis/Not clinically significant [ ] Unable to determine [ ] Other, please specify (Template Last Reviewed: October 2022) MTDD
[2023-03-17] MEDS: ATORVASTATIN 80 MG TAB PO SCH (20:44)
[2023-03-17] MEDS: ISOSORBIDE MONONITRATE ER 15 MG TAB PO SCH (20:44)
[2023-03-17] MEDS: MELATONIN 3 MG TABLET PO SCH (20:45)
[2023-03-17] MEDS: ACETAMINOPHEN TAB 325 MG TAB PO PRN (20:45)
[2023-03-17] MEDS: SODIUM CHLORIDE 0.9% 1,000 ML in EMPTY BAG 1 BAG IV SCH (23:05)
[2023-03-18] MEDS ORDERED: ASPIRIN 325 MG TAB PO ONE (05:00)
[2023-03-18] MEDS ORDERED: ATORVASTATIN 80 MG TAB PO ONE (05:00)
[2023-03-18] MEDS ORDERED: HEPARIN SODIUM,PORCINE 10,000 UNIT in SODIUM CHLORIDE 0.9% 1,000 ML IRRIGATION PRN (07:00)
[2023-03-18] MEDS ORDERED: HEPARIN SODIUM,PORCINE 2,500 UNIT in SODIUM CHLORIDE 0.9% 250 ML IRRIGATION PRN (07:00)
[2023-03-18] MEDS: ALBUTEROL NEBULIZED 2.5 MG/3 ML INHALATION SCH ×4 (07:28→21:25)
[2023-03-18 07:31] LABS: African American GFR (CKD) 26 (>60 ml/min/1.73 sqM); Anion Gap 6 mmol/L; Blood Urea Nitrogen 43 mg/dL (9-20); Calcium 9.4 mg/dL (8.4-10.2); Carbon Dioxide 22 mmol/L (22-30); Chloride 108 mmol/L (98-107); Glucose 89 mg/dL (74-99); Magnesium 2.2 mg/dL (1.6-2.3); Non-African American GFR(CKD) 22 (>60 ml/min/1.73 sqM); Potassium 4.4 mmol/L (3.5-5.1); Sodium 136 mmol/L (137-145)
[2023-03-18] MEDS: AMIODARONE 200 MG TAB PO SCH (08:33)
[2023-03-18] MEDS: FERROUS SULFATE 325 MG TAB PO SCH (08:33)
[2023-03-18] MEDS: METOPROLOL SUCCINATE (ER) 50 MG TAB.ER.24H PO SCH (08:33)
[2023-03-18] MEDS: FINASTERIDE 5 MG TAB PO SCH (08:33)
--- NOTE | 2023-03-18 10:39 | P.PN ---
Subjective Patient is seen in follow-up for acute kidney injury on chronic kidney disease. Renal function improving. Denies active chest pain or shortness of breath. Plan for cardiac cath today. Has been voiding. Receiving IV fluids. Vital signs are stable. General: No acute distress. HEENT: Head exam is unremarkable. LUNGS: No audible rhonchi or wheezes. HEART: Rate and Rhythm are regular. ABDOMEN: Nontender. EXTREMITITES: No edema. Objective - Vital Signs Vital signs: Vital Signs Temp 97.6 F 03/18/23 07:00 Pulse 70 03/18/23 07:45 Resp 21 03/18/23 07:00 BP 146/83 03/18/23 07:00 Pulse Ox 100 03/18/23 07:28 FiO2 Intake & Output 03/17/23 03/18/23 03/18/23 18:59 06:59 18:59 Intake Total 500 Balance 500 Intake: Oral 500 Other: Voiding Method Toilet Toilet # Voids 4 1 - Labs CBC & Chem 7: 03/17/23 06:22 03/18/23 06:50 Labs: Abnormal Lab Results - Last 24 Hours (Table) 03/18/23 Range/Units 06:50 Sodium 136 L (137-145) mmol/L Chloride 108 H (98-107) mmol/L BUN 43 H (9-20) mg/dL Creatinine 2.80 H (0.66-1.25) mg/dL Assessment and Plan Plan: Assessment: 1. Acute kidney injury secondary to hemodynamic ATN further worsened with the use of injury to receptor pablo. Creatinine peaked at 3.6 this admission and is 2.8 today. No proteinuria on UA. Moderate hydronephrosis noted on left side. Bladder mass also not excluded. 2. Chronic kidney disease stage IIIB/4 with baseline creatinine near 2 secondary to nephrosclerosis and cardiorenal syndrome. 3. Chronic systolic CHF with ejection fraction of 35-40% with severe aortic stenosis, moderate tricuspid regurgitation, severe mitral regurgitation. 4. Coronary artery disease with prior cardiac stenting. 5. A. fib maintained on amiodarone, metoprolol and anticoagulation. 6. Liver nodules with concern for metastatic disease. Also possible bladder mass on kidney ultrasound. Plan: Maintain IV hydration - Hep-Lock fluids 6-8 hours post cardiac cath. Avoid nephrotoxins. Continue to monitor renal function and urine output. Consult urology due to concern for bladder mass and hydronephrosis. Consult oncology due to kidney ultrasound findings. Discussed risk of worsening renal function, potentially requiring renal replacement therapy, post-IV contrast exposure. Patient understands. Plan for DEBBY and cardiac cath today.
[2023-03-18] MEDS: BENZOCAINE SPRAY 1 CAN MUCOUS MEM ONE ×2 (12:25→12:31)
[2023-03-18] MEDS ORDERED: HEPARIN SODIUM 1,000 UN/ML (10ML VL) ONE (12:27)
[2023-03-18] MEDS ORDERED: fentaNYL (PF) 50 MCG/ML 2 ML AMP ONE (12:27)
[2023-03-18] MEDS ORDERED: VERAPAMIL 2.5 MG/ML 2 ML AMP ONE (12:27)
[2023-03-18] MEDS ORDERED: IV FLUID CONTINUATION 1,000 ML IV ONE (12:31)
[2023-03-18] MEDS ORDERED: fentaNYL (PF) 50 MCG/1 ML VIAL IVP ONE (12:31)
[2023-03-18] MEDS ORDERED: MIDAZOLAM 2 MG/2 ML VIAL IVP ONE (12:31)
--- NOTE | 2023-03-18 12:55 | P.TEE ---
Description of Procedure(s): Procedure performed: Transesophageal Echocardiogram with color flow doppler, pulsed wave doppler and continuous wave doppler, moderate conscious sedation Moderate conscious sedation: Moderate conscious sedation was supplied with direct supervision of myself using Versed and Fentanyl. Complications: none Indications: Severe aortic stenosis PROCEDURE: After the risks, benefits and alternatives of the above mentioned procedure was explained in detail with the patient, informed consent was obtained. Patient was brought to the lab in a fasting state. Patient was given IV Versed and Fentanyl for sedation. The throat was sprayed with Hurricane to anesthetize the throat. A lubricated Omni probe was then introduced into the esophagus and stomach and multiple views were obtained. 2D echo with color flow doppler, pulsed wave doppler and continuous wave doppler was utilized. Agitated saline bubbles were injected to assess for any intra-atrial shunt. The probe was then removed. Patient tolerated the procedure well. Patient was transferred to the post procedure area in stable and satisfactory condition. FINDINGS: 1. The aortic valve is tricuspid and heavily calcified with severe aortic stenosis with aortic valve area 0.7 cm2 by planimetry. Has moderate to severe aortic insufficiency, likely somewhat influenced by hypertension with systolics in the 170s during procedure. 2. The mitral valve appears be normal with mild to moderate mitral regurgitation. 3. Tricuspid valve is normal with moderate tricuspid regurgitation. 4. The interatrial septum is intact. No evidence of PFO. 5. Left atrial appendage is free of clot. 6. Left ventricular ejection fraction 35-40% with global hypokinesis.
--- NOTE | 2023-03-18 12:59 | P.PN ---
Subjective Progress Note Date: 03/18/23 patient is a 67-year-old gentleman with past medical history significant for coronary artery disease, COPD who presented to the ER because of worsening shortness of breath. Patient states that he is unable to take more than a few steps before getting short of breath. Patient stated that he was fairly 6 weeks ago but over the last 6 weeks he has gradually declined. Patient complains of waking up in the middle night gasping for air. Denies any cough. Denies any fever or chills. Denies any swelling of feet. There was no complain of chest pain or palpitation. Because his worsening shortness of breath, patient came to the ER Initial lab work done in the ER showed white count 6.9, hemoglobin 16.2, platelet count 188, sodium 136, potassium 4.5, BUN 53, creatinine 3.09, Chest x-ray done showed mild opacity in the left mid lung field Patient was admitted to internal medicine service 03/16. Patient seen and examined. Denies any further episodes of chest pain or shortness of breath. 03/17. Patient seen and examined. Laying comfortably in the bed. Hemoglobin this morning is 11.3, sodium 137, potassium 4.6, BUN 53, creatinine 3.17. Denies any shortness of breath on exertion 03/18. Patient seen and examined. Currently nothing by mouth going for DEBBY and cardiac cath today REVIEW OF SYSTEMS: CONSTITUTIONAL: No fever, no malaise,. CARDIOVASCULAR: No chest pain, no palpitations, no syncope. PULMONARY: No shortness of breath, no cough, GASTROINTESTINAL: No diarrhea, no nausea, no vomiting, no abdominal pain. NEUROLOGICAL: No headaches, no weakness, PHYSICAL EXAMINATION: GENERAL: The patient is alert and oriented x3, not in any acute distress. Well developed, well nourished. HEENT: Pupils are round and equally reacting to light. EOMI. No scleral icterus. No conjunctival pallor. Normocephalic, atraumatic. No pharyngeal erythema. No thyromegaly. CARDIOVASCULAR: S1 and S2 present. No murmurs, rubs, or gallops. PULMONARY: Chest is clear to auscultation, no wheezing or crackles. ABDOMEN: Soft, nontender, nondistended, normoactive bowel sounds. No palpable organomegaly. MUSCULOSKELETAL: No joint swelling or deformity. EXTREMITIES: No cyanosis, clubbing, or pedal edema. NEUROLOGICAL: Gross neurological examination did not reveal any focal deficits. SKIN: No rashes. Assessment and plan Acute on chronic kidney disease Coronary artery disease with previous stenting of the LAD in 2011 Persistent atrial fibrillation History of ventricular tachycardia, maintained on amiodarone outpatient History of ischemic cardiomyopathy with AICD implantation Hypoechoic masses in the liver suspicious for metastatic disease Aortic stenosis Moderate tricuspid regurg Hypertension Hyperlipidemia COPD Nicotine dependence Monitor vital signs Monitor CBC Monitor CMP Continue telemetry monitoring Hold Losartan due to FEMI Hold diuretics. Monitor kidney function. 2-D echo showed moderate increased left foot and was thickness, LVEF of 35-40%, severe aortic stenosis, moderate tricuspid regurg stress test results showed fixed perfusion deficit, along with a small area of reversibility along the anterior apex Ultrasound abdomen showed hypoechoic masses in the liver suspicious for metastatic disease, also showed enlarged prostrate possible bladder mass Cardiology planning to do cardiac cath and DEBBY today Continue IV fluids Urology consulted Consult oncology Follow-up in nephrology recommendations, Objective - Vital Signs Vital signs: Vital Signs Temp 97.6 F 03/18/23 07:00 Pulse 70 03/18/23 11:59 Resp 21 03/18/23 07:00 BP 146/83 03/18/23 07:00 Pulse Ox 100 03/18/23 07:28 FiO2 Intake & Output 03/17/23 03/18/23 03/18/23 18:59 06:59 18:59 Intake Total 500 50 Balance 500 50 Intake: IV 50 Oral 500 Other: Voiding Method Toilet Toilet # Voids 4 1 - Labs CBC & Chem 7: 03/17/23 06:22 03/18/23 06:50 Labs: Abnormal Lab Results - Last 24 Hours (Table) 03/18/23 Range/Units 06:50 Sodium 136 L (137-145) mmol/L Chloride 108 H (98-107) mmol/L BUN 43 H (9-20) mg/dL Creatinine 2.80 H (0.66-1.25) mg/dL
[2023-03-18] MEDS ORDERED: IV FLUID CONTINUATION 900 ML IV ONE (13:00)
[2023-03-18] MEDS ORDERED: LIDOCAINE 1% INJ 10MG/ML (5 ML VIAL-PF) SQ ONE ×2 (13:02→13:05)
[2023-03-18] MEDS ORDERED: VERAPAMIL SYRINGE (5 MG/10 ML) INTRAARTER ONE (13:04)
[2023-03-18] MEDS: HEPARIN SODIUM 1,000 UN/ML (10ML VL) IV ONE ×2 (13:23→13:31)
[2023-03-18 13:28] LABS: O2 Sat Blood Gas 83.7 %
[2023-03-18 13:35] LABS: O2 Sat Blood Gas 57.3 %
[2023-03-18 13:38] LABS: O2 Sat Blood Gas 54.8 %
[2023-03-18] MEDS ORDERED: IOPAMIDOL-370 100ML BTL INJ ONE (13:49)
[2023-03-18] MEDS: SODIUM CHLORIDE 0.9% 1,000 ML in EMPTY BAG 1 BAG IV SCH (14:45)
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
[2023-03-18] MEDS: ACETAMINOPHEN TAB 325 MG TAB PO PRN (20:38)
[2023-03-18] MEDS: ATORVASTATIN 80 MG TAB PO SCH (20:38)
[2023-03-18] MEDS: APIXABAN 2.5 MG TABLET PO SCH (20:38)
[2023-03-18] MEDS: MELATONIN 3 MG TABLET PO SCH (20:38)
[2023-03-18] MEDS: ISOSORBIDE MONONITRATE ER 15 MG TAB PO SCH (21:02)
--- NOTE | 2023-03-18 22:16 | P.CARDCATH ---
Description of Procedure: PROCEDURES PERFORMED: Left heart catheterization, right heart catheterization, bilateral coronary angiography, ultrasound guided arterial access, iFR LAD, iFR circumflex, iFR RCA INDICATION: Severe aortic stensosis, CKD CONSENT:I have discussed the risks, benefits and alternative therapies for the above-mentioned procedure and for both sedation/analgesia as well as necessary blood product administration, if indicated, as they pertain to this patient. The patient has indicated understanding and acceptance of the risks and proce dures discussed. PROCEDURE: After the risks, benefits and alternatives of the above mentioned procedure explained in detail with the patient, informed consent was obtained. Patient was taken to the catheterization lab and prepped and draped in usual fashion. Ultrasound guidance was used to assess for arterial access. 1% lidocaine was used to anesthetize the right radial artery and right brachial area. A 6-Chinese sheath was placed in the right radial artery and another 6Fr sheath in the right brachial vein using modified Seldinger technique and ultrasound guidance. A 5Fr [place] Oneyda catheter was inserted into the PCWP, PA, RV and RA position and pressure and oxygen saturation measurements were made. Thermodilution was performed. Left coronary angiography was performed with a 5- Chinese JL 3.5 catheter and right coronary angiography was performed with a 5- Chinese JR5 catheter in various views. Very limited views were made to avoid significant contrast use. Therefore additional assessment with iFR was recommended. Using the 5FR FR5 catheter, a 0.014 pressure wire was advanced into the proximal RCA and normalized. The wire was then advanced 1cm distal to the mid to distal RCA lesion (in the distal RCA) and iFR was performed and was normal at 1.0. There was no drift. The lesion appears more significant however there was a fixed inferior defect on prior nuclear and may have already had infarct which will make iFR/FFR normal. Next using the 5FR FL 3.5, the pressure wire was advanced into the left main and then into the distal OM1 and was normal at 0.90. Next the pressure wire was positioned into the mid LAD, just after the LAD stent and this was abnormal at 0.85 with pullback showing most of the pressure drop across the LAD stent. A 5-Chinese FR5 catheter was inserted into the left ventricle and pressure measurements were obtained. The right radial sheath was removed and a TR band was placed with hemostasis achieved. The venous sheath was pulled and manual pressure held. The patient tolerated the procedure well. Patient was transported back to the post catheterization holding area in stable condition. Conscious Sedation: Patient was monitored under the direct supervision of myself for conscious sedation using Versed and fentanyl for a total duration of 50 minutes HEMODYNAMICS: Aorta: 138/76 LV: 148/18, LVEDP 22 Peak to peak gradient of 17mmHg with a mean gradient of 20mmHg, likely underestimated due to low flow low gradient PCWP: 14 PA: 42/16 (27) RV: 41/4 RA: 8 PA oxygen saturation: 57% RA oxygen saturation: 55% Right radial oxygen saturation: 84% Cardiac outpt by NICHOL: 7.5L/min Cardiac index by NICHOL: 3.6L/min/m2 Cardiac outpt by thermodilution: 4.7L/min Cardiac index by thermodilution: 2.2L/min/m2 SELECTIVE CORONARY ARTERIOGRAPHY: LEFT MAIN: The left main is a large caliber vessel which bifurcates into the LAD and circumflex. There is distal left main 20% stenosis. LEFT ANTERIOR DESCENDING CORONARY ARTERY: LAD is a large caliber vessel which wraps around to the apex. There is mild proximal 30% stenosis and a mid LAD stent with 60-70% instent stenosis and otherwise mild luminal irregularities LEFT CIRCUMFLEX CORONARY ARTERY: Left circumflex is a moderate caliber vessel. The circumflex gives off a moderate caliber OM1 and there is a 50% mid OM1 stenosis and otherwise mild luminal irregularities. RIGHT CORONARY ARTERY: The right coronary artery is a large caliber vessel which gives off a PDA and PLV branch and is the dominant vessel. There is diffuse 30- 40% proximal and mid RCA stenosis with a proximal 80% RCA stenosis. Otherwise the RCA has mild luminal irregularities and there is a mid PLV 60-70% stenosis. FINAL IMPRESSION: 1. CAD as described above including 20% left main, 60-70% mid LAD instent steno sis, 50% OM1 and 80% RCA stenosis. 2. Previous nuclear imaging with fixed inferior defect, may be related to prior infarction 3. Normal iFR RCA however angiographically appears significant. May occur if previous infarct in this territory 4. Normal iFR OM1, abnormal iFR of mid LAD, mainly at LAD stent 5. Low normal cardiac outpt/ cardiac index 6. Elevated left sided filling pressures 7. Aortic stenosis, degree underestimated due to low flow low gradient PLAN: 1. Aggressive risk factor modification per most recent ACC/AHA guidelines. 2. Further assessment for aortic valve replacement 3. Given iFR RCA normal and LAD abnormality mainly occuring instent with increased risk of restenosis, would continue with medical therapy. If continuing to have angina could reassess RCA lesions. 4. IVF hydration
[2023-03-19 03:00] LABS: Alpha Fetoprotein, Tumor Mkr <3.00 ng/mL (0.00-7.90); Carcinoembryonic Antigen 4.6 ng/mL (0.0-4.9)
[2023-03-19] MEDS: SODIUM CHLORIDE 0.9% 1,000 ML IV SCH ×2 (06:44→09:40)
[2023-03-19] MEDS: ALBUTEROL NEBULIZED 2.5 MG/3 ML INHALATION SCH ×4 (07:53→21:49)
--- NOTE | 2023-03-19 08:40 | CT ---
EXAMINATION TYPE: CT ChestAbdPelvis wo con DATE OF EXAM: 03/18/2023 COMPARISON: Old CT chest 03/14/2012 HISTORY: 67-year-old male further evaluation of liver, kidney, splenic lesions TECHNIQUE: Contiguous axial scanning of the chest, abdomen, pelvis without IV contrast. Coronal and s agittal reconstructions performed. CT DLP: 660.1 mGycm Automated exposure control for dose reduction was used. FINDINGS: Chest: Left anterior chest wall pacemaker generator with right atrial and right ventricular leads. Heart borderline in size without pericardial effusion. Moderate aortic valvular calcifications are no tita. Three-vessel coronary artery calcifications, extensive within the LAD, marker for coronary arter y disease. Mild aneurysm ascending aorta 4.0 cm. Moderate atherosclerotic arch calcifications with variant direc t takeoff of the left vertebral artery directly from the aortic arch. Ectatic upper descending thorac ic aorta 3.2 cm and mild aneurysm lower descending thoracic aorta at 3.0 cm. * Increasing mediastinal soft tissue comprised of lymph nodes measuring up to 3.0 x 2.3 cm precarina l, 2.8 cm subcarinal, left lower paratracheal soft tissue with partial encasement of the proximal lef t mainstem bronchus and extension to the anterior wall of the upper descending thoracic aorta. * Abnormal soft tissue cuts off the lingual and left lower lobe bronchus. Abnormal soft tissue densi ty here is estimated to measure 5.5 x 5.1 cm. * Posterior left basilar pulmonary nodule 1.6 cm. * Subpleural mass lateral left base 3.3 cm. * Suspect distal airway mucoid impaction in the basilar left lower lobe. * Small left pleural effusion with some scattered pleural-based calcifications lateral left base. * 5 mm posterior left upper lobe pulmonary nodule. * 7 mm pulmonary nodule superior segment left lower lobe. * A few for a 5 mm pulmonary nodules lateral left midlung. Trace right effusion with some pleural parenchymal scarring posterior right base. Background moderate emphysematous change. ABDOMEN: Innumerable hepatic lesions are nonspecific. These do not appear to have been present on 03/14/2012 ex am suggesting numerous new lesions measuring up to 2.7 cm. No abnormal gallbladder distention. Adrenal glands and pancreas within normal limits. Some faintly excreting contrast from the right kidney. There is moderate left-sided hydronephrosis bu t no distal obstructing stone seen. Possible UPJ obstruction, new from 2017. No discrete obstructing mass or lesion is identified. Consider further urology evaluation. Small anterior splenule. 1.1 cm hypodense lesion inferior aspect of the spleen. Moderate atherosclerotic calcifications infrarenal abdominal aorta and iliac arteries. No dilated small bowel, free fluid, or free air. A couple borderline to mildly enlarged mesenteric lymph nodes are noted measuring up to 1.2 cm on the right and 1.3 cm on the left. Normal appendix. Left-sided colonic diverticulosis, more extensive in the sigmoid colon. No pericolon ic inflammatory change. Pelvis: Mild to moderate circumferential bladder wall thickening. Some excreted contrast located within the l umen of the bladder. Prostate gland is enlarged 5.9 cm wide. A 1.3 cm left perirectal lymph node and trace nonspecific pelvic free fluid. Bones: Vague sclerosis T5 and L1 vertebral bodies as well as a focus within the upper sternal body. IMPRESSION: 1. PERICARINAL AND LEFT HILAR NEOPLASTIC SOFT TISSUE PARTIALLY ENCASING THE LEFT MAINSTEM BRONCHUS AN D CUTTING OFF THE LINGULAR AND LEFT LOWER LOBE BRONCHUS. MASS AT THE LEFT INFRAHILAR LEVEL MEASURING UP TO TO 5.5 CM. 2. ADDITIONAL LOWER PARATRACHEAL AND SUBCARINAL LYMPHADENOPATHY. SOFT TISSUE EXTENDS TO THE ANTERIOR WALL OF THE UPPER DESCENDING THORACIC AORTA WHERE THERE IS SOME LOSS OF THE INTERVENING FAT PLANE WHI CH COULD REFLECT EARLY INVASION. 3. SMALL LEFT AND TRACE RIGHT EFFUSIONS. A FEW PULMONARY NODULES THROUGHOUT THE LEFT LUNG MEASURING U P TO 3.3 CM AND THE SMALLEST 4 MM. 4. NEW INNUMERABLE HEPATIC METASTASES MEASURING UP TO 2.7 CM. SUSPECT A SMALL 1.1 CM METASTASIS TO TH E INFERIOR SPLEEN. A COUPLE METASTATIC MESENTERIC LYMPH NODES MEASURING UP TO 1.3 CM AND A LEFT PERIR ECTAL SOFT TISSUE DEPOSIT MEASURING 1.3 CM. 5. SUSPECT SUBTLE OSSEOUS METASTATIC DISEASE CHARACTERIZED BY VAGUE SCLEROSIS AT T5 AND L1. ALSO WITH IN THE UPPER STERNAL BODY. 6. New moderate left hydronephrosis, possible UPJ obstruction. No obstructing mass or stone is seen. Recommend further urology evaluation. 7. Prostatomegaly at 5.9 cm wide. Left-sided colonic diverticulosis.
[2023-03-19] MEDS: FERROUS SULFATE 325 MG TAB PO SCH (09:37)
[2023-03-19] MEDS: FINASTERIDE 5 MG TAB PO SCH (09:37)
[2023-03-19] MEDS: APIXABAN 2.5 MG TABLET PO SCH (09:37)
[2023-03-19] MEDS: AMIODARONE 200 MG TAB PO SCH (09:37)
[2023-03-19] MEDS: ALPRAZolam 0.5 MG TAB PO PRN ×2 (09:38→22:49)
[2023-03-19] MEDS: METOPROLOL SUCCINATE (ER) 25 MG TAB.ER.24H PO SCH (09:38)
[2023-03-19] MEDS: ACETAMINOPHEN TAB 325 MG TAB PO PRN ×2 (09:42→20:21)
[2023-03-19 10:25] LABS: ALT 27 U/L (4-49); AST 32 U/L (17-59); African American GFR (CKD) 29 (>60 ml/min/1.73 sqM); Albumin 3.3 g/dL (3.5-5.0); Alkaline Phosphatase 279 U/L (38-126); Anion Gap 10 mmol/L; Blood Urea Nitrogen 40 mg/dL (9-20); Calcium 9.7 mg/dL (8.4-10.2); Carbon Dioxide 17 mmol/L (22-30); Chloride 110 mmol/L (98-107); Glucose 99 mg/dL (74-99); Non-African American GFR(CKD) 25 (>60 ml/min/1.73 sqM); Sodium 137 mmol/L (137-145); Total Bilirubin 0.7 mg/dL (0.2-1.3); Total Protein 6.1 g/dL (6.3-8.2)
--- NOTE | 2023-03-19 10:29 | P.PN ---
Subjective Patient is seen in follow-up for acute kidney injury on chronic kidney disease. Renal function improving. Creatinine 2.8 yesterday. Denies active chest pain or shortness of breath. Has been voiding. Vital signs are stable. General: No acute distress. HEENT: Head exam is unremarkable. LUNGS: No audible rhonchi or wheezes. HEART: Rate and Rhythm are regular. ABDOMEN: Nontender. EXTREMITITES: No edema. Objective - Vital Signs Vital signs: Vital Signs Temp 97.9 F 03/19/23 08:00 Pulse 96 03/19/23 08:04 Resp 16 03/19/23 08:00 BP 152/85 03/19/23 08:00 Pulse Ox 95 03/19/23 08:00 FiO2 Intake & Output 03/18/23 03/19/23 03/19/23 18:59 06:59 18:59 Intake Total 418 960 180 Balance 418 960 180 Intake: IV 300 Intake, IV Titration 0 Amount Sodium Chloride 0.9% 1, 0 000 ml @ 60 mls/hr IV . [id number] [facility] Rx#:[id number] Oral 118 960 180 Other: Voiding Method Toilet Toilet Toilet # Voids 1 3 - Labs CBC & Chem 7: 03/17/23 06:22 03/18/23 06:50 Labs: Abnormal Lab Results - Last 24 Hours (Table) 03/18/23 Range/Units 06:50 CA 19-9 Antigen 2612.0 H (0.0-34.9) U/mL Assessment and Plan Plan: Assessment: 1. Acute kidney injury secondary to hemodynamic ATN further worsened with the use of injury to receptor pablo. Creatinine peaked at 3.6 this admission - 2.8 yesterday. No proteinuria on UA. Moderate hydronephrosis noted on left side. Bladder mass also not excluded. 2. Chronic kidney disease stage IIIB/4 with baseline creatinine near 2 secondary to nephrosclerosis and cardiorenal syndrome. 3. Chronic systolic CHF with ejection fraction of 35-40% with severe aortic stenosis, moderate tricuspid regurgitation, severe mitral regurgitation. 4. Coronary artery disease with prior cardiac stenting. Cardiac cath on 03/18/2023 showed coronary artery disease and aortic stenosis. 5. A. fib maintained on amiodarone, metoprolol and anticoagulation. 6. Liver nodules with concern for metastatic disease. Also possible bladder mass on kidney ultrasound. Oncology following. CAT scan showed left main stem mass. Lymphadenopathy also noted. Biopsy pending. Plan: Encouraged oral intake. Avoid nephrotoxins. Continue to monitor renal function and urine output. Urology consulted due to concern for bladder mass and hydronephrosis. Monitor for contrast-induced FEMI.
--- NOTE | 2023-03-19 10:34 | P.PN ---
Subjective Progress Note Date: 03/19/23 HISTORY OF PRESENT ILLNESS: This is a 67-year-old male with a past medical history significant for coronary artery disease with PCI to LAD in 2011, ischemic cardiomyopathy with AICD implantation, ventricular tachycardia, hypertension, hyperlipidemia, COPD, persistent atrial fibrillation, chronic kidney disease, and nicotine dependence. Patient follows in the office with Dr. Ramos. We have been asked to see the patient in consultation for "cardiac history". Patient examined at the bedside. The patient presented to the hospital for chief complaint of shortness of breath. The patient states he has been feeling short of breath for the past month. He states that he used to be fairly active and over the course of the last 4-6 weeks he has had not been able to do as much as he used to. 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 His metoprolol was increased to 75 mg daily. The patient states he was unable to tolerate this and felt extremely weak and tired and decreased his dose back down to 50 mg. He also reports that he increased his dose of Lasix by himself on an outpatient basis. He states that he usually takes 40 mg in the morning but was taking an extra dose of his Lasix at night. He states that this helped his symptoms. He states that he usually wakes up in the middle of the night short of breath and cannot lay flat. However, with the increased dose of Lasix in the evening he has been able to get some sleep the past couple nights. He also reports he gets chest discomfort when he lays down related to shortness of breath. He also reports feeling lightheaded and dizzy when he stands up. He denies any syncopal episodes. The patient was found to have worsening kidney function in comparison to his previous creatinine last year. He denies the use of any NSAIDs. He reports adequate fluid intake at home. * EKG reveals atrial fibrillation with controlled ventricular rate. ST depression in V6, seen on previous EKG * Chest xray mild opacity in the left midlung field, correlate for mild pneumonia. Small left pleural effusion.. * Laboratory data: WBC 6.9. Hemoglobin 16.2. Platelet count 188. Sodium 136. Potassium 4.5. BUN 53. Creatinine 3.09. Troponin negative 1. ProBNP 4880. * Current home cardiac medications include Eliquis 5mg BID, amiodarone 200 mg daily, Lasix 40 mg daily, losartan 25 mg daily, metoprolol succinate 50 mg daily * Most recent echocardiogram obtained in September 2021 reveals ejection fraction 50-55%, mild aortic regurgitation, moderate aortic stenosis, [id number] mitral regurgitation, severe tricuspid regurgitation, and moderate pulmonary hypertension * Cardiac catheterization history: December 2018 revealing stable coronary artery disease with patent stent in the mid LAD, diffuse plaque throughout the coronary system, and intermediate disease in the proximal RCA. Medical management was recommended. * Patient underwent Lexiscan stress test in January 2021 which was negative for reversible ischemia. Revealed mild fixed defect in the inferior wall with out any reversible ischemia. Ejection fraction 43%. 03/16/2023 Patient examined this morning at the bedside. Patient denies chest pain or pressure. He denies shortness of breath. Patient remains in atrial fibrillation with controlled ventricular rate. Vital signs are stable. Blood pressure 127/74. Patient's creatinine yesterday increased up to 3.58. Repeat kidney function this morning is currently pending. Addendum entered and electronically signed by Mayra Patino NP-C 03/16/23 12:21: Lexiscan stress test revealed fixed perfusion defect along the entire inferior wall extending to the apex. Correlate for history of prior infarct. There may be a small area of reversibility along the anterior apex. Lexiscan stress test reviewed with Dr. Jenkins. No plans for cardiac catheterization at this time secondary to patient's kidney function. We will continue with conservative management at this time. 03/17/2023 Patient examined this morning at the bedside. Patient denies chest pain or pressure. He denies shortness of breath. Patient has been receiving IV fluids. His creatinine this morning is slightly better at 3.17. Echocardiogram completed revealing ejection fraction 35-40%, mild mitral regurgitation, severe aortic stenosis with low-flow low gradient, and moderate tricuspid regurgitation 03/19 Yesterday, patient underwent DEBBY and cardiac catheterization by Dr. Jenkins. EEG revealed moderate to severe aortic insufficiency, EF 35-40%, mild to moderate atrial regurgitation, moderate tricuspid regurgitation, left atrial appendage free of clot. Cardiac catheterization revealed CAD including 20% left main, 60-70% mid LAD instent stenosis, 50% OM1 and 80% RCA stenosis. Normal iFR RCA however angiographically appears significant. May occur if previous infarct in this territory. Normal iFR OM1, abnormal iFR of mid LAD, mainly at LAD stent. Low normal cardiac outpt/ cardiac index. Aortic stenosis. Recommendations are for aggressive risk factor modification. However patient continues to have angina would reassess RCA lesions. Patient is seen today in follow-up on the cardiac stepdown unit. He underwent CT of the chest, abd and pelvis with reveals neoplastic process encasing bronchus, lung mass, metastasis to the inferior spleen and T4, L1. Patient states that the reason he came in the hospital was because of inability to walk or shortness of breath and dyspnea on exertion, unable to sleep with pressure in his lungs and felt like he was having panic attacks. Heart rate is running in the 90s, blood pressure 152/85. PHYSICAL EXAM: VITAL SIGNS: Reviewed. GENERAL: Well-developed in no acute distress. HEENT: Head is normocephalic. Pupils are equal, round. Sclerae anicteric. Mucous membranes of the mouth are moist. Neck supple. No JVD or thyromegaly LUNGS: Respirations even and unlabored. Lungs essentially clear to auscultation bilaterally. HEART: Irregular rate and rhythm. S1 and S2 heard. + systolic murmur. ABDOMEN: Soft. Nondistended. Nontender. EXTREMITIES: Normal range of motion. No clubbing or cyanosis. Peripheral pulses intact. No lower extremity edema NEUROLOGIC: Awake and alert. Oriented x 3. ASSESSMENT: Possible left-sided pneumonia Shortness of breath with orthopnea and PND x 1 month, possible anginal equivalent Acute on chronic kidney disease Coronary artery disease with previous stenting of the LAD in 2012 Persistent atrial fibrillation History of ventricular tachycardia, maintained on amiodarone outpatient History of ischemic cardiomyopathy with AICD implantation, EF 35-40% Valvular heart disease Severe aortic stenosis Hypertension Hyperlipidemia COPD Nicotine dependence Metastatic disease PLAN: Increase metoprolol succinate to 75 mg daily Continue other cardiac medications that he is currently receiving No further cardiac workup at this time Recommend attending discuss neoplastic process and plan Cardiology we'll sign off and follow on an as-needed basis. Please reconsult for any new concern. Nurse practitioner note has been reviewed by physician. Signing provider agrees with the documented findings, assessment, and plan of care. Objective - Vital Signs Vital signs: Vital Signs Temp 97.5 F L 03/19/23 02:00 Pulse 96 03/19/23 08:04 Resp 16 03/19/23 02:00 BP 148/74 03/19/23 02:00 Pulse Ox 97 03/19/23 07:54 FiO2 Intake & Output 03/18/23 03/19/23 03/19/23 18:59 06:59 18:59 Intake Total 418 960 Balance 418 960 Intake: IV 300 Intake, IV Titration 0 Amount Sodium Chloride 0.9% 1, 0 000 ml @ 60 mls/hr IV . [id number] [facility] Rx#:[id number] Oral 118 960 Other: Voiding Method Toilet Toilet # Voids 1 3 - Labs CBC & Chem 7: 03/17/23 06:22 03/19/23 09:50 Labs: Abnormal Lab Results - Last 24 Hours (Table) 03/18/23 Range/Units 06:50 CA 19-9 Antigen 2612.0 H (0.0-34.9) U/mL
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
--- NOTE | 2023-03-19 13:27 | P.PN ---
Subjective Progress Note Date: 03/19/23 patient is a 67-year-old gentleman with past medical history significant for coronary artery disease, COPD who presented to the ER because of worsening shortness of breath. Patient states that he is unable to take more than a few steps before getting short of breath. Patient stated that he was fairly 6 weeks ago but over the last 6 weeks he has gradually declined. Patient complains of waking up in the middle night gasping for air. Denies any cough. Denies any fever or chills. Denies any swelling of feet. There was no complain of chest pain or palpitation. Because his worsening shortness of breath, patient came to the ER Initial lab work done in the ER showed white count 6.9, hemoglobin 16.2, platelet count 188, sodium 136, potassium 4.5, BUN 53, creatinine 3.09, Chest x-ray done showed mild opacity in the left mid lung field Patient was admitted to internal medicine service 03/16. Patient seen and examined. Denies any further episodes of chest pain or shortness of breath. 03/17. Patient seen and examined. Laying comfortably in the bed. Hemoglobin this morning is 11.3, sodium 137, potassium 4.6, BUN 53, creatinine 3.17. Denies any shortness of breath on exertion 03/18. Patient seen and examined. Currently nothing by mouth going for DEBBY and cardiac cath today 03/19. Patient seen and examined. Patient had cardiac cath And DEBBY done yesterday. CT abdomen showed pericarinal and left hilar neoplastic soft tissue partially encasing the left mainstem bronchus and cutting off the lingula and left lower lobe bronchus.mass at left infrahilar level measuring up to 5.5 cm. Additional lower paratracheal and subcarinal lymphadenopathy. oncology and urology following REVIEW OF SYSTEMS: CONSTITUTIONAL: No fever, no malaise,. CARDIOVASCULAR: No chest pain, no palpitations, no syncope. PULMONARY: No shortness of breath, no cough, GASTROINTESTINAL: No diarrhea, no nausea, no vomiting, no abdominal pain. NEUROLOGICAL: No headaches, no weakness, PHYSICAL EXAMINATION: GENERAL: The patient is alert and oriented x3, not in any acute distress. Well developed, well nourished. HEENT: Pupils are round and equally reacting to light. EOMI. No scleral icterus. No conjunctival pallor. Normocephalic, atraumatic. No pharyngeal erythema. No thyromegaly. CARDIOVASCULAR: S1 and S2 present. No murmurs, rubs, or gallops. PULMONARY: Chest is clear to auscultation, no wheezing or crackles. ABDOMEN: Soft, nontender, nondistended, normoactive bowel sounds. No palpable organomegaly. MUSCULOSKELETAL: No joint swelling or deformity. EXTREMITIES: No cyanosis, clubbing, or pedal edema. NEUROLOGICAL: Gross neurological examination did not reveal any focal deficits. SKIN: No rashes. Assessment and plan Acute on chronic kidney disease Coronary artery disease with previous stenting of the LAD in 2012 Persistent atrial fibrillation History of ventricular tachycardia, maintained on amiodarone outpatient History of ischemic cardiomyopathy with AICD implantation lung mass Hypoechoic masses in the liver suspicious for metastatic disease Severe Aortic stenosis Moderate tricuspid regurg Hypertension Hyperlipidemia COPD Nicotine dependence Monitor vital signs Monitor CBC Monitor CMP Continue telemetry monitoring Hold Losartan due to FEMI Hold diuretics. Monitor kidney function. 2-D echo showed moderate increased left foot and was thickness, LVEF of 35-40%, severe aortic stenosis, moderate tricuspid regurg stress test results showed fixed perfusion deficit, along with a small area of reversibility along the anterior apex Ultrasound revealed incidental finding of multiple hypoechoic masses within the liver and possibly some area within the spleen. Prominent prostate and inferior impression on urinary bladder and small cortical right renal cyst. cardiac cath done showing coronary disease 20% left main, 60-70% mid LAD instent stenosis, 50% OM1 and 80% RCA stenosis.Given iFR RCA normal and LAD abnormality mainly occuring instent with increased risk of restenosis, cardiology recommended to continue with medical therapy TEEdone showed with severe aortic stenosis,moderate to severe aortic i nsufficiency Continue IV fluids CT abdominal pelvis ordered, patient seen by oncology, they ordered CT and tumor markers.CT abdomen showed pericarinal and left hilar neoplastic soft tissue partially encasing the left mainstem bronchus and cutting off the lingula and left lower lobe bronchus.mass at left infrahilar level measuring up to 5.5 cm. Additional lower paratracheal and subcarinal lymphadenopathy. CT surgery consulted for severe aortic stenosis follow-up on oncology recommendations Follow-up in nephrology recommendations, follow-up on cardiology recommendations Follow-up on urology recommended Objective - Vital Signs Vital signs: Vital Signs Temp 97.9 F 03/19/23 08:00 Pulse 96 03/19/23 08:04 Resp 16 03/19/23 08:00 BP 152/85 03/19/23 08:00 Pulse Ox 95 03/19/23 08:00 FiO2 Intake & Output 03/18/23 03/19/23 03/19/23 18:59 06:59 18:59 Intake Total 418 960 180 Balance 418 960 180 Intake: IV 300 Intake, IV Titration 0 Amount Sodium Chloride 0.9% 1, 0 000 ml @ 60 mls/hr IV . [id number] [facility] Rx#:[id number] Oral 118 960 180 Other: Voiding Method Toilet Toilet Toilet # Voids 1 3 - Labs CBC & Chem 7: 03/17/23 06:22 03/19/23 09:50 Labs: Abnormal Lab Results - Last 24 Hours (Table) 03/18/23 Range/Units 06:50 CA 19-9 Antigen 2612.0 H (0.0-34.9) U/mL
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
[2023-03-19] MEDS: MELATONIN 3 MG TABLET PO SCH (20:21)
[2023-03-19] MEDS: SODIUM BICARBONATE TAB 650 MG TAB PO SCH (20:21)
[2023-03-19] MEDS: ATORVASTATIN 80 MG TAB PO SCH (20:21)
[2023-03-19] MEDS: ISOSORBIDE MONONITRATE ER 15 MG TAB PO SCH (20:21)
[2023-03-20] MEDS: ALBUTEROL NEBULIZED 2.5 MG/3 ML INHALATION SCH ×4 (07:45→21:34)
[2023-03-20] MEDS: FERROUS SULFATE 325 MG TAB PO SCH (08:36)
[2023-03-20] MEDS: METOPROLOL SUCCINATE (ER) 25 MG TAB.ER.24H PO SCH (08:36)
[2023-03-20] MEDS: AMIODARONE 200 MG TAB PO SCH (08:36)
[2023-03-20] MEDS: FINASTERIDE 5 MG TAB PO SCH (08:36)
[2023-03-20] MEDS: SODIUM BICARBONATE TAB 650 MG TAB PO SCH ×2 (08:36→21:32)
[2023-03-20 08:55] LABS: ALT 31 U/L (4-49); AST 35 U/L (17-59); African American GFR (CKD) 28 (>60 ml/min/1.73 sqM); Albumin 3.3 g/dL (3.5-5.0); Alkaline Phosphatase 317 U/L (38-126); Anion Gap 7 mmol/L; Blood Urea Nitrogen 39 mg/dL (9-20); Calcium 9.6 mg/dL (8.4-10.2); Carbon Dioxide 23 mmol/L (22-30); Chloride 106 mmol/L (98-107); Glucose 99 mg/dL (74-99); Magnesium 2.2 mg/dL (1.6-2.3); Non-African American GFR(CKD) 24 (>60 ml/min/1.73 sqM); Potassium 4.7 mmol/L (3.5-5.1); Sodium 136 mmol/L (137-145); Total Bilirubin 0.5 mg/dL (0.2-1.3)
--- NOTE | 2023-03-20 09:02 | P.PN ---
Subjective Progress Note Date: 03/19/23 Principal diagnosis: SOB, lung mass/liver lesions At today's visit patient is resting comfortably in bed. He is reporting persisting fatigue. He is reporting frustration in regards with his cardiac issues and feels like "nothing is being done." Discussed in detail CT findings with patient and need for biopsy. Objective - Vital Signs Vital signs: Vital Signs Temp 97.9 F 03/19/23 08:00 Pulse 100 03/19/23 16:00 Resp 16 03/19/23 14:00 BP 157/73 03/19/23 16:00 Pulse Ox 97 03/19/23 16:00 FiO2 Intake & Output 03/19/23 03/19/23 03/20/23 06:59 18:59 06:59 Intake Total 960 540 Balance 960 540 Intake: Intake, IV Titration 0 Amount Sodium Chloride 0.9% 1, 0 000 ml @ 60 mls/hr IV . [id number] [facility] Rx#:[id number] Oral 960 540 Other: Voiding Method Toilet Toilet # Voids 3 - Constitutional General appearance: Present: average body habitus, no acute distress - EENT Eyes: Present: anicteric sclerae, EOMI ENT: Present: hearing grossly normal - Respiratory Details: breathing is even and unlabored - Cardiovascular Details: skin warm and dry - Integumentary Integumentary: Absent: cyanotic, rash - Neurologic Neurologic Comment(s): grossly intact - Musculoskeletal Musculoskeletal: Present: strength equal bilaterally - Psychiatric Psychiatric: Present: A&O x's 3, appropriate affect, intact judgment & insight - Labs CBC & Chem 7: 03/17/23 06:22 03/19/23 09:50 Labs: Abnormal Lab Results - Last 24 Hours (Table) 03/18/23 03/19/23 Range/Units 06:50 09:50 Chloride 110 H (98-107) mmol/L Carbon Dioxide 17 L (22-30) mmol/L BUN 40 H (9-20) mg/dL Creatinine 2.58 H (0.66-1.25) mg/dL Alkaline Phosphatase 279 H (38-126) U/L Total Protein 6.1 L (6.3-8.2) g/dL Albumin 3.3 L (3.5-5.0) g/dL CA 19-9 Antigen 2612.0 H (0.0-34.9) U/mL Assessment and Plan (1) Liver lesion Current Visit: Yes Status: Acute Priority: High Code(s): K76.9 - LIVER DISEASE, UNSPECIFIED SNOMED Code(s): 348263004 Plan: Liver lesions: -Ultrasound revealed incidental finding of multiple hypoechoic masses within the liver and possibly some area within the spleen. Prominent prostate and inferior impression on urinary bladder and small cortical right renal cyst. -Patient has history of testicular cancer when he was 29. And also reports 30 pound weight loss over the last 6 weeks. -CT CAP obtained for better visualization of liver lesions revealing . Pericarinal and left hilar neoplastic soft tissue partially encasing the left mainstem bronchus and cutting off the lingular and left lower lobe bronchus. Mass at the left infrahilar level measuring up to 5.5 cm. Additional lower paratracheal and subcarinal lymphadenopathy. Soft tissue extends to the anterior wall of the upper descending thoracic aorta where there is some loss of the intervening fat plane which could reflect early invasion. Few pulmonary nodules throughout the left lung. Innumerable hepatic metastases measuring up to 2.7 cm suspected small 1.1 cm metastasis to the inferior spleen. Metastatic mesenteric lymph nodes and a left perirectal soft tissue deposit. Suspected subtle osseous metastatic disease at T5 and L1 and also within the upper sternal body. Moderate left hydronephrosis possible UPJ obstruction. Pulmonology and Urology have been consulted. IR consult placed for evaluation for biopsy of lung mass. Spoke with IR dept and they said the earliest it can be done is 03/23, and are requesting eliquis be held for 72 hours. Discussed in detail findings with patient, and that this is very concerning for malignancy. Pt is agreeable with proceeding with biopsy -CA 19-9 elevated, CEA and AFP normal -PET scan will be scheduled in the outpt setting and clinic f/u with Dr Gregoria Russ Dr attests: I have performed H&P and developed impression and plan of care for patient, Discussed with dictator. I agree with dictated note, documented as a scribe
--- NOTE | 2023-03-20 13:14 | P.PN ---
Subjective Progress Note Date: 03/20/23 I'm seeing this 67-year-old male patient in consultation for left lower lobe mass. The patient is known to have coronary artery disease. The patient had ischemic cardiac myopathy and the patient has an AICD in place and has previous history of a tender tachycardia, COPD, hypertension hyperlipidemia, paroxysmal atrial fibrillation and chronic kidney disease. The patient is a smoker. The patient presented as a cause of shortness of breath. His been having progressive the increased dyspnea over the past month. The patient reported orthopnea along with some chest discomfort administration with shortness of breath. He also reported feeling lightheaded and dizzy whenever she stands up. Denies having any syncopal episode. EKG was consistent with atrial fibrillation, chest x-ray showed an opacity in the left midlung with a small left-sided pleural effusion at the time of admission. Troponins were negative. ProBNP level was elevated. The patient was seen by cardiology. The patient underwent a cardiac stress test that showed a fixed perfusion defect along the inferior wall extending to the apex. There was also a small area of reversibility over the anterior apex. The echocardiogram showed a left ventricle ejection fraction of 35-40% along with moderate mitral regurgitation and severe aortic stenosis. Subsequently, the patient underwent a cardiac catheterization that showed a 20% left main, 6070% mid LAD in-stent stenosis, 50% OM1 and 80% RCA stenosis. He was recommended to continue with medical treatment. A CAT scan of the chest abdomen and pelvis was also done. There w ere significant abnormalities. The patient the current 11 left hilar soft tissue mass partially encasing the left mainstem bronchus and there was a cut off sign a day level of the left lower lobe bronchus. The mass in the infrahilar area was measuring up to 5.5 cm in size. Additional to that, there were lower paratracheal and subcarinal lymphadenopathy. A small left-sided pleural effusion. 2 pulmonary nodules throughout the left lung measuring up to 3.3 cm in size largest of the smallest being 4 mm in size. There was multiple hepatitic metastatic lesions measuring up to 2.7 cm in size under also metastases to the mesenteric lymph nodes measuring up to 1.3 cm in size. A mono metastatic disease was also suspected the level of C5/L1. There was also a new moderate degree of left-sided hydronephrosis with possible UPJ junction obstruction. No obstructive masses. The prostate was also enlarged. The patient was seen by urology. On 03/20/2023, patient's condition is stable. Please refer to my consultation note from yesterday. No plans for bronchoscopy. We'll do a fine-needle aspirate of the accessible lesions either of the lung or the liver. Patient is currently off anticoagulants. Creatinine stable at 2.6. Rest of the electrolytes are all stable. Objective - Vital Signs Vital signs: Vital Signs Temp 97.6 F 03/20/23 08:32 Pulse 82 03/20/23 12:01 Resp 18 03/20/23 12:01 BP 138/83 03/20/23 12:01 Pulse Ox 92 L 03/20/23 12:01 FiO2 21 03/20/23 07:47 Intake & Output 03/19/23 03/20/23 03/20/23 18:59 06:59 18:59 Intake Total 540 10 110 Balance 540 10 110 Intake: IV 10 .9 10 Oral 540 110 Other: Voiding Method Toilet Toilet Toilet # Voids 2 - Exam CONSTITUTIONAL: Awake and alert, well-developed, well-nourished, no pain, no acute distress EYES: Pupils equal, round, reactive to light, normal ocular movement ENT: Moist mucous membranes without oral lesions present NECK: No masses, no bruits, trachea midline RESPIRATORY: Lungs sounds diminished bilaterally. Respirations even, nonlab ored. Currently on room air with oxygen saturation 95%. Strong cough. Clubbing present CARDIOVASCULAR: Irregular S1, S2 present, positive systolic murmur. Irregular rate and rhythm, controlled atrial fibrillation on telemetry. Palpable peripheral pulses bilaterally. No edema present GASTROINTESTINAL: Abdomen soft, nontender, nondistended without masses or organomegaly noted. There is no rebound or guarding present. Active bowel sounds present 4 quadrants. GENITOURINARY: Deferred INTEGUMENTARY: Skin is warm and dry NEUROLOGIC: Cranial nerves II through XII intact, normal coordination, no obvious motor or sensory deficits, speech is normal MUSKULOSKELETAL: Able to move all extremities, strength equal bilaterally, normal posture PSYCHIATRIC: Alert and oriented to person place and time, appropriate affect - Labs CBC & Chem 7: 03/17/23 06:22 03/20/23 07:42 Labs: Abnormal Lab Results - Last 24 Hours (Table) 06/24/23 Range/Units 07:42 Sodium 136 L (137-145) mmol/L BUN 39 H (9-20) mg/dL Creatinine 2.67 H (0.66-1.25) mg/dL Alkaline Phosphatase 317 H (38-126) U/L Total Protein 6.0 L (6.3-8.2) g/dL Albumin 3.3 L (3.5-5.0) g/dL Assessment and Plan Plan: Metastatic carcinoma likely of a lung primary. CAT scan of the chest was significantly abnormal. The patient has evidence of a left hilar neoplastic soft tissue mass measuring up to 5.5 cm. In addition to that, the patient has paratracheal and subcarinal lymphadenopathy and scattered pulmonary nodules throughout the left lung measuring up to 3.2 cm size and is smallest is around 4 mm. There is also evidence of hepatic metastases, mesenteric lymph node enla rgement, suspicious for metastases and questionable osseous metastatic disease at the level of T5 L1. Multivessel coronary artery disease, status post PCI, current heart catheterization demonstrates mid LAD re-instent stenosis 60-70%, OM1 50%, RCA stenosis 80%, however the patient had a normal iFr. The cardiac catheterization was done during this current hospitalization Severe aortic stenosis with a valvular area of 0.7 cm addition to evidence of moderate to severe aortic insufficiency and [id number] mitral regurgitation Chronic atrial fibrillation with anticoagulation Cardiomyopathy, likely ischemic in nature with an ejection fraction of 35-40% History of ventricular tachycardia maintained on amiodarone outpatient basis Chronic kidney disease, with an acute kidney injury which is essentially improving at this point in time History of CVA COPD Hypertension Hyperlipidemia History of testicular cancer status post resection followed by chemoradiation therapy-1985 Left give the hydronephrosis Plan Clinically stable Creatinine is stable No changes condition compared to yesterday Findings are highly suspicious for malignancy, likely a primary bronchogenic carcinoma COPD is currently inactive and stable Shortness of breath is multifactorial The patient is on a combination of aspirin and Eliquis, and both medications were placed on hold in preparation for a fine-needle aspirate Outpatient PET scan The patient has an extensive cardiac history. I think it'll be quite risky for him to undergo general anesthesia for a robotic bronchoscopy and endobronchial ultrasound. Based on that, IR guided fine-needle aspirate of the pleural-based lesion in the lung or the liver lesions. As such, the patient will be placed off anticoagulants for now. We will also recommend an oncology consultation regarding this issue We'll continue to follow
--- NOTE | 2023-03-20 13:46 | P.PN ---
Subjective Progress Note Date: 03/20/23 patient is a 67-year-old gentleman with past medical history significant for coronary artery disease, COPD who presented to the ER because of worsening shortness of breath. Patient states that he is unable to take more than a few steps before getting short of breath. Patient stated that he was fairly 6 weeks ago but over the last 6 weeks he has gradually declined. Patient complains of waking up in the middle night gasping for air. Denies any cough. Denies any fever or chills. Denies any swelling of feet. There was no complain of chest pain or palpitation. Because his worsening shortness of breath, patient came to the ER Initial lab work done in the ER showed white count 6.9, hemoglobin 16.2, platelet count 188, sodium 136, potassium 4.5, BUN 53, creatinine 3.09, Chest x-ray done showed mild opacity in the left mid lung field Patient was admitted to internal medicine service 03/16. Patient seen and examined. Denies any further episodes of chest pain or shortness of breath. 03/17. Patient seen and examined. Laying comfortably in the bed. Hemoglobin this morning is 11.3, sodium 137, potassium 4.6, BUN 53, creatinine 3.17. Denies any shortness of breath on exertion 03/18. Patient seen and examined. Currently nothing by mouth going for DEBBY and cardiac cath today 03/19. Patient seen and examined. Patient had cardiac cath And DEBBY done yesterday. CT abdomen showed pericarinal and left hilar neoplastic soft tissue partially encasing the left mainstem bronchus and cutting off the lingula and left lower lobe bronchus.mass at left infrahilar level measuring up to 5.5 cm. Additional lower paratracheal and subcarinal lymphadenopathy. oncology and urology following 03/20. Patient seen and examined. Denies any acute events overnight. Denies any chest pain at rest. Denies any shortness of breath at rest. Tolerating diet REVIEW OF SYSTEMS: CONSTITUTIONAL: No fever, no malaise,. CARDIOVASCULAR: No chest pain, no palpitations, no syncope. PULMONARY: No shortness of breath, no cough, GASTROINTESTINAL: No diarrhea, no nausea, no vomiting, no abdominal pain. NEUROLOGICAL: No headaches, no weakness, PHYSICAL EXAMINATION: GENERAL: The patient is alert and oriented x3, not in any acute distress. Well developed, well nourished. HEENT: Pupils are round and equally reacting to light. EOMI. No scleral icterus. No conjunctival pallor. Normocephalic, atraumatic. No pharyngeal erythema. No thyromegaly. CARDIOVASCULAR: S1 and S2 present. No murmurs, rubs, or gallops. PULMONARY: Chest is clear to auscultation, no wheezing or crackles. ABDOMEN: Soft, nontender, nondistended, normoactive bowel sounds. No palpable organomegaly. MUSCULOSKELETAL: No joint swelling or deformity. EXTREMITIES: No cyanosis, clubbing, or pedal edema. NEUROLOGICAL: Gross neurological examination did not reveal any focal deficits. SKIN: No rashes. Assessment and plan Acute on chronic kidney disease Coronary artery disease with previous stenting of the LAD in 2011 Persistent atrial fibrillation History of ventricular tachycardia, maintained on amiodarone outpatient History of ischemic cardiomyopathy with AICD implantation lung mass Hypoechoic masses in the liver suspicious for metastatic disease Severe Aortic stenosis Moderate tricuspid regurg Hypertension Hyperlipidemia COPD Nicotine dependence Monitor vital signs Monitor CBC Monitor CMP Continue telemetry monitoring Hold Losartan due to FEMI Hold diuretics. Monitor kidney function. 2-D echo showed moderate increased left foot and was thickness, LVEF of 35-40%, severe aortic stenosis, moderate tricuspid regurg stress test results showed fixed perfusion deficit, along with a small area of reversibility along the anterior apex Ultrasound revealed incidental finding of multiple hypoechoic masses within the liver and possibly some area within the spleen. Prominent prostate and inferior impression on urinary bladder and small cortical right renal cyst. cardiac cath done showing coronary disease 20% left main, 60-70% mid LAD instent stenosis, 50% OM1 and 80% RCA stenosis.Given iFR RCA normal and LAD abnormality mainly occuring instent with increased risk of restenosis, cardiology recommended to continue with medical therapy DEBBY done showed with severe aortic stenosis,moderate to severe aortic insufficiency Continue IV fluids CT abdominal pelvis ordered, patient seen by oncology, they ordered CT and tumor markers.CT abdomen showed pericarinal and left hilar neoplastic soft tissue partially encasing the left mainstem bronchus and cutting off the lingula and left lower lobe bronchus.mass at left infrahilar level measuring up to 5.5 cm. Additional lower paratracheal and subcarinal lymphadenopathy. CT surgery consulted for severe aortic stenosis Eliray currently held in anticipation for biopsy follow-up on oncology recommendations Follow-up in nephrology recommendations, follow-up on cardiology recommendations Follow-up on urology recommended Pulmonary on board for lung mass IR consult placed for evaluation for biopsy of lung mass Objective - Vital Signs Vital signs: Vital Signs Temp 97.6 F 03/20/23 08:32 Pulse 97 03/20/23 09:40 Resp 18 03/20/23 09:40 BP 135/83 03/20/23 08:32 Pulse Ox 93 L 03/20/23 08:32 FiO2 21 03/20/23 07:47 Intake & Output 03/19/23 03/20/23 03/20/23 18:59 06:59 18:59 Intake Total 540 10 Balance 540 10 Intake: IV 10 .9 10 Oral 540 Other: Voiding Method Toilet Toilet Toilet # Voids 2 - Labs CBC & Chem 7: 03/17/23 06:22 03/20/23 07:42 Labs: Abnormal Lab Results - Last 24 Hours (Table) 03/20/23 Range/Units 07:42 Sodium 136 L (137-145) mmol/L BUN 39 H (9-20) mg/dL Creatinine 2.67 H (0.66-1.25) mg/dL Alkaline Phosphatase 317 H (38-126) U/L Total Protein 6.0 L (6.3-8.2) g/dL Albumin 3.3 L (3.5-5.0) g/dL
--- NOTE | 2023-03-20 15:24 | P.PN ---
Subjective Progress Note Date: 03/20/23 Follow-up for acute kidney injury. Urine output of 560 ML's documented in the last 24 hours. Objective - Vital Signs Vital signs: Vital Signs Temp 97.6 F 03/20/23 08:32 Pulse 88 03/20/23 15:16 Resp 18 03/20/23 14:32 BP 138/83 03/20/23 12:01 Pulse Ox 92 L 03/20/23 12:01 FiO2 21 03/20/23 07:47 Intake & Output 03/19/23 03/20/23 03/20/23 18:59 06:59 18:59 Intake Total 540 10 110 Balance 540 10 110 Intake: IV 10 .9 10 Oral 540 110 Other: Voiding Method Toilet Toilet Toilet # Voids 2 - Exam No acute distress S1-S2 heard Lungs clear Abdomen soft No edema - Labs CBC & Chem 7: 03/17/23 06:22 03/20/23 07:42 Labs: Abnormal Lab Results - Last 24 Hours (Table) 03/20/23 Range/Units 07:42 Sodium 136 L (137-145) mmol/L BUN 39 H (9-20) mg/dL Creatinine 2.67 H (0.66-1.25) mg/dL Alkaline Phosphatase 317 H (38-126) U/L Total Protein 6.0 L (6.3-8.2) g/dL Albumin 3.3 L (3.5-5.0) g/dL Assessment and Plan Assessment: #1 acute kidney injury multifactorial -Hemodynamic ATN with low blood pressures -Obstructive uropathy with left hydronephrosis -Baseline creatinine around 2.0 MG per DL. #2 CK D stage IIIB/4 suspected nephrosclerosis with a baseline creatinine of 2.0 MG per DL. #3 left hydronephrosis, no stones on CT. #4 lung lesions, concern for malignancy #5 coronary artery disease #6 CHF with systolic dysfunction EF of 35% Plan: #1 renal function high, stable #2 appreciate urology and pulmonary input. #3 hemodynamic stable. #4 no acute indication for renal replacement therapy at this time.
[2023-03-20] MEDS: ATORVASTATIN 80 MG TAB PO SCH (21:32)
[2023-03-20] MEDS: MELATONIN 3 MG TABLET PO SCH (21:32)
[2023-03-20] MEDS: ACETAMINOPHEN TAB 325 MG TAB PO PRN (21:32)
[2023-03-20] MEDS: ISOSORBIDE MONONITRATE ER 15 MG TAB PO SCH (21:32)
[2023-03-20] MEDS: ALPRAZolam 0.5 MG TAB PO PRN (23:05)
[2023-03-21 07:42] LABS: Basophils # (A) 0.1 k/uL (0-0.2); Basophils % (A) 1 %; Eosinophils # (A) 0.7 k/uL (0-0.7); Eosinophils % (A) 7 %; HCT 32.5 % (39.0-53.0); HGB 10.7 gm/dL (13.0-17.5); Hypochromasia Slight; Lymphocytes # (A) 1.1 k/uL (1.0-4.8); Lymphocytes % (A) 11 %; MCH 32.2 pg (25.0-35.0); MCHC 32.8 g/dL (31.0-37.0); MCV 98.3 fL (80.0-100.0); Mean Platelet Volume 9.2; Monocytes # (A) 0.6 k/uL (0-1.0); Monocytes % (A) 6 %; Neutrophils # (A) 7.3 k/uL (1.3-7.7); Neutrophils % (A) 75 %; Platelet Count 238 k/uL (150-450); RBC 3.31 m/uL (4.30-5.90); RDW 14.6 % (11.5-15.5); WBC 9.7 k/uL (3.8-10.6)
[2023-03-21 08:06] LABS: ALT 33 U/L (4-49); AST 39 U/L (17-59); African American GFR (CKD) 27 (>60 ml/min/1.73 sqM); Albumin 3.3 g/dL (3.5-5.0); Alkaline Phosphatase 341 U/L (38-126); Anion Gap 8 mmol/L; Blood Urea Nitrogen 38 mg/dL (9-20); Calcium 9.6 mg/dL (8.4-10.2); Carbon Dioxide 20 mmol/L (22-30); Chloride 108 mmol/L (98-107); Glucose 103 mg/dL (74-99); Non-African American GFR(CKD) 23 (>60 ml/min/1.73 sqM); Potassium 4.6 mmol/L (3.5-5.1); Sodium 136 mmol/L (137-145); Total Bilirubin 0.7 mg/dL (0.2-1.3); Total Protein 6.2 g/dL (6.3-8.2)
[2023-03-21] MEDS: ALBUTEROL NEBULIZED 2.5 MG/3 ML INHALATION SCH ×4 (08:24→20:52)
[2023-03-21] MEDS: AMIODARONE 200 MG TAB PO SCH (08:47)
[2023-03-21] MEDS: SODIUM BICARBONATE TAB 650 MG TAB PO SCH ×2 (08:47→21:26)
[2023-03-21] MEDS: FINASTERIDE 5 MG TAB PO SCH (08:47)
[2023-03-21] MEDS: FERROUS SULFATE 325 MG TAB PO SCH (08:47)
[2023-03-21] MEDS: METOPROLOL SUCCINATE (ER) 25 MG TAB.ER.24H PO SCH (08:47)
--- NOTE | 2023-03-21 12:16 | P.PN ---
Subjective Progress Note Date: 03/21/23 I'm seeing this 67-year-old male patient in consultation for left lower lobe mass. The patient is known to have coronary artery disease. The patient had ischemic cardiac myopathy and the patient has an AICD in place and has previous history of a tender tachycardia, COPD, hypertension hyperlipidemia, paroxysmal atrial fibrillation and chronic kidney disease. The patient is a smoker. The patient presented as a cause of shortness of breath. His been having progressive the increased dyspnea over the past month. The patient reported orthopnea along with some chest discomfort administration with shortness of breath. He also reported feeling lightheaded and dizzy whenever she stands up. Denies having any syncopal episode. EKG was consistent with atrial fibrillation, chest x-ray showed an opacity in the left midlung with a small left-sided pleural effusion at the time of admission. Troponins were negative. ProBNP level was elevated. The patient was seen by cardiology. The patient underwent a cardiac stress test that showed a fixed perfusion defect along the inferior wall extending to the apex. There was also a small area of reversibility over the anterior apex. The echocardiogram showed a left ventricle ejection fraction of 35-40% along with moderate mitral regurgitation and severe aortic stenosis. Subsequently, the patient underwent a cardiac catheterization that showed a 20% left main, 6070% mid LAD in-stent stenosis, 50% OM1 and 80% RCA stenosis. He was recommended to continue with medical treatment. A CAT scan of the chest abdomen and pelvis was also done. There w ere significant abnormalities. The patient the current 11 left hilar soft tissue mass partially encasing the left mainstem bronchus and there was a cut off sign a day level of the left lower lobe bronchus. The mass in the infrahilar area was measuring up to 5.5 cm in size. Additional to that, there were lower paratracheal and subcarinal lymphadenopathy. A small left-sided pleural effusion. 2 pulmonary nodules throughout the left lung measuring up to 3.3 cm in size largest of the smallest being 4 mm in size. There was multiple hepatitic metastatic lesions measuring up to 2.7 cm in size under also metastases to the mesenteric lymph nodes measuring up to 1.3 cm in size. A mono metastatic disease was also suspected the level of C5/L1. There was also a new moderate degree of left-sided hydronephrosis with possible UPJ junction obstruction. No obstructive masses. The prostate was also enlarged. The patient was seen by urology. On 03/20/2023, patient's condition is stable. Please refer to my consultation note from yesterday. No plans for bronchoscopy. We'll do a fine-needle aspirate of the accessible lesions either of the lung or the liver. Patient is currently off anticoagulants. Creatinine stable at 2.6. Rest of the electrolytes are all stable. On today's evaluation of 03/21/2023, no new complaints and the patient remains on room air oxygen. WBC count of 9.7 with a hemoglobin of 10.7. BUN is at 38 with a creatinine of 2.7. No new complaints. Awaiting biopsies. Objective - Vital Signs Vital signs: Vital Signs Temp 97.5 F L 03/21/23 08:40 Pulse 85 03/21/23 08:40 Resp 18 03/21/23 08:40 BP 138/86 03/21/23 08:40 Pulse Ox 96 03/21/23 08:40 FiO2 21 03/20/23 07:47 Intake & Output 03/20/23 03/21/23 03/21/23 18:59 06:59 18:59 Intake Total 220 10 240 Balance 220 10 240 Intake: IV 10 .9 10 Oral 220 240 Other: Voiding Method Toilet Toilet # Voids 2 - Exam CONSTITUTIONAL: Awake and alert, well-developed, well-nourished, no pain, no acute distress EYES: Pupils equal, round, reactive to light, normal ocular movement ENT: Moist mucous membranes without oral lesions present NECK: No masses, no bruits, trachea midline RESPIRATORY: Lungs sounds diminished bilaterally. Respirations even, nonlabored. Currently on room air with oxygen saturation 95%. Strong cough. Clubbing present CARDIOVASCULAR: Irregular S1, S2 present, positive systolic murmur. Irregular rate and rhythm, controlled atrial fibrillation on telemetry. Palpable peripheral pulses bilaterally. No edema present GASTROINTESTINAL: Abdomen soft, nontender, nondistended without masses or organomegaly noted. There is no rebound or guarding present. Active bowel sounds present 4 quadrants. GENITOURINARY: Deferred INTEGUMENTARY: Skin is warm and dry NEUROLOGIC: Cranial nerves II through XII intact, normal coordination, no obvious motor or sensory deficits, speech is normal MUSKULOSKELETAL: Able to move all extremities, strength equal bilaterally, normal posture PSYCHIATRIC: Alert and oriented to person place and time, appropriate affect - Labs CBC & Chem 7: 03/21/23 07:15 03/21/23 07:15 Labs: Abnormal Lab Results - Last 24 Hours (Table) 03/21/23 03/21/23 Range/Units 07:15 07:15 RBC 3.31 L (4.30-5.90) m/uL Hgb 10.7 L (13.0-17.5) gm/dL Hct 32.5 L (39.0-53.0) % Sodium 136 L (137-145) mmol/L Chloride 108 H (98-107) mmol/L Carbon Dioxide 20 L (22-30) mmol/L BUN 38 H (9-20) mg/dL Creatinine 2.70 H (0.66-1.25) mg/dL Glucose 103 H (74-99) mg/dL Alkaline Phosphatase 341 H (38-126) U/L Total Protein 6.2 L (6.3-8.2) g/dL Albumin 3.3 L (3.5-5.0) g/dL Assessment and Plan Plan: Metastatic carcinoma likely of a lung primary. CAT scan of the chest was significantly abnormal. The patient has evidence of a left hilar neoplastic soft tissue mass measuring up to 5.5 cm. In addition to that, the patient has paratracheal and subcarinal lymphadenopathy and scattered pulmonary nodules throughout the left lung measuring up to 3.2 cm size and is smallest is around 4 mm. There is also evidence of hepatic metastases, mesenteric lymph node enlargement, suspicious for metastases and questionable osseous metastatic disease at the level of T5 L1. Multivessel coronary artery disease, status post PCI, current heart catheterization demonstrates mid LAD re-instent stenosis 60-70%, OM1 50%, RCA stenosis 80%, however the patient had a normal iFr. The cardiac catheterization was done during this current hospitalization Severe aortic stenosis with a valvular area of 0.7 cm addition to evidence of moderate to severe aortic insufficiency and [id number] mitral regurgitation Chronic atrial fibrillation with anticoagulation Cardiomyopathy, likely ischemic in nature with an ejection fraction of 35-40% History of ventricular tachycardia maintained on amiodarone outpatient basis Chronic kidney disease, with an acute kidney injury which is essentially improving at this point in time History of CVA COPD Hypertension Hyperlipidemia History of testicular cancer status post resection followed by chemoradiation therapy-1985 Left give the hydronephrosis Plan Tentative and is to do the biopsy Wednesday and the patient is stable for now. Clinically stable Creatinine is stable No changes condition compared to yesterday Findings are highly suspicious for malignancy, likely a primary bronchogenic carcinoma COPD is currently inactive and stable Shortness of breath is multifactorial The patient is on a combination of aspirin and Eliquis, and both medications were placed on hold in preparation for a fine-needle aspirate Outpatient PET scan The patient has an extensive cardiac history. I think it'll be quite risky for him to undergo general anesthesia for a robotic bronchoscopy and endobronchial ultrasound. Based on that, IR guided fine-needle aspirate of the pleural-based lesion in the lung or the liver lesions. As such, the patient will be placed off anticoagulants for now. We will also recommend an oncology consultation regarding this issue We'll continue to follow
--- NOTE | 2023-03-21 13:39 | P.PN ---
Subjective Progress Note Date: 03/21/23 patient is a 67-year-old gentleman with past medical history significant for coronary artery disease, COPD who presented to the ER because of worsening shortness of breath. Patient states that he is unable to take more than a few steps before getting short of breath. Patient stated that he was fairly 6 weeks ago but over the last 6 weeks he has gradually declined. Patient complains of waking up in the middle night gasping for air. Denies any cough. Denies any fever or chills. Denies any swelling of feet. There was no complain of chest pain or palpitation. Because his worsening shortness of breath, patient came to the ER Initial lab work done in the ER showed white count 6.9, hemoglobin 16.2, platelet count 188, sodium 136, potassium 4.5, BUN 53, creatinine 3.09, Chest x-ray done showed mild opacity in the left mid lung field Patient was admitted to internal medicine service 03/16. Patient seen and examined. Denies any further episodes of chest pain or shortness of breath. 03/17. Patient seen and examined. Laying comfortably in the bed. Hemoglobin this morning is 11.3, sodium 137, potassium 4.6, BUN 53, creatinine 3.17. Denies any shortness of breath on exertion 03/18. Patient seen and examined. Currently nothing by mouth going for DEBBY and cardiac cath today 03/19. Patient seen and examined. Patient had cardiac cath And DEBBY done yesterday. CT abdomen showed pericarinal and left hilar neoplastic soft tissue partially encasing the left mainstem bronchus and cutting off the lingula and left lower lobe bronchus.mass at left infrahilar level measuring up to 5.5 cm. Additional lower paratracheal and subcarinal lymphadenopathy. oncology and urology following 03/20. Patient seen and examined. Denies any acute events overnight. Denies any chest pain at rest. Denies any shortness of breath at rest. Tolerating diet 03/21. Patient seen and examined. WBC 9.7, hemoglobin 10.7, sodium 136, potassium 4.6, BUN 30, creatinine 2.7. IR consulted for biopsy scheduled for tomorrow REVIEW OF SYSTEMS: CONSTITUTIONAL: No fever, no malaise,. CARDIOVASCULAR: No chest pain, no palpitations, no syncope. PULMONARY: No shortness of breath, no cough, GASTROINTESTINAL: No diarrhea, no nausea, no vomiting, no abdominal pain. NEUROLOGICAL: No headaches, no weakness, PHYSICAL EXAMINATION: GENERAL: The patient is alert and oriented x3, not in any acute distress. Well developed, well nourished. HEENT: Pupils are round and equally reacting to light. EOMI. No scleral icterus. No conjunctival pallor. Normocephalic, atraumatic. No pharyngeal erythema. No thyromegaly. CARDIOVASCULAR: S1 and S2 present. No murmurs, rubs, or gallops. PULMONARY: Chest is clear to auscultation, no wheezing or crackles. ABDOMEN: Soft, nontender, nondistended, normoactive bowel sounds. No palpable organomegaly. MUSCULOSKELETAL: No joint swelling or deformity. EXTREMITIES: No cyanosis, clubbing, or pedal edema. NEUROLOGICAL: Gross neurological examination did not reveal any focal deficits. SKIN: No rashes. Assessment and plan Acute on chronic kidney disease Coronary artery disease with previous stenting of the LAD in 2011 Persistent atrial fibrillation History of ventricular tachycardia, maintained on amiodarone outpatient History of ischemic cardiomyopathy with AICD implantation lung mass Hypoechoic masses in the liver suspicious for metastatic disease Severe Aortic stenosis Moderate tricuspid regurg Hypertension Hyperlipidemia COPD Nicotine dependence Monitor vital signs Monitor CBC Monitor CMP Continue telemetry monitoring Hold Losartan due to FEMI Hold diuretics. Monitor kidney function. 2-D echo showed moderate increased left foot and was thickness, LVEF of 35-40%, severe aortic stenosis, moderate tricuspid regurg stress test results showed fixed perfusion deficit, along with a small area of reversibility along the anterior apex Ultrasound revealed incidental finding of multiple hypoechoic masses within the liver and possibly some area within the spleen. Prominent prostate and inferior impression on urinary bladder and small cortical right renal cyst. cardiac cath done showing coronary disease 20% left main, 60-70% mid LAD instent stenosis, 50% OM1 and 80% RCA stenosis.Given iFR RCA normal and LAD abnormality mainly occuring instent with increased risk of restenosis, cardiology recommended to continue with medical therapy DEBBY done showed with severe aortic stenosis,moderate to severe aortic insufficiency Continue IV fluids CT abdominal pelvis ordered, patient seen by oncology, they ordered CT and tumor markers.CT abdomen showed pericarinal and left hilar neoplastic soft tissue partially encasing the left mainstem bronchus and cutting off the lingula and left lower lobe bronchus.mass at left infrahilar level measuring up to 5.5 cm. Additional lower paratracheal and subcarinal lymphadenopathy. CT surgery consulted for severe aortic stenosis [place] currently held in anticipation for biopsy follow-up on oncology recommendations Follow-up in nephrology recommendations, follow-up on cardiology recommendations Follow-up on urology recommended Pulmonary on board for lung mass IR consult placed for evaluation for biopsy, they can try the pleural-based lesion in the lung or the liver lesions Objective - Vital Signs Vital signs: Vital Signs Temp 97.5 F L 03/21/23 08:40 Pulse 85 03/21/23 10:21 Resp 18 03/21/23 10:21 BP 138/86 03/21/23 08:40 Pulse Ox 96 03/21/23 08:40 FiO2 21 03/20/23 07:47 Intake & Output 03/20/23 03/21/23 03/21/23 18:59 06:59 18:59 Intake Total 220 10 240 Balance 220 10 240 Intake: IV 10 .9 10 Oral 220 240 Other: Voiding Method Toilet Toilet Toilet # Voids 2 - Labs CBC & Chem 7: 03/21/23 07:15 03/21/23 07:15 Labs: Abnormal Lab Results - Last 24 Hours (Table) 03/21/23 03/21/23 Range/Units 07:15 07:15 RBC 3.31 L (4.30-5.90) m/uL Hgb 10.7 L (13.0-17.5) gm/dL Hct 32.5 L (39.0-53.0) % Sodium 136 L (137-145) mmol/L Chloride 108 H (98-107) mmol/L Carbon Dioxide 20 L (22-30) mmol/L BUN 38 H (9-20) mg/dL Creatinine 2.70 H (0.66-1.25) mg/dL Glucose 103 H (74-99) mg/dL Alkaline Phosphatase 341 H (38-126) U/L Total Protein 6.2 L (6.3-8.2) g/dL Albumin 3.3 L (3.5-5.0) g/dL
--- NOTE | 2023-03-21 15:33 | P.PN ---
Subjective Progress Note Date: 03/21/23 Follow-up for acute kidney injury. Objective - Vital Signs Vital signs: Vital Signs Temp 97.5 F L 03/21/23 08:40 Pulse 97 03/21/23 14:46 Resp 19 03/21/23 14:46 BP 143/84 03/21/23 12:15 Pulse Ox 95 03/21/23 12:15 FiO2 21 03/20/23 07:47 Intake & Output 03/20/23 03/21/23 03/21/23 18:59 06:59 18:59 Intake Total 220 10 240 Balance 220 10 240 Intake: IV 10 .9 10 Oral 220 240 Other: Voiding Method Toilet Toilet Toilet # Voids 2 - Exam No acute distress S1-S2 heard Lungs clear Abdomen soft No edema - Labs CBC & Chem 7: 03/21/23 07:15 03/21/23 07:15 Labs: Abnormal Lab Results - Last 24 Hours (Table) 03/21/23 03/21/23 Range/Units 07:15 07:15 RBC 3.31 L (4.30-5.90) m/uL Hgb 10.7 L (13.0-17.5) gm/dL Hct 32.5 L (39.0-53.0) % Sodium 136 L (137-145) mmol/L Chloride 108 H (98-107) mmol/L Carbon Dioxide 20 L (22-30) mmol/L BUN 38 H (9-20) mg/dL Creatinine 2.70 H (0.66-1.25) mg/dL Glucose 103 H (74-99) mg/dL Alkaline Phosphatase 341 H (38-126) U/L Total Protein 6.2 L (6.3-8.2) g/dL Albumin 3.3 L (3.5-5.0) g/dL Assessment and Plan Assessment: #1 acute kidney injury multifactorial -Hemodynamic ATN with low blood pressures -Obstructive uropathy with left hydronephrosis -Baseline creatinine around 2.0 MG per DL. #2 CK D stage IIIB/4 suspected nephrosclerosis with a baseline creatinine of 2.0 MG per DL. #3 left hydronephrosis, no stones on CT. #4 lung lesions, concern for malignancy #5 coronary artery disease #6 CHF with systolic dysfunction EF of 35% Plan: #1 renal function high, stable #2 appreciate urology and pulmonary input. #3 hemodynamic stable. #4 no acute indication for renal replacement therapy at this time.
[2023-03-21] MEDS: ALPRAZolam 0.5 MG TAB PO PRN ×2 (16:46→23:12)
[2023-03-21] MEDS: MELATONIN 3 MG TABLET PO SCH (21:25)
[2023-03-21] MEDS: ATORVASTATIN 80 MG TAB PO SCH (21:26)
[2023-03-21] MEDS: ISOSORBIDE MONONITRATE ER 15 MG TAB PO SCH (21:26)
[2023-03-22] MEDS: FINASTERIDE 5 MG TAB PO SCH (08:18)
[2023-03-22] MEDS: METOPROLOL SUCCINATE (ER) 25 MG TAB.ER.24H PO SCH (08:18)
[2023-03-22] MEDS: SODIUM BICARBONATE TAB 650 MG TAB PO SCH ×2 (08:18→21:52)
[2023-03-22] MEDS: FERROUS SULFATE 325 MG TAB PO SCH (08:18)
[2023-03-22] MEDS: AMIODARONE 200 MG TAB PO SCH (08:18)
[2023-03-22] MEDS: ALBUTEROL NEBULIZED 2.5 MG/3 ML INHALATION SCH ×4 (09:20→21:17)
[2023-03-22 12:12] VITALS: BMI 21.0
--- NOTE | 2023-03-22 13:36 | P.PN ---
Subjective Progress Note Date: 03/22/23 Principal diagnosis: Metastatic bronchogenic carcinoma I'm seeing this 67-year-old male patient in consultation for left lower lobe mass. The patient is known to have coronary artery disease. The patient had ischemic cardiac myopathy and the patient has an AICD in place and has previous history of a tender tachycardia, COPD, hypertension hyperlipidemia, paroxysmal atrial fibrillation and chronic kidney disease. The patient is a smoker. The patient presented as a cause of shortness of breath. His been having progressive the increased dyspnea over the past month. The patient reported orthopnea along with some chest discomfort administration with shortness of breath. He also reported feeling lightheaded and dizzy whenever she stands up. Denies having any syncopal episode. EKG was consistent with atrial fibrillation, chest x-ray showed an opacity in the left midlung with a small left-sided pleural effusion at the time of admission. Troponins were negative. ProBNP level was elevated. The patient was seen by cardiology. The patient underwent a cardiac stress test that showed a fixed perfusion defect along the inferior wall extending to the apex. There was also a small area of reversibility over the anterior apex. The echocardiogram showed a left vent ricle ejection fraction of 35-40% along with moderate mitral regurgitation and severe aortic stenosis. Subsequently, the patient underwent a cardiac catheterization that showed a 20% left main, 6070% mid LAD in-stent stenosis, 50% OM1 and 80% RCA stenosis. He was recommended to continue with medical treatment. A CAT scan of the chest abdomen and pelvis was also done. There were significant abnormalities. The patient the current 11 left hilar soft tissue mass partially encasing the left mainstem bronchus and there was a cut off sign a day level of the left lower lobe bronchus. The mass in the infrahilar area was measuring up to 5.5 cm in size. Additional to that, there were lower paratracheal and subcarinal lymphadenopathy. A small left-sided pleural effusion. 2 pulmonary nodules throughout the left lung measuring up to 3.3 cm in size largest of the smallest being 4 mm in size. There was multiple hepatitic metastatic lesions measuring up to 2.7 cm in size under also metastases to the mesenteric lymph nodes measuring up to 1.3 cm in size. A mono metastatic disease was also suspected the level of C5/L1. There was also a new moderate degree of left-sided hydronephrosis with possible UPJ junction obstruction. No obstructive masses. The prostate was also enlarged. The kelvin stanford was seen by urology. On 03/20/2023, patient's condition is stable. Please refer to my consultation note from yesterday. No plans for bronchoscopy. We'll do a fine-needle aspirate of the accessible lesions either of the lung or the liver. Patient is currently off anticoagulants. Creatinine stable at 2.6. Rest of the electrolytes are all stable. On today's evaluation of 03/21/2023, no new complaints and the patient remains on room air oxygen. WBC count of 9.7 with a hemoglobin of 10.7. BUN is at 38 with a creatinine of 2.7. No new complaints. Awaiting biopsies. Patient was reevaluated today on 03/22/2023, patient is doing well, relatively asymptomatic, is supposed to have evaluation by interventional radiology for possible biopsy of liver lesions or peripheral lung mass. My understanding this was canceled because interventional radiology is not available for this today, but may have it done tomorrow. In the meantime the patient remains on present supportive care measures. CBC and electrolytes are normal however his BUN is 38 creatinine 2.70, CA 199 antigen is elevated at 2612 Objective - Vital Signs Vital signs: Vital Signs Temp 97.5 F L 03/22/23 08:14 Pulse 84 03/22/23 13:18 Resp 18 03/22/23 11:50 BP 126/76 03/22/23 11:50 Pulse Ox 95 03/22/23 11:50 FiO2 21 03/21/23 20:53 Intake & Output 03/21/23 03/22/23 03/22/23 18:59 06:59 18:59 Intake Total 240 390 110 Balance 240 390 110 Weight 78.5 kg Intake: Oral 240 390 110 Other: Voiding Method Toilet Toilet Toilet # Voids 1 - Exam Physical Exam: Revealed a 67-year-old white male in no distress Head: Atraumatic normocephalic. HEENT:[Neck is supple.] [No neck masses.] [No thyromegaly.] [No JVD.] Chest: [Clear throughout, no crackles, no rhonchi, no wheezes.] Cardiac Exam: Irregular irregular rhythm. [Normal S1 and S2, no S3 gallop, 2/6 systolic murmur thought the precordium. Abdomen: [Soft, nontender, no megaly, no rebound, no guarding, normal bowel sounds.] Extremities: [No clubbing, no edema, no cyanosis.] Neurological Exam: [No focal neurologic deficit.] Alert and oriented 3. Psychiatric: Normal mood affect and normal mental status examination. Skin: No rashes. - Labs CBC & Chem 7: 03/21/23 07:15 03/21/23 07:15 Assessment and Plan Assessment: Impression: Suspect metastatic bronchogenic carcinoma Multivessel coronary artery disease Severe aortic stenosis Chronic atrial fibrillation Severe LV dysfunction with ejection fraction of 35-40% Chronic atrial fibrillation Chronic kidney disease stage III History of CVA Benign essential hypertension History of testicular cancer Recommendation: Continue present supportive care measures Continue plans for biopsy by interventional radiology Continue bronchodilators for his inactive COPD Continue cardiac meds including aspirin eliquis however hold these medications for plans for biopsy Once a tissue diagnosis is made, will discuss prognosis with the patient and to be seen by oncology We will continue to follow Time with Patient: Less than 30
--- NOTE | 2023-03-22 13:43 | P.PN ---
Subjective Patient is seen for follow-up for acute kidney injury on top of chronic kidney disease stage IIIB to 4 with baseline creatinine around 2.1 mg/dL. Renal function fairly stable with serum creatinine at 2.6-2.7 mg/dL. Biopsy of the liver lesions was scheduled for today but has been canceled. Not on any IV fluids or diuretics. Patient is tolerating oral intake. Objective - Vital Signs Vital signs: Vital Signs Temp 97.5 F L 03/22/23 08:14 Pulse 84 03/22/23 13:18 Resp 18 03/22/23 11:50 BP 126/76 03/22/23 11:50 Pulse Ox 95 03/22/23 11:50 FiO2 21 03/21/23 20:53 Intake & Output 03/21/23 03/22/23 03/22/23 18:59 06:59 18:59 Intake Total 240 390 110 Balance 240 390 110 Weight 78.5 kg Intake: Oral 240 390 110 Other: Voiding Method Toilet Toilet Toilet # Voids 1 - Exam Patient is awake, comfortable, no acute distress Examination of the heart S1 and S2 Examination of the lungs decreased breath sounds at the bases Abdomen is soft nontender Examination of lower extremity shows no evidence of edema [employer] exam grossly intact - Labs CBC & Chem 7: 03/21/23 07:15 03/21/23 07:15 Assessment and Plan Assessment: 1. Acute kidney injury mostly hemodynamic ATN from borderline low blood pressures in the setting of use of angiotensin receptor blockers and underlying infection. Currently nonoliguric. Patient has left hydronephrosis with no plans for intervention currently. No urine retention. UA is unremarkable with WBCs 14 2. CK D NKF stage IIIB to 4 secondary to nephrosclerosis with baseline creatinine around 2.1 mg/dL 3. Left lung pneumonia maintained on antibiotics 4. Coronary artery disease with history of coronary stents 5. Persistent A. fib 6. Metastatic lung cancer awaiting biopsy of liver lesions 7. Cardiomyopathy with EF at 35% Plan: Continue to encourage good oral intake Monitor labs periodically
--- NOTE | 2023-03-22 14:00 | P.PN ---
Subjective Progress Note Date: 03/22/23 patient is a 67-year-old gentleman with past medical history significant for coronary artery disease, COPD who presented to the ER because of worsening shortness of breath. Patient states that he is unable to take more than a few steps before getting short of breath. Patient stated that he was fairly 6 weeks ago but over the last 6 weeks he has gradually declined. Patient complains of waking up in the middle night gasping for air. Denies any cough. Denies any fever or chills. Denies any swelling of feet. There was no complain of chest pain or palpitation. Because his worsening shortness of breath, patient came to the ER Initial lab work done in the ER showed white count 6.9, hemoglobin 16.2, platelet count 188, sodium 136, potassium 4.5, BUN 53, creatinine 3.09, Chest x-ray done showed mild opacity in the left mid lung field Patient was admitted to internal medicine service 03/16. Patient seen and examined. Denies any further episodes of chest pain or shortness of breath. 03/17. Patient seen and examined. Laying comfortably in the bed. Hemoglobin this morning is 11.3, sodium 137, potassium 4.6, BUN 53, creatinine 3.17. Denies any shortness of breath on exertion 03/18. Patient seen and examined. Currently nothing by mouth going for DEBBY and cardiac cath today 03/19. Patient seen and examined. Patient had cardiac cath And DEBBY done yesterday. CT abdomen showed pericarinal and left hilar neoplastic soft tissue partially encasing the left mainstem bronchus and cutting off the lingula and left lower lobe bronchus.mass at left infrahilar level measuring up to 5.5 cm. Additional lower paratracheal and subcarinal lymphadenopathy. oncology and urology following 03/20. Patient seen and examined. Denies any acute events overnight. Denies any chest pain at rest. Denies any shortness of breath at rest. Tolerating diet 03/21. Patient seen and examined. WBC 9.7, hemoglobin 10.7, sodium 136, potassium 4.6, BUN 30, creatinine 2.7. IR consulted for biopsy scheduled for tomorrow 03/22. Patient seen and examined. No acute issues overnight. States he feels better. Patient was supposed to get biopsy by IR but it was canceled and rescheduled for tomorrow REVIEW OF SYSTEMS: CONSTITUTIONAL: No fever, no malaise,. CARDIOVASCULAR: No chest pain, no palpitations, no syncope. PULMONARY: No shortness of breath, no cough, GASTROINTESTINAL: No diarrhea, no nausea, no vomiting, no abdominal pain. NEUROLOGICAL: No headaches, no weakness, PHYSICAL EXAMINATION: GENERAL: The patient is alert and oriented x3, not in any acute distress. Well developed, well nourished. HEENT: Pupils are round and equally reacting to light. EOMI. No scleral icterus. No conjunctival pallor. Normocephalic, atraumatic. No pharyngeal erythema. No thyromegaly. CARDIOVASCULAR: S1 and S2 present. No murmurs, rubs, or gallops. PULMONARY: Chest is clear to auscultation, no wheezing or crackles. ABDOMEN: Soft, nontender, nondistended, normoactive bowel sounds. No palpable organomegaly. MUSCULOSKELETAL: No joint swelling or deformity. EXTREMITIES: No cyanosis, clubbing, or pedal edema. NEUROLOGICAL: Gross neurological examination did not reveal any focal deficits. SKIN: No rashes. Assessment and plan Acute on chronic kidney disease Coronary artery disease with previous stenting of the LAD in 2012 Persistent atrial fibrillation History of ventricular tachycardia, maintained on amiodarone outpatient History of ischemic cardiomyopathy with AICD implantation lung mass Hypoechoic masses in the liver suspicious for metastatic disease Severe Aortic stenosis Moderate tricuspid regurg Hypertension Hyperlipidemia COPD Nicotine dependence Monitor vital signs Monitor CBC Monitor CMP Continue telemetry monitoring Hold Losartan due to FEMI Hold diuretics. Monitor kidney function. 2-D echo showed moderate increased left foot and was thickness, LVEF of 35-40%, severe aortic stenosis, moderate tricuspid regurg stress test results showed fixed perfusion deficit, along with a small area of reversibility along the anterior apex Ultrasound revealed incidental finding of multiple hypoechoic masses within the liver and possibly some area within the spleen. Prominent prostate and inferior impression on urinary bladder and small cortical right renal cyst. cardiac cath done showing coronary disease 20% left main, 60-70% mid LAD instent stenosis, 50% OM1 and 80% RCA stenosis.Given iFR RCA normal and LAD abnormality mainly occuring instent with increased risk of restenosis, cardiology recommended to continue with medical therapy DEBBY done showed with severe aortic stenosis,moderate to severe aortic insufficiency CT abdominal pelvis ordered, patient seen by oncology, they ordered CT and tumor markers.CT abdomen showed pericarinal and left hilar neoplastic soft tissue partially encasing the left mainstem bronchus and cutting off the lingula and left lower lobe bronchus.mass at left infrahilar level measuring up to 5.5 cm. Additional lower paratracheal and subcarinal lymphadenopathy. CT surgery consulted for severe aortic stenosis Eliquis currently held in anticipation for biopsy follow-up on oncology recommendations Follow-up in nephrology recommendations, follow-up on cardiology recommendations Follow-up on urology recommended Pulmonary on board for lung mass IR consult placed for evaluation for biopsy, they can try the pleural-based lesion in the lung or the liver lesions, but it was canceled and rescheduled for tomorrow Objective - Vital Signs Vital signs: Vital Signs Temp 97.5 F L 03/22/23 08:14 Pulse 83 03/22/23 08:14 Resp 18 03/22/23 08:17 BP 137/74 03/22/23 08:14 Pulse Ox 98 03/22/23 08:17 FiO2 21 03/21/23 20:53 Intake & Output 03/21/23 03/22/23 03/22/23 18:59 06:59 18:59 Intake Total 240 390 Balance 240 390 Intake: Oral 240 390 Other: Voiding Method Toilet Toilet # Voids 1 - Labs CBC & Chem 7: 03/21/23 07:15 03/21/23 07:15
[2023-03-22 18:48] LABS: Mean Platelet Volume 8.8; Platelet Count 231 k/uL (150-450)
[2023-03-22 18:52] LABS: INR 0.9 (<1.2); Prothrombin Time 9.9 sec (9.0-12.0)
[2023-03-22] MEDS: MELATONIN 3 MG TABLET PO SCH (21:52)
[2023-03-22] MEDS: ATORVASTATIN 80 MG TAB PO SCH (21:52)
[2023-03-22] MEDS: ISOSORBIDE MONONITRATE ER 15 MG TAB PO SCH (21:52)
[2023-03-22] MEDS: ALPRAZolam 0.5 MG TAB PO PRN (21:52)
[2023-03-23] MEDS: FERROUS SULFATE 325 MG TAB PO SCH (07:58)
[2023-03-23] MEDS: AMIODARONE 200 MG TAB PO SCH (07:58)
[2023-03-23] MEDS: FINASTERIDE 5 MG TAB PO SCH (07:58)
[2023-03-23] MEDS: SODIUM BICARBONATE TAB 650 MG TAB PO SCH ×2 (07:58→20:01)
[2023-03-23] MEDS: METOPROLOL SUCCINATE (ER) 25 MG TAB.ER.24H PO SCH (07:58)
[2023-03-23] MEDS: ALBUTEROL NEBULIZED 2.5 MG/3 ML INHALATION SCH ×4 (09:30→21:13)
--- NOTE | 2023-03-23 10:53 | CT ---
EXAMINATION TYPE: CT biopsy liver DATE OF EXAM: 03/23/2023 10:47 AM CLINICAL INDICATION:Male, 67 years old with history of see IR consult for ordering information; COMPARISON: CT DLP: 535 mGycm, Automated exposure control for dose reduction was used. Contrast used: mL of , none Oral contrast used: none ATTENDING: Dr. Petey Horner TECHNIQUE: CT guided percutaneous liver using coaxial method. One or more CT dose reduction strategies were util ized during this examination. Total CT dose 535 mGycm. FINDINGS: The procedure was explained to the patient including risks of bleeding, bruising, infection, damage t o nearby organs and need for additional therapy including potential surgery. All questions were answ ered and consent was obtained. The previous studies were reviewed. The patient was placed on the CT couch in the oblique supine pos ition. The overlying skin was marked and prepped using sterile method. Timeout was taken per caitlino lo. Following administration of local anesthesia a 19 gauge coaxial needle was introduced on the left hepatic lobe. The coaxial needle tip was directed into the mass with CT guidance. Multiple 20 gauge coaxial biopsies were then obtained. Following the procedure the needle was removed and sterile d ressing was applied to the percutaneous site. Post biopsy imaging demonstrated no evidence of image. Patient was taken for postprocedure observation in stable condition. IMPRESSIONS: Status post percutaneous left hepatic lobe mass biopsy as described above. Pathology results pending.
--- NOTE | 2023-03-23 11:34 | P.PN ---
Subjective Patient is seen for follow-up for acute kidney injury on top of chronic kidney disease stage IIIB to 4 with baseline creatinine around 2.1 mg/dL. Renal function fairly stable with serum creatinine at 2.6-2.7 mg/dL. Biopsy of the liver lesions rescheduled for today Not on any IV fluids or diuretics. Patient is tolerating oral intake. Objective - Vital Signs Vital signs: Vital Signs Temp 97.6 F 03/23/23 04:00 Pulse 85 03/23/23 11:29 Resp 17 03/23/23 11:29 BP 129/72 03/23/23 11:29 Pulse Ox 93 L 03/23/23 11:29 FiO2 21 03/21/23 20:53 Intake & Output 03/22/23 03/23/23 03/23/23 18:59 06:59 18:59 Intake Total 220 Output Total 800 400 Balance -580 -400 Weight 78.5 kg Intake: Oral 220 Output: Urine 800 400 Other: Voiding Method Toilet Toilet Toilet Urinal # Voids 1 1 - Exam Patient is awake, comfortable, no acute distress Examination of the heart S1 and S2 Examination of the lungs decreased breath sounds at the bases Abdomen is soft nontender Examination of lower extremity shows no evidence of edema [employer] exam grossly intact - Labs CBC & Chem 7: 03/22/23 18:19 03/21/23 07:15 Assessment and Plan Assessment: 1. Acute kidney injury mostly hemodynamic ATN from borderline low blood pressures in the setting of use of angiotensin receptor blockers and underlying infection. Currently nonoliguric. Patient has left hydronephrosis with no plans for intervention currently. No urine retention. UA is unremarkable with WBCs 14 2. CK D NKF stage IIIB to 4 secondary to nephrosclerosis with baseline creatinine around 2.1 mg/dL 3. Left lung pneumonia maintained on antibiotics 4. Coronary artery disease with history of coronary stents 5. Persistent A. fib 6. High suspicion for Metastatic lung cancer awaiting biopsy of liver lesions 7. Cardiomyopathy with EF at 35% Plan: Continue to encourage good oral intake Repeat labs
[2023-03-23 12:33] LABS: African American GFR (CKD) 28 (>60 ml/min/1.73 sqM); Anion Gap 6 mmol/L; Blood Urea Nitrogen 43 mg/dL (9-20); Calcium 9.3 mg/dL (8.4-10.2); Carbon Dioxide 22 mmol/L (22-30); Chloride 106 mmol/L (98-107); Glucose 88 mg/dL (74-99); Non-African American GFR(CKD) 24 (>60 ml/min/1.73 sqM); Potassium 5.2 mmol/L (3.5-5.1); Sodium 134 mmol/L (137-145)
--- NOTE | 2023-03-23 13:15 | P.PN ---
Subjective Progress Note Date: 03/23/23 Principal diagnosis: Metastatic bronchogenic carcinoma I'm seeing this 67-year-old male patient in consultation for left lower lobe mass. The patient is known to have coronary artery disease. The patient had ischemic cardiac myopathy and the patient has an AICD in place and has previous history of a tender tachycardia, COPD, hypertension hyperlipidemia, paroxysmal atrial fibrillation and chronic kidney disease. The patient is a smoker. The patient presented as a cause of shortness of breath. His been having progressive the increased dyspnea over the past month. The patient reported orthopnea along with some chest discomfort administration with shortness of breath. He also reported feeling lightheaded and dizzy whenever she stands up. Denies having any syncopal episode. EKG was consistent with atrial fibrillation, chest x-ray showed an opacity in the left midlung with a small left-sided pleural effusion at the time of admission. Troponins were negative. ProBNP level was elevated. The patient was seen by cardiology. The patient underwent a cardiac stress test that showed a fixed perfusion defect along the inferior wall extending to the apex. There was also a small area of reversibility over the anterior apex. The echocardiogram showed a left vent ricle ejection fraction of 35-40% along with moderate mitral regurgitation and severe aortic stenosis. Subsequently, the patient underwent a cardiac catheterization that showed a 20% left main, 6070% mid LAD in-stent stenosis, 50% OM1 and 80% RCA stenosis. He was recommended to continue with medical treatment. A CAT scan of the chest abdomen and pelvis was also done. There were significant abnormalities. The patient the current 11 left hilar soft tissue mass partially encasing the left mainstem bronchus and there was a cut off sign a day level of the left lower lobe bronchus. The mass in the infrahilar area was measuring up to 5.5 cm in size. Additional to that, there were lower paratracheal and subcarinal lymphadenopathy. A small left-sided pleural effusion. 2 pulmonary nodules throughout the left lung measuring up to 3.3 cm in size largest of the smallest being 4 mm in size. There was multiple hepatitic metastatic lesions measuring up to 2.7 cm in size under also metastases to the mesenteric lymph nodes measuring up to 1.3 cm in size. A mono metastatic disease was also suspected the level of C5/L1. There was also a new moderate degree of left-sided hydronephrosis with possible UPJ junction obstruction. No obstructive masses. The prostate was also enlarged. The kelvin stanford was seen by urology. On 03/20/2023, patient's condition is stable. Please refer to my consultation note from yesterday. No plans for bronchoscopy. We'll do a fine-needle aspirate of the accessible lesions either of the lung or the liver. Patient is currently off anticoagulants. Creatinine stable at 2.6. Rest of the electrolytes are all stable. On today's evaluation of 03/21/2023, no new complaints and the patient remains on room air oxygen. WBC count of 9.7 with a hemoglobin of 10.7. BUN is at 38 with a creatinine of 2.7. No new complaints. Awaiting biopsies. Patient was reevaluated today on 03/22/2023, patient is doing well, relatively asymptomatic, is supposed to have evaluation by interventional radiology for possible biopsy of liver lesions or peripheral lung mass. My understanding this was canceled because interventional radiology is not available for this today, but may have it done tomorrow. In the meantime the patient remains on present supportive care measures. CBC and electrolytes are normal however his BUN is 38 creatinine 2.70, CA 199 antigen is elevated at 2612 Reevaluated today on 03/23/2023, patient had his liver biopsy today, in the meantime he is doing well, no major complaints, does not seem to be any distress, he is on room air, hence unclear the patient to be discharged home and follow up on outpatient basis regarding his metastatic or at least presumed metastatic bronchogenic carcinoma with liver metastasis. In the meantime patient could have follow-up appointment with the oncologist because the findings are consistent with malignancy unless otherwise. Labs were reviewed, renal profile is basically about the same, nephrology did evaluate the patient. Objective - Vital Signs Vital signs: Vital Signs Temp 97.6 F 03/23/23 04:00 Pulse 94 03/23/23 12:34 Resp 16 03/23/23 12:34 BP 124/80 03/23/23 12:34 Pulse Ox 94 L 03/23/23 12:34 FiO2 21 03/21/23 20:53 Intake & Output 03/22/23 03/23/23 03/23/23 18:59 06:59 18:59 Intake Total 220 Output Total 800 400 Balance -580 -400 Weight 78.5 kg Intake: Oral 220 Output: Urine 800 400 Other: Voiding Method Toilet Toilet Toilet Urinal # Voids 1 1 - Exam Physical Exam: Revealed a 67-year-old white male in no distress, on room air. Head: Atraumatic normocephalic. HEENT:[Neck is supple.] [No neck masses.] [No thyromegaly.] [No JVD.] Chest: [Clear throughout, no crackles, no rhonchi, no wheezes.] Cardiac Exam: Irregular irregular rhythm. [Normal S1 and S2, no S3 gallop, 2/6 systolic murmur thought the precordium. Abdomen: [Soft, nontender, no megaly, no rebound, no guarding, normal bowel so unds.] Extremities: [No clubbing, no edema, no cyanosis.] Neurological Exam: [No focal neurologic deficit.] Alert and oriented 3. Psychiatric: Normal mood affect and normal mental status examination. Skin: No rashes. - Labs CBC & Chem 7: 03/22/23 18:19 03/23/23 11:54 Labs: Abnormal Lab Results - Last 24 Hours (Table) 03/23/23 Range/Units 11:54 Sodium 134 L (137-145) mmol/L Potassium 5.2 H (3.5-5.1) mmol/L BUN 43 H (9-20) mg/dL Creatinine 2.62 H (0.66-1.25) mg/dL Assessment and Plan Assessment: Impression: Suspect metastatic bronchogenic carcinoma Multivessel coronary artery disease Severe aortic stenosis Chronic atrial fibrillation Severe LV dysfunction with ejection fraction of 35-40% Chronic atrial fibrillation Chronic kidney disease stage III History of CVA Benign essential hypertension History of testicular cancer status post liver biopsy done by interventional radiology postoperative day #0 Recommendation: Awaiting liver biopsy report that may take 7 days In the meantime consider discharging the patient home on follow-up on outpatient basis with oncology Continue present supportive care measures Continue bronchodilators for his inactive COPD Patient to resume eliquis and aspirin I will clear the patient for discharge home if cleared by other consultants, there is no reason for the patient to wait for 5-7 days until the final pathology report is available Will follow while inpatient Time with Patient: Less than 30
--- NOTE | 2023-03-23 13:41 | P.PN ---
Subjective Progress Note Date: 03/23/23 Principal diagnosis: Shortness of breath. Incidental finding of liver lesions, lung mass In follow-up patient is status post liver biopsy. He is not describing any unusual pain, he said that it is a little uncomfortable with a deep breath but, this is improving. Denies any unusual bleeding, he still has the sandbag in place. Objective - Vital Signs Vital signs: Vital Signs Temp 97.6 F 03/23/23 04:00 Pulse 94 03/23/23 12:34 Resp 16 03/23/23 12:34 BP 124/80 03/23/23 12:34 Pulse Ox 94 L 03/23/23 12:34 FiO2 21 03/21/23 20:53 Intake & Output 03/22/23 03/23/23 03/23/23 18:59 06:59 18:59 Intake Total 220 Output Total 800 400 Balance -580 -400 Weight 78.5 kg Intake: Oral 220 Output: Urine 800 400 Other: Voiding Method Toilet Toilet Toilet Urinal # Voids 1 1 - Constitutional General appearance: Present: average body habitus, cooperative, no acute distress - EENT Eyes: Present: anicteric sclerae, edentulous ENT: Present: hearing grossly normal - Respiratory Details: Respirations even and unlabored at rest - Cardiovascular Details: Skin warm and dry to the touch - Peripheral edema leg Peripheral Edema: bilateral: None - Integumentary Integumentary: Present: normal - Neurologic Neurologic: Present: CNII-XII intact - Psychiatric Psychiatric: Present: A&O x's 3, appropriate affect, intact judgment & insight - Labs CBC & Chem 7: 03/22/23 18:19 03/23/23 11:54 Labs: Abnormal Lab Results - Last 24 Hours (Table) 03/23/23 Range/Units 11:54 Sodium 134 L (137-145) mmol/L Potassium 5.2 H (3.5-5.1) mmol/L BUN 43 H (9-20) mg/dL Creatinine 2.62 H (0.66-1.25) mg/dL Assessment and Plan (1) Liver lesion Current Visit: Yes Status: Acute Priority: High Code(s): K76.9 - LIVER DISEASE, UNSPECIFIED SNOMED Code(s): 987508019 (2) Lung mass Current Visit: Yes Status: Acute Priority: High Code(s): R91.8 - OTHER NONSPECIFIC ABNORMAL FINDING OF LUNG FIELD SNOMED Code(s): 977685676 Plan: Liver lesions/lung mass -Patient is status post liver biopsy today. -CEA and AFP tumor markers WNL. Ca19.9 is elevated. Need biopsy to confirm primary site of malignancy -Staging PET scan outpatient. Follow up with Medical Oncologist after staging scan. Documented in discharge that patient will be contacted with those appoin tment dates and times -Okay from a Oncology standpoint for DC once patient is cleared by Attending and all other Consulting Specialties to be discharged.
--- NOTE | 2023-03-23 14:18 | P.PN ---
Subjective Progress Note Date: 03/23/23 patient is a 67-year-old gentleman with past medical history significant for coronary artery disease, COPD who presented to the ER because of worsening shortness of breath. Patient states that he is unable to take more than a few steps before getting short of breath. Patient stated that he was fairly 6 weeks ago but over the last 6 weeks he has gradually declined. Patient complains of waking up in the middle night gasping for air. Denies any cough. Denies any fever or chills. Denies any swelling of feet. There was no complain of chest pain or palpitation. Because his worsening shortness of breath, patient came to the ER Initial lab work done in the ER showed white count 6.9, hemoglobin 16.2, platelet count 188, sodium 136, potassium 4.5, BUN 53, creatinine 3.09, Chest x-ray done showed mild opacity in the left mid lung field Patient was admitted to internal medicine service 03/16. Patient seen and examined. Denies any further episodes of chest pain or shortness of breath. 03/17. Patient seen and examined. Laying comfortably in the bed. Hemoglobin this morning is 11.3, sodium 137, potassium 4.6, BUN 53, creatinine 3.17. Denies any shortness of breath on exertion 03/18. Patient seen and examined. Currently nothing by mouth going for DEBBY and cardiac cath today 03/19. Patient seen and examined. Patient had cardiac cath And DEBBY done yesterday. CT abdomen showed pericarinal and left hilar neoplastic soft tissue partially encasing the left mainstem bronchus and cutting off the lingula and left lower lobe bronchus.mass at left infrahilar level measuring up to 5.5 cm. Additional lower paratracheal and subcarinal lymphadenopathy. oncology and urology following 03/20. Patient seen and examined. Denies any acute events overnight. Denies any chest pain at rest. Denies any shortness of breath at rest. Tolerating diet 03/21. Patient seen and examined. WBC 9.7, hemoglobin 10.7, sodium 136, potassium 4.6, BUN 30, creatinine 2.7. IR consulted for biopsy scheduled for tomorrow 03/22. Patient seen and examined. No acute issues overnight. States he feels better. Patient was supposed to get biopsy by IR but it was canceled and rescheduled for tomorrow 03/23. Patient seen and examined. Denies any lightheadedness or dizziness. Waiting on biopsy. Denies any shortness of breath. Vital signs stable REVIEW OF SYSTEMS: CONSTITUTIONAL: No fever, no malaise,. CARDIOVASCULAR: No chest pain, no palpitations, no syncope. PULMONARY: No shortness of breath, no cough, GASTROINTESTINAL: No diarrhea, no nausea, no vomiting, no abdominal pain. NEUROLOGICAL: No headaches, no weakness, PHYSICAL EXAMINATION: GENERAL: The patient is alert and oriented x3, not in any acute distress. Well developed, well nourished. HEENT: Pupils are round and equally reacting to light. EOMI. No scleral icterus. No conjunctival pallor. Normocephalic, atraumatic. No pharyngeal erythema. No thyromegaly. CARDIOVASCULAR: S1 and S2 present. No murmurs, rubs, or gallops. PULMONARY: Chest is clear to auscultation, no wheezing or crackles. ABDOMEN: Soft, nontender, nondistended, normoactive bowel sounds. No palpable organomegaly. MUSCULOSKELETAL: No joint swelling or deformity. EXTREMITIES: No cyanosis, clubbing, or pedal edema. NEUROLOGICAL: Gross neurological examination did not reveal any focal deficits. SKIN: No rashes. Assessment and plan Acute on chronic kidney disease Coronary artery disease with previous stenting of the LAD in 2011 Persistent atrial fibrillation History of ventricular tachycardia, maintained on amiodarone outpatient History of ischemic cardiomyopathy with AICD implantation lung mass Hypoechoic masses in the liver suspicious for metastatic disease Severe Aortic stenosis Moderate tricuspid regurg Hypertension Hyperlipidemia COPD Nicotine dependence Monitor vital signs Monitor CBC Monitor CMP Continue telemetry monitoring Hold Losartan due to FEMI Hold diuretics. Monitor kidney function. 2-D echo showed moderate increased left foot and was thickness, LVEF of 35-40%, severe aortic stenosis, moderate tricuspid regurg stress test results showed fixed perfusion deficit, along with a small area of reversibility along the anterior apex Ultrasound revealed incidental finding of multiple hypoechoic masses within the liver and possibly some area within the spleen. Prominent prostate and inferior impression on urinary bladder and small cortical right renal cyst. cardiac cath done showing coronary disease 20% left main, 60-70% mid LAD instent stenosis, 50% OM1 and 80% RCA stenosis.Given iFR RCA normal and LAD abnormality mainly occuring instent with increased risk of restenosis, cardiology recommended to continue with medical therapy DEBBY done showed with severe aortic stenosis,moderate to severe aortic insufficiency CT abdominal pelvis ordered, patient seen by oncology, they ordered CT and tumor markers.CT abdomen showed pericarinal and left hilar neoplastic soft tissue partially encasing the left mainstem bronchus and cutting off the lingula and left lower lobe bronchus.mass at left infrahilar level measuring up to 5.5 cm. Additional lower paratracheal and subcarinal lymphadenopathy. CT surgery consulted for severe aortic stenosis, he is not a surgical or TAVR candidate as his CT demonstrates previously undiagnosed metastatic liver meenakshi gnancies along with lymphadenopathy, CT surgery wants to wait for the further workup before making a decision Sarwat currently held in anticipation for biopsy follow-up on oncology recommendations, oncology will follow up outpatient after biopsy Follow-up in nephrology recommendations, Follow-up on urology recommended Pulmonary on board for lung mass IR consult placed for evaluation for biopsy, biopsy done today, outpatient follow-up with hematology oncology follow-up on cardiology recommendations, waiting on cardiology to finalize a plan after biopsy regarding aortic stenosis Objective - Vital Signs Vital signs: Vital Signs Temp 97.6 F 03/23/23 04:00 Pulse 89 03/23/23 07:54 Resp 17 03/23/23 07:54 BP 124/77 03/23/23 07:54 Pulse Ox 93 L 03/23/23 07:54 FiO2 21 03/21/23 20:53 Intake & Output 03/22/23 03/23/23 03/23/23 18:59 06:59 18:59 Intake Total 220 Output Total 800 400 Balance -580 -400 Weight 78.5 kg Intake: Oral 220 Output: Urine 800 400 Other: Voiding Method Toilet Toilet Toilet Urinal # Voids 1 1 - Labs CBC & Chem 7: 03/22/23 18:19 03/23/23 11:54
[2023-03-23] MEDS: MELATONIN 3 MG TABLET PO SCH (20:00)
[2023-03-23] MEDS: ATORVASTATIN 80 MG TAB PO SCH (20:01)
[2023-03-23] MEDS: ISOSORBIDE MONONITRATE ER 15 MG TAB PO SCH (20:01)
[2023-03-23 23:19] VITALS: TEMP 98.1
[2023-03-24] MEDS: FERROUS SULFATE 325 MG TAB PO SCH (08:02)
[2023-03-24] MEDS: METOPROLOL SUCCINATE (ER) 25 MG TAB.ER.24H PO SCH (08:02)
[2023-03-24] MEDS: SODIUM BICARBONATE TAB 650 MG TAB PO SCH (08:02)
[2023-03-24] MEDS: FINASTERIDE 5 MG TAB PO SCH (08:02)
[2023-03-24] MEDS: AMIODARONE 200 MG TAB PO SCH (08:02)
[2023-03-24] MEDS: ALBUTEROL NEBULIZED 2.5 MG/3 ML INHALATION SCH ×2 (09:23→11:30)
[2023-03-24 11:07] LABS: African American GFR (CKD) 28 (>60 ml/min/1.73 sqM); Anion Gap 13 mmol/L; Blood Urea Nitrogen 41 mg/dL (9-20); Calcium 9.2 mg/dL (8.4-10.2); Carbon Dioxide 15 mmol/L (22-30); Chloride 106 mmol/L (98-107); Glucose 123 mg/dL (74-99); Non-African American GFR(CKD) 24 (>60 ml/min/1.73 sqM); Sodium 134 mmol/L (137-145)
[2023-03-24 11:22] LABS: Potassium 4.9 mmol/L (3.5-5.1)
[2023-03-24 11:30] VITALS: BP 137/84; RESP 17
--- NOTE | 2023-03-24 11:41 | P.PN ---
Subjective Progress Note Date: 03/24/23 Principal diagnosis: Metastatic bronchogenic carcinoma I'm seeing this 67-year-old male patient in consultation for left lower lobe mass. The patient is known to have coronary artery disease. The patient had ischemic cardiac myopathy and the patient has an AICD in place and has previous history of a tender tachycardia, COPD, hypertension hyperlipidemia, paroxysmal atrial fibrillation and chronic kidney disease. The patient is a smoker. The patient presented as a cause of shortness of breath. His been having progressive the increased dyspnea over the past month. The patient reported orthopnea along with some chest discomfort administration with shortness of breath. He also reported feeling lightheaded and dizzy whenever she stands up. Denies having any syncopal episode. EKG was consistent with atrial fibrillation, chest x-ray showed an opacity in the left midlung with a small left-sided pleural effusion at the time of admission. Troponins were negative. ProBNP level was elevated. The patient was seen by cardiology. The patient underwent a cardiac stress test that showed a fixed perfusion defect along the inferior wall extending to the apex. There was also a small area of reversibility over the anterior apex. The echocardiogram showed a left vent ricle ejection fraction of 35-40% along with moderate mitral regurgitation and severe aortic stenosis. Subsequently, the patient underwent a cardiac catheterization that showed a 20% left main, 6070% mid LAD in-stent stenosis, 50% OM1 and 80% RCA stenosis. He was recommended to continue with medical treatment. A CAT scan of the chest abdomen and pelvis was also done. There were significant abnormalities. The patient the current 11 left hilar soft tissue mass partially encasing the left mainstem bronchus and there was a cut off sign a day level of the left lower lobe bronchus. The mass in the infrahilar area was measuring up to 5.5 cm in size. Additional to that, there were lower paratracheal and subcarinal lymphadenopathy. A small left-sided pleural effusion. 2 pulmonary nodules throughout the left lung measuring up to 3.3 cm in size largest of the smallest being 4 mm in size. There was multiple hepatitic metastatic lesions measuring up to 2.7 cm in size under also metastases to the mesenteric lymph nodes measuring up to 1.3 cm in size. A mono metastatic disease was also suspected the level of C5/L1. There was also a new moderate degree of left-sided hydronephrosis with possible UPJ junction obstruction. No obstructive masses. The prostate was also enlarged. The kelvin stanford was seen by urology. On 03/20/2023, patient's condition is stable. Please refer to my consultation note from yesterday. No plans for bronchoscopy. We'll do a fine-needle aspirate of the accessible lesions either of the lung or the liver. Patient is currently off anticoagulants. Creatinine stable at 2.6. Rest of the electrolytes are all stable. On today's evaluation of 03/21/2023, no new complaints and the patient remains on room air oxygen. WBC count of 9.7 with a hemoglobin of 10.7. BUN is at 38 with a creatinine of 2.7. No new complaints. Awaiting biopsies. Patient was reevaluated today on 03/22/2023, patient is doing well, relatively asymptomatic, is supposed to have evaluation by interventional radiology for possible biopsy of liver lesions or peripheral lung mass. My understanding this was canceled because interventional radiology is not available for this today, but may have it done tomorrow. In the meantime the patient remains on present supportive care measures. CBC and electrolytes are normal however his BUN is 38 creatinine 2.70, CA 199 antigen is elevated at 2612 Reevaluated today on 03/23/2023, patient had his liver biopsy today, in the meantime he is doing well, no major complaints, does not seem to be any distress, he is on room air, hence unclear the patient to be discharged home and follow up on outpatient basis regarding his metastatic or at least presumed metastatic bronchogenic carcinoma with liver metastasis. In the meantime patient could have follow-up appointment with the oncologist because the findings are consistent with malignancy unless otherwise. Labs were reviewed, renal profile is basically about the same, nephrology did evaluate the patient. Reevaluated today on 03/24/2023, patient is doing well, relatively asymptomatic, we are basically awaiting the pathology report from his liver biopsy which may take 5 more days hence I'm recommending that the patient could be discharged home and follow-up on outpatient basis with oncology. Objective - Vital Signs Vital signs: Vital Signs Temp 98.1 F 03/23/23 20:30 Pulse 90 03/24/23 11:30 Resp 17 03/24/23 11:29 BP 137/84 03/24/23 11:29 Pulse Ox 98 03/24/23 11:29 FiO2 21 03/21/23 20:53 Intake & Output 03/23/23 03/24/23 03/24/23 18:59 06:59 18:59 Intake Total 540 358 Output Total 400 Balance -400 540 358 Intake: Oral 540 358 Output: Urine 400 Other: Voiding Method Toilet Toilet Toilet Urinal Urinal Urinal # Voids 1 # Bowel Movements 1 - Exam Physical Exam: Revealed a 67-year-old white male in no distress, on room air. Head: Atraumatic normocephalic. HEENT:[Neck is supple.] [No neck masses.] [No thyromegaly.] [No JVD.] Chest: [Clear throughout, no crackles, no rhonchi, no wheezes.] Cardiac Exam: Irregular irregular rhythm. [Normal S1 and S2, no S3 gallop, 2/6 systolic murmur thought the precordium. Abdomen: [Soft, nontender, no megaly, no rebound, no guarding, normal bowel sounds.] Extremities: [No clubbing, no edema, no cyanosis.] Neurological Exam: [No focal neurologic deficit.] Alert and oriented 3. Psychiatric: Normal mood affect and normal mental status examination. Skin: No rashes. - Labs CBC & Chem 7: 03/22/23 18:19 03/24/23 10:03 Labs: Abnormal Lab Results - Last 24 Hours (Table) 03/23/23 03/24/23 Range/Units 11:54 10:03 Sodium 134 L 134 L (137-145) mmol/L Potassium 5.2 H (3.5-5.1) mmol/L Carbon Dioxide 15 L (22-30) mmol/L BUN 43 H 41 H (9-20) mg/dL Creatinine 2.62 H 2.63 H (0.66-1.25) mg/dL Glucose 123 H (74-99) mg/dL Assessment and Plan Assessment: Impression: Suspect metastatic bronchogenic carcinoma Multivessel coronary artery disease Severe aortic stenosis Chronic atrial fibrillation Severe LV dysfunction with ejection fraction of 35-40% Chronic atrial fibrillation Chronic kidney disease stage III History of CVA Benign essential hypertension History of testicular cancer status post liver biopsy done by interventional radiology postoperative day #1 Recommendation: Awaiting liver biopsy may not be available until early next week Cleared patient for discharge home if cleared by other consultants Continue present supportive care measures Continue bronchodilators for his inactive COPD Follow as needed again cleared for discharge if cleared by other consultants Time with Patient: Less than 30
[2023-03-24 11:43] VITALS: PULSE 95
--- NOTE | 2023-03-25 00:20 | P.DS ---
Providers Date of admission: 03/15/23 04:27 Attending physician: Gilda Hernández Consults: 03/15/23 07:20 Consult Physician Routine Consulting Provider: Brant Murphy Consult Reason/Comments: cardiac history Do you want consulting provider notified?: Yes 03/15/23 10:38 Consult Physician Routine Consulting Provider: Cierra Salinas Consult Reason/Comments: Jorge Do you want consulting provider notified?: Yes 03/18/23 10:38 Consult Physician Routine Consulting Provider: Tk Snowden Consult Reason/Comments: hydronephrosis, ?bladder mass Do you want consulting provider notified?: Yes Consult Physician Routine Consulting Provider: Con Chris Consult Reason/Comments: liver nodules Do you want consulting provider notified?: Yes 03/18/23 22:16 Consult Physician Routine Consulting Provider: Wilmar Quintero Consult Reason/Comments: re: aortic stenosis Do you want consulting provider notified?: Already Contacted 03/19/23 12:56 Consult Physician Routine Consulting Provider: Christy Ruvalcaba Consult Reason/Comments: lung mass, obstruction of LLL bronchus Do you want consulting provider notified?: Yes Primary care physician: [facility] Course: Final Diagnosis Shortness of breath Left sided lung mass, lymphadenopathy and liver lesion suspicious for metastatic disease s/p liver bx Acute on chronic kidney disease improved Hydronephrosis and hx of BPH Coronary artery disease with previous stenting of the LAD in 2011 Persistent atrial fibrillation anticoagulated with eliquis History of ventricular tachycardia, maintained on amiodarone outpatient History of ischemic cardiomyopathy with AICD implantation Severe Aortic stenosis and Moderate tricuspid regurgitation no plans for TAVR/surgical intervention at this time Hypertension Hyperlipidemia COPD Nicotine dependence counseled on smoking cessation 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 Patient to follow with oncology outpatient regarding liver biopsy results which are currently pending. Patient is scheduled for outpatient PET scan on Wednesday03/26/23. Patient to also follow up with pulmonary on discharge. Toprol XL has been increased on discharge and recommending to hold losartan on discharge. Patient also has follow up appointments with nephrology, urology, cardiology and cardiothoracic services. Patient is discharged with [facility] care and PT. Repeat labs in 2 to 3 days. Hospital Course This is a pleasant 67 year old male with past medical history significant for coronary artery disease, COPD, current smoker, atrial fibrillation, coronary artery disease, cardiomyopathy with AICD who presented to the ER because of worsening shortness of breath. Patient states that he is unable to take more than a few steps before getting short of breath. Patient stated he has had a gradual decline over the last 6 weeks. Patient complains of waking up in the middle night gasping for air. Denies any cough. Denies any fever or chills. Denies any swelling of feet. There was no complain of chest pain or palpitation. Because his worsening shortness of breath, patient came to the ER. Chest x-ray done showed mild opacity in the left mid lung field and small pleural effusion. He was found to have BUN of 53 and creatinine of 3.09 on admission. Admitted to medicine and consult placed to nephrology for the JORGE and cardiology for the shortness of breath with significant cardiac history. Patient underwent lexiscan stress test reveals fixed perfusion defect along the entire inferior wall extending to the apex correlate for history of prior infarct, there may be a small area of reversibility along the anterior apex, LVEF of 45%. Echocardiogram reveals EF 35-40%, severe mitral calcification, mild MR, severe aortic stenosis, moderate TR and a loculated pericardial effusion. Patient underwent DEBBY which reveals no evidence of PFO and the atrial appendage is free of clot. Patient was evaluated by cardiothoracic services and felt at this time to not be a surgical candidate for TAVR or surgical repair. Patient will require further work up with oncology and smoking cessation. F/U outpatient along with cardiology. Patient had abdominal bladder ultrasound performed as routine for the JORGE with incidental findings of multiple hypoechoic masses within the liver and possibly a single area within the spleen. Findings suspicious for metastatic disease there is also prominent prostate and inferior impression on urinary bladder consider additional work up there is 3 smal cortical right renal cyst. Patient had follow up CT imaging done with pericarinal and left hilar neoplastic soft tissue partially encasing the left mainstem bronchus and cutting off the lingular and left lower lobe bronchus. There is additional lymphadenopathy and a few pulmonary nodules. There is new innumerable hepatic metastasis, possible small spleen metastasis, and subtle osseous metastatic disease at T5/L1 and upper sternal body. There is new moderate left hydronephrosis possible UPJ obstruction with no obstructing mass or stone. Prostatomegaly 5.9 cm wide. Patient had oncology, urology and pulmonary consultation. Underwent liver biopsy and was resumed on eliquis. Plan for patient to follow up in the office with consultations for further work up and diagnosis. Patient follows with urology for enlarged prostate and elevated PSA urology plans for further work up outpatient. Patient has been urinating without significant residuals at this time. He is maintained on room air. He has plans to quit smoking. Patient is currently denying nausuea, vomiting or diarrhea. Patients lungs are clear and diminished. Alert x 3 no focal deficits patient has gneralized weakness and will receive homecare on discharge. Patient is scheduled for outpatient PET scan on this upcoming wednesday and will require extensive follow up on discharge. Losartan has been held and creatinine has improved to 2.63 on discharge. Please see medication reconciliation for a list of current medication. The impression and plan of care has been dictated by Lisbet Medina Nurse Practitioner as directed. Dr. Nathen MD I have performed a history and physical examination and medical decision making of this patient, discussed the same with the dictator, and agree with the dictators assessment and plan as written, documented as a scribe. Based on total visit time, I have performed more than 50% of this visit. Patient Condition at Discharge: Fair Plan - Discharge Summary Discharge Rx Participant: Yes New Discharge Prescriptions: New Sodium Bicarbonate Tab 650 mg PO BID #60 tablet Metoprolol Succinate (ER) [Toprol Xl] 75 mg PO DAILY #90 tab Continue Nitroglycerin Sl Tabs [Nitrostat] 0.4 mg SUBLINGUAL Q5M PRN #100 tab PRN Reason: Chest Pain Isosorbide Mononitrate ER [Imdur] 15 mg PO HS Atorvastatin [Lipitor] 80 mg PO HS Furosemide [Lasix] 40 mg PO DAILY Ferrous Sulfate [Feosol] 325 mg PO DAILY Albuterol Sulfate [Albuterol Sulfate Hfa] 1 puff PO Q4-6H PRN #8.5 gm PRN Reason: Wheezing Apixaban [Eliquis] 5 mg PO BID Fluticasone Nasal [place]da [Flonase Nasal [place]da] 1 spray EA NOSTRIL DAILY PRN PRN Reason: Allergy Symptoms Finasteride [Proscar] 5 mg PO DAILY Amiodarone [Cordarone] 200 mg PO DAILY Discontinued Losartan Potassium [Cozaar] 25 mg PO DAILY Metoprolol Succinate (ER) [Toprol XL] 50 mg PO DAILY Discharge Medication List Nitroglycerin Sl Tabs [Nitrostat] 0.4 mg SUBLINGUAL Q5M PRN #100 tab 03/18/17 [Rx] Isosorbide Mononitrate ER [Imdur] 15 mg PO HS 06/06/18 [History] Atorvastatin [Lipitor] 80 mg PO HS 03/20/20 [History] Apixaban [Eliquis] 5 mg PO BID 08/06/21 [History] Amiodarone [Cordarone] 200 mg PO DAILY 10/15/21 [History] Finasteride [Proscar] 5 mg PO DAILY 10/15/21 [History] Fluticasone Nasal [place]da [Flonase Nasal [place]da] 1 spray EA NOSTRIL DAILY PRN 10/15/21 [History] Ferrous Sulfate [Feosol] 325 mg PO DAILY 06/11/22 [History] Furosemide [Lasix] 40 mg PO DAILY 06/11/22 [History] Albuterol Sulfate [Albuterol Sulfate Hfa] 1 puff PO Q4-6H PRN #8.5 gm 06/14/22 [Rx] Metoprolol Succinate (ER) [Toprol Xl] 75 mg PO DAILY #90 tab 03/24/23 [Rx] Sodium Bicarbonate Tab 650 mg PO BID #60 tablet 03/24/23 [Rx] Follow up Appointment(s)/Referral(s): Cierra Salinas MD [STAFF PHYSICIAN] - 1 Week (please call office to schedule apt) [facility], [NON-STAFF] - Amadou Colon DO [Primary Care Provider] - 1-2 days (Office will call pt with an apt. ) Gregoria Russ MD [STAFF PHYSICIAN] - 04/05/23 11:00 am () Thiago Jenkins DO [STAFF PHYSICIAN] - 1 Week (Office did not answer, please call to schedule follow up apt. ) Tye Ayala MD [STAFF PHYSICIAN] - 1 Week (Office did not answer, please call to schedule follow up apt. ) Ambulatory/Diagnostic Orders: Basic Metabolic Panel [LAB.AMB] Time Frame: 3 Days, Location: None Selected Patient Instructions/Handouts: Community Acquired Pneumonia (DC) Activity/Diet/Wound Care/Special Instructions: PET scan scheduled by Medical Oncology. PET scan at [facility] 03/26/23 at 3:30pm Follow up with Pulmonary services on discharge Follow up with oncology regarding biopsy results Follow up with your urologist on discharge Repeat labs in 2 to 3 days Discharge Disposition: HOME WITH HOME HEALTH SERVICES
== END 2023-03-24 15:09 | disposition home health service (06) | DRG 286 ==
LOC: EC 02:39 → 3SCARD 04:27 → 4SSUR 07:25 → 3SCARD 03-18 12:32
PROVIDERS: ADMIT Hospitalist; ATTEND Hospitalist
PROC: 4A033BC Measurement of Arterial Pressure, Coronary, Percutaneous Approach (ICD-10-PCS; principal; 2023-03-18 07:30)
PROC: 4A023N8 Measurement of Cardiac Sampling and Pressure, Bilateral, Percutaneous Approach (ICD-10-PCS; principal; 2023-03-18 07:30)
PROC: B2111ZZ Fluoroscopy of Multiple Coronary Arteries using Low Osmolar Contrast (ICD-10-PCS; principal; 2023-03-18 07:30)
PROC: B246ZZ4 Ultrasonography of Right and Left Heart, Transesophageal (ICD-10-PCS; 2023-03-18 13:30)
PROC: 0FB23ZX Excision of Left Lobe Liver, Percutaneous Approach, Diagnostic (ICD-10-PCS; 2023-03-23)
DX: I25.10 Atherosclerotic heart disease of native coronary artery without angina pectoris (principal); N17.0 Acute kidney failure with tubular necrosis; I31.39 Other pericardial effusion (noninflammatory); T82.855A Stenosis of coronary artery stent, initial encounter; C77.1 Secondary and unspecified malignant neoplasm of intrathoracic lymph nodes; C78.7 Secondary malignant neoplasm of liver and intrahepatic bile duct; C78.89 Secondary malignant neoplasm of other digestive organs; I13.0 Hypertensive heart and chronic kidney disease with heart failure and stage 1 through stage 4 chronic kidney disease, or unspecified chronic kidney disease; I48.19 Other persistent atrial fibrillation; N13.30 Unspecified hydronephrosis; I50.22 Chronic systolic (congestive) heart failure; C34.02 Malignant neoplasm of left main bronchus; I27.20 Pulmonary hypertension, unspecified; J44.9 Chronic obstructive pulmonary disease, unspecified; N18.32 Chronic kidney disease, stage 3b; I25.5 Ischemic cardiomyopathy; E78.5 Hyperlipidemia, unspecified; N40.0 Benign prostatic hyperplasia without lower urinary tract symptoms; I08.3 Combined rheumatic disorders of mitral, aortic and tricuspid valves; N32.9 Bladder disorder, unspecified; N28.1 Cyst of kidney, acquired; M19.90 Unspecified osteoarthritis, unspecified site; K44.9 Diaphragmatic hernia without obstruction or gangrene; K64.2 Third degree hemorrhoids; F17.210 Nicotine dependence, cigarettes, uncomplicated; Z71.6 Tobacco abuse counseling; Z79.01 Long term (current) use of anticoagulants; Z79.899 Other long term (current) drug therapy; Z95.810 Presence of automatic (implantable) cardiac defibrillator; Z86.73 Personal history of transient ischemic attack (TIA), and cerebral infarction without residual deficits; Z85.47 Personal history of malignant neoplasm of testis; Z92.21 Personal history of antineoplastic chemotherapy; Y84.0 Cardiac catheterization as the cause of abnormal reaction of the patient, or of later complication, without mention of misadventure at the time of the procedure; Z88.0 Allergy status to penicillin; Z82.49 Family history of ischemic heart disease and other diseases of the circulatory system
CPT/HCPCS: 36415; 47000; 71046; 71250; 74176; 76770; 76937; 77012; 78452; 80048; 80053; 81001; 82105; 82378; 82810; 83735; 83880; 84145; 84484; 85018; 85025; 85049; 85610; 85730; 86301; 86788; 88307; 88341; 88342; 93005; 93017; 93306; 93312; 93320; 93325; 93460; 93799; 94640; 94760; 96361; 96374; 99285

== ENCOUNTER → 2023-03-26 | Outpatient (CLI) | payer MEDICARE, OTHER ==
--- NOTE | 2023-03-29 15:20 | PE ---
EXAMINATION TYPE: PET CT fusion skull to thigh DATE OF EXAM: 03/26/2023 COMPARISON: 03/18/2023 Prior PET/CT: 05/15/2027 HISTORY: Multiple lung nodules TECHNIQUE: Following the intravenous administration of 14.41 mCi of F-18 FDG, whole body images are performed from the skull base to the midthigh. Images are reviewed on the computer in the coronal, a xial, and sagittal planes. Reconstructed rotating images are created on independent workstation and reviewed on the computer. A localization and attenuation correction CT is performed in conjunction with the PET scan. DLP: 448.67 mGycm SCAN: Subsequent Blood glucose: 96 mg/dL Average Mediastinum SUV: 2.11 And normal focus for average liver SUV is difficult to ascertain. Best estimate is 3.02 average Liver SUV. FINDINGS: NECK: There is a focus of radiotracer in the left inferior neck, image 40 SUV value 4.61. Finding is suspicious for a metastatic lymph node. There is a right supraclavicular lateral lymph node with an SUV value of 3.33 suspicious for metastatic disease. A posterior soft tissue nodule in the upper subc utaneous thoracic region, image 53, has an SUV value of 6.7. There are additional soft tissue areas o f uptake adjacent to the bilateral scapula and within the paraspinal region upper thoracic region ksenia picious for metastatic disease. THORAX: Suspicious uptake within a small lymph node in the left axillary region is present with an SHANNON V value of 3.42. Suspicious uptake is anterior to the descending thoracic aorta in the infrahilar reg ion. This extends into the mediastinum, subcarinal region, pretracheal space, and aortopulmonic regio n. This area has intense uptake, SUV 7.61 and anterior mediastinal lymph node, image 90 has an SUV va lue of 5.25 ABDOMEN: There is extensive nodular increased signal through the liver. Average SUV in the range of 7 . Findings are compatible with metastatic lesions. Abnormal uptake is posterior to the spleen, image 140 SUV value 3.08 and suspicious for metastatic lesion. There is a right lateral subcutaneous nodule with an SUV value of 6.41, image 173. Small nodule posterior to the paraspinal muscles on the right is present at this level, image 173 with an SUV value of 3.33. PELVIS: Subcutaneous nodules within the right supragluteal region, image 178 SUV value 1.08. This may be small but has definitive uptake. More subtle uptake is in the subcutaneous tissues left paraspina l region, image 178. A subtle soft tissue uptake may be in the posterior-lateral left flank, image 18 4. Subcutaneous nodule appears to be lateral to the ASIS left iliac crest with an SUV value of 4.36, image 193. Some focal uptake is within the intraperitoneal midline abdomen, image 204 with an SUV jan ue of 4.76. An additional focus may be within a loop of bowel in the right lower quadrant, image 207 SUV value of 4.16. Couple of small foci of uptake are in the region of the sigmoid diverticula with S UVs of 5.1 and 4.6, images 221 into 23 respectively. OSSEOUS STRUCTURES: Abnormal uptake is within the third lateral left upper rib. SUV 4.36, image 76. A bnormal uptake is in the inferior right scapula with SUV of 3.14 COMPARISON: Multiple findings above are interval findings from the prior PET/CT of 05/15/2017. IMPRESSION: 1. New multiple hot nodules within the liver compatible with multiple metastatic lesions. 2. Abnormal uptake through the chest and mediastinum discussed above suspicious for neoplastic proces s. 3. Osseous metastasis are identified including the right scapula and left third rib. 4. Multiple scattered soft tissue nodules with uptake suspicious for soft tissue metastatic disease. 5. There is abnormal lymphadenopathy with abnormal uptake discussed above
== END | disposition home or self-care (01) ==
LOC: RADPETMAIN 16:11
PROVIDERS: ATTEND Thoracic Surgery (Cardiothoracic Vascular Surgery)
DX: C79.51 Secondary malignant neoplasm of bone (principal); R59.0 Localized enlarged lymph nodes; R91.8 Other nonspecific abnormal finding of lung field
CPT/HCPCS: 78815; A9552

== ENCOUNTER 2023-03-30 09:44 | Inpatient (IN) | payer MEDICARE, OTHER ==
[2023-03-30] MEDS ORDERED: ACETAMINOPHEN TAB 500 MG TAB PO STA (10:14)
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
[2023-03-30 11:07] LABS: Partial Thromboplastin Time 23.8 sec (22.0-30.0); Prothrombin Time 10.2 sec (9.0-12.0)
[2023-03-30 11:10] LABS: Basophils % (A) 0 %; Eosinophils # (A) 0.4 k/uL (0-0.7); Eosinophils % (A) 3 %; HCT 32.2 % (39.0-53.0); HGB 10.4 gm/dL (13.0-17.5); Hypochromasia Moderate; Lymphocytes % (A) 8 %; MCH 30.3 pg (25.0-35.0); MCHC 32.1 g/dL (31.0-37.0); MCV 94.3 fL (80.0-100.0); Mean Platelet Volume 8.4; Monocytes # (A) 0.9 k/uL (0-1.0); Monocytes % (A) 7 %; Neutrophils # (A) 9.4 k/uL (1.3-7.7); Neutrophils % (A) 79 %; Platelet Count 369 k/uL (150-450); Poikilocytosis Moderate; RBC 3.42 m/uL (4.30-5.90); RDW 15.2 % (11.5-15.5); WBC 11.9 k/uL (3.8-10.6)
[2023-03-30 11:18] LABS: ALT 36 U/L (4-49); African American GFR (CKD) 22 (>60 ml/min/1.73 sqM); Albumin 3.6 g/dL (3.5-5.0); Anion Gap 9 mmol/L; Blood Urea Nitrogen 59 mg/dL (9-20); Calcium 9.6 mg/dL (8.4-10.2); Carbon Dioxide 26 mmol/L (22-30); Chloride 101 mmol/L (98-107); Glucose 95 mg/dL (74-99); Magnesium 2.3 mg/dL (1.6-2.3); Non-African American GFR(CKD) 19 (>60 ml/min/1.73 sqM); Sodium 136 mmol/L (137-145); Total Bilirubin 0.9 mg/dL (0.2-1.3); Total Protein 6.8 g/dL (6.3-8.2)
[2023-03-30 11:43] LABS: AST 48 U/L (17-59); Alkaline Phosphatase 650 U/L (38-126)
--- NOTE | 2023-03-30 11:53 | XR ---
EXAMINATION TYPE: XR chest 2V DATE OF EXAM: 03/30/2023 COMPARISON: 03/14/2023 INDICATION: Difficulty breathing history of metastatic lung cancer TECHNIQUE: Frontal and lateral views of the chest are obtained. FINDINGS: The heart size is upper limits of normal. Pacemaker overlies left chest. The pulmonary vasculature is normal. There is density along the lateral left lung pleural margin. A small left pleural effusion and/or inf iltrate at the left costophrenic angle is present. Hyperinflation is present. IMPRESSION: 1. Small area of pleural thickening or mass density at the lateral left lung margin present previousl y. 2. Small left pleural effusion and/or atelectasis left costophrenic angle.
[2023-03-30] MEDS ORDERED: cefTRIAXone IN SWFI 1,000 MG/10 ML SYRINGE IVP STA (12:41)
[2023-03-30] MEDS ORDERED: AZITHROMYCIN 500 MG in SODIUM CHLORIDE 0.9% 250 ML IVPB STA (12:59)
[2023-03-30] MEDS ORDERED: PNEUMONIA PROTOCOL UTILIZED 1 EACH MISC PO PRN (12:59)
[2023-03-30] MEDS: APIXABAN 5 MG TAB PO SCH (22:05)
[2023-03-30] MEDS: ISOSORBIDE MONONITRATE ER 30 MG TAB.ER.24H PO SCH (22:05)
[2023-03-30] MEDS: SODIUM CHLORIDE 0.9% 1,000 ML IV SCH (22:05)
[2023-03-30] MEDS: SODIUM BICARBONATE TAB 650 MG TAB PO SCH (22:05)
[2023-03-30] MEDS: ATORVASTATIN 80 MG TAB PO SCH (22:05)
[2023-03-31] MEDS ORDERED: IPRATROPIUM-ALBUTEROL 3 ML NEB INHALATION PRN (04:30)
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
--- NOTE | 2023-03-31 08:16 | XR ---
EXAMINATION TYPE: XR chest 1V DATE OF EXAM: 03/31/2023 5:49 AM COMPARISON: Chest radiographs from 03/30/2023 TECHNIQUE: XR chest 1V Frontal view of the chest. CLINICAL INDICATION:Male, 67 years old with history of pneumonia; FINDINGS: Patient is rotated which limits evaluation. Lungs/Pleura: Blunting of the left costophrenic angle. Patchy left mid and lower lung airspace opacit ies/consolidation. Hyperinflation. Pulmonary vascularity: Unremarkable. Heart/mediastinum: Cardiomediastinal silhouette is enlarged and stable. Atherosclerotic calcificatio ns are seen in the aorta. Single-lead cardiac conduction device overlying the left hemithorax with le ad projecting over the right ventricle. Musculoskeletal: No acute osseous pathology. IMPRESSION: Small left pleural effusion with patchy left mid and lower lung airspace opacities/consolidation cons istent with known neoplastic process and atelectasis. Superimposed infectious process is not excluded .
[2023-03-31] MEDS: IPRATROPIUM-ALBUTEROL 3 ML NEB INHALATION SCH ×4 (09:15→19:53)
[2023-03-31] MEDS: APIXABAN 5 MG TAB PO SCH ×2 (09:34→23:01)
[2023-03-31] MEDS: LOSARTAN 25 MG TAB PO SCH (09:35)
[2023-03-31] MEDS: FERROUS SULFATE 325 MG TAB PO SCH (09:36)
[2023-03-31] MEDS: METOPROLOL SUCCINATE (ER) 25 MG TAB.ER.24H PO SCH (09:36)
[2023-03-31] MEDS: FINASTERIDE 5 MG TAB PO SCH (09:36)
[2023-03-31] MEDS: SODIUM BICARBONATE TAB 650 MG TAB PO SCH ×2 (09:37→23:01)
[2023-03-31] MEDS: AZITHROMYCIN 500 MG TAB PO SCH (09:38)
[2023-03-31] MEDS: AMIODARONE 200 MG TAB PO SCH (09:38)
[2023-03-31] MEDS: NICOTINE 14MG/24HR PATCH TRANSDERM SCH (09:45)
[2023-03-31] MEDS: SODIUM CHLORIDE 0.9% 1,000 ML IV SCH ×2 (10:05→23:59)
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
--- NOTE | 2023-03-31 14:56 | CT ---
EXAMINATION TYPE: CT brain wo con CT DLP: 1157.4 mGycm, Automated exposure control for dose reduction was used. DATE OF EXAM: 03/31/2023 2:48 PM COMPARISON: Prior CT Brain from 03/22/2020. CLINICAL INDICATION:Male, 67 years old with history of staging, hx of liver cancer, weakness, ams TECHNIQUE: Brain: Multiple axial CT images of the brain were obtained without IV contrast. Coronal and sagittal reformats reviewed. FINDINGS: Brain: Extra-axial spaces: No abnormal extra-axial fluid collections. Ventricular system: Within normal limits Cerebral parenchyma: Cerebral atrophy. There is a ill-defined 3.2 cm right frontal lobe region of low attenuation. The cortex appears preserved. No acute intraparenchymal hemorrhage or mass effect. The dickson-white junction is well differentiated. Scattered hypoattenuating areas are seen within the whit e matter. Cerebellum: Unremarkable. Mass effect: No evidence of midline shift. Intracranial vasculature: Atherosclerotic calcifications of the intracranial vessels. Soft tissues: Normal. Calvarium/osseous structures: No depressed skull fracture. Paranasal sinuses and mastoid air cells: The mastoid air cells are clear. Postsurgical changes to bot h maxillary sinuses. Visualized orbits: Bilateral aphakia IMPRESSION: 1. No intracranial hemorrhage or midline shift. 2. Ill-defined 3.2 cm right frontal lobe region of low attenuation with preservation of the cortex. Further evaluation with MR brain with and without IV contrast is recommended to assess for mass/metas tasis. 3. Nonspecific white matter changes likely related to chronic small vessel ischemic disease.
[2023-03-31] MEDS: BUDESONIDE 1 MG/2 ML NEBU INHALATION SCH ×2 (15:29→19:53)
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
[2023-03-31 20:08] LABS: Appearance,Urine Clear (Clear); Bilirubin,Urine Negative (Negative); Blood,Urine Negative (Negative); Color,Urine Yellow; Glucose,Urine (UA) Negative (Negative); Ketones,Urine Negative (Negative); Leukocyte Esterase,Urine Negative (Negative); Nitrite,Urine Negative (Negative); PH, Urine 5.5 (5.0-8.0); Protein,Urine Trace (Negative); Specific Gravity,Urine 1.019 (1.001-1.035); Urobilinogen,Urine <2.0 mg/dL (<2.0)
[2023-03-31] MEDS: ATORVASTATIN 80 MG TAB PO SCH (23:02)
[2023-03-31] MEDS: ISOSORBIDE MONONITRATE ER 30 MG TAB.ER.24H PO SCH (23:02)
[2023-04-01] MEDS: APIXABAN 5 MG TAB PO SCH ×2 (08:37→21:17)
[2023-04-01] MEDS: AZITHROMYCIN 500 MG TAB PO SCH (08:37)
[2023-04-01] MEDS: FERROUS SULFATE 325 MG TAB PO SCH (08:37)
[2023-04-01] MEDS: SODIUM BICARBONATE TAB 650 MG TAB PO SCH ×2 (08:37→21:17)
[2023-04-01] MEDS: LOSARTAN 25 MG TAB PO SCH (08:37)
[2023-04-01] MEDS: BUDESONIDE 1 MG/2 ML NEBU INHALATION SCH ×2 (08:38→20:32)
[2023-04-01] MEDS: METOPROLOL SUCCINATE (ER) 25 MG TAB.ER.24H PO SCH (08:38)
[2023-04-01] MEDS: IPRATROPIUM-ALBUTEROL 3 ML NEB INHALATION SCH ×4 (08:38→20:32)
[2023-04-01] MEDS: NICOTINE 14MG/24HR PATCH TRANSDERM SCH (08:38)
[2023-04-01] MEDS: AMIODARONE 200 MG TAB PO SCH (08:38)
[2023-04-01] MEDS: FINASTERIDE 5 MG TAB PO SCH (08:38)
[2023-04-01] MEDS ORDERED: FUROSEMIDE 20 MG TAB PO SCH (09:00)
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
[2023-04-01] MEDS: FUROSEMIDE 40 MG TAB PO SCH ×2 (10:27→16:46)
--- NOTE | 2023-04-01 12:47 | P.PN ---
Subjective Progress Note Date: 04/01/23 I am seeing this patient in new consultation today 03/31/2023 in the emergency room for presumptive pneumonia. Patient is a 67-year-old male who was recently diagnosed with metastatic adenocarcinoma, likely lung primary. Patient also has history of coronary artery disease, ischemic cardiomyopathy with AICD, COPD, hypertension, hyperlipidemia, paroxysmal atrial fibrillation, chronic kidney disease, and remote history of testicular cancer. The patient is a current smoker. On the patient's most recent admission on 03/15/2023 the patient was found to have metastatic disease. The patient's CT of the chest, abdomen, pelvis showed a left hilar lesion encasing the left mainstem bronchus measuring up to 5.5 cm in size. There were also lower paratracheal and subcarinal lymphadenopathy. Few other pulmonary nodules throughout the left lung measuring up to 3.3 cm in size. There were also multiple hepatic metastatic lesions measuring up to 2.7 cm in size with underlying metastasis to mesenteric lymph nodes measuring up to 1.3 cm in size. There was also suspicious lesions of T5 and L1 concerning for osseous metastasis. On the same admission, the patient underwent heart catheterization revealing multivessel coronary artery disease including 20% stenosis of the left main, 60-70% stenosis of the mid LAD, 50% stenosis of the OM1, and 80% RCA stenosis. The patient also had severe aortic stenosis and reduced ejection fraction of 35-40% estimated on DEBBY. For this reason, percutaneous CT-guided liver biopsy was used to obtain biopsy, which did come back positive for adenocarcinoma. On discharge, the patient had a outpatient PET scan which was consistent with diffuse metastasis. The patient returned to the emergency room yesterday morning complaining of progressively worsening shortness of breath since discharge and a congested nonproductive cough. He was also febrile with a T-max of 100.4F. Patient also states that he has been weak with reduced appetite. Denies any chest pain, heart palpitations, hemoptysis. Denies any sick contacts. Patient is currently sitting in the bed, on 3 L nasal cannula, in no acute distress. Chest x-ray redemonstrated the patient's left lung mass with small left pleural effusion and/or atelectasis of the left costophrenic angle. Could not rule out underlying infiltrate. CBC on arrival showed a WBC count 11.9, hemoglobin 10.4, hematocrit 32.2, platelets 369. BMP shows sodium 136, potassium 5, chloride 101, serum bicarb 26, BUN 59, creatinine 3.24, glucose 95. Normal saline infusing at 75 mL per hour. Initial lactic acid level 2.1. Troponins mildly elevated at 0.041. Bedside monitor shows atrial fibrillation with controlled rate. Negative for influenza, RSV, COVID-19. He was started on a combination of azithromycin and ceftriaxone. Blood cultures are pending. Patient does not appear toxic, and vital signs are stable. The patient is seen today 04/01/2023 in follow-up on the regular medical floor. He is currently resting comfortably in bed. Awake and alert in no acute distress. Maintaining O2 saturation in the 90s on room air. Pro calcitonin was 1.02. Being treated for a patchy left mid and lower lobe airspace opacity. Computed tomography scan of the brain revealed no intracranial hemorrhage shift or midline shift. There is an ill-defined 3.2 cm right frontal lobe region of low attenuation with preservation of the cortex. ProBNP 6330. Urine legionella antigen was negative. Urinalysis clean. He is continued on DuoNeb inhalations, Pulmicort inhalations, antibiotics in the form of ceftriaxone. NicoDerm patches in place. Continued on oral diuretics. Anticoagulated with Eliquis. Objective - Vital Signs Vital signs: Vital Signs Temp 97.6 F 04/01/23 12:05 Pulse 103 H 04/01/23 12:05 Resp 18 04/01/23 12:05 BP 142/84 04/01/23 12:05 Pulse Ox 95 04/01/23 12:05 FiO2 Intake & Output 03/31/23 04/01/23 04/01/23 18:59 06:59 18:59 Intake Total 0 Balance 0 Weight 77.111 kg Intake: Oral 0 Other: Voiding Method Toilet Urinal # Voids 1 1 - Exam GENERAL EXAM: Alert, 67-year-old male, on room air, comfortable in no apparent distress. HEAD: Normocephalic and atraumatic EYES: Normal reaction of pupils, equal size. NOSE: Clear with pink turbinates. THROAT: No erythema or exudates. NECK: No masses, no JVD. CHEST: No chest wall deformity. LUNGS: Diminished lung sounds at the left base. No wheezes, rhonchi, crackles. CVS: S1 and S2 normal with no audible murmur, irregular rhythm. No extra heart sounds. Heart rate is controlled at 90 bpm. ABDOMEN: No hepatosplenomegaly, active bowel sounds, no guarding or rigidity. SPINE: No scoliosis or deformity. SKIN: No rashes. There are multiple soft tissue cystic lesions on the patient's back CENTRAL NERVOUS SYSTEM: No focal deficits, tone is normal in all 4 extremities. EXTREMITIES: There is no peripheral edema, clubbing, or cyanosis. Peripheral pulses are intact. - Labs CBC & Chem 7: 03/30/23 10:37 03/30/23 10:37 Labs: Abnormal Lab Results - Last 24 Hours (Table) 03/31/23 Range/Units 19:55 Urine Protein Trace H (Negative) Assessment and Plan Assessment: Acute hypoxemic respiratory failure, currently on room air. Possibly secondary to presumptive postobstructive left lower lobe pneumonia. Chest x-ray on arrival showed a small area of pleural thickening or masslike density at the left lateral lung margin which was present previously. There was also small left pleural effusion and/or atelectasis at the left costophrenic angle. Cannot rule out underlying infiltrate. Negative for influenza, RSV, COVID-19. Legionella urine antigen negative. Pro-calcitonin 1.02. Metastatic adenocarcinoma, CT of the chest, abdomen, pelvis from recent hospital admission showed a left hilar lesion encasing the left mainstem bronchus measuring up to 5.5 cm in size. There were also lower paratracheal and subcarinal lymphadenopathy. Few other pulmonary nodules throughout the left lung measuring up to 3.3 cm in size. There were also multiple hepatic metastatic lesions measuring up to 2.7 cm in size with underlying metastasis to mesenteric lymph nodes measuring up to 1.3 cm in size. There was also suspicious lesions of T5 and L1 concerning for osseous metastasis. Percutaneous CT-guided liver biopsy was used to obtain biopsy, which did come back positive for adenocarcinoma. On discharge, the patient had a outpatient PET scan which was consistent with diffuse metastasis. Following up outpatient with oncologist on 04/05/2023. Computed tomography scan of the brain revealed an ill-defined 3.2 cm right frontal lobe region of low attenuation. Ischemic cardiomyopathy with AICD/pacemaker, most recent transesophageal echocardiogram done on 03/18/2023 showed a reduced ejection fraction of 35-40%. Multivessel coronary artery disease, as demonstrated on recent heart catheterization including 20% stenosis of the left main, 60-70% stenosis of the mid LAD, 50% stenosis of the OM1, and 80% RCA stenosis. Severe aortic stenosis, as demonstrated on DEBBY Acute on chronic kidney disease, creatinine 3.24 Chronic atrial fibrillation, with controlled ventricular rate, maintained on by mouth amiodarone, metoprolol, and anticoagulated on Eliquis Chronic nicotine dependence Benign essential hypertension Hyperlipidemia History of CVA Chronic obstructive pulmonary disease, stable Acute on chronic kidney disease, creatinine 3.24 Recent left sided hydronephrosis with possible UPG junction obstruction History of testicular cancer status post resection followed with chemoradiation therapy in 1985 Plan: The patient was seen and evaluated CAT scan of the brain, labs and medications reviewed Continue the current treatment plan Cardiology consult appreciated The plan is to follow-up with oncology on 04/05/2023 Follow-up chest x-ray in a.m. We will continue to follow I have personally seen and examined the patient, performed the documentation and the assessment and plan as written. Number of minutes spent on the visit: 10.
[2023-04-01] MEDS: DEXAMETHASONE SOD PHOSPHATE 4 MG/ML 1 ML VIAL IVP SCH (16:57)
[2023-04-01 17:20] LABS: African American GFR (CKD) 24 (>60 ml/min/1.73 sqM); Anion Gap 10 mmol/L; Blood Urea Nitrogen 50 mg/dL (9-20); Calcium 9.2 mg/dL (8.4-10.2); Carbon Dioxide 24 mmol/L (22-30); Chloride 101 mmol/L (98-107); Glucose 105 mg/dL (74-99); Non-African American GFR(CKD) 21 (>60 ml/min/1.73 sqM); Potassium 4.3 mmol/L (3.5-5.1); Sodium 135 mmol/L (137-145)
[2023-04-01] MEDS ORDERED: RX INFO: IV CONTRAST WAS GIVEN 1 EACH MISC MISCELLANE PRN (19:17)
[2023-04-01] MEDS ORDERED: SODIUM CHLORIDE 0.9% 500 ML 500 ML IV ONE ×2 (19:24→22:00)
--- NOTE | 2023-04-01 19:45 | P.PN ---
Subjective Progress Note Date: 04/01/23 Principal diagnosis: SOB Patient reports feeling improved since admission but is still reporting SOB on exertion. Denies neurological deficits. Discussed CT head findings with pt and concerns for possible brain mets. Objective - Vital Signs Vital signs: Vital Signs Temp 97.6 F 04/01/23 12:05 Pulse 94 04/01/23 15:40 Resp 18 04/01/23 12:05 BP 142/84 04/01/23 12:05 Pulse Ox 96 04/01/23 13:00 FiO2 Intake & Output 04/01/23 04/01/23 04/02/23 06:59 18:59 06:59 Intake Total 0 Balance 0 Weight 77.111 kg Intake: Oral 0 Other: Voiding Method Toilet Urinal # Voids 1 1 - Constitutional General appearance: Present: average body habitus, no acute distress - EENT Eyes: Present: anicteric sclerae, EOMI ENT: Present: hearing grossly normal - Respiratory Details: breathing is even and unlabored - Cardiovascular Details: skin warm and dry - Integumentary Integumentary: Absent: cyanotic, rash - Neurologic Neurologic Comment(s): grossly intact - Musculoskeletal Musculoskeletal: Present: strength equal bilaterally - Psychiatric Psychiatric: Present: A&O x's 3, appropriate affect, intact judgment & insight - Labs CBC & Chem 7: 03/30/23 10:37 04/01/23 16:53 Labs: Abnormal Lab Results - Last 24 Hours (Table) 03/31/23 04/01/23 Range/Units 19:55 16:53 Sodium 135 L (137-145) mmol/L BUN 50 H (9-20) mg/dL Creatinine 2.97 H (0.66-1.25) mg/dL Glucose 105 H (74-99) mg/dL Urine Protein Trace H (Negative) Microbiology - Last 24 Hours (Table) 03/30/23 10:37 Blood Culture - Preliminary Blood 03/30/23 10:37 Blood Culture - Preliminary Blood Assessment and Plan (1) Metastatic cancer Current Visit: Yes Status: Acute Priority: High Code(s): C79.9 - SECONDARY MALIGNANT NEOPLASM OF UNSPECIFIED SITE SNOMED Code(s): 344310338 Plan: Metastatic non small cell carcinoma: -During last admission abdominal ultrasound revealed incidental finding of m ultiple hypoechoic masses within the liver and possibly some area within the spleen. CT CAP showed pericarinal and left hilar neoplastic soft tissue partially encasing the left mainstem bronchus and cutting off the lingular and left lower lobe bronchus. Mass at the left infrahilar level measuring up to 5.5 cm. Additional lower paratracheal and subcarinal lymphadenopathy. Soft tissue extends to the anterior wall of the upper descending thoracic aorta where there is some loss of the intervening fat plane which could reflect early invasion. Few pulmonary nodules throughout the left lung. Innumerable hepatic metastases measuring up to 2.7 cm, and suspected small 1.1 cm metastasis to the inferior spleen. Metastatic mesenteric lymph nodes and a left perirectal soft tissue deposit. Suspected subtle osseous metastatic disease at T5 and L1 and also within the upper sternal body. -Liver biopsy revealed non-small cell carcinoma with features compatible poorly differentiated adenocarcinoma with likely lung primary. -PET scan showed new multiple hot nodules of the liver compatible with multiple metastatic lesions. Abnormal uptake through the chest and mediastinum. Osseous metastasis are identified including the right scapula and left third rib. Multiple scattered soft tissue nodules with uptake suspicious for soft tissue metastatic disease. With multiple sites of lymphadenopathy with abnormal uptake. -Brain imaging was obtained for further staging. MRI brain unable to be comp leted due to ICD. Brain CT w/o contrast ordered due to stage [address] revealed Ill-defined 3.2 cm right frontal lobe region of low-attenuation with preservation of the cortex. Rad/onc was consulted, and case was discussed with Dr. Mckeon in regards to evaluation for RT of left lung mass and possible brain lesion. After review of imaging he states based on CT brain without contrast mass is hard to rule out as it appears as a hazy hypodensity but no definitive mass was seen. We will obtain brain CT with contrast and give hydration before and after procedure due to his CKD. Discussed risk versus benefits with patient and patient states that he wants to proceed with scan. Patient will be scheduled tomorrow for simulation of lung mass for palliative RT. -Pt started on Decadron 4mg q8hrs -Clinic f/u with Dr Gregoria Russ scheduled for 04/05 to further discuss findings and treatment options
--- NOTE | 2023-04-01 20:46 | P.PN ---
Progress Note - Text Progress Note Date: 04/01/23 Chief Complaint: Short of breath This is a pleasant 67-year-old patient, Dr. Colon. Chronic stable medical conditions include atrial fibrillation, CAD, hyperlipidemia, hypertension, osteoarthritis, ischemic cardiomyopathy, testicle cancer with surgery and chemo, BPH, CKD stage III, hemorrhoids, hiatal hernia CAD with stent, AICD. Patient is a smoker. . Patient was recently discharged from the hospital on March 24 seen by [facility] hospitalists. Patient's CEA and AFP tumor markers within normal limit. CA 19.9 is elevated. Patient is pending outpatient staging PET scan. -Liver core biopsy showed non-small cell carcinoma with features compatible with poorly differentiated adenocarcinoma. - CT chest abdomen and pelvis showed: Deidre L and left hilar neoplastic soft tissue partially encasing the left vein stem bronchus and cutting of the lingular and left lower lobe bronchus. Mass of the left infrahilar level 5.5 cm. Pulmonary nodules throughout the left lung up to 3.3 cm. Also small metastatic cystoscopy of the inferior spleen. Metastatic mesenteric lymph nodes. Suspected metastatic cystoscopy and sclerosis at T5 L1. An upper sternal body. Moderate left hydronephrosis possible UBP junction obstruction. -Left-sided colonic diverticulosis. -Prostatomegaly. -Cardiac catheterization: 20% left main, 60-70% mid LAD in-stent stenosis, 50% OM1 and 80% RCA stenosis. Decision made for medical management. DEBBY: Tricuspid aortic valve. Heavily calcified. Severe aortic stenosis with aortic valve area of 0.7 cm. Moderate to severe aortic insufficiency. Moderate tricuspid regurgitation. No PFO. EF 35-40%. Global hypokinesia. Patient has continued to smoke a few cigarettes a day. Now presented with increased shortness of breath. Cough. Some fever. Some hallucinations at home. Decreased appetite. Appetite is maintained. Has been losing weight. mother at the bedside. Tired. Admitted with pneumonia and COPD exacerbation. Started on IV ceftriaxone, DuoNeb, steroids. April 01: Breathing better. Appetite is bit better. Did get up and walk to the bathroom. Patient's sister is present. Discussed with the patient and the sister. Per cardiology because of his metastatic adenocarcinoma not a candidate for repair of severe aortic stenosis. Lasix increased per cardiology. She had a PET scan done last Wednesday. Active Medications Albuterol/Ipratropium (Ipratropium-Albuterol 3 Ml Neb) 3 ml INHALATION RT-QID [facility] Last Admin: 04/01/23 20:32 Dose: 3 ml Albuterol/Ipratropium (Ipratropium-Albuterol 3 Ml Neb) 3 ml INHALATION RT-Q2H PRN PRN Reason: Shortness Of Breath Or Wheezing Amiodarone HCl (Amiodarone 200 Mg Tab) 200 mg PO DAILY [facility] Last Admin: 04/01/23 08:38 Dose: 200 mg Apixaban (Apixaban 5 Mg Tab) 5 mg PO BID [facility]; Protocol Last Admin: 04/01/23 08:37 Dose: 5 mg Atorvastatin Calcium (Atorvastatin 80 Mg Tab) 80 mg PO HS [facility] Last Admin: 03/31/23 23:02 Dose: 80 mg Budesonide (Budesonide 1 Mg/2 Ml Nebu) 1 mg INHALATION RT-BID [facility] Last Admin: 04/01/23 20:32 Dose: 1 mg Dexamethasone Sodium Phosphate (Dexamethasone Sod Phosphate 4 Mg/Ml 1 Ml Vial) 4 mg IVP Q8HR [facility] Last Admin: 04/01/23 16:57 Dose: 4 mg Ferrous Sulfate (Ferrous Sulfate 325 Mg Tab) 325 mg PO DAILY [facility] Last Admin: 04/01/23 08:37 Dose: 325 mg Finasteride (Finasteride 5 Mg Tab) 5 mg PO DAILY [facility] Last Admin: 04/01/23 08:38 Dose: 5 mg Furosemide (Furosemide 40 Mg Tab) 40 mg PO BID@0900,1600 [facility] Last Admin: 04/01/23 16:46 Dose: 40 mg Ceftriaxone Sodium 2 gm/ (Sodium Chloride) 50 mls @ 100 mls/hr IVPB Q24HR [facility]; Protocol Stop: 04/03/23 09:29 Last Admin: 04/01/23 08:37 Dose: 100 mls/hr Sodium Chloride (Saline 0.9%) 500 mls @ 250 mls/hr IV .Q2H ONE Stop: 04/01/23 21:23 Last Admin: 04/01/23 19:58 Dose: 250 mls/hr Sodium Chloride (Saline 0.9%) 500 mls @ 150 mls/hr IV .Q3H20M ONE Stop: 04/02/23 01:19 Isosorbide Mononitrate (Isosorbide Mononitrate Er 30 Mg Tab.Er.24h) 15 mg PO HS [facility] Last Admin: 03/31/23 23:02 Dose: 15 mg Losartan Potassium (Losartan 25 Mg Tab) 25 mg PO DAILY [facility] Last Admin: 04/01/23 08:37 Dose: 25 mg Metoprolol Succinate (Metoprolol Succinate (Er) 25 Mg Tab.Er.24h) 75 mg PO DAILY [facility] Last Admin: 04/01/23 08:38 Dose: 75 mg Miscellaneous Information (Pneumonia Protocol Utilized 1 Each Misc) 1 each PO ONCE PRN PRN Reason: Per Protocol Miscellaneous Information (Rx Info: Iv Contrast Was Given 1 Each Misc) 1 each MISCELLANE DAILY PRN PRN Reason: Per Protocol Stop: 04/03/23 19:18 Nicotine (Nicotine 14mg/24hr Patch) 1 patch TRANSDERM DAILY [facility] Last Admin: 04/01/23 08:38 Dose: 1 patch Sodium Bicarbonate (Sodium Bicarbonate Tab 650 Mg Tab) 650 mg PO BID [facility] Last Admin: 04/01/23 08:37 Dose: 650 mg . Past medical history to include: Atrial fibrillation, CAD with stent, CHF 30-40%, hyperlipidemia, TIA, hypertension, osteoarthritis, BPH, V. tach, left testicle cancer with surgery/chemotherapy, BPH, CK D stage III, hemorrhoids, hiatal hernia, AICD: Colonic Diverticulosis. Severe aortic stenosis, moderate to severe aortic insufficiency. Metastatic adenocarcinoma Social history: Lives alone. Smoking for 52 years now down to about half a pack a day. Was up to pack and a half to 2 packs a day. Retired from [employer] work. Family history: CAD Physical examination: VITAL SIGNS: 97.6, 103, 18, 142/84, 95% room air GENERAL: BMI 20.7, reclining in bed, looking a bit better EYES: Pupils equal. Conjunctiva palel. HEENT: External appearance of nose and ears normal, oral cavity grossly normal. NECK: JVD not raised; masses not palpable. HEART: First and second heart sounds are normal; no edema. LUNGS: Respiratory rate increased; please breath sound ABDOMEN: Soft, nontender, liver spleen not palpable, no masses palpable. PSYCH: [Alert and oriented x3; mood and affect tired l. MUSCULOSKELETAL:No Clubbing/cyanosis;muscles-grossly intact INVESTIGATIONS, reviewed in the clinical context: April 01: Potassium 4.3 BUN 50 creatinine 2.97 March 30: White count 11.9 hemoglobin 10.4 crit is 369 sodium 136 potassium 5 BUN 59 creatinine 3.24 Lactic acid 2.1 Troponin I 0.041 Procalcitonin 1.02 Influenza type A, B, RSV, COVID-19: Not detected EKG tracing personally reviewed by me-atrial fibrillation. Some ST segment changes. Rate 101 Chest x-ray film personally reviewed by me-left basilar infiltrate/lobar collapse Recent investigations -Liver core biopsy showed non-small cell carcinoma with features compatible with poorly differentiated adenocarcinoma. - CT chest abdomen and pelvis showed: Deidre L and left hilar neoplastic soft tissue partially encasing the left vein stem bronchus and cutting of the lingular and left lower lobe bronchus. Mass of the left infrahilar level 5.5 cm. Pulmonary nodules throughout the left lung up to 3.3 cm. Also small metastatic cystoscopy of the inferior spleen. Metastatic mesenteric lymph nodes. Suspected metastatic cystoscopy and sclerosis at T5 L1. An upper sternal body. Moderate left hydronephrosis possible UBP junction obstruction. -Left-sided colonic diverticulosis. -Prostatomegaly. -Cardiac catheterization: 20% left main, 60-70% mid LAD in-stent stenosis, 50% OM1 and 80% RCA stenosis. Decision made for medical management. DEBBY: Tricuspid aortic valve. Heavily calcified. Severe aortic stenosis with aortic valve area of 0.7 cm. Moderate to severe aortic insufficiency. Moderate tricuspid regurgitation. No PFO. EF 35-40%. Global hypokinesia. Assessment and plan: -Left lower lobe pneumonia, suspected gram-negative organism. Could be postobstructive. IV ceftriaxone. Zithromax. Pulmonary following -Persistent atrial fibrillation, rate controlled Cordarone 200 mg a day. Eliquis Toprol-XL 75 mg -Acute COPD exacerbation in a current smoker Pulmicort DuoNeb -Chronic nicotine dependence, cigarette smoker nicotine patch -CAD with stent Toprol XL 75. Aspirin. Lipitor. Imdur ER 15 mg -Metastatic adenocarcinoma primary possibly lung. Metastatic assess suspected to the bones, spleen -Chronic congestive heart failure from diastolic dysfunction EF 35-40 % PE on Lasix -AICD On telemetry -Severe aortic stenosis , 0.7 cm with moderate to severe aortic regurgitation Plan oncology patient currently not a candidate for surgical intervention. -Mild to moderate mitral regurgitation and severe tricuspid regurgitation Follow clinically -BPH Proscar 5 mg a day -Hyperlipidemia Lipitor 80 mg daily at bedtime -Essential hypertension Toprol-XL -Chronic kidney disease stage 3 possibly from nephrosclerosis -Primary osteoarthritis multiple joints bilaterally Tylenol as needed Continue bronchodilators. Seen by cartilage and pulmonary. Increase activity. Discussed with the patient.
[2023-04-01] MEDS: ISOSORBIDE MONONITRATE ER 30 MG TAB.ER.24H PO SCH (21:17)
[2023-04-01] MEDS: ATORVASTATIN 80 MG TAB PO SCH (21:17)
[2023-04-02] MEDS: DEXAMETHASONE SOD PHOSPHATE 4 MG/ML 1 ML VIAL IVP SCH ×2 (01:37→08:43)
[2023-04-02 06:29] LABS: African American GFR (CKD) 24 (>60 ml/min/1.73 sqM); Anion Gap 11 mmol/L; Blood Urea Nitrogen 48 mg/dL (9-20); Calcium 9.4 mg/dL (8.4-10.2); Carbon Dioxide 24 mmol/L (22-30); Chloride 103 mmol/L (98-107); Glucose 160 mg/dL (74-99); Non-African American GFR(CKD) 21 (>60 ml/min/1.73 sqM); Potassium 4.9 mmol/L (3.5-5.1); Sodium 138 mmol/L (137-145)
[2023-04-02 07:32] VITALS: RESP 18
[2023-04-02] MEDS: IPRATROPIUM-ALBUTEROL 3 ML NEB INHALATION SCH ×3 (07:32→15:20)
[2023-04-02] MEDS: BUDESONIDE 1 MG/2 ML NEBU INHALATION SCH (07:32)
[2023-04-02] MEDS ORDERED: SYMBICORT 160-4.5 MCG INHALER INHALATION SCH (08:00)
[2023-04-02] MEDS: FERROUS SULFATE 325 MG TAB PO SCH (08:43)
[2023-04-02] MEDS: SODIUM BICARBONATE TAB 650 MG TAB PO SCH (08:44)
[2023-04-02] MEDS: FUROSEMIDE 40 MG TAB PO SCH (08:44)
[2023-04-02] MEDS: FINASTERIDE 5 MG TAB PO SCH (08:44)
[2023-04-02] MEDS: APIXABAN 5 MG TAB PO SCH (08:44)
[2023-04-02] MEDS: NICOTINE 14MG/24HR PATCH TRANSDERM SCH (08:44)
[2023-04-02] MEDS: METOPROLOL SUCCINATE (ER) 25 MG TAB.ER.24H PO SCH (08:44)
[2023-04-02] MEDS: AMIODARONE 200 MG TAB PO SCH (08:44)
[2023-04-02] MEDS: LOSARTAN 25 MG TAB PO SCH (08:44)
--- NOTE | 2023-04-02 11:43 | CT ---
EXAMINATION TYPE: CT brain w con DATE OF EXAM: 04/01/2023 COMPARISON: 03/31/2023 INDICATION: r/o brain mets, seen on previous CT head w/o. hx of testicular ca DLP: 1098.80 mGycm, Automated exposure control for dose reduction was used. CONTRAST: None CT of the brain is performed utilizing 3 mm thick sections through the posterior fossa and 3 mm thick sections through the remaining calvarium. Study is performed within 24 hours of arrival to the hosp ital. No abnormal hyperdensity is present to suggest an acute intracranial hemorrhage. There appears to be a rounded density with surrounding vasogenic edema in the right subcortical front al lobe. Previous areas estimated at 1.8 cm with surrounding vasogenic edema. Additional evaluation w ith contrasted MRI is recommended. No additional suspicious areas identified. No acute infarcts are evident. Ventricles and sulci are appropriate for the patient age. Paranasal sinuses and mastoid air cells within the [id number] are clear. IMPRESSIONS: 1. Possible mass with surrounding vasogenic edema right frontal lobe has a similar appearance to th e recent comparison. Follow-up with MRI with contrast recommended.
--- NOTE | 2023-04-02 11:44 | XR ---
EXAMINATION TYPE: XR chest 2V DATE OF EXAM: 04/02/2023 COMPARISON: 03/31/2023 INDICATION: Left lower lobe infiltrate, CHF TECHNIQUE: Frontal and lateral views of the chest are obtained. FINDINGS: The heart size is mildly prominent. The pulmonary vasculature is normal. Left lower lobe infiltrate is present. Pacemaker overlies left chest.. IMPRESSION: 1. Left lower lobe infiltrate. Correlate for atelectasis and pneumonia. Underlying pleural effusion m ay be present. Findings are stable from comparison.
[2023-04-02 11:54] VITALS: BP 138/84; TEMP 97.7
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
--- NOTE | 2023-04-02 14:06 | P.PN ---
Subjective Progress Note Date: 04/02/23 I am seeing this patient in new consultation today 03/31/2023 in the emergency room for presumptive pneumonia. Patient is a 67-year-old male who was recently diagnosed with metastatic adenocarcinoma, likely lung primary. Patient also has history of coronary artery disease, ischemic cardiomyopathy with AICD, COPD, hypertension, hyperlipidemia, paroxysmal atrial fibrillation, chronic kidney disease, and remote history of testicular cancer. The patient is a current smoker. On the patient's most recent admission on 03/15/2023 the patient was found to have metastatic disease. The patient's CT of the chest, abdomen, pelvis showed a left hilar lesion encasing the left mainstem bronchus measuring up to 5.5 cm in size. There were also lower paratracheal and subcarinal lymphadenopathy. Few other pulmonary nodules throughout the left lung measuring up to 3.3 cm in size. There were also multiple hepatic metastatic lesions measuring up to 2.7 cm in size with underlying metastasis to mesenteric lymph nodes measuring up to 1.3 cm in size. There was also suspicious lesions of T5 and L1 concerning for osseous metastasis. On the same admission, the patient underwent heart catheterization revealing multivessel coronary artery disease including 20% stenosis of the left main, 60-70% stenosis of the mid LAD, 50% stenosis of the OM1, and 80% RCA stenosis. The patient also had severe aortic stenosis and reduced ejection fraction of 35-40% estimated on DEBBY. For this reason, percutaneous CT-guided liver biopsy was used to obtain biopsy, which did come back positive for adenocarcinoma. On discharge, the patient had a outpatient PET scan which was consistent with diffuse metastasis. The patient returned to the emergency room yesterday morning complaining of progressively worsening shortness of breath since discharge and a congested nonproductive cough. He was also febrile with a T-max of 100.4F. Patient also states that he has been weak with reduced appetite. Denies any chest pain, heart palpitations, hemoptysis. Denies any sick contacts. Patient is currently sitting in the bed, on 3 L nasal cannula, in no acute distress. Chest x-ray redemonstrated the patient's left lung mass with small left pleural effusion and/or atelectasis of the left costophrenic angle. Could not rule out underlying infiltrate. CBC on arrival showed a WBC count 11.9, hemoglobin 10.4, hematocrit 32.2, platelets 369. BMP shows sodium 136, potassium 5, chloride 101, serum bicarb 26, BUN 59, creatinine 3.24, glucose 95. Normal saline infusing at 75 mL per hour. Initial lactic acid level 2.1. Troponins mildly elevated at 0.041. Bedside monitor shows atrial fibrillation with controlled rate. Negative for influenza, RSV, COVID-19. He was started on a combination of azithromycin and ceftriaxone. Blood cultures are pending. Patient does not appear toxic, and vital signs are stable. The patient is seen today 04/01/2023 in follow-up on the regular medical floor. He is currently resting comfortably in bed. Awake and alert in no acute distress. Maintaining O2 saturation in the 90s on room air. Pro calcitonin was 1.02. Being treated for a patchy left mid and lower lobe airspace opacity. Computed tomography scan of the brain revealed no intracranial hemorrhage shift or midline shift. There is an ill-defined 3.2 cm right frontal lobe region of low attenuation with preservation of the cortex. ProBNP 6330. Urine legionella antigen was negative. Urinalysis clean. He is continued on DuoNeb inhalations, Pulmicort inhalations, antibiotics in the form of ceftriaxone. NicoDerm patches in place. Continued on oral diuretics. Anticoagulated with Eliquis. The patient is seen today 04/02/2023 in follow-up on the regular medical floor. He is sitting up in bed. Awake and alert in no acute distress. Continues to maintain good O2 saturations in the 90s and up to 100% on 2 L nasal cannula. He is afebrile. Hemodynamically stable. Computed tomography scan of the brain re vealed a 1.8 cm mass with surrounding vasogenic edema. Chest x-ray continues to show a left lower lobe infiltrate possible pneumonia versus atelectasis. Underlying effusion present. Blood cultures reveal no growth. Sodium 138. Potassium 4.9. Bicarb 24. The 148. Creatinine 2.96. Glucose 160. No plans for intervention for the aortic stenosis due to his metastatic lung cancer. Objective - Vital Signs Vital signs: Vital Signs Temp 97.7 F 04/02/23 11:42 Pulse 94 04/02/23 11:42 Resp 18 04/02/23 11:42 BP 138/84 04/02/23 11:42 Pulse Ox 100 04/02/23 11:42 FiO2 Intake & Output 04/01/23 04/02/23 04/02/23 18:59 06:59 18:59 Intake Total 375 Balance 375 Intake: Oral 375 Other: Voiding Method Toilet Toilet Urinal Urinal # Voids 1 2 1 # Bowel Movements 1 - Exam GENERAL EXAM: Alert, thin, very pleasant 67-year-old male, on 2 L nasal cannula, comfortable in no apparent distress. HEAD: Normocephalic and atraumatic EYES: Normal reaction of pupils, equal size. NOSE: Clear with pink turbinates. THROAT: No erythema or exudates. NECK: No masses, no JVD. CHEST: No chest wall deformity. LUNGS: Diminished lung sounds at the left base. No wheezes, rhonchi, crackles. CVS: S1 and S2 normal with no audible murmur, irregular rhythm. No extra heart sounds. Heart rate is controlled at 90 bpm. ABDOMEN: No hepatosplenomegaly, active bowel sounds, no guarding or rigidity. SPINE: No scoliosis or deformity. SKIN: No rashes. There are multiple soft tissue cystic lesions on the patient's back CENTRAL NERVOUS SYSTEM: No focal deficits, tone is normal in all 4 extremities. EXTREMITIES: There is no peripheral edema, clubbing, or cyanosis. Peripheral pulses are intact. - Labs CBC & Chem 7: 03/30/23 10:37 04/02/23 05:46 Labs: Abnormal Lab Results - Last 24 Hours (Table) 04/01/23 04/02/23 Range/Units 16:53 05:46 Sodium 135 L (137-145) mmol/L BUN 50 H 48 H (9-20) mg/dL Creatinine 2.97 H 2.96 H (0.66-1.25) mg/dL Glucose 105 H 160 H (74-99) mg/dL Microbiology - Last 24 Hours (Table) 03/30/23 10:37 Blood Culture - Preliminary Blood 03/30/23 10:37 Blood Culture - Preliminary Blood Assessment and Plan Assessment: Acute hypoxemic respiratory failure, currently on room air. Possibly secondary to presumptive postobstructive left lower lobe pneumonia. Chest x-ray on arrival showed a small area of pleural thickening or masslike density at the left lateral lung margin which was present previously. There was also small left pleural effusion and/or atelectasis at the left costophrenic angle. Cannot rule out underlying infiltrate. Negative for influenza, RSV, COVID-19. Legionella urine antigen negative. Pro-calcitonin 1.02. Metastatic adenocarcinoma, CT of the chest, abdomen, pelvis from recent hospital admission showed a left hilar lesion encasing the left mainstem bronchus measuring up to 5.5 cm in size. There were also lower paratracheal and subcarinal lymphadenopathy. Few other pulmonary nodules throughout the left lung measuring up to 3.3 cm in size. There were also multiple hepatic metastatic lesions measuring up to 2.7 cm in size with underlying metastasis to mesenteric lymph nodes measuring up to 1.3 cm in size. There was also suspicious lesions of T5 and L1 concerning for osseous metastasis. Percutaneous CT-guided liver biopsy was used to obtain biopsy, which did come back positive for adenocarcinoma. On discharge, the patient had a outpatient PET scan which was consistent with diffuse metastasis. Following up outpatient with oncologist on 04/05/2023. Computed tomography scan of the brain revealed an ill-defined 3.2 cm right frontal lobe region of low attenuation. Ischemic cardiomyopathy with AICD/pacemaker, most recent transesophageal echocardiogram done on 03/18/2023 showed a reduced ejection fraction of 35-40%. Multivessel coronary artery disease, as demonstrated on recent heart catheterization including 20% stenosis of the left main, 60-70% stenosis of the mid LAD, 50% stenosis of the OM1, and 80% RCA stenosis. Severe aortic stenosis, as demonstrated on DEBBY Acute on chronic kidney disease, creatinine 3.24 Chronic atrial fibrillation, with controlled ventricular rate, maintained on by mouth amiodarone, metoprolol, and anticoagulated on Eliquis Chronic nicotine dependence Benign essential hypertension Hyperlipidemia History of CVA Chronic obstructive pulmonary disease, stable Acute on chronic kidney disease, creatinine 3.24 Recent left sided hydronephrosis with possible UPG junction obstruction History of testicular cancer status post resection followed with chemoradiation therapy in 1985 Plan: The patient was seen and evaluated Second CAT scan of the brain, chest x-ray, labs and medications reviewed Radiation oncology is planning treatment to the lung Possibly to the brain as the patient cannot have an MRI due to his ICD Currently stable from the pulmonary standpoint Could be tested for possible home oxygen We will continue to follow I have personally seen and examined the patient, performed the documentation and the assessment and plan as written. Number of minutes spent on the visit: 10.
--- NOTE | 2023-04-02 15:10 | P.PN ---
Subjective Progress Note Date: 04/02/23 Principal diagnosis: SOB Patient reports feeling improved today. States SOB has improved and was able to get a good night of rest. But is still reporting SOB on exertion. Denies neurological deficits. Discussed CT head findings with pt and concerns for possible brain metastasis Objective - Vital Signs Vital signs: Vital Signs Temp 97.7 F 04/02/23 11:42 Pulse 88 04/02/23 14:20 Resp 18 04/02/23 11:42 BP 138/84 04/02/23 11:42 Pulse Ox 2 L 04/02/23 14:20 FiO2 Intake & Output 04/01/23 04/02/23 04/02/23 18:59 06:59 18:59 Intake Total 375 Balance 375 Intake: Oral 375 Other: Voiding Method Toilet Toilet Urinal Urinal # Voids 1 2 1 # Bowel Movements 1 - Constitutional General appearance: Present: average body habitus, no acute distress - EENT Eyes: Present: anicteric sclerae, EOMI ENT: Present: hearing grossly normal - Respiratory Details: breathing is even and unlabored - Cardiovascular Details: skin is warm and dry - Integumentary Integumentary: Absent: cyanotic, rash - Neurologic Neurologic Comment(s): grossly intact - Musculoskeletal Musculoskeletal: Present: strength equal bilaterally - Psychiatric Psychiatric: Present: A&O x's 3, appropriate affect, intact judgment & insight - Labs CBC & Chem 7: 03/30/23 10:37 04/02/23 05:46 Labs: Abnormal Lab Results - Last 24 Hours (Table) 04/01/23 04/02/23 Range/Units 16:53 05:46 Sodium 135 L (137-145) mmol/L BUN 50 H 48 H (9-20) mg/dL Creatinine 2.97 H 2.96 H (0.66-1.25) mg/dL Glucose 105 H 160 H (74-99) mg/dL Microbiology - Last 24 Hours (Table) 03/30/23 10:37 Blood Culture - Preliminary Blood 03/30/23 10:37 Blood Culture - Preliminary Blood - Imaging and Cardiology CT Scan - head: report reviewed Assessment and Plan (1) Metastatic cancer Current Visit: Yes Status: Acute Priority: High Code(s): C79.9 - SECONDARY MALIGNANT NEOPLASM OF UNSPECIFIED SITE SNOMED Code(s): 875363027 Plan: Metastatic non small cell carcinoma: -During last admission abdominal ultrasound revealed incidental finding of multiple hypoechoic masses within the liver and possibly some area within the spleen. CT CAP showed pericarinal and left hilar neoplastic soft tissue partially encasing the left mainstem bronchus and cutting off the lingular and left lower lobe bronchus. Mass at the left infrahilar level measuring up to 5.5 cm. Additional lower paratracheal and subcarinal lymphadenopathy. Soft tissue extends to the anterior wall of the upper descending thoracic aorta where there is some loss of the intervening fat plane which could reflect early invasion. Few pulmonary nodules throughout the left lung. Innumerable hepatic metastases measuring up to 2.7 cm, and suspected small 1.1 cm metastasis to the inferior spleen. Metastatic mesenteric lymph nodes and a left perirectal soft tissue deposit. Suspected subtle osseous metastatic disease at T5 and L1 and also within the upper sternal body. -Liver biopsy revealed non-small cell carcinoma with features compatible poorly differentiated adenocarcinoma with likely lung primary. -PET scan showed new multiple hot nodules of the liver compatible with multiple metastatic lesions. Abnormal uptake through the chest and mediastinum. Osseous metastasis are identified including the right scapula and left third rib. Multiple scattered soft tissue nodules with uptake suspicious for soft tissue metastatic disease. With multiple sites of lymphadenopathy with abnormal uptake. -Brain imaging was obtained for further staging. MRI brain unable to be completed due to ICD. Brain CT w/o contrast ordered due to stage [address] revealed Ill-defined 3.2 cm right frontal lobe region of low-attenuation with preservation of the cortex. Rad/onc was consulted, and case was discussed with Dr. Mckeon in regards to evaluation for RT of left lung mass and possible brain lesion. After review of imaging he states based on CT brain without contrast mass is hard to rule out as it appears as a hazy hypodensity but no definitive mass was seen. -CT head with contrast obtained for better visualization of frontal lobe 3.2cm hypodensity. Scan revealed a rounded density with surrounding vasogenic edema in the right subcortical frontal lobe estimated at 1.8 cm with surrounding vasogenic edema. Discussed findings with patient. Spoke with Dr. Grimes regarding scan and they will further review imaging and provide further recommendations on possible SRS to brain versus close surveillance -Patient underwent simulation today of lung mass for palliative RT, and will be scheduled for 10 fractions starting next Wednesday -Pt started on Decadron 4mg q8hrs, script sent to pharmacy on file for discharge -Clinic f/u with Dr Gregoria Russ scheduled for 04/05 to further discuss findings and treatment options
[2023-04-02 15:35] VITALS: PULSE 80
--- NOTE | 2023-04-02 17:04 | P.DS ---
Providers Date of admission: 03/30/23 13:02 Expected date of discharge: 04/02/23 Attending physician: Regis Valdez Consults: 03/30/23 12:59 Consult Physician Routine Consulting Provider: Alan Russ Consult Reason/Comments: Metastatic cancer Do you want consulting provider notified?: Yes 03/30/23 13:01 Consult Physician Routine Consulting Provider: Petey Frances Consult Reason/Comments: Dyspnea, pneumonia Do you want consulting provider notified?: Yes 04/01/23 15:12 Consult Physician Routine Consulting Provider: Corey Mckeon Consult Reason/Comments: metastatic non small cell carcinoma Do you want consulting provider notified?: Already Contacted Primary care physician: [facility] Course: Chief Complaint: Short of breath This is a pleasant 67-year-old patient, Dr. Colon. Chronic stable medical conditions include atrial fibrillation, CAD, hyperlipidemia, hypertension, osteoarthritis, ischemic cardiomyopathy, testicle cancer with surgery and chemo, BPH, CKD stage III, hemorrhoids, hiatal hernia CAD with stent, AICD. Patient is a smoker. . Patient was recently discharged from the hospital on March 24 seen by [facility] hospitalists. Patient's CEA and AFP tumor markers within normal limit. CA 19.9 is elevated. Patient is pending outpatient staging PET scan. -Liver core biopsy showed non-small cell carcinoma with features compatible with poorly differentiated adenocarcinoma. - CT chest abdomen and pelvis showed: Deidre L and left hilar neoplastic soft tissue partially encasing the left vein stem bronchus and cutting of the lingular and left lower lobe bronchus. Mass of the left infrahilar level 5.5 cm. Pulmonary nodules throughout the left lung up to 3.3 cm. Also small metastatic cystoscopy of the inferior spleen. Metastatic mesenteric lymph nodes. Suspected metastatic cystoscopy and sclerosis at T5 L1. An upper sternal body. Moderate left hydronephrosis possible UBP junction obstruction. -Left-sided colonic diverticulosis. -Prostatomegaly. -Cardiac catheterization: 20% left main, 60-70% mid LAD in-stent stenosis, 50% OM1 and 80% RCA stenosis. Decision made for medical management. DEBBY: Tricuspid aortic valve. Heavily calcified. Severe aortic stenosis with aortic valve area of 0.7 cm. Moderate to severe aortic insufficiency. Moderate tricuspid regurgitation. No PFO. EF 35-40%. Global hypokinesia. Patient has continued to smoke a few cigarettes a day. Now presented with increased shortness of breath. Cough. Some fever. Some hallucinations at home. Decreased appetite. Appetite is maintained. Has been losing weight. mother at the bedside. Tired. Admitted with pneumonia and COPD exacerbation. Started on IV ceftriaxone, DuoNeb, steroids. April 01: Breathing better. Appetite is bit better. Did get up and walk to the bathroom. Patient's sister is present. Discussed with the patient and the sister. Per cardiology because of his metastatic adenocarcinoma not a candidate for repair of severe aortic stenosis. Lasix increased per cardiology. She had a PET scan done last Wednesday. April 02: Breathing improved. Did walk in the hallway. Pulse ox drops on room air. Home oxygen beginning at age. Did receive palliative radiation treatment today. We'll get for 2 more weeks Wednesday through Wednesday. Cleared by pulmonary to go home. Patient to complete 7 more days of Ceftin for pneumonia. Computed tomography scan showing showing metastatic rate and some edema. Asymptomatic. Being discharged on dexamethasone. Patient again counseled about smoking. Per cardiology patient not for any intervention for his valve because of his metastatic condition. He'll also follow up outpatient with Dr. Corey Mckeon from radiation oncology. Discussion and discharge planning more than 35 minutes . Past medical history to include: Atrial fibrillation, CAD with stent, CHF 30-40%, hyperlipidemia, TIA, hypertension, osteoarthritis, BPH, V. tach, left testicle cancer with surgery/chemotherapy, BPH, CK D stage III, hemorrhoids, hiatal hernia, AICD: Colonic Diverticulosis. Severe aortic stenosis, moderate to severe aortic insufficiency. Metastatic adenocarcinoma Social history: Lives alone. Smoking for 52 years now down to about half a pack a day. Was up to pack and a half to 2 packs a day. Retired from [employer] work. Family history: CAD Physical examination: VITAL SIGNS: 87.7, 99, 18, 85% on room air with activity GENERAL: BMI 20.7, reclining in bed, monitor EYES: Pupils equal. Conjunctiva palel. HEENT: External appearance of nose and ears normal, oral cavity grossly normal. NECK: JVD not raised; masses not palpable. HEART: First and second heart sounds are normal; no edema. LUNGS: Respiratory rate increased; creased breath sounds ABDOMEN: Soft, nontender, liver spleen not palpable, no masses palpable. PSYCH: [Alert and oriented x3; mood and affect tired l. MUSCULOSKELETAL:No Clubbing/cyanosis;muscles-grossly intact INVESTIGATIONS, reviewed in the clinical context: Computed tomography scan of the brain with contrast: Possible masses surrounding the cystic edema right frontal lobe. Similar appearance to recent comparison. I want 1.8 cm. April 02: Potassium 4.9 BUN 48 creatinine 2.96 April 01: Potassium 4.3 BUN 50 creatinine 2.97 March 30: White count 11.9 hemoglobin 10.4 crit is 369 sodium 136 potassium 5 BUN 59 creatinine 3.24 Lactic acid 2.1 Troponin I 0.041 Procalcitonin 1.02 Influenza type A, B, RSV, COVID-19: Not detected EKG tracing personally reviewed by me-atrial fibrillation. Some ST segment c hanges. Rate 101 Chest x-ray film personally reviewed by me-left basilar infiltrate/lobar collapse Recent investigations -Liver core biopsy showed non-small cell carcinoma with features compatible with poorly differentiated adenocarcinoma. - CT chest abdomen and pelvis showed: Deidre L and left hilar neoplastic soft tissue partially encasing the left vein stem bronchus and cutting of the lingular and left lower lobe bronchus. Mass of the left infrahilar level 5.5 cm. Pulmonary nodules throughout the left lung up to 3.3 cm. Also small metastatic cystoscopy of the inferior spleen. Metastatic mesenteric lymph nodes. Suspected metastatic cystoscopy and sclerosis at T5 L1. An upper sternal body. Moderate left hydronephrosis possible UBP junction obstruction. -Left-sided colonic diverticulosis. -Prostatomegaly. -Cardiac catheterization: 20% left main, 60-70% mid LAD in-stent stenosis, 50% OM1 and 80% RCA stenosis. Decision made for medical management. DEBBY: Tricuspid aortic valve. Heavily calcified. Severe aortic stenosis with aortic valve area of 0.7 cm. Moderate to severe aortic insufficiency. Moderate tricuspid regurgitation. No PFO. EF 35-40%. Global hypokinesia. Assessment and plan: -Left lower lobe pneumonia, suspected gram-negative organism. Could be postobstructive. IV ceftriaxone. Zithromax. Discharged home on Ceftin 5 mg twice a day for 7 days -Persistent atrial fibrillation, rate controlled Cordarone 200 mg a day. Eliquis Toprol-XL 75 mg -Acute COPD exacerbation in a current smoker: Better Decadron. Advair. Albuterol when necessary. -Acute hypoxic respiratory failure from pneumonia -Suspect underlying chronic hypoxic respiratory failure from COPD and underlying lung cancer Home oxygen being arranged -Chronic nicotine dependence, cigarette smoker nicotine patch -CAD with stent Toprol XL 75. Aspirin. Lipitor. Imdur ER 15 mg -Metastatic adenocarcinoma primary possibly lung. Metastatic assess suspected to the bones, spleen -Chronic congestive heart failure from diastolic dysfunction EF 35-40 % PE on Lasix -AICD On telemetry -Severe aortic stenosis , 0.7 cm with moderate to severe aortic regurgitation Cardiology: currently not a candidate for surgical intervention. -Mild to moderate mitral regurgitation and severe tricuspid regurgitation Follow clinically -BPH Proscar 5 mg a day -Hyperlipidemia Lipitor 80 mg daily at bedtime -Essential hypertension Toprol-XL -Chronic kidney disease stage 3 possibly from nephrosclerosis -Primary osteoarthritis multiple joints bilaterally Tylenol as needed Disposition: Home Plan - Discharge Summary Discharge Rx Participant: No New Discharge Prescriptions: New dexAMETHasone [Decadron] 4 mg PO Q8HR 14 Days #42 tablet cefUROXime axetiL [Ceftin] 500 mg PO BID #14 tab Nicotine 14Mg/24Hr Patch [Habitrol] 1 patch TRANSDERM DAILY #14 patch Budesonide-Formot 160-4.5 Mcg [Symbicort 160-4.5 Mcg Inhaler] 2 puff INHALATION RT-BID #1 each Continue Nitroglycerin Sl Tabs [Nitrostat] 0.4 mg SUBLINGUAL Q5M PRN #100 tab PRN Reason: Chest Pain Isosorbide Mononitrate ER [Imdur] 15 mg PO HS Atorvastatin [Lipitor] 80 mg PO HS Furosemide [Lasix] 40 mg PO DAILY Ferrous Sulfate [Feosol] 325 mg PO DAILY Albuterol Sulfate [Albuterol Sulfate Hfa] 1 puff PO Q4-6H PRN #8.5 gm PRN Reason: Wheezing Sodium Bicarbonate Tab 650 mg PO BID #60 tablet Losartan Potassium [Cozaar] 25 mg PO DAILY Apixaban [Eliquis] 5 mg PO BID Fluticasone Nasal [place] [Flonase Nasal [place]] 1 spray EA NOSTRIL DAILY PRN PRN Reason: Allergy Symptoms Finasteride [Proscar] 5 mg PO DAILY Amiodarone [Cordarone] 200 mg PO DAILY Metoprolol Succinate (ER) [Toprol XL] 75 mg PO DAILY #90 tab Discharge Medication List Nitroglycerin Sl Tabs [Nitrostat] 0.4 mg SUBLINGUAL Q5M PRN #100 tab 03/18/17 [Rx] Isosorbide Mononitrate ER [Imdur] 15 mg PO HS 06/06/18 [History] Atorvastatin [Lipitor] 80 mg PO HS 03/20/20 [History] Apixaban [Eliquis] 5 mg PO BID 08/06/21 [History] Amiodarone [Cordarone] 200 mg PO DAILY 10/15/21 [History] Finasteride [Proscar] 5 mg PO DAILY 10/15/21 [History] Fluticasone Nasal [place] [Flonase Nasal [place]] 1 spray EA NOSTRIL DAILY PRN 10/15/21 [History] Ferrous Sulfate [Feosol] 325 mg PO DAILY 06/11/22 [History] Furosemide [Lasix] 40 mg PO DAILY 06/11/22 [History] Albuterol Sulfate [Albuterol Sulfate Hfa] 1 puff PO Q4-6H PRN #8.5 gm 06/14/22 [Rx] Metoprolol Succinate (ER) [Toprol XL] 75 mg PO DAILY #90 tab 03/24/23 [Rx] Sodium Bicarbonate Tab 650 mg PO BID #60 tablet 03/24/23 [Rx] Losartan Potassium [Cozaar] 25 mg PO DAILY 03/30/23 [History] Budesonide-Formot 160-4.5 Mcg [Symbicort 160-4.5 Mcg Inhaler] 2 puff INHALATION RT-BID #1 each 04/02/23 [Rx] Nicotine 14Mg/24Hr Patch [Habitrol] 1 patch TRANSDERM DAILY #14 patch 04/02/23 [Rx] cefUROXime axetiL [Ceftin] 500 mg PO BID #14 tab 04/02/23 [Rx] dexAMETHasone [Decadron] 4 mg PO Q8HR 14 Days #42 tablet 04/02/23 [Rx] Follow up Appointment(s)/Referral(s): Amadou Colon DO [Primary Care Provider] - 1-2 days ([facility] will call for appt.) Gregoria Russ MD [STAFF PHYSICIAN] - 04/05/23 11:00 am ( ) [facility] [NON-STAFF] - 1 Week Corey Mckeon MD [STAFF PHYSICIAN] - 1 Week (per patient appointment at 3:00pm) Petey Frances DO [Doctor of Osteopathic Medicine] - 04/28/23 9:30 am Patient Instructions/Handouts: Cefuroxime (By mouth), Nicotine (Absorbed through the skin), Dexamethasone (By mouth), Budesonide/Formoterol (By breathing), Using Oxygen at Home (DC), Pleural Effusion (DC), Pneumonia (DC) Discharge/Stand Alone Forms: Community Resources, Help In The Home, Personal Dynamometer Repairer
== END 2023-04-02 17:20 | disposition home or self-care (01) | DRG 177 ==
LOC: EC 09:44 → 5NMEDONC 13:02
PROVIDERS: ADMIT Hospitalist; ATTEND Hospitalist
DX: J15.6 Pneumonia due to other Gram-negative bacteria (principal); G93.6 Cerebral edema; J96.01 Acute respiratory failure with hypoxia; C34.92 Malignant neoplasm of unspecified part of left bronchus or lung; I48.19 Other persistent atrial fibrillation; C77.2 Secondary and unspecified malignant neoplasm of intra-abdominal lymph nodes; C78.7 Secondary malignant neoplasm of liver and intrahepatic bile duct; C79.51 Secondary malignant neoplasm of bone; I13.0 Hypertensive heart and chronic kidney disease with heart failure and stage 1 through stage 4 chronic kidney disease, or unspecified chronic kidney disease; J44.0 Chronic obstructive pulmonary disease with (acute) lower respiratory infection; I50.32 Chronic diastolic (congestive) heart failure; J44.1 Chronic obstructive pulmonary disease with (acute) exacerbation; N13.30 Unspecified hydronephrosis; T82.855A Stenosis of coronary artery stent, initial encounter; Z20.822 Contact with and (suspected) exposure to COVID-19; I25.10 Atherosclerotic heart disease of native coronary artery without angina pectoris; E78.5 Hyperlipidemia, unspecified; F17.210 Nicotine dependence, cigarettes, uncomplicated; M19.91 Primary osteoarthritis, unspecified site; N18.30 Chronic kidney disease, stage 3 unspecified; E11.22 Type 2 diabetes mellitus with diabetic chronic kidney disease; I25.5 Ischemic cardiomyopathy; I08.3 Combined rheumatic disorders of mitral, aortic and tricuspid valves; K44.9 Diaphragmatic hernia without obstruction or gangrene; K64.2 Third degree hemorrhoids; N40.0 Benign prostatic hyperplasia without lower urinary tract symptoms; K57.30 Diverticulosis of large intestine without perforation or abscess without bleeding; Z95.810 Presence of automatic (implantable) cardiac defibrillator; Z85.47 Personal history of malignant neoplasm of testis; Z92.21 Personal history of antineoplastic chemotherapy; Y83.1 Surgical operation with implant of artificial internal device as the cause of abnormal reaction of the patient, or of later complication, without mention of misadventure at the time of the procedure; Z79.01 Long term (current) use of anticoagulants; Z79.899 Other long term (current) drug therapy; Z82.49 Family history of ischemic heart disease and other diseases of the circulatory system; Z86.79 Personal history of other diseases of the circulatory system; Z92.3 Personal history of irradiation; Z86.73 Personal history of transient ischemic attack (TIA), and cerebral infarction without residual deficits; Z88.0 Allergy status to penicillin; Z98.42 Cataract extraction status, left eye; Z98.41 Cataract extraction status, right eye
CPT/HCPCS: 36415; 70450; 70460; 71045; 71046; 80048; 80053; 81003; 83605; 83735; 83880; 84145; 84484; 85025; 85610; 85730; 87040; 87449; 87636; 93005; 94640; 94760; 96361; 96365; 96366; 96367; 96375; 99285

== ENCOUNTER 2023-04-08 20:04 | Inpatient (IN) | payer MEDICARE, OTHER ==
[2023-04-08 21:12] LABS: ALT 564 U/L (4-49); AST 633 U/L (17-59); African American GFR (CKD) 20 (>60 ml/min/1.73 sqM); Albumin 3.1 g/dL (3.5-5.0); Alkaline Phosphatase 592 U/L (38-126); Anion Gap 12 mmol/L; Calcium 8.8 mg/dL (8.4-10.2); Carbon Dioxide 21 mmol/L (22-30); Chloride 101 mmol/L (98-107); Glucose 125 mg/dL (74-99); Non-African American GFR(CKD) 17 (>60 ml/min/1.73 sqM); Potassium 5.4 mmol/L (3.5-5.1); Sodium 134 mmol/L (137-145); Total Protein 5.8 g/dL (6.3-8.2)
[2023-04-08 21:16] LABS: INR 1.3 (<1.2); Prothrombin Time 13.1 sec (9.0-12.0)
[2023-04-08 21:22] LABS: Hypochromasia Marked; MCH 28.9 pg (25.0-35.0); MCV 93.4 fL (80.0-100.0); Mean Platelet Volume 8.7; Platelet Count 350 k/uL (150-450); Poikilocytosis Slight; RBC 2.68 m/uL (4.30-5.90); RDW 15.2 % (11.5-15.5); WBC 17.2 k/uL (3.8-10.6)
[2023-04-08 21:24] LABS: HGB 7.8 gm/dL (13.0-17.5)
[2023-04-08 21:41] LABS: Blood Urea Nitrogen 127 mg/dL (9-20)
[2023-04-08 21:51] LABS: Lymphocytes # (M) 0.17 k/uL (1.0-4.8); Monocytes # (M) 0.17 k/uL (0-1.0); Neutrophils # (M) 16.86 k/uL (1.3-7.7); Neutrophils % (M) 98 %; Nucleated Red Blood Cells 0 /100 WBC (0-0); Polychromasia Present; Total Cells Counted 100
[2023-04-08 21:52] LABS: Target Cells Present
--- NOTE | 2023-04-08 23:24 | CT ---
EXAM: CT Chest Without Intravenous Contrast CLINICAL HISTORY: ITS.REASON CT Reason: shortness of breath, worsening labs, gi bleed TECHNIQUE: Axial computed tomography images of the chest without intravenous contrast. CTDI is 9.5 mGy and DLP is 765.2 mGy-cm. This CT exam was performed using one or more of the following dose reduction techniques: automated exposure control, adjustment of the mA and/or kV according to patient size, and/or use of iterative reconstruction technique. COMPARISON: No relevant prior studies available. FINDINGS: Lungs: Subpleural mass-like consolidation at the junction of the LEFT upper lobe and LEFT lower lobe, measuring 3.4 x 2.0 cm. neoplasm not excluded given that there is known hepatic metastases. Mild patchy intralobular septal thickening within the bilateral lung [place]. Pleural space: Mild, partly loculated LEFT pleural effusion. No pneumothorax. Heart: Cardiomegaly. No significant pericardial effusion. No significant coronary artery calcifications. Bones/joints: Degenerative changes of the spine. No dislocation. No acute fractures. Soft tissues: Unremarkable. Vasculature: Atherosclerotic changes of the aorta. No thoracic aortic aneurysm. Lymph nodes: Unremarkable. No enlarged lymph nodes. Tubes, lines and devices: Pacemaker leads. IMPRESSION: 1. No pneumothorax. 2. Subpleural mass-like consolidation at the junction of the LEFT upper lobe and LEFT lower lobe, measuring 3.4 x 2.0 cm. neoplasm not excluded given that there is known hepatic metastases. 3. Mild, partly loculated LEFT pleural effusion. EXAM: CT Abdomen and Pelvis Without Intravenous Contrast CLINICAL HISTORY: ITS.REASON CT Reason: shortness of breath, worsening labs, gi bleed TECHNIQUE: Axial computed tomography images of the abdomen and pelvis without intravenous contrast. CTDI is 9.5 mGy and DLP is 765.2 mGy-cm. This CT exam was performed using one or more of the following dose reduction techniques: automated exposure control, adjustment of the mA and/or kV according to patient size, and/or use of iterative reconstruction technique. COMPARISON: No relevant prior studies available. FINDINGS: Lung bases: Unremarkable. No mass. No consolidation. ABDOMEN: Liver: Diffuse hepatic metastases. Gallbladder and bile ducts: Unremarkable. No calcified stones. No ductal dilation. Pancreas: Mild fullness of the pancreatic tail, correlate for any possibility of pancreatic neoplasm. Correlate for primary malignancy given that there is diffuse hepatic metastases. No ductal dilation. Spleen: Unremarkable. No splenomegaly. Adrenals: Unremarkable. No mass. Kidneys and ureters: Fullness of the LEFT renal collecting system. No obstructing stones. Stomach and bowel: Severe diverticulosis, without acute diverticulitis. No small bowel obstruction. No free air. PELVIS: Appendix: No findings to suggest acute appendicitis. Bladder: Unremarkable. No stones. Reproductive: Unremarkable as visualized. ABDOMEN and PELVIS: Intraperitoneal space: See above. Bones/joints: Degenerative changes of the spine. No acute fracture. No dislocation. Soft tissues: Unremarkable. Vasculature: Atherosclerotic changes of the aorta. No abdominal aortic aneurysm. Lymph nodes: Unremarkable. No enlarged lymph nodes. IMPRESSION: 1. Diffuse hepatic metastases. 2. Mild fullness of the pancreatic tail, correlate for any possibility of pancreatic neoplasm. Correlate for primary malignancy given that there is diffuse hepatic metastases. 3. Fullness of the LEFT renal collecting system. 4. Severe diverticulosis, without acute diverticulitis. No small bowel obstruction. No free air.
[2023-04-08] MEDS ORDERED: NALOXONE 0.4 MG/ML 1 ML VIAL IV PRN (23:44)
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
[2023-04-09] MEDS ORDERED: SODIUM CHLORIDE 0.9% 500 ML 500 ML IV ONE (00:27)
[2023-04-09] MEDS: SODIUM CHLORIDE 0.9% 1,000 ML IV SCH ×2 (03:32→11:46)
[2023-04-09 08:07] LABS: African American GFR (CKD) 20 (>60 ml/min/1.73 sqM); Anion Gap 16 mmol/L; Calcium 8.8 mg/dL (8.4-10.2); Carbon Dioxide 19 mmol/L (22-30); Chloride 101 mmol/L (98-107); Glucose 134 mg/dL (74-99); Non-African American GFR(CKD) 17 (>60 ml/min/1.73 sqM); Sodium 136 mmol/L (137-145)
[2023-04-09 08:25] LABS: Blood Urea Nitrogen 128 mg/dL (9-20)
[2023-04-09] MEDS ORDERED: FLUTICASONE 50MCG/SPRAY NASAL 16GM EA NOSTRIL PRN (08:31)
[2023-04-09] MEDS ORDERED: NITROGLYCERIN SL TABS 0.4 MG TAB SUBLINGUAL PRN (08:31)
[2023-04-09] MEDS: ALBUTEROL NEBULIZED 2.5 MG/3 ML INHALATION PRN (09:14)
[2023-04-09 09:24] LABS: Basophils % (A) 0 %; Eosinophils % (A) 0 %; HCT 27.4 % (39.0-53.0); HGB 8.6 gm/dL (13.0-17.5); Hypochromasia Marked; Lymphocytes # (A) 0.3 k/uL (1.0-4.8); Lymphocytes % (A) 2 %; MCHC 31.3 g/dL (31.0-37.0); MCV 95.7 fL (80.0-100.0); Mean Platelet Volume 9.1; Monocytes # (A) 0.5 k/uL (0-1.0); Monocytes % (A) 3 %; Neutrophils # (A) 15.7 k/uL (1.3-7.7); Neutrophils % (A) 95 %; Platelet Count 342 k/uL (150-450); Poikilocytosis Slight; RBC 2.87 m/uL (4.30-5.90); RDW 15.2 % (11.5-15.5); WBC 16.5 k/uL (3.8-10.6)
[2023-04-09] MEDS: SODIUM BICARBONATE TAB 650 MG TAB PO SCH ×2 (11:42→20:59)
[2023-04-09] MEDS: METOPROLOL SUCCINATE (ER) 25 MG TAB.ER.24H PO SCH (11:42)
[2023-04-09] MEDS: FERROUS SULFATE 325 MG TAB PO SCH (11:42)
[2023-04-09] MEDS: LOSARTAN 25 MG TAB PO SCH (11:43)
[2023-04-09] MEDS: FINASTERIDE 5 MG TAB PO SCH (11:43)
[2023-04-09] MEDS: CEFDINIR 300 MG CAP PO SCH ×2 (11:43→20:58)
[2023-04-09] MEDS: FUROSEMIDE 40 MG TAB PO SCH (11:43)
[2023-04-09] MEDS: allopurinoL 100 MG TAB PO SCH (11:43)
[2023-04-09] MEDS: AMIODARONE 200 MG TAB PO SCH (11:43)
[2023-04-09 12:51] VITALS: BMI 21.2
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
[2023-04-09] MEDS: PANTOPRAZOLE 40 MG/10 ML VIAL IVP SCH (17:17)
[2023-04-09] MEDS: dexAMETHasone 4 MG TAB PO SCH (17:19)
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
[2023-04-09] MEDS: IPRATROPIUM-ALBUTEROL 3 ML NEB INHALATION SCH (20:21)
[2023-04-09] MEDS: SYMBICORT 80-4.5 MCG INHALER INHALATION SCH (20:21)
[2023-04-09] MEDS: ATORVASTATIN 80 MG TAB PO SCH (20:58)
[2023-04-09] MEDS: ISOSORBIDE MONONITRATE ER 15 MG TAB PO SCH (20:59)
[2023-04-10] MEDS: dexAMETHasone 4 MG TAB PO SCH ×3 (00:27→16:28)
[2023-04-10] MEDS: SODIUM CHLORIDE 0.9% 1,000 ML IV SCH ×2 (02:06→18:03)
[2023-04-10 02:09] LABS: % Iron Saturation 3.91 (15.00-50.00)
[2023-04-10 07:39] LABS: Basophils % (A) 0 %; Eosinophils # (A) 0.5 k/uL (0-0.7); Eosinophils % (A) 2 %; HCT 25.1 % (39.0-53.0); Hypochromasia Marked; Lymphocytes # (A) 0.4 k/uL (1.0-4.8); Lymphocytes % (A) 2 %; MCH 30.4 pg (25.0-35.0); MCHC 31.9 g/dL (31.0-37.0); MCV 95.2 fL (80.0-100.0); Mean Platelet Volume 8.9; Monocytes # (A) 0.9 k/uL (0-1.0); Monocytes % (A) 4 %; Neutrophils # (A) 21.6 k/uL (1.3-7.7); Neutrophils % (A) 92 %; Platelet Count 335 k/uL (150-450); Poikilocytosis Slight; RBC 2.64 m/uL (4.30-5.90); RDW 15.4 % (11.5-15.5); WBC 23.3 k/uL (3.8-10.6)
[2023-04-10] MEDS: LOSARTAN 25 MG TAB PO SCH (07:54)
[2023-04-10] MEDS: AMIODARONE 200 MG TAB PO SCH (07:55)
[2023-04-10] MEDS: PANTOPRAZOLE 40 MG/10 ML VIAL IVP SCH (07:55)
[2023-04-10] MEDS: FINASTERIDE 5 MG TAB PO SCH (07:55)
[2023-04-10] MEDS: METOPROLOL SUCCINATE (ER) 25 MG TAB.ER.24H PO SCH (07:55)
[2023-04-10] MEDS: FERROUS SULFATE 325 MG TAB PO SCH (07:55)
[2023-04-10] MEDS: SODIUM BICARBONATE TAB 650 MG TAB PO SCH ×2 (07:55→20:26)
[2023-04-10] MEDS: FUROSEMIDE 40 MG TAB PO SCH (07:55)
[2023-04-10] MEDS: allopurinoL 100 MG TAB PO SCH (07:55)
[2023-04-10] MEDS: IPRATROPIUM-ALBUTEROL 3 ML NEB INHALATION SCH ×4 (09:49→21:34)
[2023-04-10] MEDS: SYMBICORT 80-4.5 MCG INHALER INHALATION SCH ×2 (09:49→21:39)
--- NOTE | 2023-04-10 11:57 | P.PN ---
Subjective Progress Note Date: 04/10/23 67-year-old male patient came in to the emergency department having shortness of breath. He feels extremely weak and debilitated. Appetite has been poor and the patient has not been eating or drinking. There was also possibility of him having a GI bleed as the patient has been reporting some dark tarry stools and the patient was taking oral iron. No nausea. No emesis. No chest pain. No abdominal pain. No altered mentation. He is known to have stage IV adenocarcinoma of the lung along with extensive liver metastases and 1.8 cm density in the right frontal lobe. The patient was given palliative radiation therapy to his brain and he has received 3 sessions. Computed tomography scan of the chest abdomen and pelvis that was done on 03/19/2023 showed multiple hepatic lesions in addition to us just disease and left hilar soft tissue mass encasing the left mainstem bronchus as well as mediastinal lymphadenopathy. CT-guided fine-needle aspirate of the liver on 03/23/2023 showed poorly d ifferentiated adenocarcinoma. The patient also has a remote history of testicular cancer treated by orchiectomy followed by systemic chemotherapy without radiation therapy. PET/CT that was done on 03/16/2020 demonstrated diffuse metastatic disease. Note that the patient also has other comorbidities including ischemic cardiac myopathy and the patient has an AICD in place. He has baseline left ejection fraction is about 35-40%. Is known to have multivessel coronary artery disease, severe aortic stenosis, chronic kidney disease, chronic atrial fibrillation maintained on a combination of metoprolol and amiodarone and anticoagulation with Eliquis on outpatient basis. He has hypertension hyperlipidemia previous history of CVA. He also has a left sided hydronephrosis along with a remote history of testicular cancer. The blood work shows that the risk of 16.5, hemoglobin drop down to 8.6 and a platelet count is at 342. BUN is 128 with a creatinine of 3.5 and a sodium level is at 136. Lactic acid levels at 3.3 and 3.7 respectively and the troponins are 0.04. The patient is currently on oxygen at 4 L with a pulse ox of 96%. Hemodynamically stable. He is receiving normal saline at 75 mL an hour. He is receiving Decadron on an outpatient . Computed tomography scan of the chest abdomen and pelvis that was done on 04/08/2023 showed diffuse hepatic metastases,, subdural masslike consolidation of the junction of the left upper lobe and the left lower lobe measuring 3.4 x 2 cm in size, severe diverticulosis without diverticulitis, mild fullness in the pancreatic tail On today's evaluation of 04/10/2023, condition is essentially unchanged compared to yesterday. No new complaints. No worsening in his respiratory status. Remains on Decadron. No altered mentation. Remains on oxygen at 4 L nasal cannula. Labs were reviewed, white cell count was 23 with a hemoglobin of 8 and a platelet count of 3.5. No evidence of any GI bleeding at this point in time and the patient is currently off anticoagulants. Objective - Vital Signs Vital signs: Vital Signs Temp 97.9 F 04/10/23 04:00 Pulse 92 04/10/23 09:50 Resp 19 04/10/23 08:06 BP 108/69 04/10/23 07:46 Pulse Ox 100 04/10/23 07:46 FiO2 Intake & Output 04/09/23 04/10/23 04/10/23 18:59 06:59 18:59 Intake Total 1020 1440 Output Total 825 Balance 1020 615 Weight 77.111 kg Intake: Intake, IV Titration 900 Amount Sodium Chloride 0.9% 1, 900 000 ml @ 75 mls/hr IV . [id number] [facility] Rx#:[id number] Oral 1020 540 Output: Urine 825 Other: Voiding Method Urinal Urinal # Voids 1 - Exam GENERAL EXAM: Alert, 67-year-old white male appearing stated age, comfortable in no apparent distress. The patient is currently on 4 L of Oxymizer nasal cannula. Is quite ill and he is also looking pale. HEAD: Normocephalic and atraumatic EYES: Normal reaction of pupils, equal size. NOSE: Clear with pink turbinates. THROAT: No erythema or exudates. NECK: No masses, no JVD. CHEST: No chest wall deformity. LUNGS: Diminished lung sounds at the left base. No wheezes, rhonchi, crackles. On 3 L/m nasal cannula. No conversational dyspnea or accessory muscle use.. CVS: S1 and S2 normal with no audible murmur, irregular rhythm. No extra heart sounds. ABDOMEN: No hepatosplenomegaly, active bowel sounds, no guarding or rigidity. SPINE: No scoliosis or deformity. SKIN: No rashes. There are multiple soft tissue cystic lesions on the patient's back CENTRAL NERVOUS SYSTEM: No focal deficits, tone is normal in all 4 extremities. EXTREMITIES: There is no peripheral edema, clubbing, or cyanosis. Peripheral pulses are intact. - Labs CBC & Chem 7: 04/10/23 07:05 04/09/23 07:15 Labs: Abnormal Lab Results - Last 24 Hours (Table) 04/09/23 04/09/23 04/09/23 Range/Units 07:15 07:15 10:52 WBC (3.8-10.6) k/uL RBC (4.30-5.90) m/uL Hgb (13.0-17.5) gm/dL Hct (39.0-53.0) % Neutrophils # (1.3-7.7) k/uL Lymphocytes # (1.0-4.8) k/uL Plasma Lactic Acid Adis 3.7 H* (0.7-2.0) mmol/L Iron 17 L (65-175) UG/DL % Saturation 3.91 L (15.00-50.00) Vitamin B12 1789.0 H (200.0-944.0) pg/mL Folate 3.90 L (4.40-31.00) ng/mL 04/09/23 04/10/23 Range/Units 14: 07:05 WBC 23.3 H (3.8-10.6) k/uL RBC 2.64 L (4.30-5.90) m/uL Hgb 8.0 L (13.0-17.5) gm/dL Hct 25.1 L (39.0-53.0) % Neutrophils # 21.6 H (1.3-7.7) k/uL Lymphocytes # 0.4 L (1.0-4.8) k/uL Plasma Lactic Acid Adis 4.7 H* (0.7-2.0) mmol/L Iron (65-175) UG/DL % Saturation (15.00-50.00) Vitamin B12 (200.0-944.0) pg/mL Folate (4.40-31.00) ng/mL Assessment and Plan Plan: Acute on chronic shortness of breath. The patient has a short of breath and shortness of breath is multifactorial. He is known to have metastatic adenocarcinoma of the lung in addition to severe cardiomyopathy and severe aortic stenosis. The same time, the patient drop in hemoglobin down to 8.6 and possibility of a GI bleed/upper GI bleed is being entertained. The patient has been anticoagulation with Eliquis on outpatient basis. Repeat hemoglobin today is at 8.0. Chronic hypoxic respiratory failure currently on 4 L of oxygen by nasal cannula. CAT scan of the chest showing a consolidation masslike density at the left lateral lung margin which was present previously. There was also small left pleural effusion and/or atelectasis at the left costophrenic angle. No other acute abnormalities of been noted Metastatic adenocarcinoma of the lung primary with, CT of the chest, abdomen, pelvis from recent hospital admission showed a left hilar lesion encasing the left mainstem bronchus measuring up to 5.5 cm in size. There were also lower paratracheal and subcarinal lymphadenopathy. Few other pulmonary nodules throughout the left lung measuring up to 3.3 cm in size. There were also multiple hepatic metastatic lesions measuring up to 2.7 cm in size with underlying metastasis to mesenteric lymph nodes measuring up to 1.3 cm in size. There was also suspicious lesions of T5 and L1 concerning for osseous metastasis. Percutaneous CT-guided liver biopsy was used to obtain biopsy, which did come back positive for adenocarcinoma. The patient also has LINE TESTER metastases with a 1.8 cm density in the right frontal lobe Ischemic cardiomyopathy with AICD/pacemaker, most recent transesophageal echocardiogram done on 03/18/2023 showed a reduced ejection fraction of 35-40%. Multivessel coronary artery disease, as demonstrated on recent heart catheterization including 20% stenosis of the left main, 60-70% stenosis of the mid LAD, 50% stenosis of the OM1, and 80% RCA stenosis. Severe aortic stenosis, as demonstrated on DEBBY Acute on chronic kidney disease, creatinine 3.24 Chronic atrial fibrillation, with controlled ventricular rate, maintained on by mouth amiodarone, metoprolol, and anticoagulated on Eliquis Benign essential hypertension Hyperlipidemia History of CVA Chronic obstructive pulmonary disease, stable Acute on chronic kidney disease, creatinine 3. 52 Recent left sided hydronephrosis with possible UPG junction obstruction History of testicular cancer status post resection followed with chemoradiation therapy in 1985 Chronic nicotine dependence Troponin leak Mild lactic acidosis probably related to extensive liver metastases Plan No clinical evidence of GI bleed Overall respiratory status is stable Check stool for occult blood Stop anticoagulation , anticoagulation/Eliquis is currently on hold Monitor hemoglobin and watch for any signs of GI bleed IV Protonix Normal saline at rate of 75 mL an hour Radiation therapy to the brain was being done outpatient basis Restart Decadron 4 mg every 8 hours Resume all medications Very poor prognosis based on the above-mentioned. We'll continue to follow. We'll need to establish a CODE STATUS.
--- NOTE | 2023-04-10 17:10 | P.PN ---
Subjective Progress Note Date: 04/10/23 CHIEF COMPLAINT: GI bleed HISTORY OF PRESENT ILLNESS: The patient is a 67-year-old male admitted for GI bleed. No new issues overnight. REVIEW OF ORGAN SYSTEMS: CONSTITUTIONAL: No reports of fevers or chills. PHYSICAL EXAM: VITAL SIGNS: Stable GENERAL: Well-developed pleasant and in no acute distress. HEENT: No scleral icterus. Extraocular movements grossly intact. Moist buccal mucosa. NECK: Supple without lymphadenopathy. CHEST: Unlabored respirations. Equal bilateral excursions. CARDIOVASCULAR: Regular rate and rhythm. Distal 2+ pulses. ABDOMEN: Soft, diffuse abdominal tenderness. No peritonitis. MUSCULOSKELETAL: No clubbing, cyanosis, or edema. LABS: Hemoglobin stable ASSESSMENT: 1. GI bleed PLAN: 1. Discontinue blood thinners 2. Monitor hemoglobin Objective - Vital Signs Vital signs: Vital Signs Temp 97.9 F 04/10/23 04:00 Pulse 91 04/10/23 15:50 Resp 18 04/10/23 15:50 BP 99/65 04/10/23 15:50 Pulse Ox 93 L 04/10/23 15:50 FiO2 Intake & Output 04/09/23 04/10/23 04/10/23 18:59 06:59 18:59 Intake Total 1020 1440 Output Total 825 450 Balance 1020 615 -450 Weight 77.111 kg Intake: Intake, IV Titration 900 Amount Sodium Chloride 0.9% 1, 900 000 ml @ 75 mls/hr IV . [id number] [facility] Rx#:[id number] Oral 1020 540 Output: Urine 825 450 Other: Voiding Method Urinal External Catheter # Voids 1 # Bowel Movements 1 - Labs CBC & Chem 7: 04/10/23 07:05 04/09/23 07:15 Labs: Abnormal Lab Results - Last 24 Hours (Table) 04/09/23 04/09/23 04/10/23 Range/Units 07:15 07:15 07:05 WBC 23.3 H (3.8-10.6) k/uL RBC 2.64 L (4.30-5.90) m/uL Hgb 8.0 L (13.0-17.5) gm/dL Hct 25.1 L (39.0-53.0) % Neutrophils # 21.6 H (1.3-7.7) k/uL Lymphocytes # 0.4 L (1.0-4.8) k/uL Iron 17 L (65-175) UG/DL % Saturation 3.91 L (15.00-50.00) Vitamin B12 1789.0 H (200.0-944.0) pg/mL Folate 3.90 L (4.40-31.00) ng/mL
[2023-04-10] MEDS: ALBUTEROL NEBULIZED 2.5 MG/3 ML INHALATION PRN (18:39)
--- NOTE | 2023-04-10 19:17 | P.PN ---
Progress Note - Text Progress Note Date: 04/10/23 Chief Complaint: Tired This is a pleasant 67-year-old patient, Dr. Colon. Chronic stable medical conditions include atrial fibrillation, hyperlipidemia, hypertension, osteoarthritis, ischemic cardiomyopathy, testicle cancer with surgery and chemo, BPH, CKD stage III, hemorrhoids, hiatal hernia CAD with stent, AICD. Patient is a smoker. . recently discharged from the hospital on March 24 seen by [facility] hospitalists. CEA and AFP tumor markers within normal limit. CA 19.9 is elevated. -Liver core biopsy showed non-small cell carcinoma with features compatible with poorly differentiated adenocarcinoma. - CT chest abdomen and pelvis showed: left hilar neoplastic soft tissue partially encasing the left vein stem bronchus and cutting of the lingular and left lower lobe bronchus. Mass of the left infrahilar level 5.5 cm. Pulmonary nodules throughout the left lung up to 3.3 cm. Also small metastatic of the inferior spleen. Metastatic mesenteric lymph nodes. Suspected metastatic disease and sclerosis at T5 L1. An upper sternal body. Moderate left hydronephrosis possible UBP junction obstruction. -Left-sided colonic diverticulosis. -Prostatomegaly. -Cardiac catheterization: 20% left main, 60-70% mid LAD in-stent stenosis, 50% OM1 and 80% RCA stenosis. Decision made for medical management. DEBBY: Tricuspid aortic valve. Heavily calcified. Severe aortic stenosis with aortic valve area of 0.7 cm. Moderate to severe aortic insufficiency. Moderate tricuspid regurgitation. No PFO. EF 35-40%. Global hypokinesia. Patient was then admitted from March 30 to April 02. Admitted with pneumonia and COPD exacerbation.. Patient had continued to smoke a few cigarettes a day. CT brain showed possible masses surrounding vasogenic edema. Right frontal lobe. Was discharged on Decadron. PET scan on March 26 showed: Multiple hard nodules within the liver. Abnormal uptake of the chest and mediastinum suspicious for neoplastic process. Osseous metastatic is including the right scapula and left toe drip. Multiple scattered soft tissue nodules with uptake suspicious for soft tissue metastatic disease. Abnormal lymph rhythm but he uptake. Patient is discharged April 02. Following 2 days patient did get radiation treatment. Subsequently patient continued to become more and more weak. Appetite fairly rundown. No fever no chills. More short of breath. Weak to the point he could not walk. He presented to the ER. Patient had melanotic stool. April 10: reclining in bed. He tells me that-he is all done. He says it is sinking slowly. Short of breath. Tired. Understands his prognosis not good. Wants to go hospice. Family the bedside. He was to put his papers in place and may COVID. He wants to go home. Hospice is being consulted. Family the bedside will help him out otherwise he normally lives alone. Questions answered. Active Medications Acetaminophen (Acetaminophen Tab 325 Mg Tab) 650 mg PO Q6HR PRN PRN Reason: Mild Pain or Fever > 100.5 Albuterol Sulfate (Albuterol Nebulized 2.5 Mg/3 Ml) 2.5 mg INHALATION RT-Q4H PRN PRN Reason: Wheezing Last Admin: 04/10/23 18:39 Dose: 2.5 mg Albuterol/Ipratropium (Ipratropium-Albuterol 3 Ml Neb) 3 ml INHALATION RT-QID [facility] Last Admin: 04/10/23 16:35 Dose: Not Given Allopurinol (Allopurinol 100 Mg Tab) 100 mg PO DAILY [facility] Last Admin: 04/10/23 07:55 Dose: 100 mg Amiodarone HCl (Amiodarone 200 Mg Tab) 200 mg PO DAILY [facility] Last Admin: 04/10/23 07:55 Dose: 200 mg Atorvastatin Calcium (Atorvastatin 80 Mg Tab) 80 mg PO HS [facility] Last Admin: 04/09/23 20:58 Dose: 80 mg Budesonide/Formoterol Fumarate (Symbicort 80-4.5 Mcg Inhaler) 2 puff INHALATION RT-BID [facility] Last Admin: 04/10/23 09:49 Dose: 2 puff Dexamethasone (Dexamethasone 4 Mg Tab) 4 mg PO Q8HR [facility] Last Admin: 04/10/23 16:28 Dose: 4 mg Ferrous Sulfate (Ferrous Sulfate 325 Mg Tab) 325 mg PO DAILY [facility] Last Admin: 04/10/23 07:55 Dose: 325 mg Finasteride (Finasteride 5 Mg Tab) 5 mg PO DAILY [facility] Last Admin: 04/10/23 07:55 Dose: 5 mg Fluticasone Propionate (Fluticasone 50mcg/[place] Nasal 16gm) 1 spray EA NOSTRIL DAILY PRN PRN Reason: Allergy Symptoms Furosemide (Furosemide 40 Mg Tab) 40 mg PO DAILY [facility] Last Admin: 04/10/23 07:55 Dose: 40 mg Sodium Chloride (Saline 0.9%) 1,000 mls @ 75 mls/hr IV .[id number] [facility] Last Admin: 04/10/23 18:03 Dose: 75 mls/hr Isosorbide Mononitrate (Isosorbide Mononitrate Er 15 Mg Tab) 15 mg PO HS [facility] Last Admin: 04/09/23 20:59 Dose: 15 mg Losartan Potassium (Losartan 25 Mg Tab) 25 mg PO DAILY [facility] Last Admin: 04/10/23 07:54 Dose: 25 mg Metoprolol Succinate (Metoprolol Succinate (Er) 25 Mg Tab.Er.24h) 75 mg PO DAILY [facility] Last Admin: 04/10/23 07:55 Dose: 75 mg Naloxone HCl (Naloxone 0.4 Mg/Ml 1 Ml Vial) 0.2 mg IV Q2M PRN PRN Reason: Opioid Reversal Nitroglycerin (Nitroglycerin Sl Tabs 0.4 Mg Tab) 0.4 mg SUBLINGUAL Q5M PRN PRN Reason: Chest Pain Pantoprazole Sodium (Pantoprazole 40 Mg/10 Ml Vial) 40 mg IVP DAILY [facility] Last Admin: 04/10/23 07:55 Dose: 40 mg Sodium Bicarbonate (Sodium Bicarbonate Tab 650 Mg Tab) 650 mg PO BID [facility] Last Admin: 04/10/23 07:55 Dose: 650 mg . Past medical history to include: Atrial fibrillation, CAD with stent, CHF 30-40%, hyperlipidemia, TIA, hypertension, osteoarthritis, BPH, V. tach, left testicle cancer with surgery/chemotherapy, BPH, CK D stage III, hemorrhoids, hiatal hernia, AICD: Colonic Diverticulosis. Severe aortic stenosis, moderate to severe aortic insufficiency. Metastatic adenocarcinoma Social history: Lives alone. Smoking for 52 years now down to about half a pack a day. Was up to pack and a half to 2 packs a day. Retired from [employer] work. Family history: CAD Physical examination: VITAL SIGNS: Afebrile, 91, 22, 99/65, 93% on 4 L GENERAL: Reclining in bed, awake, very tired EYES: Pupils equal. Conjunctiva pale. HEENT: External appearance of nose and ears normal, oral cavity grossly normal. NECK: JVD not raised; masses not palpable. HEART: First and second heart sounds are normal; no edema. LUNGS: Respiratory rate increased; diminished breath sound ABDOMEN: Soft, nontender, liver spleen not palpable, no masses palpable. PSYCH: [Alert and oriented x3; mood and affect anxious MUSCULOSKELETAL:No Clubbing/cyanosis;muscles-grossly intact INVESTIGATIONS, reviewed in the clinical context: April 10: White count 23.3 hemoglobin 8 platelets 335 EKG tracing personally reviewed by me-atrial fibrillation. Intraventricular conduction delay. Rate 90. April 08: White count 7.2 hemoglobin 7.8 platelets 358 sodium 134 potassium 5.4 BUN 127 creatinine 3.53 lactic acid 2.9 AST 633 ALT 564 alkaline phosphatase 592 upon I0.041 Recent investigations: Computed tomography scan of the brain [April 02] with contrast: Possible masses surrounding the cystic edema right frontal lobe. Similar appearance to recent comparison. I want 1.8 cm. -Liver core biopsy showed non-small cell carcinoma with features compatible with poorly differentiated adenocarcinoma. - CT chest abdomen and pelvis showed: Deidre L and left hilar neoplastic soft tissue partially encasing the left vein stem bronchus and cutting of the lingular and left lower lobe bronchus. Mass of the left infrahilar level 5.5 cm. Pulmonary nodules throughout the left lung up to 3.3 cm. Also small metastatic cystoscopy of the inferior spleen. Metastatic mesenteric lymph nodes. Suspected metastatic cystoscopy and sclerosis at T5 L1. An upper sternal body. Moderate left hydronephrosis possible UBP junction obstruction. -Left-sided colonic diverticulosis. -Prostatomegaly. -Cardiac catheterization: 20% left main, 60-70% mid LAD in-stent stenosis, 50% OM1 and 80% RCA stenosis. Decision made for medical management. DEBBY: Tricuspid aortic valve. Heavily calcified. Severe aortic stenosis with aortic valve area of 0.7 cm. Moderate to severe aortic insufficiency. Moderate tricuspid regurgitation. No PFO. EF 35-40%. Global hypokinesia. Assessment and plan: -Acute severe COPD exacerbation and a smoker: Slow to respond DuoNeb -Acute GI bleed, the patient on eliquis. With melanotic stools. General surgery consulted. GI services not available in the hospital. -Persistent atrial fibrillation, rate controlled Cordarone 200 mg a day. Eliquis-held Toprol-XL 75 mg -Chronic nicotine dependence, cigarette smoker nicotine patch -CAD with stent Toprol XL 75. Aspirin. Lipitor. Imdur ER 15 mg -Metastatic adenocarcinoma primary possibly lung. Metastatic assess suspected to the bones, spleen: Advanced PET scan done recently. Follow with oncology -Chronic congestive heart failure from diastolic dysfunction EF 35-40 % PE on Lasix -AICD On telemetry -Severe aortic stenosis , 0.7 cm with moderate to severe aortic regurgitation Cardiology: not a candidate for surgical intervention. -Mild to moderate mitral regurgitation and severe tricuspid regurgitation Follow clinically -BPH Proscar 5 mg a day -Hyperlipidemia Lipitor 80 mg daily at bedtime -Essential hypertension Toprol-XL -Chronic kidney disease stage 3 possibly from nephrosclerosis -Primary osteoarthritis multiple joints bilaterally Tylenol as needed -DO NOT RESUSCITATE Patient stated he is on done. Understands these doing very poorly. He was treated his affairs in place. Continue current supportive treatment. Hospice consulted. Wants to go to his old house. Looking for some help. Family the bedside. Advance care planning: Discussed with patient at length. She understand his overall prognosis is poor. Poor functional status. He does not have any official medical POA. Spoke to the nurse to get him to forward wishes form available in the hospital. He also wants to get a dairy manufacturing technologist to put on vent in place. Aiming to go to home tomorrow with hospice. Other questions answered. Patient made DO NOT RESUSCITATE. Time spent about 25 minutes.
[2023-04-10] MEDS: ATORVASTATIN 80 MG TAB PO SCH (20:26)
[2023-04-10] MEDS: ISOSORBIDE MONONITRATE ER 15 MG TAB PO SCH (20:26)
[2023-04-11] MEDS: dexAMETHasone 4 MG TAB PO SCH ×3 (00:10→15:02)
[2023-04-11] MEDS: SODIUM CHLORIDE 0.9% 1,000 ML IV SCH ×2 (05:52→16:26)
[2023-04-11] MEDS: METOPROLOL SUCCINATE (ER) 25 MG TAB.ER.24H PO SCH (08:05)
[2023-04-11] MEDS: AMIODARONE 200 MG TAB PO SCH (08:06)
[2023-04-11] MEDS: FERROUS SULFATE 325 MG TAB PO SCH (08:06)
[2023-04-11] MEDS: SODIUM BICARBONATE TAB 650 MG TAB PO SCH ×2 (08:06→22:49)
[2023-04-11] MEDS: allopurinoL 100 MG TAB PO SCH (08:06)
[2023-04-11] MEDS: FUROSEMIDE 40 MG TAB PO SCH (08:06)
[2023-04-11] MEDS: FINASTERIDE 5 MG TAB PO SCH (08:06)
[2023-04-11] MEDS: LOSARTAN 25 MG TAB PO SCH (08:06)
[2023-04-11] MEDS: PANTOPRAZOLE 40 MG/10 ML VIAL IVP SCH (08:06)
[2023-04-11] MEDS: IPRATROPIUM-ALBUTEROL 3 ML NEB INHALATION SCH ×4 (08:52→21:01)
[2023-04-11] MEDS: SYMBICORT 80-4.5 MCG INHALER INHALATION SCH ×2 (08:52→21:01)
--- NOTE | 2023-04-11 10:54 | P.PN ---
Subjective Progress Note Date: 04/11/23 67-year-old male patient came in to the emergency department having shortness of breath. He feels extremely weak and debilitated. Appetite has been poor and the patient has not been eating or drinking. There was also possibility of him having a GI bleed as the patient has been reporting some dark tarry stools and the patient was taking oral iron. No nausea. No emesis. No chest pain. No abdominal pain. No altered mentation. He is known to have stage IV adenocarcinoma of the lung along with extensive liver metastases and 1.8 cm density in the right frontal lobe. The patient was given palliative radiation therapy to his brain and he has received 3 sessions. Computed tomography scan of the chest abdomen and pelvis that was done on 03/19/2023 showed multiple hepatic lesions in addition to us just disease and left hilar soft tissue mass encasing the left mainstem bronchus as well as mediastinal lymphadenopathy. CT-guided fine-needle aspirate of the liver on 03/23/2023 showed poorly d ifferentiated adenocarcinoma. The patient also has a remote history of testicular cancer treated by orchiectomy followed by systemic chemotherapy without radiation therapy. PET/CT that was done on 03/16/2020 demonstrated diffuse metastatic disease. Note that the patient also has other comorbidities including ischemic cardiac myopathy and the patient has an AICD in place. He has baseline left ejection fraction is about 35-40%. Is known to have multivessel coronary artery disease, severe aortic stenosis, chronic kidney disease, chronic atrial fibrillation maintained on a combination of metoprolol and amiodarone and anticoagulation with Eliquis on outpatient basis. He has hypertension hyperlipidemia previous history of CVA. He also has a left sided hydronephrosis along with a remote history of testicular cancer. The blood work shows that the risk of 16.5, hemoglobin drop down to 8.6 and a platelet count is at 342. BUN is 128 with a creatinine of 3.5 and a sodium level is at 136. Lactic acid levels at 3.3 and 3.7 respectively and the troponins are 0.04. The patient is currently on oxygen at 4 L with a pulse ox of 96%. Hemodynamically stable. He is receiving normal saline at 75 mL an hour. He is receiving Decadron on an outpatient . Computed tomography scan of the chest abdomen and pelvis that was done on 04/08/2023 showed diffuse hepatic metastases,, subdural masslike consolidation of the junction of the left upper lobe and the left lower lobe measuring 3.4 x 2 cm in size, severe diverticulosis without diverticulitis, mild fullness in the pancreatic tail On today's evaluation of 04/10/2023, condition is essentially unchanged compared to yesterday. No new complaints. No worsening in his respiratory status. Remains on Decadron. No altered mentation. Remains on oxygen at 4 L nasal cannula. Labs were reviewed, white cell count was 23 with a hemoglobin of 8 and a platelet count of 3.5. No evidence of any GI bleeding at this point in time and the patient is currently off anticoagulants. 04/11/2023, essentially no change in his condition. The patient is doing poorly. Very much debilitated. Oral intake is minimal. No worsening in oxygenation. Obviously, he has a terminal form of lung cancer. Recommended hospice care. Remains on 4 L of oxygen by nasal cannula. Objective - Vital Signs Vital signs: Vital Signs Temp 97.9 F 04/11/23 04:00 Pulse 84 04/11/23 09:05 Resp 19 04/11/23 08:00 BP 103/61 04/11/23 08:00 Pulse Ox 97 04/11/23 08:00 FiO2 Intake & Output 04/10/23 04/11/23 04/11/23 18:59 06:59 18:59 Intake Total 0 550 Output Total 450 500 Balance -450 50 Intake: IV 10 Invasive Line 1 10 Oral 0 540 Output: Urine 450 500 Other: Voiding Method External Catheter External Catheter External Catheter # Bowel Movements 1 1 - Exam GENERAL EXAM: Alert, 67-year-old white male appearing stated age, comfortable in no apparent distress. The patient is currently on 4 L of Oxymizer nasal cannula. Is quite ill and he is also looking pale. HEAD: Normocephalic and atraumatic EYES: Normal reaction of pupils, equal size. NOSE: Clear with pink turbinates. THROAT: No erythema or exudates. NECK: No masses, no JVD. CHEST: No chest wall deformity. LUNGS: Diminished lung sounds at the left base. No wheezes, rhonchi, crackles. On 3 L/m nasal cannula. No conversational dyspnea or accessory muscle use.. CVS: S1 and S2 normal with no audible murmur, irregular rhythm. No extra heart sounds. ABDOMEN: No hepatosplenomegaly, active bowel sounds, no guarding or rigidity. SPINE: No scoliosis or deformity. SKIN: No rashes. There are multiple soft tissue cystic lesions on the patient's back CENTRAL NERVOUS SYSTEM: No focal deficits, tone is normal in all 4 extremities. EXTREMITIES: There is no peripheral edema, clubbing, or cyanosis. Peripheral pulses are intact. - Labs CBC & Chem 7: 04/10/23 07:05 04/09/23 07:15 Assessment and Plan Plan: Acute on chronic shortness of breath. The patient has a short of breath and shortness of breath is multifactorial. He is known to have metastatic adenocarcinoma of the lung in addition to severe cardiomyopathy and severe aortic stenosis. The same time, the patient drop in hemoglobin down to 8.6 and possibility of a GI bleed/upper GI bleed is being entertained. The patient has been anticoagulation with Eliquis on outpatient basis. Repeat hemoglobin today is at 8.0. Chronic hypoxic respiratory failure currently on 4 L of oxygen by nasal cannula. CAT scan of the chest showing a consolidation masslike density at the left lateral lung margin which was present previously. There was also small left pleural effusion and/or atelectasis at the left costophrenic angle. No other acute abnormalities of been noted Metastatic adenocarcinoma of the lung primary with, CT of the chest, abdomen, pelvis from recent hospital admission showed a left hilar lesion encasing the left mainstem bronchus measuring up to 5.5 cm in size. There were also lower paratracheal and subcarinal lymphadenopathy. Few other pulmonary nodules throughout the left lung measuring up to 3.3 cm in size. There were also multiple hepatic metastatic lesions measuring up to 2.7 cm in size with underlyi ng metastasis to mesenteric lymph nodes measuring up to 1.3 cm in size. There was also suspicious lesions of T5 and L1 concerning for osseous metastasis. Percutaneous CT-guided liver biopsy was used to obtain biopsy, which did come back positive for adenocarcinoma. 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 Multivessel coronary artery disease, as demonstrated on recent heart catheterization including 20% stenosis of the left main, 60-70% stenosis of the mid LAD, 50% stenosis of the OM1, and 80% RCA stenosis. Severe aortic stenosis, as demonstrated on DEBBY Acute on chronic kidney disease, creatinine 3.24 Chronic atrial fibrillation, with controlled ventricular rate, maintained on by mouth amiodarone, metoprolol, and anticoagulated on Eliquis Benign essential hypertension Hyperlipidemia History of CVA Chronic obstructive pulmonary disease, stable Acute on chronic kidney disease, creatinine 3. 52 Recent left sided hydronephrosis with possible UPG junction obstruction History of testicular cancer status post resection followed with chemoradiation therapy in 1985 Chronic nicotine dependence Troponin leak Mild lactic acidosis probably related to extensive liver metastases Plan No changes condition Hemoglobin remained stable No clinical evidence of GI bleed Overall respiratory status is stable Check stool for occult blood Stop anticoagulation , anticoagulation/Eliquis is currently on hold Monitor hemoglobin and watch for any signs of GI bleed IV Protonix Normal saline at rate of 75 mL an hour Radiation therapy to the brain was being done outpatient basis Continue Decadron 4 mg every 8 hours Resume all medications Very poor prognosis based on the above-mentioned. We'll continue to follow. CODE STATUS is DNR/DNI Recommended hospice care
--- NOTE | 2023-04-11 15:00 | P.PN ---
Subjective Progress Note Date: 04/11/23 CHIEF COMPLAINT: GI bleed HISTORY OF PRESENT ILLNESS: The patient is a 67-year-old male admitted for GI bleed. Family and friends are bedside overnight. He reports abdominal pain after drinking strawberry milkshake from [employer]. No hematemesis. No blood in stools. He is drinking red beverages. He reports feeling better and has hiccups. REVIEW OF ORGAN SYSTEMS: No reports of fevers or chills. No new blood in stools. PHYSICAL EXAM: VITAL SIGNS: Stable GENERAL: Well-developed pleasant and in no acute distress. HEENT: No scleral icterus. Extraocular movements grossly intact. Moist buccal mu cosa. NECK: Supple without lymphadenopathy. CHEST: Unlabored respirations. Equal bilateral excursions. CARDIOVASCULAR: Distal 2+ pulses. ABDOMEN: Soft, diffuse abdominal tenderness. No peritonitis. MUSCULOSKELETAL: No clubbing, cyanosis, or edema. LABS: Hemoglobin stable 8.6 to 8.0 ASSESSMENT: 1. GI bleed PLAN: 1. No current signs of bleeding with upper/lower scopes on hold. 2. Continue liquid diet. Patient advised to avoid red beverages for false blood in stools. Objective - Vital Signs Vital signs: Vital Signs Temp 97.9 F 04/11/23 04:00 Pulse 86 04/11/23 11:27 Resp 21 04/11/23 11:27 BP 122/61 04/11/23 11:27 Pulse Ox 100 04/11/23 11:27 FiO2 Intake & Output 04/10/23 04/11/23 04/11/23 18:59 06:59 18:59 Intake Total 0 550 Output Total 450 500 Balance -450 50 Intake: IV 10 Invasive Line 1 10 Oral 0 540 Output: Urine 450 500 Other: Voiding Method External Catheter External Catheter External Catheter # Bowel Movements 1 1 - Labs CBC & Chem 7: 04/10/23 07:05 04/09/23 07:15
[2023-04-11] MEDS: ACETAMINOPHEN TAB 325 MG TAB PO PRN ×2 (15:02→22:52)
--- NOTE | 2023-04-11 15:48 | P.PN ---
Progress Note - Text Progress Note Date: 04/11/23 Chief Complaint: Tired This is a pleasant 67-year-old patient, Dr. Colon. Chronic stable medical conditions include atrial fibrillation, hyperlipidemia, hypertension, osteoarthritis, ischemic cardiomyopathy, testicle cancer with surgery and chemo, BPH, CKD stage III, hemorrhoids, hiatal hernia CAD with stent, AICD. Patient is a smoker. . recently discharged from the hospital on March 24 seen by [facility] hospitalists. CEA and AFP tumor markers within normal limit. CA 19.9 is elevated. -Liver core biopsy showed non-small cell carcinoma with features compatible with poorly differentiated adenocarcinoma. - CT chest abdomen and pelvis showed: left hilar neoplastic soft tissue partially encasing the left vein stem bronchus and cutting of the lingular and left lower lobe bronchus. Mass of the left infrahilar level 5.5 cm. Pulmonary nodules throughout the left lung up to 3.3 cm. Also small metastatic of the inferior spleen. Metastatic mesenteric lymph nodes. Suspected metastatic disease and sclerosis at T5 L1. An upper sternal body. Moderate left hydronephrosis possible UBP junction obstruction. -Left-sided colonic diverticulosis. -Prostatomegaly. -Cardiac catheterization: 20% left main, 60-70% mid LAD in-stent stenosis, 50% OM1 and 80% RCA stenosis. Decision made for medical management. DEBBY: Tricuspid aortic valve. Heavily calcified. Severe aortic stenosis with aortic valve area of 0.7 cm. Moderate to severe aortic insufficiency. Moderate tricuspid regurgitation. No PFO. EF 35-40%. Global hypokinesia. Patient was then admitted from March 30 to April 02. Admitted with pneumonia and COPD exacerbation.. Patient had continued to smoke a few cigarettes a day. CT brain showed possible masses surrounding vasogenic edema. Right frontal lobe. Was discharged on Decadron. PET scan on March 26 showed: Multiple hard nodules within the liver. Abnormal uptake of the chest and mediastinum suspicious for neoplastic process. Osseous metastatic is including the right scapula and left toe drip. Multiple scattered soft tissue nodules with uptake suspicious for soft tissue metastatic disease. Abnormal lymph rhythm but he uptake. Patient is discharged April 02. Following 2 days patient did get radiation treatment. Subsequently patient continued to become more and more weak. Appetite fairly rundown. No fever no chills. More short of breath. Weak to the point he could not walk. He presented to the ER. Patient had melanotic stool. April 10: reclining in bed. He tells me that-he is all done. He says it is sinking slowly. Short of breath. Tired. Understands his prognosis not good. Wants to go hospice. Family the bedside. He was to put his papers in place and may COVID. He wants to go home. Hospice is being consulted. Family the bedside will help him out otherwise he normally lives alone. Questions answered. April 11: Reclining in bed. Some shortness of breath. Decreased appetite. Patient's sister is here from [place]. The people at present. Hospice came and saw the patient today. Hopefully patient can be discharged home with hospice tomorrow. Questions answered. Active Medications Acetaminophen (Acetaminophen Tab 325 Mg Tab) 650 mg PO Q6HR PRN PRN Reason: Mild Pain or Fever > 100.5 Last Admin: 04/11/23 15:02 Dose: 650 mg Albuterol Sulfate (Albuterol Nebulized 2.5 Mg/3 Ml) 2.5 mg INHALATION RT-Q4H PRN PRN Reason: Wheezing Last Admin: 04/10/23 18:39 Dose: 2.5 mg Albuterol/Ipratropium (Ipratropium-Albuterol 3 Ml Neb) 3 ml INHALATION RT-QID [facility] Last Admin: 04/11/23 15:26 Dose: Not Given Allopurinol (Allopurinol 100 Mg Tab) 100 mg PO DAILY [facility] Last Admin: 04/11/23 08:06 Dose: 100 mg Amiodarone HCl (Amiodarone 200 Mg Tab) 200 mg PO DAILY [facility] Last Admin: 04/11/23 08:06 Dose: 200 mg Atorvastatin Calcium (Atorvastatin 80 Mg Tab) 80 mg PO HS [facility] Last Admin: 04/10/23 20:26 Dose: 80 mg Budesonide/Formoterol Fumarate (Symbicort 80-4.5 Mcg Inhaler) 2 puff INHALATION RT-BID [facility] Last Admin: 04/11/23 08:52 Dose: 2 puff Dexamethasone (Dexamethasone 4 Mg Tab) 4 mg PO Q8HR [facility] Last Admin: 04/11/23 15:02 Dose: 4 mg Ferrous Sulfate (Ferrous Sulfate 325 Mg Tab) 325 mg PO DAILY [facility] Last Admin: 04/11/23 08:06 Dose: 325 mg Finasteride (Finasteride 5 Mg Tab) 5 mg PO DAILY [facility] Last Admin: 04/11/23 08:06 Dose: 5 mg Fluticasone Propionate (Fluticasone 50mcg/[place] Nasal 16gm) 1 spray EA NOSTRIL DAILY PRN PRN Reason: Allergy Symptoms Furosemide (Furosemide 40 Mg Tab) 40 mg PO DAILY [facility] Last Admin: 04/11/23 08:06 Dose: 40 mg Sodium Chloride (Saline 0.9%) 1,000 mls @ 75 mls/hr IV .[id number] [facility] Last Admin: 04/11/23 05:52 Dose: Not Given Isosorbide Mononitrate (Isosorbide Mononitrate Er 15 Mg Tab) 15 mg PO HS [facility] Last Admin: 04/10/23 20:26 Dose: 15 mg Losartan Potassium (Losartan 25 Mg Tab) 25 mg PO DAILY [facility] Last Admin: 04/11/23 08:06 Dose: 25 mg Metoprolol Succinate (Metoprolol Succinate (Er) 25 Mg Tab.Er.24h) 75 mg PO DAILY [facility] Last Admin: 04/11/23 08:05 Dose: 75 mg Naloxone HCl (Naloxone 0.4 Mg/Ml 1 Ml Vial) 0.2 mg IV Q2M PRN PRN Reason: Opioid Reversal Nitroglycerin (Nitroglycerin Sl Tabs 0.4 Mg Tab) 0.4 mg SUBLINGUAL Q5M PRN PRN Reason: Chest Pain Pantoprazole Sodium (Pantoprazole 40 Mg/10 Ml Vial) 40 mg IVP DAILY [facility] Last Admin: 04/11/23 08:06 Dose: 40 mg Sodium Bicarbonate (Sodium Bicarbonate Tab 650 Mg Tab) 650 mg PO BID [facility] Last Admin: 04/11/23 08:06 Dose: 650 mg . Past medical history to include: Atrial fibrillation, CAD with stent, CHF 30-40%, hyperlipidemia, TIA, hypertension, osteoarthritis, BPH, V. tach, left testicle cancer with surgery /chemotherapy, BPH, CK D stage III, hemorrhoids, hiatal hernia, AICD: Colonic Diverticulosis. Severe aortic stenosis, moderate to severe aortic insufficiency. Metastatic adenocarcinoma Social history: Lives alone. Smoking for 52 years now down to about half a pack a day. Was up to pack and a half to 2 packs a day. Retired from [employer] work. Family history: CAD Physical examination: VITAL SIGNS: 97.9, 81, 19, 10 3 x 61, 97% on 4 L GENERAL: Reclining in bed, awake, tired EYES: Pupils equal. Conjunctiva pale. HEENT: External appearance of nose and ears normal, oral cavity grossly normal. NECK: JVD not raised; masses not palpable. HEART: First and second heart sounds are normal; no edema. LUNGS: Respiratory rate increased; diminished breath sound ABDOMEN: Soft, nontender, liver spleen not palpable, no masses palpable. PSYCH: [Alert and oriented x3; mood and affect anxious MUSCULOSKELETAL:No Clubbing/cyanosis;muscles-grossly intact INVESTIGATIONS, reviewed in the clinical context: April 10: White count 23.3 hemoglobin 8 platelets 335 EKG tracing personally reviewed by me-atrial fibrillation. Intraventricular conduction delay. Rate 90. April 08: White count 7.2 hemoglobin 7.8 platelets 358 sodium 134 potassium 5.4 BUN 127 creatinine 3.53 lactic acid 2.9 AST 633 ALT 564 alkaline phosphatase 592 upon I0.041 Recent investigations: Computed tomography scan of the brain [April 02] with contrast: Possible masses surrounding the cystic edema right frontal lobe. Similar appearance to recent comparison. I want 1.8 cm. -Liver core biopsy showed non-small cell carcinoma with features compatible with poorly differentiated adenocarcinoma. - CT chest abdomen and pelvis showed: Deidre L and left hilar neoplastic soft tissue partially encasing the left vein stem bronchus and cutting of the lingular and left lower lobe bronchus. Mass of the left infrahilar level 5.5 cm. Pulmonary nodules throughout the left lung up to 3.3 cm. Also small metastatic cystoscopy of the inferior spleen. Metastatic mesenteric lymph nodes. Suspected metastatic cystoscopy and sclerosis at T5 L1. An upper sternal body. Moderate left hydronephrosis possible UBP junction obstruction. -Left-sided colonic diverticulosis. -Prostatomegaly. -Cardiac catheterization: 20% left main, 60-70% mid LAD in-stent stenosis, 50% OM1 and 80% RCA stenosis. Decision made for medical management. DEBBY: Tricuspid aortic valve. Heavily calcified. Severe aortic stenosis with aortic valve area of 0.7 cm. Moderate to severe aortic insufficiency. Moderate tricuspid regurgitation. No PFO. EF 35-40%. Global hypokinesia. Assessment and plan: -Acute severe COPD exacerbation and a smoker: Slow to respond DuoNeb -Acute GI bleed, the patient on eliquis. With melanotic stools. General surgery consulted. GI services not available in the hospital. -Persistent atrial fibrillation, rate controlled Cordarone 200 mg a day. Eliquis-held Toprol-XL 75 mg -Chronic nicotine dependence, cigarette smoker nicotine patch -CAD with stent Toprol XL 75. Aspirin. Lipitor. Imdur ER 15 mg -Metastatic adenocarcinoma primary possibly lung. Metastatic assess suspected to the bones, spleen: Advanced PET scan done recently. Follow with oncology -Chronic congestive heart failure from diastolic dysfunction EF 35-40 % PE on Lasix -AICD On telemetry -Severe aortic stenosis , 0.7 cm with moderate to severe aortic regurgitation Cardiology: not a candidate for surgical intervention. -Mild to moderate mitral regurgitation and severe tricuspid regurgitation Follow clinically -BPH Proscar 5 mg a day -Hyperlipidemia Lipitor 80 mg daily at bedtime -Essential hypertension Toprol-XL -Chronic kidney disease stage 3 possibly from nephrosclerosis -Primary osteoarthritis multiple joints bilaterally Tylenol as needed -DO NOT RESUSCITATE Advance care planning: [04/10/2023] Discussed with patient at length. She understand his overall prognosis is poor. Poor functional status. He does not have any official medical POA. Spoke to the nurse to get him to forward wishes form available in the hospital. He also wants to get a international trade analyst to put on vent in place. Aiming to go to home tomorrow with hospice. Other questions answered. Patient made DO NOT RESUSCITATE. Time spent about 25 minutes. Discussed with patient. And hospice company. Patient be discharged home tomorrow with hospice.
[2023-04-11] MEDS: ATORVASTATIN 80 MG TAB PO SCH (22:48)
[2023-04-11] MEDS: ISOSORBIDE MONONITRATE ER 15 MG TAB PO SCH (22:49)
[2023-04-12] MEDS: dexAMETHasone 4 MG TAB PO SCH ×3 (01:04→16:22)
[2023-04-12] MEDS: SYMBICORT 80-4.5 MCG INHALER INHALATION SCH (08:28)
[2023-04-12] MEDS: IPRATROPIUM-ALBUTEROL 3 ML NEB INHALATION SCH ×3 (08:28→14:48)
[2023-04-12] MEDS ORDERED: bisacodyL 10 MG SUPP RECTAL STA (09:19)
[2023-04-12] MEDS ORDERED: DOCUSATE 100 MG CAP PO SCH (09:30)
[2023-04-12] MEDS: METOPROLOL SUCCINATE (ER) 25 MG TAB.ER.24H PO SCH (09:50)
[2023-04-12] MEDS: FERROUS SULFATE 325 MG TAB PO SCH (09:50)
[2023-04-12] MEDS: FUROSEMIDE 40 MG TAB PO SCH (09:50)
[2023-04-12] MEDS: SODIUM BICARBONATE TAB 650 MG TAB PO SCH (09:50)
[2023-04-12] MEDS: PANTOPRAZOLE 40 MG/10 ML VIAL IVP SCH (09:50)
[2023-04-12] MEDS: AMIODARONE 200 MG TAB PO SCH (09:50)
[2023-04-12] MEDS: allopurinoL 100 MG TAB PO SCH (09:50)
[2023-04-12] MEDS: LOSARTAN 25 MG TAB PO SCH (09:50)
[2023-04-12] MEDS: FINASTERIDE 5 MG TAB PO SCH (09:50)
[2023-04-12 10:35] VITALS: TEMP 96.9
--- NOTE | 2023-04-12 11:11 | P.PN ---
Subjective Progress Note Date: 04/12/23 CHIEF COMPLAINT: GI bleeding HISTORY OF PRESENT ILLNESS: Patient is in no further blood in the stools. Last BM was April 10. He does report some abdominal discomfort. He complains of constipation and feels like he needs a bowel movement. Patient is scheduled for possible discharge home with hospice later today. Last hemoglobin April 10 staying stable at 8.0 PHYSICAL EXAM: VITAL SIGNS: Reviewed. GENERAL: Well-developed in no acute distress. HEENT: No sclera icterus. Extraocular movements grossly intact. Moist buccal mucosa. Head is atraumatic, normocephalic. ABDOMEN: Soft. Nondistended. Mild tenderness to palpation of the left upper abdomen and epigastric area Neuro: awake and alert. ASSESSMENT: 1. Possible GI bleed with melanotic stools. Patient taking iron at home 2. Anemia 3. History of atrial fibrillation on Eliquis at home 4. History of lung cancer and metastatic disease to the liver 5. constipation PLAN: -Colace and Dulcolax suppository ordered for constipation -Possible Home with hospice later today -No plans for endoscopy. No current signs of bleeding Physician Correctional Program Officer note has been reviewed by physician. Signing provider agrees with the documented findings, assessment, and plan of care. Objective - Vital Signs Vital signs: Vital Signs Temp 96.9 F L 04/12/23 09:45 Pulse 92 04/12/23 09:45 Resp 16 04/12/23 09:45 BP 102/66 04/12/23 09:45 Pulse Ox 98 04/12/23 09:45 FiO2 Intake & Output 04/11/23 04/12/23 04/12/23 18:59 06:59 18:59 Intake Total 477 Output Total 400 300 100 Balance -400 -300 377 Intake: Oral 477 Output: Urine 400 300 100 Other: Voiding Method External Catheter External Catheter External Catheter # Bowel Movements 1 - Labs CBC & Chem 7: 04/10/23 07:05 04/09/23 07:15
[2023-04-12] MEDS ORDERED: SODIUM FERRIC GLUCONAT-SUCROSE 125 MG in SODIUM CHLORIDE 0.9% 100 ML IVPB SCH (12:00)
[2023-04-12 13:14] VITALS: BP 107/70; PULSE 91; RESP 18
--- NOTE | 2023-04-12 13:21 | P.DS ---
Providers Date of admission: 04/08/23 23:44 Expected date of discharge: 04/12/23 Attending physician: Regis Valdez Consults: 04/08/23 23:44 Consult Physician Urgent Consulting Provider: Gabriel Haynes Consult Reason/Comments: gi bleeding, diverticulosis Do you want consulting provider notified?: Yes Consult Physician Urgent Consulting Provider: Corey Mckeon Consult Reason/Comments: radiation therapy Do you want consulting provider notified?: Yes 04/08/23 23:47 Consult Physician Urgent Consulting Provider: Con Chris Consult Reason/Comments: metastatic lung cancer Do you want consulting provider notified?: Yes 04/09/23 11:19 Consult Physician Routine Consulting Provider: Christy Ruvalcaba Consult Reason/Comments: lung ca Do you want consulting provider notified?: Yes Primary care physician: Amadou Colon [place] [facility] Course: Discharge diagnoses; Acute severe COPD exacerbation and a smoker: -Acute GI bleed, -Persistent atrial fibrillation, rate controlled -Chronic nicotine dependence, cigarette smoker CAD with stent -Metastatic adenocarcinoma primary possibly lung. Metastatic assess suspected to the bones, spleen: Advanced -Chronic congestive heart failure from diastolic dysfunction EF 35-40 % -AICD -Severe aortic stenosis , 0.7 cm with moderate to severe aortic regurgitation -Mild to moderate mitral regurgitation and severe tricuspid regurgitation -BPH -Hyperlipidemia Essential hypertension Chronic kidney disease stage 3 possibly from nephrosclerosis -Primary osteoarthritis multiple joints bilaterally Hospital course; This is a pleasant 67-year-old patient, Dr. Colon. Chronic stable medical conditions include atrial fibrillation, hyperlipidemia, hypertension, osteoarthritis, ischemic cardiomyopathy, testicle cancer with surgery and chemo, BPH, CKD stage III, hemorrhoids, hiatal hernia CAD with stent, AICD. Patient is a smoker. . recently discharged from the hospital on March 24 seen by [facility] hospitalists. CEA and AFP tumor markers within normal limit. CA 19.9 is elevated. -Liver core biopsy showed non-small cell carcinoma with features compatible with poorly differentiated adenocarcinoma. - CT chest abdomen and pelvis showed: left hilar neoplastic soft tissue partially encasing the left vein stem bronchus and cutting of the lingular and left lower lobe bronchus. Mass of the left infrahilar level 5.5 cm. Pulmonary nodules throughout the left lung up to 3.3 cm. Also small metastatic of the inferior spleen. Metastatic mesenteric lymph nodes. Suspected metastatic disease and sclerosis at T5 L1. An upper sternal body. Moderate left hydronephrosis possible UBP junction obstruction. -Left-sided colonic diverticulosis. -Prostatomegaly. -Cardiac catheterization: 20% left main, 60-70% mid LAD in-stent stenosis, 50% OM1 and 80% RCA stenosis. Decision made for medical management. DEBBY: Tricuspid aortic valve. Heavily calcified. Severe aortic stenosis with aortic valve area of 0.7 cm. Moderate to severe aortic insufficiency. Moderate tricuspid regurgitation. No PFO. EF 35-40%. Global hypokinesia. Patient was then admitted from March 30 to April 02. Admitted with pneumonia and COPD exacerbation.. Patient had continued to smoke a few cigarettes a day. CT brain showed possible masses surrounding vasogenic edema. Right frontal lobe. Was discharged on Decadron. PET scan on March 26 showed: Multiple hard nodules within the liver. Abnormal uptake of the chest and mediastinum suspicious for neoplastic process. Osseous metastatic is including the right scapula and left toe drip. Multiple scattered soft tissue nodules with uptake suspicious for soft tissue metastatic disease. Abnormal lymph rhythm but he uptake. Patient is discharged April 02. Following 2 days patient did get radiation treatment. Subsequently patient continued to become more and more weak. Appetite fairly rundown. No fever no chills. More short of breath. Weak to the point he could not walk. He presented to the ER. Patient had melanotic stool. April 10: reclining in bed. He tells me that-he is all done. He says it is sinking slowly. Short of breath. Tired. Understands his prognosis not good. Wants to go hospice. Family the bedside. He was to put his papers in place and may COVID. He wants to go home. Hospice is being consulted. Family the bedside will help him out otherwise he normally lives alone. Questions answered. April 11: Reclining in bed. Some shortness of breath. Decreased appetite. Patient's sister is here from [place]. The people at present. Hospice came and saw the patient today. Hopefully patient can be discharged home with hospice tomorrow. Questions answered. 04/12. Patient seen and examined. Being discharged home with hospice PHYSICAL EXAMINATION: GENERAL: The patient is alert and oriented x3, chronically ill-looking HEENT: Pupils are round and equally reacting to light. EOMI. No scleral icterus. No conjunctival pallor. Normocephalic, atraumatic. No pharyngeal erythema. No thyromegaly. CARDIOVASCULAR: S1 and S2 present. No murmurs, rubs, or gallops. PULMONARY: Coarse breath some bilaterally, no wheeze ABDOMEN: Soft, nontender, nondistended, normoactive bowel sounds. No palpable organomegaly. MUSCULOSKELETAL: No joint swelling or deformity. EXTREMITIES:1 Plus pitting edema lower extremities bilaterally NEUROLOGICAL: Gross neurological examination did not reveal any focal deficits. SKIN: No rashes. Patient Condition at Discharge: Poor Plan - Discharge Summary Discharge Rx Participant: Yes New Discharge Prescriptions: Continue Nitroglycerin Sl Tabs [Nitrostat] 0.4 mg SUBLINGUAL Q5M PRN #100 tab PRN Reason: Chest Pain Isosorbide Mononitrate ER [Imdur] 15 mg PO HS Atorvastatin [Lipitor] 80 mg PO HS Furosemide [Lasix] 40 mg PO DAILY Ferrous Sulfate [Feosol] 325 mg PO DAILY Albuterol Sulfate [Albuterol Sulfate Hfa] 1 puff PO Q4-6H PRN #8.5 gm PRN Reason: Wheezing Sodium Bicarbonate Tab 650 mg PO BID #60 tablet Losartan Potassium [Cozaar] 25 mg PO DAILY dexAMETHasone [Decadron] 4 mg PO Q8HR 14 Days #42 tablet Nicotine 14Mg/24Hr Patch [Habitrol] 1 patch TRANSDERM DAILY #14 patch allopurinoL 100 mg PO DIRECTED Apixaban [Eliquis] 5 mg PO BID Fluticasone Nasal [place] [Flonase Nasal [place]] 1 spray EA NOSTRIL DAILY PRN PRN Reason: Allergy Symptoms Finasteride [Proscar] 5 mg PO DAILY Amiodarone [Cordarone] 200 mg PO DAILY Metoprolol Succinate (ER) [Toprol XL] 75 mg PO DAILY #90 tab Fluticasone Propion/Salmeterol [Advair 250-50 Diskus] 1 puff INHALATION RT- BID Discontinued cefUROXime axetiL [Ceftin] 500 mg PO BID #14 tab Discharge Medication List Nitroglycerin Sl Tabs [Nitrostat] 0.4 mg SUBLINGUAL Q5M PRN #100 tab 03/18/17 [Rx] Isosorbide Mononitrate ER [Imdur] 15 mg PO HS 06/06/18 [History] Atorvastatin [Lipitor] 80 mg PO HS 03/20/20 [History] Apixaban [Eliquis] 5 mg PO BID 08/06/21 [History] Amiodarone [Cordarone] 200 mg PO DAILY 10/15/21 [History] Finasteride [Proscar] 5 mg PO DAILY 10/15/21 [History] Fluticasone Nasal [place] [Flonase Nasal [place]] 1 spray EA NOSTRIL DAILY PRN 10/15/21 [History] Ferrous Sulfate [Feosol] 325 mg PO DAILY 06/11/22 [History] Furosemide [Lasix] 40 mg PO DAILY 06/11/22 [History] Albuterol Sulfate [Albuterol Sulfate Hfa] 1 puff PO Q4-6H PRN #8.5 gm 06/14/22 [Rx] Metoprolol Succinate (ER) [Toprol XL] 75 mg PO DAILY #90 tab 03/24/23 [Rx] Sodium Bicarbonate Tab 650 mg PO BID #60 tablet 03/24/23 [Rx] Losartan Potassium [Cozaar] 25 mg PO DAILY 03/30/23 [History] Nicotine 14Mg/24Hr Patch [Habitrol] 1 patch TRANSDERM DAILY #14 patch 04/02/23 [Rx] dexAMETHasone [Decadron] 4 mg PO Q8HR 14 Days #42 tablet 04/02/23 [Rx] Fluticasone Propion/Salmeterol [Advair 250-50 Diskus] 1 puff INHALATION RT-BID 04/09/23 [History] allopurinoL 100 mg PO DIRECTED 04/09/23 [History] Follow up Appointment(s)/Referral(s): Amadou Colon DO [Primary Care Provider] - 1-2 days Discharge Disposition: HOME WITH HOSPICE
--- NOTE | 2023-04-12 13:52 | P.PN ---
Subjective Progress Note Date: 04/12/23 Principal diagnosis: SOB At today's visit pt is resting constantly in bed. He reports some improvement in breathing today. Patient also reports he's been having issues with cons tipation but after a suppository he had a BM today. Objective - Vital Signs Vital signs: Vital Signs Temp 96.9 F L 04/12/23 09:45 Pulse 92 04/12/23 09:45 Resp 16 04/12/23 09:45 BP 102/66 04/12/23 09:45 Pulse Ox 98 04/12/23 09:45 FiO2 Intake & Output 04/11/23 04/12/23 04/12/23 18:59 06:59 18:59 Intake Total 477 Output Total 400 300 100 Balance -400 -300 377 Intake: Oral 477 Output: Urine 400 300 100 Other: Voiding Method External Catheter External Catheter External Catheter # Bowel Movements 1 2 - Constitutional General appearance: Present: no acute distress, thin - EENT Eyes: Present: anicteric sclerae, EOMI ENT: Present: hearing grossly normal - Respiratory Details: breathing even and unlabored - Cardiovascular Details: skin warm and dry - Integumentary Integumentary: Absent: jaundiced, rash - Neurologic Neurologic Comment(s): grossly intact - Musculoskeletal Musculoskeletal: Present: generalized weakness - Psychiatric Psychiatric: Present: A&O x's 3, appropriate affect, intact judgment & insight - Labs CBC & Chem 7: 04/10/23 07:05 04/09/23 07:15 Assessment and Plan (1) Metastatic cancer Current Visit: Yes Status: Acute Priority: High Code(s): C79.9 - SECONDARY MALIGNANT NEOPLASM OF UNSPECIFIED SITE SNOMED Code(s): 146625747 (2) Anemia Current Visit: Yes Status: Acute Priority: High Code(s): D64.9 - ANEMIA, UNSPECIFIED SNOMED Code(s): 083757324 (3) Acute respiratory insufficiency Current Visit: Yes Status: Acute Priority: High Code(s): R06.89 - OTHER ABNORMALITIES OF BREATHING SNOMED Code(s): 043290314 Plan: Metastatic non small cell carcinoma: -Liver biopsy revealed non-small cell carcinoma with features compatible poorly differentiated adenocarcinoma with likely lung primary. -PET scan showed new multiple hot nodules of the liver compatible with multiple metastatic lesions. Abnormal uptake through the chest and mediastinum. Osseous metastasis are identified including the right scapula and left third rib. Multiple scattered soft tissue nodules with uptake suspicious for soft tissue metastatic disease. With multiple sites of lymphadenopathy with abnormal uptake. -Brain imaging was obtained for further staging. MRI brain unable to be completed due to ICD. Brain CT w/o contrast ordered due to stage [address] revealed Ill-defined 3.2 cm right frontal lobe region of low-attenuation with preservation of the cortex. Rad/onc was consulted, and case was discussed with Dr. Mckeon in regards to evaluation for RT of left lung mass and possible brain lesion. After review of imaging he states based on CT brain without contrast mass is hard to rule out as it appears as a hazy hypodensity but no definitive mass was seen. CT head with contrast was then obtained for better visualization of frontal lobe 3.2cm hypodensity. Scan revealed a rounded density with surrounding vasogenic edema in the right subcortical frontal lobe estimated at 1.8 cm with surrounding vasogenic edema. -Patient has received 2/10 fractions of left lung mass for palliative RT. With plan for SRS to the right frontal lobe region. -Continues on Decadron 4mg q8hrs -Was seen in clinic with Dr Gregoria Russ on 04/05. Guardant 360 obtained on to assess for circulating tumor DNA molecular profiling, as well as NGS and PD-L1. Given his medical comorbidities, patient is not an ideal candidate for systemic chemotherapy. He does not have any targetable mutations on molecular profiling, he would be an ideal candidate for either single agent immunotherapy (for PD-L1 greater than or equal to 50%) or combined immunotherapy with nivolumab/ipilimuma b if his PD-L1 was less than greater than or equal to 1%, but less than 50%. -Discussed with patient the need to stabilize his breathing and improvement in weakness prior to starting any therapy, bc in his current condition he is not a good candidate for systemic treatment. Patient expressed concerns regarding continuing any further treatment stating, "this is going to kill me anyways and I dont want to be a burden to my family." Discussed with him that stopping RT and not proceeding with systemic treatment is an option, and that palliative care/hospice could be considered, or we can see how he does actuely and f/u in office with family and further discuss options and possible treatment plans pending recovery and pathology testing. Pt was agreeable and stated he would like to f/u with Dr. Russ. -Appointment to follow-up with Dr. Russ on 04/21 for discussion regarding testing results, treatment options, prognosis with and without treatment, and to define set goals of care. Acute respiratory insufficiency: -Pulm following -Breathing mildly improved. Patient continues on dexamethasone, breathing treatments and inhalers -CT chest abdomen pelvis revealed no pneumothorax. Subpleural mass like consolidation at the junction of the left upper lobe and left lower lobe measuring 3.4 x 2.0 cm. Mild partly loculated left pleural effusion. Diffuse hepatic metastases. Mild fullness of the pancreatic tail. Fullness of the left renal collecting system. Severe diverticulosis without acute diverticulitis. No small bowel obstruction or free air. Anemia: -Reports dark stools but is on oral iron. Stool occult positive. General surgery consulted, no plan for scopes at this time. Eliquis has been held. Started on PPI -Hemoglobin 8.0. Noted in the the 10 range during prior admission -Anemia workup consistent with BRENT. Parenteral iron ordered. Will d/c oral iron due to constipation. Anemia could likely be multifactorial due to nutritional deficiency from decreased oral intake/multiple hospitalizations and acute GI bleed due to eliquis and steroids and severe diverticulosis seen on CT. Recommend GI f/u for endoscopic evaluation once stable. -Will continue to monitor. Please transfuse for hemoglobin less than 7
--- NOTE | 2023-04-12 13:56 | P.PN ---
Subjective Progress Note Date: 04/12/23 Principal diagnosis: Chronic hypoxic respiratory failure secondary to metastatic pulmonary adenocarcinoma 67-year-old male patient came in to the emergency department having shortness of breath. He feels extremely weak and debilitated. Appetite has been poor and the patient has not been eating or drinking. There was also possibility of him having a GI bleed as the patient has been reporting some dark tarry stools and the patient was taking oral iron. No nausea. No emesis. No chest pain. No abdominal pain. No altered mentation. He is known to have stage IV adenocar cinoma of the lung along with extensive liver metastases and 1.8 cm density in the right frontal lobe. The patient was given palliative radiation therapy to his brain and he has received 3 sessions. Computed tomography scan of the chest abdomen and pelvis that was done on 03/19/2023 showed multiple hepatic lesions in addition to us just disease and left hilar soft tissue mass encasing the left mainstem bronchus as well as mediastinal lymphadenopathy. CT-guided fine- needle aspirate of the liver on 03/23/2023 showed poorly differentiated adenocarcinoma. 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 PET/CT that was done on 03/16/2020 demonstrated diffuse metastatic disease. Note that the patient also has other comorbidities including ischemic cardiac myopathy and the patient has an AICD in place. He has baseline left ejection fraction is about 35-40%. Is known to have multivessel coronary artery disease, severe aortic stenosis, chronic kidney disease, chronic atrial fibrillation maintained on a combination of metoprolol and amiodarone and anticoagulation with Eliquis on outpatient basis. He has hypertension hyperlipidemia previous history of CVA. He also has a left sided hydronephrosis along with a remote history of testicular cancer. The blood work shows that the risk of 16.5, hemoglobin drop down to 8.6 and a platelet count is at 342. BUN is 128 with a creatinine of 3.5 and a sodium level is at 136. Lactic acid levels at 3.3 and 3.7 respectively and the troponins are 0.04. The patient is currently on oxygen at 4 L with a pulse ox of 96%. Hemodynamically stable. He is receiving normal saline at 75 mL an hour. He is receiving Decadron on an outpatient . Computed tomography scan of the chest abdomen and pelvis that was done on 04/08/2023 showed diffuse hepatic metastases,, subdural masslike consolidation of the junction of the left upper lobe and the left lower lobe measuring 3.4 x 2 cm in size, severe diverticulosis without diverticulitis, mild fullness in the pancreatic tail On today's evaluation of 04/10/2023, condition is essentially unchanged compared to yesterday. No new complaints. No worsening in his respiratory status. Remains on Decadron. No altered mentation. Remains on oxygen at 4 L nasal cannula. Labs were reviewed, white cell count was 23 with a hemoglobin of 8 and a platelet count of 3.5. No evidence of any GI bleeding at this point in time and the patient is currently off anticoagulants. 04/11/2023, essentially no change in his condition. The patient is doing poorly. Very much debilitated. Oral intake is minimal. No worsening in oxygenation. Obviously, he has a terminal form of lung cancer. Recommended hospice care. Remains on 4 L of oxygen by nasal cannula. Patient was reevaluated today on 04/12/23, continues to do poorly, extremely debilitated, patient seems to be failure to thrive. Reviewed his chart, reviewed his labs, reviewed his x-rays of the chest, and I'm strongly recommending hospice on this patient. Objective - Vital Signs Vital signs: Vital Signs Temp 96.9 F L 04/12/23 12:40 Pulse 91 04/12/23 12:40 Resp 18 04/12/23 12:40 BP 107/70 04/12/23 12:40 Pulse Ox 94 L 04/12/23 12:40 FiO2 Intake & Output 04/11/23 04/12/23 04/12/23 18:59 06:59 18:59 Intake Total 477 Output Total 400 300 100 Balance -400 -300 377 Intake: Oral 477 Output: Urine 400 300 100 Other: Voiding Method External Catheter External Catheter External Catheter # Bowel Movements 1 2 - Exam Physical Exam: Revealed a 67-year-old white male, extremely debilitated, and chronically ill. On 3 L nasal cannula. Head: Atraumatic, normocephalic. HEENT:[Neck is supple.] [No neck masses.] [No thyromegaly.] [No JVD.] Chest: [Diminished breath sound bilaterally no rhonchi and no wheezes Cardiac Exam: [Normal S1 and S2, no S3 gallop, no murmur.] Abdomen: [Soft, nontender, no megaly, no rebound, no guarding, normal bowel sounds.] Extremities: [No clubbing, no edema, no cyanosis.] Neurological Exam: Extremely weak, but alert oriented 3, Skin: There are multiple soft tissue cystic lesions on the patient's back - Labs CBC & Chem 7: 04/10/23 07:05 04/09/23 07:15 Assessment and Plan Assessment: Impression: Metastatic pulmonary adenocarcinoma Failure to thrive ischemic cardiomyopathy Multivessel coronary artery disease History of CVA Underlying COPD History of testicular cancer Chronic nicotine dependence Chronic atrial fibrillation Severe aortic stenosis Multivessel coronary artery disease Chronic hypoxic respiratory failure Recommendation: Continue present supportive care measures Strongly recommend hospice and discharged home with hospice. Prognosis is extremely poor and guarded. Time with Patient: Less than 30
[2023-04-12] MEDS ORDERED: MORPHINE SULFATE 4 MG/ML SYRINGE IVP STA (15:57)
--- NOTE | 2023-04-12 18:07 | CDI ---
Documentation Clarification Form Date: 04/12/2023 06:06:16 PM From: Missy Rod RN, CCDS Admit Date: 04/08/2023 11:44:00 PM Patient Name: Kaiden Davis Visit Number: [id number] Discharge Date: ATTENTION: The Clinical Documentation Specialists (CDI) and [facility] Coding Staff appreciate your assistance in clarifying documentation. Please respond to the clarification below the line at the bottom and electronically sign. The CDI & [facility] Coding staff will review the response and follow-up if needed. Please note: Queries are made part of the Legal Health Record. If you have any questions, please contact the author of this message via ITS. Dr. Aydin Walters Your patient has acute respiratory insufficiency documented in the ED clinical impression. Based on this information and the findings below, is there an additional diagnosis that is clinically appropriate for this patient? 04/08 Oncology consult: Acute respiratory insufficiency. Breathing worse since last admission. 94% on 5/L 04/08 Pulmonary consult and progress notes: Chronic hypoxic respiratory failure currently on 4/L of oxygen by nasal cannula. Chronic obstructive pulmonary disease stable. History/Risk Factors: Metastatic cancer lung stage IV, metastasized to brain and liver, Atrial Fibrillation, Heart failure, CVA, hyperlipidemia, Hypertension Renal disease Tobacco use: Current same day smoker Home oxygen: yes 03/29 CT chest: No pneumothorax: Subpleural mall-like consolidation at the junction of the left upper lobe and left lower lobe. Mild partly loculated Left pleural effusion Clinical Indicators: 67-year-old male present with weakness and shortness of breath. Recently diagnosed with metastatic lung cancer and currently undergoing radiation treatment. Respiratory exam: accessory muscle use, decreased breath sounds. He has pedal edema 04/08 Vital signs: 114/85 85 26 98.1 98% 4/L NC, 116/70 91 24 99 % 4/L NC, 04/08 Labs: WBC 17.2, HGB 7.8 HCT 25.0, Co2 21, BUN 127, CR 3.53, Lactic acid 3.9, Troponin 0.041, 0.038, 0.041, BNP 15266 Treatment: Cardiac/Telemetry monitoring Breathing treatments and inhalers per orders Monitor O2 Sat's (titrate) Dexamethasone 4MG PO Q 8 HRS 04/09-04/12, Lasix 40 MG PO Daily 04/09-04/12 Is there an additional diagnosis that is clinically appropriate for this patient? [ x ] Acute on Chronic Hypoxic Respiratory Failure [ ] Chronic hypoxemic Respiratory Failure [ ] Other Diagnosis, please specify [ ] Unable to determine (Template Last Revised: November 2020) MTDD
--- NOTE | 2023-04-12 18:22 | CDI ---
Documentation Clarification Form Date: 04/12/2023 06:08:18 PM From: Missy Rod RN, CCDS Admit Date: 04/08/2023 11:44:00 PM Patient Name: Kaiden Davis Visit Number: [id number] Discharge Date: 04/12/2023 06:03:00 PM ATTENTION: The Clinical Documentation Specialists (CDI) and [facility] Coding Staff appreciate your assistance in clarifying documentation. Please respond to the clarification below the line at the bottom and electronically sign. The CDI & [facility] Coding staff will review the response and follow-up if needed. Please note: Queries are made part of the Legal Health Record. If you have any questions, please contact the author of this message via ITS. Dr. Aydin Walters The Registered Dietitian assessment on 04/09/2023 indicates this patient is underweight with nutrition intake as poor. Based on this information and the findings below, is there an additional diagnosis that is clinically appropriate for this patient? 04/08 ED General appearance: alert, cachectic History/Risk Factors: Metastatic cancer lung stage IV, metastasized to brain and liver, Atrial Fibrillation, Heart failure, CVA, hyperlipidemia, Hypertension Renal disease. Clinical Indicators: 67-year-old male present with weakness and shortness of breath. Recently diagnosed with metastatic lung cancer and currently undergoing radiation treatment. Current BMI: 21.2 Weight 77.111 kg Ld=998, BUN =128 CR =3.52 GFR =17 RD Consult Assessment: underweight potential weight loss associated with catabolic illness BMI<23 kg/m2 04/12 Intake is not supporting nutritional need, pt to discharge home with hospice. Treatment: General/healthful diet Ensure Plus TID Monitor supplement intake. Is there an additional diagnosis that is clinically appropriate for this patient? [ ] Mild Protein-Calorie Malnutrition [ ] Moderate Protein-Calorie Malnutrition [ x] Severe Protein-Calorie Malnutrition [ ] No additional diagnosis/Not clinically significant [ ] Other condition, please specify [ ] Unable to Determine Reference: Using the ASPEN Guidelines, Undernutrition (Malnutrition) is characterized by at least two of the following six findings. The severity can be determined based on the criteria listed below. Malnutrition Characteristics for Moderate and Severe Malnutrition Type of Malnutrition Acute Illness or Injury Chronic Illness Degree of Malnutrition Non-severe (moderate) Malnutrition Severe Malnutrition Non-severe (moderate) Malnutrition Severe Malnutrition (Template Last Revised: March 2023) MTDD
[2023-04-13 09:59] LABS: Methylmalonic Acid 0.54 umol/L (<0.40)
== END 2023-04-12 18:03 | disposition hospice, home (50) | DRG 180 ==
LOC: EC 20:04 → 3SCARD 23:44
PROVIDERS: ADMIT Hospitalist; ATTEND Hospitalist
DX: C34.90 Malignant neoplasm of unspecified part of unspecified bronchus or lung (principal); E43 Unspecified severe protein-calorie malnutrition; J18.9 Pneumonia, unspecified organism; J96.21 Acute and chronic respiratory failure with hypoxia; C78.7 Secondary malignant neoplasm of liver and intrahepatic bile duct; C79.51 Secondary malignant neoplasm of bone; I13.0 Hypertensive heart and chronic kidney disease with heart failure and stage 1 through stage 4 chronic kidney disease, or unspecified chronic kidney disease; I48.19 Other persistent atrial fibrillation; I50.32 Chronic diastolic (congestive) heart failure; J44.0 Chronic obstructive pulmonary disease with (acute) lower respiratory infection; K57.32 Diverticulitis of large intestine without perforation or abscess without bleeding; N13.30 Unspecified hydronephrosis; T82.855A Stenosis of coronary artery stent, initial encounter; E87.20 Acidosis, unspecified; E78.5 Hyperlipidemia, unspecified; F17.210 Nicotine dependence, cigarettes, uncomplicated; I08.3 Combined rheumatic disorders of mitral, aortic and tricuspid valves; I25.10 Atherosclerotic heart disease of native coronary artery without angina pectoris; I25.5 Ischemic cardiomyopathy; K59.00 Constipation, unspecified; M19.91 Primary osteoarthritis, unspecified site; N18.30 Chronic kidney disease, stage 3 unspecified; N40.0 Benign prostatic hyperplasia without lower urinary tract symptoms; R62.7 Adult failure to thrive; Z66 Do not resuscitate; Z79.01 Long term (current) use of anticoagulants; Z79.51 Long term (current) use of inhaled steroids; Z79.899 Other long term (current) drug therapy; Z82.49 Family history of ischemic heart disease and other diseases of the circulatory system; Z85.47 Personal history of malignant neoplasm of testis; Z86.73 Personal history of transient ischemic attack (TIA), and cerebral infarction without residual deficits; Z87.19 Personal history of other diseases of the digestive system; Z92.3 Personal history of irradiation; Z95.810 Presence of automatic (implantable) cardiac defibrillator; Z92.21 Personal history of antineoplastic chemotherapy; Z68.21 Body mass index [BMI] 21.0-21.9, adult
CPT/HCPCS: 36415; 71250; 74176; 80048; 80053; 82272; 82525; 82607; 82728; 82746; 83540; 83550; 83605; 83880; 83921; 84484; 85025; 85610; 85730; 86850; 86900; 86901; 93005; 94640; 94760; 99285; 99406